=== PATIENT | female | born 1935 | race Caucasian/White ===

== ENCOUNTER → 2016-11-19 | Outpatient (CLI) | payer MEDICARE ==
[~2016-11-19] MED LIST: BABY81CH; FERR325T; FOLI1TAB; INDOCIN PO; METH2.5T; MOTR200T4; PERC5TAB8; SILVADENE TOPICAL; THERGRAN; ZEBE5TAB; ZITHROZPAK PO
[2016-11-19 06:37] LABS: BASO % 0.6 % (0.0-1.0); EOS # 0.3 K/mm3 (0.0-0.50); EOS % 4.3 % (0.0-3.0); LARGE UNSTAINED CELL # 0.1 K/mm3 (0.0-0.4); LARGE UNSTAINED CELL % 1.9 % (0.0-4.0); LYMPH # 1.6 K/mm3 (1.5-4.5); LYMPH % 22.3 % (24.0-44.0); MEAN CORPUSCULAR HEMOGLOBIN 28.4 pg (27.0-33.0); MEAN CORPUSCULAR VOLUME 88.6 fl (80.0-96.0); MONO # 0.4 K/mm3 (0.0-0.8); MONO % 5.9 % (0.0-5.0); NEUTROPHILS # 4.4 K/mm3 (1.8-7.7); PLATELET COUNT, AUTOMATED 294 k/mm3 (150-450); RED CELL DISTRIBUTION WIDTH 16.8 % (11.5-14.5); WHITE BLOOD COUNT 6.8 K/mm3 (4.0-10.0)
[2016-11-19 06:56] LABS: ALBUMIN 3.6 GM/DL (3.2-5.2); ALT/SGPT 28 U/L (12-78); GLOMERULAR FILTRATION RATE > 60.0 (>39)
== END ==
LOC: M LAB 06:04
PROVIDERS: ATTEND Internal Medicine Rheumatology
DX: M05.79 Rheumatoid arthritis with rheumatoid factor of multiple sites without organ or systems involvement (principal); Z79.899 Other long term (current) drug therapy

== ENCOUNTER → 2017-01-15 | Outpatient (CLI) | payer MEDICARE ==
[2017-01-15 06:56] LABS: BASO % 0.6 % (0.0-1.0); EOS # 0.4 K/mm3 (0.0-0.50); EOS % 4.9 % (0.0-3.0); LARGE UNSTAINED CELL # 0.1 K/mm3 (0.0-0.4); LYMPH # 1.4 K/mm3 (1.5-4.5); LYMPH % 17.8 % (24.0-44.0); MEAN CORPUSCULAR HEMOGLOBIN 28.5 pg (27.0-33.0); MEAN CORPUSCULAR HGB CONC 32.6 g/dl (32.0-36.5); MEAN CORPUSCULAR VOLUME 87.3 fl (80.0-96.0); MONO # 0.4 K/mm3 (0.0-0.8); MONO % 5.3 % (0.0-5.0); NEUTROPHILS % 69.5 % (36.0-66.0); PLATELET COUNT, AUTOMATED 288 k/mm3 (150-450); RED CELL DISTRIBUTION WIDTH 16.5 % (11.5-14.5); WHITE BLOOD COUNT 7.2 K/mm3 (4.0-10.0)
[2017-01-15 07:11] LABS: ALBUMIN 3.7 GM/DL (3.2-5.2); ALT/SGPT 29 U/L (12-78); CREATININE FOR GFR 0.71 MG/DL (0.55-1.02); GLOMERULAR FILTRATION RATE > 60.0 (>39)
== END ==
LOC: M LAB 06:12
PROVIDERS: ATTEND Internal Medicine Rheumatology
DX: M05.79 Rheumatoid arthritis with rheumatoid factor of multiple sites without organ or systems involvement (principal); E55.9 Vitamin D deficiency, unspecified; Z79.899 Other long term (current) drug therapy

== ENCOUNTER → 2017-03-12 | Outpatient (CLI) | payer MEDICARE ==
[2017-03-12 07:15] LABS: BASO % 0.6 % (0.0-1.0); EOS # 0.3 K/mm3 (0.0-0.50); LARGE UNSTAINED CELL # 0.1 K/mm3 (0.0-0.4); LARGE UNSTAINED CELL % 1.4 % (0.0-4.0); LYMPH # 1.5 K/mm3 (1.5-4.5); LYMPH % 18.1 % (24.0-44.0); MEAN CORPUSCULAR HEMOGLOBIN 28.1 pg (27.0-33.0); MEAN CORPUSCULAR HGB CONC 32.4 g/dl (32.0-36.5); MEAN CORPUSCULAR VOLUME 86.7 fl (80.0-96.0); MONO # 0.5 K/mm3 (0.0-0.8); MONO % 5.6 % (0.0-5.0); NEUTROPHILS # 5.6 K/mm3 (1.8-7.7); NEUTROPHILS % 70.2 % (36.0-66.0); PLATELET COUNT, AUTOMATED 305 k/mm3 (150-450); RED CELL DISTRIBUTION WIDTH 16.4 % (11.5-14.5); WHITE BLOOD COUNT 7.9 K/mm3 (4.0-10.0)
[2017-03-12 07:36] LABS: ALBUMIN 3.7 GM/DL (3.2-5.2); ALT/SGPT 28 U/L (12-78); CREATININE FOR GFR 0.78 MG/DL (0.55-1.02); GLOMERULAR FILTRATION RATE > 60.0 (>39)
== END ==
LOC: M LAB 06:15
PROVIDERS: ATTEND Internal Medicine Rheumatology
DX: E55.9 Vitamin D deficiency, unspecified (principal); M05.79 Rheumatoid arthritis with rheumatoid factor of multiple sites without organ or systems involvement; Z79.899 Other long term (current) drug therapy

== ENCOUNTER → 2017-05-26 | Outpatient (CLI) | payer MEDICARE ==
[2017-05-26 06:57] LABS: BASO # 0.1 K/mm3 (0.0-0.2); EOS # 0.3 K/mm3 (0.0-0.50); EOS % 3.7 % (0.0-3.0); LARGE UNSTAINED CELL # 0.2 K/mm3 (0.0-0.4); LARGE UNSTAINED CELL % 2.2 % (0.0-4.0); LYMPH # 1.4 K/mm3 (1.5-4.5); LYMPH % 20.1 % (24.0-44.0); MEAN CORPUSCULAR HEMOGLOBIN 28.1 pg (27.0-33.0); MEAN CORPUSCULAR HGB CONC 32.5 g/dl (32.0-36.5); MEAN CORPUSCULAR VOLUME 86.5 fl (80.0-96.0); MONO # 0.3 K/mm3 (0.0-0.8); MONO % 4.3 % (0.0-5.0); NEUTROPHILS # 4.9 K/mm3 (1.8-7.7); NEUTROPHILS % 68.7 % (36.0-66.0); PLATELET COUNT, AUTOMATED 308 k/mm3 (150-450); RED CELL DISTRIBUTION WIDTH 17.6 % (11.5-14.5); WHITE BLOOD COUNT 7.1 K/mm3 (4.0-10.0)
[2017-05-26 07:27] LABS: ALBUMIN 3.6 GM/DL (3.2-5.2); ALT/SGPT 25 U/L (12-78); CREATININE FOR GFR 0.74 MG/DL (0.55-1.02); GLOMERULAR FILTRATION RATE > 60.0 (>39)
== END ==
LOC: M LAB 06:06
PROVIDERS: ATTEND Internal Medicine Rheumatology
DX: M05.79 Rheumatoid arthritis with rheumatoid factor of multiple sites without organ or systems involvement (principal)

== ENCOUNTER → 2017-07-02 | Outpatient (CLI) | payer MEDICARE | LOC: M LAB 06:27 | PROVIDERS: ATTEND Family Medicine | DX: R73.01 Impaired fasting glucose (principal) ==

== ENCOUNTER → 2017-07-23 | Outpatient (CLI) | payer MEDICARE ==
[2017-07-23 06:43] LABS: BASO # 0.1 10^3/uL (0.0-0.2); BASO % 0.9 % (0.0-1.0); EOS # 0.3 10^3/uL (0.0-0.50); EOS % 3.9 % (0.0-3.0); IMMATURE GRANULOCYTE % 0.4 % (0-0); LYMPH # 1.5 10^3/uL (1.5-4.5); LYMPH % 19.3 % (24.0-44.0); MEAN CORPUSCULAR HEMOGLOBIN 27.6 pg (27.0-33.0); MEAN CORPUSCULAR HGB CONC 31.3 g/dl (32.0-36.5); MEAN CORPUSCULAR VOLUME 88.3 fl (80.0-96.0); MONO # 0.7 10^3/uL (0.0-0.8); MONO % 8.4 % (0.0-5.0); NEUTROPHILS # 5.3 10^3/uL (1.8-7.7); NEUTROPHILS % 67.1 % (36.0-66.0); PLATELET COUNT, AUTOMATED 284 10^3/uL (150-450); RED CELL DISTRIBUTION WIDTH 18.6 % (11.5-14.5); WHITE BLOOD COUNT 7.9 10^3/uL (4.0-10.0)
[2017-07-23 07:04] LABS: ALBUMIN 3.8 GM/DL (3.2-5.2); ALT/SGPT 24 U/L (12-78); CREATININE FOR GFR 0.69 MG/DL (0.55-1.02); GLOMERULAR FILTRATION RATE > 60.0 (>32)
== END ==
LOC: M LAB 06:16
PROVIDERS: ATTEND Internal Medicine Rheumatology
DX: M05.79 Rheumatoid arthritis with rheumatoid factor of multiple sites without organ or systems involvement (principal); Z79.899 Other long term (current) drug therapy

== ENCOUNTER → 2017-09-08 | Outpatient (CLI) | payer MEDICARE ==
[2017-09-08 06:56] LABS: BASO # 0.1 10^3/uL (0.0-0.2); BASO % 0.9 % (0.0-1.0); EOS # 0.3 10^3/uL (0.0-0.50); EOS % 3.8 % (0.0-3.0); IMMATURE GRANULOCYTE % 0.4 % (0-0); LYMPH # 1.6 10^3/uL (1.5-4.5); LYMPH % 20.7 % (24.0-44.0); MEAN CORPUSCULAR HEMOGLOBIN 27.8 pg (27.0-33.0); MEAN CORPUSCULAR HGB CONC 31.6 g/dl (32.0-36.5); MEAN CORPUSCULAR VOLUME 87.9 fl (80.0-96.0); MONO # 0.5 10^3/uL (0.0-0.8); MONO % 6.9 % (0.0-5.0); NEUTROPHILS # 5.1 10^3/uL (1.8-7.7); NEUTROPHILS % 67.3 % (36.0-66.0); PLATELET COUNT, AUTOMATED 326 10^3/uL (150-450); RED CELL DISTRIBUTION WIDTH 18.1 % (11.5-14.5); WHITE BLOOD COUNT 7.6 10^3/uL (4.0-10.0)
[2017-09-08 07:18] LABS: ALBUMIN 3.7 GM/DL (3.2-5.2); ALT/SGPT 30 U/L (12-78); CREATININE FOR GFR 0.67 MG/DL (0.55-1.02); GLOMERULAR FILTRATION RATE > 60.0 (>32)
== END ==
LOC: M LAB 06:11
PROVIDERS: ATTEND Internal Medicine Rheumatology
DX: Z51.81 Encounter for therapeutic drug level monitoring (principal); M05.79 Rheumatoid arthritis with rheumatoid factor of multiple sites without organ or systems involvement; Z79.899 Other long term (current) drug therapy

== ENCOUNTER → 2017-11-19 | Outpatient (CLI) | payer MEDICARE ==
[2017-11-19 06:52] LABS: BASO # 0.1 10^3/uL (0.0-0.2); EOS # 0.4 10^3/uL (0.0-0.50); EOS % 5.2 % (0.0-3.0); HEMATOCRIT 40.1 % (36.0-47.0); HEMOGLOBIN 12.4 g/dl (12.0-16.0); IMMATURE GRANULOCYTE % 0.4 % (0-3.0); LYMPH # 1.5 10^3/uL (1.5-4.5); LYMPH % 20.5 % (24.0-44.0); MEAN CORPUSCULAR HEMOGLOBIN 27.4 pg (27.0-33.0); MEAN CORPUSCULAR HGB CONC 30.9 g/dl (32.0-36.5); MEAN CORPUSCULAR VOLUME 88.7 fl (80.0-96.0); MONO # 0.7 10^3/uL (0.0-0.8); MONO % 10.2 % (0.0-5.0); NEUTROPHILS # 4.4 10^3/uL (1.8-7.7); NEUTROPHILS % 62.7 % (36.0-66.0); PLATELET COUNT, AUTOMATED 305 10^3/uL (150-450); RED BLOOD COUNT 4.52 10^6/uL (4.00-5.40); RED CELL DISTRIBUTION WIDTH 17.4 % (11.5-14.5); WHITE BLOOD COUNT 7.1 10^3/uL (4.0-10.0)
[2017-11-19 06:58] LABS: ALBUMIN 3.8 GM/DL (3.2-5.2); ALT/SGPT 26 U/L (12-78); CREATININE FOR GFR 0.74 MG/DL (0.55-1.30); GLOMERULAR FILTRATION RATE > 60.0 (>32)
== END ==
LOC: M LAB 06:30
DX: M05.79 Rheumatoid arthritis with rheumatoid factor of multiple sites without organ or systems involvement (principal)
CPT/HCPCS: 84460

== ENCOUNTER → 2018-01-20 | Outpatient (CLI) | payer MEDICARE ==
[2018-01-20 06:33] LABS: BASO # 0.1 10^3/uL (0.0-0.2); BASO % 0.6 % (0.0-1.0); EOS # 0.4 10^3/uL (0.0-0.50); EOS % 4.6 % (0.0-3.0); HEMATOCRIT 39.1 % (36.0-47.0); HEMOGLOBIN 12.3 g/dl (12.0-15.5); IMMATURE GRANULOCYTE % 0.5 % (0-3.0); LYMPH # 1.7 10^3/uL (1.5-4.5); LYMPH % 20.4 % (24.0-44.0); MEAN CORPUSCULAR HEMOGLOBIN 26.5 pg (27.0-33.0); MEAN CORPUSCULAR HGB CONC 31.5 g/dl (32.0-36.5); MEAN CORPUSCULAR VOLUME 84.3 fl (80.0-96.0); MONO # 0.6 10^3/uL (0.0-0.8); MONO % 7.8 % (0.0-5.0); NEUTROPHILS # 5.3 10^3/uL (1.8-7.7); NEUTROPHILS % 66.1 % (36.0-66.0); PLATELET COUNT, AUTOMATED 348 10^3/uL (150-450); RED BLOOD COUNT 4.64 10^6/uL (4.00-5.40); RED CELL DISTRIBUTION WIDTH 16.6 % (11.5-14.5); WHITE BLOOD COUNT 8.1 10^3/uL (4.0-10.0)
[2018-01-20 06:58] LABS: ALBUMIN 3.7 GM/DL (3.2-5.2); ALT/SGPT 25 U/L (12-78); CREATININE FOR GFR 0.76 MG/DL (0.55-1.30); GLOMERULAR FILTRATION RATE > 60.0 (>32)
== END ==
LOC: M LAB 06:04
DX: Z79.899 Other long term (current) drug therapy (principal); M05.79 Rheumatoid arthritis with rheumatoid factor of multiple sites without organ or systems involvement
CPT/HCPCS: 84460

== ENCOUNTER → 2018-04-06 | Outpatient (CLI) | payer MEDICARE ==
[2018-04-06 06:39] LABS: BASO # 0.1 10^3/uL (0.0-0.2); BASO % 0.9 % (0.0-1.0); EOS # 0.3 10^3/uL (0.0-0.50); EOS % 3.5 % (0.0-3.0); HEMATOCRIT 36.9 % (36.0-47.0); HEMOGLOBIN 11.5 g/dl (12.0-15.5); IMMATURE GRANULOCYTE % 0.2 % (0-3.0); LYMPH # 1.9 10^3/uL (1.5-4.5); LYMPH % 23.6 % (24.0-44.0); MEAN CORPUSCULAR HEMOGLOBIN 25.6 pg (27.0-33.0); MEAN CORPUSCULAR HGB CONC 31.2 g/dl (32.0-36.5); MONO # 0.5 10^3/uL (0.0-0.8); MONO % 6.3 % (0.0-5.0); NEUTROPHILS # 5.4 10^3/uL (1.8-7.7); NEUTROPHILS % 65.5 % (36.0-66.0); PLATELET COUNT, AUTOMATED 349 10^3/uL (150-450); RED CELL DISTRIBUTION WIDTH 18.8 % (11.5-14.5); WHITE BLOOD COUNT 8.2 10^3/uL (4.0-10.0)
[2018-04-06 07:01] LABS: ESTIMATED AVERAGE GLUCOSE 128 MG/DL (60-110); HEMOGLOBIN A1c 6.1 %
[2018-04-06 07:27] LABS: ALBUMIN 3.7 GM/DL (3.2-5.2); ALBUMIN/GLOBULIN RATIO 0.97 (1.00-1.93); ALKALINE PHOSPHATASE 78 U/L (45-117); ALT/SGPT 27 U/L (12-78); ANION GAP 10 MEQ/L (8-16); AST/SGOT 14 U/L (7-37); BILIRUBIN,TOTAL 0.3 MG/DL (0.2-1.0); BLOOD UREA NITROGEN 25 MG/DL (7-18); CALCIUM LEVEL 8.6 MG/DL (8.8-10.2); CARBON DIOXIDE LEVEL 27 MEQ/L (21-32); CHLORIDE LEVEL 106 MEQ/L (98-107); CREATININE FOR GFR 0.79 MG/DL (0.55-1.30); GLOMERULAR FILTRATION RATE > 60.0 (>32); GLUCOSE, FASTING 110 MG/DL (70-100); POTASSIUM SERUM 4.7 MEQ/L (3.5-5.1); SODIUM LEVEL 143 MEQ/L (136-145); TOTAL PROTEIN 7.5 GM/DL (6.4-8.2)
[2018-04-06 08:10] LABS: TOTAL 25(OH) VITAMIN D 19.2 NG/ML (30.0-100.0)
== END ==
LOC: M LAB 06:04
DX: E55.9 Vitamin D deficiency, unspecified (principal); R73.01 Impaired fasting glucose; E07.9 Disorder of thyroid, unspecified; I10 Essential (primary) hypertension
CPT/HCPCS: 84443

== ENCOUNTER → 2018-06-09 | Outpatient (CLI) | payer MEDICARE ==
[2018-06-09 06:56] LABS: BASO # 0.1 10^3/uL (0.0-0.2); BASO % 0.8 % (0.0-1.0); EOS # 0.3 10^3/uL (0.0-0.50); EOS % 3.8 % (0.0-3.0); HEMATOCRIT 39.2 % (36.0-47.0); HEMOGLOBIN 12.2 g/dl (12.0-15.5); IMMATURE GRANULOCYTE % 0.2 % (0-3.0); LYMPH # 1.8 10^3/uL (1.5-4.5); LYMPH % 21.6 % (24.0-44.0); MEAN CORPUSCULAR HEMOGLOBIN 26.1 pg (27.0-33.0); MEAN CORPUSCULAR HGB CONC 31.1 g/dl (32.0-36.5); MEAN CORPUSCULAR VOLUME 83.8 fl (80.0-96.0); MONO # 0.6 10^3/uL (0.0-0.8); NEUTROPHILS # 5.5 10^3/uL (1.8-7.7); NEUTROPHILS % 66.6 % (36.0-66.0); PLATELET COUNT, AUTOMATED 344 10^3/uL (150-450); RED BLOOD COUNT 4.68 10^6/uL (4.00-5.40); RED CELL DISTRIBUTION WIDTH 20.5 % (11.5-14.5); WHITE BLOOD COUNT 8.2 10^3/uL (4.0-10.0)
[2018-06-09 07:15] LABS: ALBUMIN 3.8 GM/DL (3.2-5.2); ALT/SGPT 23 U/L (12-78); CREATININE FOR GFR 0.77 MG/DL (0.55-1.30); GLOMERULAR FILTRATION RATE > 60.0 (>32)
== END ==
LOC: M LAB 06:15
DX: Z51.81 Encounter for therapeutic drug level monitoring (principal); Z79.899 Other long term (current) drug therapy; M05.79 Rheumatoid arthritis with rheumatoid factor of multiple sites without organ or systems involvement
CPT/HCPCS: 84460

== ENCOUNTER → 2018-08-06 | Outpatient (CLI) | payer MEDICARE ==
[2018-08-06 07:28] LABS: BASO # 0.1 10^3/uL (0.0-0.2); BASO % 0.9 % (0.0-1.0); EOS # 0.3 10^3/uL (0.0-0.50); EOS % 4.2 % (0.0-3.0); HEMATOCRIT 39.4 % (36.0-47.0); HEMOGLOBIN 12.2 g/dl (12.0-15.5); IMMATURE GRANULOCYTE % 0.2 % (0-3.0); LYMPH # 1.9 10^3/uL (1.5-4.5); LYMPH % 23.1 % (24.0-44.0); MEAN CORPUSCULAR HEMOGLOBIN 26.6 pg (27.0-33.0); MONO # 0.7 10^3/uL (0.0-0.8); MONO % 8.5 % (0.0-5.0); NEUTROPHILS # 5.1 10^3/uL (1.8-7.7); NEUTROPHILS % 63.1 % (36.0-66.0); PLATELET COUNT, AUTOMATED 338 10^3/uL (150-450); RED BLOOD COUNT 4.58 10^6/uL (4.00-5.40)
[2018-08-06 07:50] LABS: ESTIMATED AVERAGE GLUCOSE 126 MG/DL (60-110)
[2018-08-06 08:08] LABS: ALBUMIN 3.8 GM/DL (3.2-5.2); ALBUMIN/GLOBULIN RATIO 1.12 (1.00-1.93); ALKALINE PHOSPHATASE 75 U/L (45-117); ALT/SGPT 27 U/L (12-78); ANION GAP 8 MEQ/L (8-16); AST/SGOT 15 U/L (7-37); BILIRUBIN,TOTAL 0.2 MG/DL (0.2-1.0); BLOOD UREA NITROGEN 19 MG/DL (7-18); CALCIUM LEVEL 9.2 MG/DL (8.8-10.2); CARBON DIOXIDE LEVEL 28 MEQ/L (21-32); CHLORIDE LEVEL 105 MEQ/L (98-107); CREATININE FOR GFR 0.69 MG/DL (0.55-1.30); GLOMERULAR FILTRATION RATE > 60.0 (>32); GLUCOSE, FASTING 118 MG/DL (70-100); POTASSIUM SERUM 4.5 MEQ/L (3.5-5.1); SODIUM LEVEL 141 MEQ/L (136-145); TOTAL PROTEIN 7.2 GM/DL (6.4-8.2)
[2018-08-06 09:30] LABS: TOTAL 25(OH) VITAMIN D 19.8 NG/ML (30.0-100.0)
== END ==
LOC: M LAB 06:19
DX: R73.01 Impaired fasting glucose (principal); E55.9 Vitamin D deficiency, unspecified; E07.9 Disorder of thyroid, unspecified; I10 Essential (primary) hypertension; Z79.899 Other long term (current) drug therapy
CPT/HCPCS: 84443

== ENCOUNTER → 2018-12-10 | Outpatient (CLI) | payer MEDICARE ==
[2018-12-10 06:59] LABS: BASO # 0.1 10^3/uL (0.0-0.2); BASO % 0.9 % (0.0-1.0); EOS # 0.3 10^3/uL (0.0-0.50); HEMATOCRIT 41.1 % (36.0-47.0); HEMOGLOBIN 12.5 g/dl (12.0-15.5); LYMPH # 1.4 10^3/uL (1.5-4.5); MEAN CORPUSCULAR HGB CONC 30.4 g/dl (32.0-36.5); MEAN CORPUSCULAR VOLUME 85.6 fl (80.0-96.0); MONO # 0.6 10^3/uL (0.0-0.8); MONO % 7.4 % (0.0-5.0); NEUTROPHILS # 5.6 10^3/uL (1.8-7.7); NEUTROPHILS % 70.3 % (36.0-66.0); PLATELET COUNT, AUTOMATED 316 10^3/uL (150-450)
[2018-12-10 07:39] LABS: ALBUMIN 3.7 GM/DL (3.2-5.2); ALT/SGPT 27 U/L (12-78); BILIRUBIN,TOTAL 0.3 MG/DL (0.2-1.0); BLOOD UREA NITROGEN 17 MG/DL (7-18); CALCIUM LEVEL 8.4 MG/DL (8.8-10.2); CARBON DIOXIDE LEVEL 28 MEQ/L (21-32); CHLORIDE LEVEL 107 MEQ/L (98-107); CREATININE FOR GFR 0.73 MG/DL (0.55-1.30); GLOMERULAR FILTRATION RATE > 60.0 (>32); GLUCOSE, FASTING 111 MG/DL (70-100); POTASSIUM SERUM 4.4 MEQ/L (3.5-5.1); SODIUM LEVEL 143 MEQ/L (136-145); TOTAL PROTEIN 7.5 GM/DL (6.4-8.2)
[2018-12-10 10:07] LABS: HEMOGLOBIN A1c 6.1 %
[2018-12-10 10:08] LABS: TOTAL 25(OH) VITAMIN D 25.6 NG/ML (30.0-100.0)
== END ==
LOC: M LAB 06:34
PROVIDERS: ATTEND Family Medicine
DX: E55.9 Vitamin D deficiency, unspecified (principal); R73.01 Impaired fasting glucose; E07.9 Disorder of thyroid, unspecified; I10 Essential (primary) hypertension

== ENCOUNTER → 2019-02-15 | Outpatient (CLI) | payer MEDICARE ==
[2019-02-15 07:13] LABS: BASO # 0.1 10^3/uL (0.0-0.2); BASO % 0.8 % (0.0-1.0); EOS # 0.4 10^3/uL (0.0-0.50); EOS % 5.4 % (0.0-3.0); HEMATOCRIT 39.5 % (36.0-47.0); LYMPH # 1.4 10^3/uL (1.5-4.5); LYMPH % 18.4 % (24.0-44.0); MEAN CORPUSCULAR HEMOGLOBIN 26.1 pg (27.0-33.0); MEAN CORPUSCULAR HGB CONC 30.4 g/dl (32.0-36.5); MEAN CORPUSCULAR VOLUME 85.9 fl (80.0-96.0); MONO # 0.5 10^3/uL (0.0-0.8); MONO % 6.9 % (0.0-5.0); NEUTROPHILS # 5.1 10^3/uL (1.8-7.7); NEUTROPHILS % 68.2 % (36.0-66.0); PLATELET COUNT, AUTOMATED 326 10^3/uL (150-450); WHITE BLOOD COUNT 7.4 10^3/uL (4.0-10.0)
[2019-02-15 07:31] LABS: ALBUMIN 3.7 GM/DL (3.2-5.2); ALT/SGPT 30 U/L (12-78); BILIRUBIN,TOTAL 0.3 MG/DL (0.2-1.0); BLOOD UREA NITROGEN 19 MG/DL (7-18); CALCIUM LEVEL 8.9 MG/DL (8.8-10.2); CARBON DIOXIDE LEVEL 28 MEQ/L (21-32); CHLORIDE LEVEL 107 MEQ/L (98-107); CREATININE FOR GFR 0.66 MG/DL (0.55-1.30); GLOMERULAR FILTRATION RATE > 60.0 (>32); GLUCOSE, FASTING 109 MG/DL (70-100); POTASSIUM SERUM 4.4 MEQ/L (3.5-5.1); SODIUM LEVEL 142 MEQ/L (136-145)
[2019-02-15 09:20] LABS: TOTAL 25(OH) VITAMIN D 32.4 NG/ML (30.0-100.0)
[2019-02-15 12:52] LABS: HEMOGLOBIN A1c 6.3 %
== END ==
LOC: M LAB 06:11
PROVIDERS: ATTEND Family Medicine
DX: E55.9 Vitamin D deficiency, unspecified (principal); R73.01 Impaired fasting glucose; E07.9 Disorder of thyroid, unspecified; I10 Essential (primary) hypertension

== ENCOUNTER → 2019-04-05 | Outpatient (CLI) | payer MEDICARE ==
[2019-04-05 08:01] LABS: BASO # 0.1 10^3/uL (0.0-0.2); EOS # 0.4 10^3/uL (0.0-0.50); EOS % 6.4 % (0.0-3.0); HEMATOCRIT 41.2 % (36.0-47.0); HEMOGLOBIN 12.6 g/dl (12.0-15.5); LYMPH # 1.1 10^3/uL (1.5-4.5); LYMPH % 18.4 % (24.0-44.0); MEAN CORPUSCULAR HEMOGLOBIN 26.7 pg (27.0-33.0); MEAN CORPUSCULAR HGB CONC 30.6 g/dl (32.0-36.5); MEAN CORPUSCULAR VOLUME 87.3 fl (80.0-96.0); MONO # 0.6 10^3/uL (0.0-0.8); NEUTROPHILS # 3.9 10^3/uL (1.8-7.7); NEUTROPHILS % 63.9 % (36.0-66.0); PLATELET COUNT, AUTOMATED 320 10^3/uL (150-450); RED BLOOD COUNT 4.72 10^6/uL (4.00-5.40); WHITE BLOOD COUNT 6.1 10^3/uL (4.0-10.0)
[2019-04-05 08:20] LABS: HEMOGLOBIN A1c 6.3 %
[2019-04-05 08:54] LABS: ALBUMIN 3.6 GM/DL (3.2-5.2); ALT/SGPT 31 U/L (12-78); BILIRUBIN,TOTAL 0.3 MG/DL (0.2-1.0); BLOOD UREA NITROGEN 18 MG/DL (7-18); CARBON DIOXIDE LEVEL 24 MEQ/L (21-32); CHLORIDE LEVEL 107 MEQ/L (98-107); CREATININE FOR GFR 0.75 MG/DL (0.55-1.30); GLOMERULAR FILTRATION RATE > 60.0 (>32); GLUCOSE, FASTING 104 MG/DL (70-100); POTASSIUM SERUM 4.6 MEQ/L (3.5-5.1); SODIUM LEVEL 141 MEQ/L (136-145); TOTAL PROTEIN 7.3 GM/DL (6.4-8.2)
[2019-04-05 09:02] LABS: TOTAL 25(OH) VITAMIN D 37.2 NG/ML (30.0-100.0)
== END ==
LOC: M LAB 06:19
PROVIDERS: ATTEND Family Medicine
DX: E55.9 Vitamin D deficiency, unspecified (principal); R73.01 Impaired fasting glucose; I10 Essential (primary) hypertension; E07.9 Disorder of thyroid, unspecified

== ENCOUNTER → 2019-06-09 | Outpatient (CLI) | payer MEDICARE ==
[2019-06-09 07:02] LABS: BASO % 0.6 % (0.0-1.0); EOS # 0.3 10^3/uL (0.0-0.5); EOS % 4.8 % (0.0-3.0); HEMATOCRIT 38.3 % (36.0-47.0); LYMPH # 1.3 10^3/uL (1.5-5.0); LYMPH % 20.2 % (24.0-44.0); MEAN CORPUSCULAR HEMOGLOBIN 26.7 pg (27.0-33.0); MEAN CORPUSCULAR HGB CONC 31.3 g/dl (32.0-36.5); MEAN CORPUSCULAR VOLUME 85.3 fl (80.0-96.0); MONO # 0.7 10^3/uL (0.0-0.8); MONO % 10.6 % (0.0-5.0); NEUTROPHILS # 4.1 10^3/uL (1.5-8.5); NEUTROPHILS % 63.3 % (36.0-66.0); PLATELET COUNT, AUTOMATED 306 10^3/uL (150-450); RED BLOOD COUNT 4.49 10^6/uL (4.00-5.40); WHITE BLOOD COUNT 6.5 10^3/uL (4.0-10.0)
[2019-06-09 07:41] LABS: ALBUMIN 3.6 GM/DL (3.2-5.2); ALT/SGPT 28 U/L (12-78); BILIRUBIN,TOTAL 0.3 MG/DL (0.2-1.0); BLOOD UREA NITROGEN 23 MG/DL (7-18); CALCIUM LEVEL 9.1 MG/DL (8.8-10.2); CARBON DIOXIDE LEVEL 27 MEQ/L (21-32); CHLORIDE LEVEL 106 MEQ/L (98-107); CREATININE FOR GFR 0.76 MG/DL (0.55-1.30); GLOMERULAR FILTRATION RATE > 60.0 (>32); GLUCOSE, FASTING 110 MG/DL (70-100); POTASSIUM SERUM 4.5 MEQ/L (3.5-5.1); SODIUM LEVEL 143 MEQ/L (136-145)
[2019-06-09 08:14] LABS: TOTAL 25(OH) VITAMIN D 46.7 NG/ML (30.0-100.0)
== END ==
LOC: M LAB 06:16
PROVIDERS: ATTEND Family Medicine
DX: E55.9 Vitamin D deficiency, unspecified (principal); I10 Essential (primary) hypertension; E07.9 Disorder of thyroid, unspecified; R73.01 Impaired fasting glucose; Z79.899 Other long term (current) drug therapy

== ENCOUNTER → 2019-09-07 | Outpatient (CLI) | payer MEDICARE ==
[2019-09-07 06:59] LABS: BASO # 0.1 10^3/uL (0.0-0.2); BASO % 0.9 % (0.0-1.0); EOS # 0.3 10^3/uL (0.0-0.5); EOS % 3.4 % (0.0-3.0); HEMATOCRIT 41.8 % (36.0-47.0); HEMOGLOBIN 12.5 g/dl (12.0-15.5); LYMPH # 1.5 10^3/uL (1.5-5.0); LYMPH % 18.3 % (24.0-44.0); MEAN CORPUSCULAR HEMOGLOBIN 26.4 pg (27.0-33.0); MEAN CORPUSCULAR HGB CONC 29.9 g/dl (32.0-36.5); MEAN CORPUSCULAR VOLUME 88.2 fl (80.0-96.0); MONO # 0.5 10^3/uL (0.0-0.8); NEUTROPHILS # 5.8 10^3/uL (1.5-8.5); PLATELET COUNT, AUTOMATED 352 10^3/uL (150-450); RED BLOOD COUNT 4.74 10^6/uL (4.00-5.40); WHITE BLOOD COUNT 8.2 10^3/uL (4.0-10.0)
[2019-09-07 07:21] LABS: HEMOGLOBIN A1c 5.9 %
[2019-09-07 07:37] LABS: ALBUMIN 3.8 GM/DL (3.2-5.2); ALT/SGPT 31 U/L (12-78); BILIRUBIN,TOTAL 0.5 MG/DL (0.2-1.0); BLOOD UREA NITROGEN 23 MG/DL (7-18); CALCIUM LEVEL 9.2 MG/DL (8.8-10.2); CARBON DIOXIDE LEVEL 30 MEQ/L (21-32); CHLORIDE LEVEL 105 MEQ/L (98-107); CHOLESTEROL LEVEL 170 MG/DL (<200); CHOLESTEROL RISK RATIO 4.473 (<5); CREATININE FOR GFR 0.84 MG/DL (0.55-1.30); GLOMERULAR FILTRATION RATE > 60.0 (>32); GLUCOSE, FASTING 109 MG/DL (70-100); HDL CHOLESTEROL 38 MG/DL (>40); LDL CHOLESTEROL 103 MG/DL (<100); NON-HDL-C 132 MG/DL; POTASSIUM SERUM 4.6 MEQ/L (3.5-5.1); SODIUM LEVEL 141 MEQ/L (136-145); TOTAL PROTEIN 7.5 GM/DL (6.4-8.2); TRIGLYCERIDES LEVEL 144 MG/DL (<150)
[2019-09-07 10:06] LABS: TOTAL 25(OH) VITAMIN D 38.3 NG/ML (30.0-100.0)
== END ==
LOC: M LAB 06:17
PROVIDERS: ATTEND Family Medicine
DX: E55.9 Vitamin D deficiency, unspecified (principal); I10 Essential (primary) hypertension; R73.01 Impaired fasting glucose; E07.9 Disorder of thyroid, unspecified

== ENCOUNTER → 2019-11-16 | Outpatient (CLI) | payer MEDICARE ==
[2019-11-16 07:02] LABS: HEMATOCRIT 40.3 % (36.0-47.0); HEMOGLOBIN 11.9 g/dl (12.0-15.5); MEAN CORPUSCULAR HEMOGLOBIN 26.2 pg (27.0-33.0); MEAN CORPUSCULAR HGB CONC 29.5 g/dl (32.0-36.5); MEAN CORPUSCULAR VOLUME 88.6 fl (80.0-96.0); PLATELET COUNT, AUTOMATED 333 10^3/uL (150-450); RED BLOOD COUNT 4.55 10^6/uL (4.00-5.40); WHITE BLOOD COUNT 7.1 10^3/uL (4.0-10.0)
[2019-11-16 07:38] LABS: ALBUMIN 3.9 GM/DL (3.2-5.2); ALT/SGPT 30 U/L (12-78); BILIRUBIN,TOTAL 0.4 MG/DL (0.2-1.0); BLOOD UREA NITROGEN 22 MG/DL (7-18); CALCIUM LEVEL 9.1 MG/DL (8.8-10.2); CARBON DIOXIDE LEVEL 30 MEQ/L (21-32); CHLORIDE LEVEL 104 MEQ/L (98-107); CREATININE FOR GFR 0.74 MG/DL (0.55-1.30); GLOMERULAR FILTRATION RATE > 60.0 (>32); GLUCOSE, FASTING 121 MG/DL (70-100); POTASSIUM SERUM 4.6 MEQ/L (3.5-5.1); SODIUM LEVEL 140 MEQ/L (136-145); TOTAL PROTEIN 7.4 GM/DL (6.4-8.2)
== END ==
LOC: M LAB 06:11
PROVIDERS: ATTEND Family Medicine
DX: I10 Essential (primary) hypertension (principal)

== ENCOUNTER → 2020-02-08 | Outpatient (CLI) | payer MEDICARE ==
[2020-02-08 06:43] LABS: HEMATOCRIT 39.2 % (36.0-47.0); MEAN CORPUSCULAR HEMOGLOBIN 26.2 pg (27.0-33.0); MEAN CORPUSCULAR HGB CONC 30.6 g/dl (32.0-36.5); MEAN CORPUSCULAR VOLUME 85.6 fl (80.0-96.0); PLATELET COUNT, AUTOMATED 309 10^3/uL (150-450); RED BLOOD COUNT 4.58 10^6/uL (4.00-5.40); WHITE BLOOD COUNT 6.8 10^3/uL (4.0-10.0)
[2020-02-08 07:13] LABS: ALBUMIN 3.7 GM/DL (3.2-5.2); ALT/SGPT 28 U/L (12-78); BILIRUBIN,TOTAL 0.3 MG/DL (0.2-1.0); BLOOD UREA NITROGEN 19 MG/DL (7-18); CALCIUM LEVEL 8.6 MG/DL (8.8-10.2); CARBON DIOXIDE LEVEL 29 MEQ/L (21-32); CHLORIDE LEVEL 107 MEQ/L (98-107); CREATININE FOR GFR 0.65 MG/DL (0.55-1.30); GLOMERULAR FILTRATION RATE > 60.0 (>32); GLUCOSE, FASTING 118 MG/DL (70-100); POTASSIUM SERUM 4.4 MEQ/L (3.5-5.1); SODIUM LEVEL 141 MEQ/L (136-145); TOTAL PROTEIN 7.4 GM/DL (6.4-8.2)
== END ==
LOC: M LAB 06:06
PROVIDERS: ATTEND Family Medicine
DX: I10 Essential (primary) hypertension (principal)

== ENCOUNTER → 2020-03-28 | Outpatient (CLI) | payer MEDICARE ==
[2020-03-28 06:59] LABS: HEMATOCRIT 40.3 % (36.0-47.0); HEMOGLOBIN 12.8 g/dl (12.0-15.5); MEAN CORPUSCULAR HEMOGLOBIN 26.6 pg (27.0-33.0); MEAN CORPUSCULAR HGB CONC 31.8 g/dl (32.0-36.5); MEAN CORPUSCULAR VOLUME 83.6 fl (80.0-96.0); PLATELET COUNT, AUTOMATED 304 10^3/uL (150-450); RED BLOOD COUNT 4.82 10^6/uL (4.00-5.40); WHITE BLOOD COUNT 5.7 10^3/uL (4.0-10.0)
[2020-03-28 07:38] LABS: ALBUMIN 3.7 GM/DL (3.2-5.2); ALT/SGPT 29 U/L (12-78); BILIRUBIN,TOTAL 0.4 MG/DL (0.2-1.0); BLOOD UREA NITROGEN 17 MG/DL (7-18); CALCIUM LEVEL 8.9 MG/DL (8.8-10.2); CARBON DIOXIDE LEVEL 28 MEQ/L (21-32); CHLORIDE LEVEL 106 MEQ/L (98-107); CREATININE FOR GFR 0.65 MG/DL (0.55-1.30); GLOMERULAR FILTRATION RATE > 60.0 (>32); GLUCOSE, FASTING 110 MG/DL (70-100); POTASSIUM SERUM 4.4 MEQ/L (3.5-5.1); SODIUM LEVEL 139 MEQ/L (136-145); TOTAL PROTEIN 7.3 GM/DL (6.4-8.2)
== END ==
LOC: M LAB 06:04
PROVIDERS: ATTEND Family Medicine
DX: I10 Essential (primary) hypertension (principal)

== ENCOUNTER → 2020-06-19 | Outpatient (CLI) | payer MEDICARE ==
[2020-06-19 06:59] LABS: HEMOGLOBIN 12.8 g/dl (12.0-15.5); MEAN CORPUSCULAR HEMOGLOBIN 26.8 pg (27.0-33.0); MEAN CORPUSCULAR HGB CONC 31.2 g/dl (32.0-36.5); MEAN CORPUSCULAR VOLUME 85.8 fl (80.0-96.0); PLATELET COUNT, AUTOMATED 342 10^3/uL (150-450); RED BLOOD COUNT 4.78 10^6/uL (4.00-5.40); WHITE BLOOD COUNT 7.3 10^3/uL (4.0-10.0)
[2020-06-19 07:28] LABS: ALBUMIN 3.8 GM/DL (3.2-5.2); ALT/SGPT 27 U/L (12-78); BILIRUBIN,TOTAL 0.4 MG/DL (0.2-1.0); BLOOD UREA NITROGEN 16 MG/DL (7-18); CALCIUM LEVEL 9.4 MG/DL (8.8-10.2); CARBON DIOXIDE LEVEL 28 MEQ/L (21-32); CHLORIDE LEVEL 106 MEQ/L (98-107); CREATININE FOR GFR 0.75 MG/DL (0.55-1.30); GLOMERULAR FILTRATION RATE > 60.0 (>32); GLUCOSE, FASTING 111 MG/DL (70-100); POTASSIUM SERUM 4.5 MEQ/L (3.5-5.1); SODIUM LEVEL 140 MEQ/L (136-145); TOTAL PROTEIN 7.4 GM/DL (6.4-8.2)
== END ==
LOC: M LAB 06:09
PROVIDERS: ATTEND Family Medicine
DX: I10 Essential (primary) hypertension (principal)

== ENCOUNTER → 2020-09-26 | Outpatient (CLI) | payer MEDICARE ==
[2020-09-26 06:37] LABS: HEMATOCRIT 41.8 % (36.0-47.0); HEMOGLOBIN 12.6 g/dl (12.0-15.5); MEAN CORPUSCULAR HEMOGLOBIN 26.5 pg (27.0-33.0); MEAN CORPUSCULAR HGB CONC 30.1 g/dl (32.0-36.5); PLATELET COUNT, AUTOMATED 298 10^3/uL (150-450); RED BLOOD COUNT 4.75 10^6/uL (4.00-5.40); WHITE BLOOD COUNT 7.2 10^3/uL (4.0-10.0)
[2020-09-26 07:03] LABS: HEMOGLOBIN A1c 5.7 %
[2020-09-26 07:12] LABS: ALBUMIN 3.7 GM/DL (3.2-5.2); ALT/SGPT 28 U/L (12-78); BILIRUBIN,TOTAL 0.4 MG/DL (0.2-1.0); BLOOD UREA NITROGEN 18 MG/DL (7-18); CALCIUM LEVEL 9.3 MG/DL (8.8-10.2); CARBON DIOXIDE LEVEL 31 MEQ/L (21-32); CHLORIDE LEVEL 107 MEQ/L (98-107); CHOLESTEROL LEVEL 175 MG/DL (<200); CHOLESTEROL RISK RATIO 4.268 (<5); CREATININE FOR GFR 0.87 MG/DL (0.55-1.30); GLOMERULAR FILTRATION RATE > 60.0 (>32); GLUCOSE, FASTING 109 MG/DL (70-100); HDL CHOLESTEROL 41 MG/DL (>40); LDL CHOLESTEROL 103 MG/DL (<100); NON-HDL-C 134 MG/DL; POTASSIUM SERUM 4.6 MEQ/L (3.5-5.1); SODIUM LEVEL 141 MEQ/L (136-145); TOTAL PROTEIN 7.5 GM/DL (6.4-8.2); TRIGLYCERIDES LEVEL 153 MG/DL (<150)
[2020-09-27 09:18] LABS: TOTAL 25(OH) VITAMIN D 45.1 NG/ML (30.0-100.0)
== END ==
LOC: M LAB 06:05
PROVIDERS: ATTEND Family Medicine
DX: E55.9 Vitamin D deficiency, unspecified (principal); I10 Essential (primary) hypertension; E07.9 Disorder of thyroid, unspecified; R73.01 Impaired fasting glucose; Z79.899 Other long term (current) drug therapy

== ENCOUNTER → 2020-12-20 | Outpatient (CLI) | payer MEDICARE ==
[2020-12-20 07:03] LABS: HEMATOCRIT 43.5 % (36.0-47.0); HEMOGLOBIN 13.4 g/dl (12.0-15.5); MEAN CORPUSCULAR HEMOGLOBIN 27.3 pg (27.0-33.0); MEAN CORPUSCULAR HGB CONC 30.8 g/dl (32.0-36.5); MEAN CORPUSCULAR VOLUME 88.8 fl (80.0-96.0); PLATELET COUNT, AUTOMATED 321 10^3/uL (150-450); WHITE BLOOD COUNT 6.9 10^3/uL (4.0-10.0)
[2020-12-20 07:24] LABS: ALBUMIN 3.9 GM/DL (3.2-5.2); ALT/SGPT 34 U/L (12-78); BILIRUBIN,TOTAL 0.3 MG/DL (0.2-1.0); BLOOD UREA NITROGEN 25 MG/DL (7-18); CALCIUM LEVEL 9.3 MG/DL (8.8-10.2); CARBON DIOXIDE LEVEL 30 MEQ/L (21-32); CHLORIDE LEVEL 105 MEQ/L (98-107); CREATININE FOR GFR 0.74 MG/DL (0.55-1.30); GLOMERULAR FILTRATION RATE > 60.0 (>32); GLUCOSE, FASTING 113 MG/DL (70-100); POTASSIUM SERUM 4.8 MEQ/L (3.5-5.1); SODIUM LEVEL 140 MEQ/L (136-145); TOTAL PROTEIN 7.9 GM/DL (6.4-8.2)
== END ==
LOC: M LAB 06:29
PROVIDERS: ATTEND Family Medicine
DX: Z79.899 Other long term (current) drug therapy (principal)

== ENCOUNTER 2021-03-25 12:08 | Inpatient (IN) | payer MEDICARE ==
[~2021-03-25] VITALS: Ht 167.6 cm; Wt 94.6 kg
[2021-03-25] MEDS ORDERED: FUROSEMIDE 40MG/4ML VIAL (J1940) IV ONE (12:30)
[2021-03-25] MEDS: METOPROLOL 5 MG/5 ML VIAL IV SCH ×3 (12:37→12:55)
--- NOTE | 2021-03-25 12:43 | REP ---
INDICATION: CHEST PAIN. COMPARISON: Comparison chest x-ray June 24, 2010. TECHNIQUE: Portable upright AP chest radiograph. FINDINGS: Today's views exposed at a lesser level of inspiration. This results in crowding of the bronchovascular markings. No pleural angle blunting is seen. No focal infiltrate is observed. Pulmonary vasculature is cephalized on this upright radiograph.. No acute bony abnormality. There are advanced arthropathy changes at the right shoulder. Monitoring electrodes are visible. IMPRESSION: Low level of inspiration. Vascular cephalization. No pleural effusion or christie pulmonary edema seen.. <Electronically signed by Lior Lai > 03/25/21 [id number]
[2021-03-25 12:45] LABS: BASO # 0.1 10^3/uL (0.0-0.2); BASO % 0.8 % (0.0-1.0); EOS # 0.1 10^3/uL (0.0-0.5); EOS % 0.6 % (0.0-3.0); HEMOGLOBIN 11.5 g/dl (12.0-15.5); LYMPH # 1.1 10^3/uL (1.5-5.0); LYMPH % 10.6 % (24.0-44.0); MEAN CORPUSCULAR HEMOGLOBIN 25.4 pg (27.0-33.0); MEAN CORPUSCULAR HGB CONC 30.3 g/dl (32.0-36.5); MEAN CORPUSCULAR VOLUME 83.9 fl (80.0-96.0); MONO # 0.6 10^3/uL (0.0-0.8); MONO % 6.2 % (2.0-8.0); NEUTROPHILS # 8.1 10^3/uL (1.5-8.5); NEUTROPHILS % 81.4 % (36.0-66.0); PLATELET COUNT, AUTOMATED 382 10^3/uL (150-450); RED BLOOD COUNT 4.53 10^6/uL (4.00-5.40)
[2021-03-25] MEDS ORDERED: HYDR12.55 PO (12:51)
[2021-03-25] MEDS ORDERED: CENT1TAB PO (12:51)
[2021-03-25] MEDS ORDERED: METH2.5T48 PO (12:51)
[2021-03-25] MEDS ORDERED: NAPR220C14 PO (12:51)
[2021-03-25] MEDS ORDERED: D 202000 PO (12:51)
[2021-03-25 13:00] LABS: INR 1.35; PARTIAL THROMBOPLASTIN TIME 28.5 SECONDS (24.2-38.5)
[2021-03-25 13:12] LABS: CALCIUM LEVEL 8.8 MG/DL (8.8-10.2); CREATININE FOR GFR 1.03 MG/DL (0.55-1.30); GLOMERULAR FILTRATION RATE 54.5 (>32)
[2021-03-25] MEDS ORDERED: NS 1,000 ML IV ONE (13:35)
[2021-03-25 14:05] LABS: MAGNESIUM LEVEL 2.2 MG/DL (1.8-2.4)
[2021-03-25] MEDS ORDERED: NS 500 ML IV ONE (14:15)
[2021-03-25] MEDS ORDERED: DIGOXIN INJ 0.5 MG/2 ML AMP (J1160) IV STA (15:01)
[2021-03-25 15:19] LABS: ALBUMIN 3.5 GM/DL (3.2-5.2); BILIRUBIN,DIRECT 0.4 MG/DL (0.0-0.2); BILIRUBIN,TOTAL 0.9 MG/DL (0.2-1.0); TOTAL PROTEIN 6.7 GM/DL (6.4-8.2)
--- NOTE | 2021-03-25 15:45 | ECGEPIP ---
[facility] - ED Test Date: 2021-03-25 Pat Name: LUCAS WALKER Department: Room: - Gender: Female Medical Appointment Scheduler: ZAHIDA : 1935 Requested By: Keira Foster Order Number: [id number] Reading MD: Cristofer Suggs Measurements Intervals [place] Rate: 148 P: MS: QRS: 15 QRSD: 76 T: 162 QT: 284 QTc: 445 Interpretive Statements Atrial fibrillation with rapid ventricular response Anterior infarct , age undetermined ST & T wave abnormality, consider lateral ischemia Comparison tracing not on file Electronically Signed on 03-25-2021 15:45:47 EDT by Cristofer Suggs
[2021-03-25] MEDS ORDERED: ACETAMINOPHEN TAB 650MG DOSE (2X325MG) PO PRN (16:00)
[2021-03-25] MEDS ORDERED: MOM 30ML SUSPENSION UDC PO PRN (16:00)
[2021-03-25] MEDS ORDERED: APIXABAN 5 MG TAB (ELIQUIS) PO ONE (16:00)
[2021-03-25] MEDS ORDERED: FOLI1TAB11 PO (16:14)
[2021-03-25] MEDS ORDERED: ASPI81TA26 PO (16:14)
[2021-03-25 16:44] LABS: RSV AMPLIFICATION NEGATIVE (NEGATIVE)
--- NOTE | 2021-03-25 17:19 | HPEPDOC ---
[facility] Medical History & Physical Date of Admission Mar 25, 2021 Date of Service: Mar 25, 2021 History and Physical Chief complaint: Presented to the hospital with complaints of 10 days of shortness of breath History of present illness: Patient is an 85-year-old female who presented to the hospital a 10 day history of shortness of breath and reported fluid retention. Patient reports that 10 days ago she went on a car ride to [place], which was [address] Upon return over the next 10 days. Patient was experiencing shortness of breath with exertion. She denies any chest pain or palpitations. Denies any cough. Has not experience any nausea, vomiting, pain, constipation, diarrhea, or urinary discomfort. In fact, she reports a decrease in her urination. Patient denies any recent fevers or chills. Patient reports her appetite is fairly normal and has reported a likely weight gain of 15 pounds. Patient reports that she has been compliant with her medications. Past Medical History: HTN Hx of CVA with RUE weakness Rheumatoid arthritis (Methotrexate + Folic acid) Breast CA s/p mastectomy and chemotherapy (2010) Vitamin D deficiency Past Surgical History: Bilateral mastectomy Hysterectomy secondary to endometriosis Bilateral ankle fractures Allergies: See below Medications: See below Family History: - Mother with a history of congestive heart failure. Father with a history of emphysema Social History: - Denies the use of illicit drugs; patient seldom drinks alcohol and smoking in 1977 - Denies recent travel or sick contacts; other than her recent travel to [place] - Lives alone - Occupation; patient reports that she worked in [employer] Review of Systems: 10 point review of systems complete, all negative otherwise stated in HPI Physical exam: - Vitals: BP [110/75], HR [129], RR [18], Sat [96%RA], Temp [98.0F] - General: Lying in bed, Speaking in full sentences, AAOx3 - HEENT: NC, AT, PERRLA, EOMI - CVS: IrIr, +S1S2 - Lungs: Fair air entry bilaterally, Clear to auscultation, No appreciable wheezing / rales / rhonchi - Abdomen: Soft, Non-distended, Non-tender - Extremities: 1+ pitting edema bilaterally, No calf tenderness - Neuro: No focal motor or sensory deficit - Skin: No visible rashes Labs: See below Imaging: CXR 6/21: Low level of inspiration. Vascular cephalization. No pleural effusion or christie pulmonary edema seen. EKG: See below Assessment and Plan: Atrial fibrillation with RVR - Patient presented to ER with shortness of breath 10 days - Upon arrival, patient was hemodynamically stable with a heart rate of 140 - Patient received furosemide and metoprolol in the ER and became hypotensive; was subsequently given fluids - EKG reviewed - Troponin x1 set negative; will continue to trend - Will start telemetry in ICU / ECHO / Troponin trend - Cardiology was consulted and case discussed; will continue with digoxin loading 250 mcg [id number] x 4 doses - Will start Eliquis after discussion with Cardiology LE edema - likely 2/2 decompensated CHF (unclear type) - possibly 2/2 tachyarrhythmia - Patient has reported shortness of breath with exertion over the last 10 days with a weight gain - Physical reveals lower extremity edema, no crackles on auscultation - Elevated BNP; however possibly 2/2 atrial fibrillation - Imaging noted above - Will hold diuresis for 24 hours given hypotension; however will likely have to start diuresis tomorrow HTN - Had developed hypotension in the ER - Will hold HCTZ for now Elevated fasting glucose - Will check A1c Elevated BUN - Cr is elevated compared to prior - Patient clinically appears volume overloaded; however will hold diuretics given hypotension Hx of CVA with RUE weakness - c/w ASA 81 Rheumatoid arthritis - Will hold Methotrexate - c/w Folic acid Breast CA - s/p mastectomy and chemotherapy (2010) Vitamin D deficiency - Will resume Vitamin D supplementation on discharge DVT prophylaxis - Will start Eliquis Vital Signs Vital Signs Date Time Temp Pulse Resp B/P (MAP) Pulse Ox O2 Delivery O2 Flow Rate FiO2 03/25/21 15:45 129 18 110/75 (87) 03/25/21 15:30 96 Room Air 03/25/21 12:57 98.0 Laboratory Data Labs 24H Laboratory Tests 2 03/25/21 12:35: Immature Granulocyte % (Auto) 0.4, Neutrophils (%) (Auto) 81.4H, Lymphocytes (%) (Auto) 10.6L, Monocytes (%) (Auto) 6.2, Eosinophils (%) (Auto) 0.6, Basophils (%) (Auto) 0.8, Neutrophils # (Auto) 8.1, Lymphocytes # (Auto) 1.1L, Monocytes # (Auto) 0.6, Eosinophils # (Auto) 0.1, Basophils # (Auto) 0.1, Nucleated Red Blood Cells % (auto) 0.0, Prothrombin Time 17.0H, Prothromb Time International Ratio 1.35, Activated Partial Thromboplast Time 28.5, Anion Gap 9, Glomerular Filtration Rate 54.5, Calcium Level 8.8, Magnesium Level 2.2, Total Bilirubin 0.9, Direct Bilirubin 0.4H, Aspartate Amino Transf (AST/SGOT) 18, Alanine Aminotransferase (ALT/SGPT) 26, Alkaline Phosphatase 73, FW-Dds-T-Type Natriuretic Peptide 2632H, Total Protein 6.7, Albumin 3.5, Albumin/Globulin Ratio 1.1L 03/25/21 12:36: POC Troponin I (Misc) 0.03 03/25/21 15:57: Coronavirus (COVID-19)(PCR) NEGATIVE, Influenza Type A (RT-PCR) NEGATIVE, Influenza Type B (RT-PCR) NEGATIVE, Respiratory Syncytial Virus (PCR) NEGATIVE CBC/BMP Laboratory Tests 03/25/21 12:35 Home Medications Scheduled Aspirin (Aspirin EC) 81 Mg Tablet.dr, 81 MG PO DAILY Cholecalciferol (Vitamin D3) (Vitamin D3) 50 Mcg Tablet, 50 MCG PO DAILY Folic Acid (Folic Acid) 1 Mg Tablet, 1 MG PO DAILY Hydrochlorothiazide (Hydrochlorothiazide) 12.5 Mg Tablet, 12.5 MG PO DAILY Methotrexate Sodium (Methotrexate) 2.5 Mg Tablet, 15 MG PO 1XWK THURSDAYS Multivit-Min/FA/Lycopen/Lutein (Centrum Silver Tablet) 1 Each Tablet, 1 TAB PO DAILY Scheduled PRN Naproxen Sodium (Aleve) 220 Mg Capsule, 220 MG PO BID PRN for PAIN LEVEL 1-4 Allergies Coded Allergies: TAPE (Verified Allergy, Unknown, 11/08/07) egg (Verified Allergy, Unknown, 03/25/21) shellfish derived (Verified Allergy, Unknown, 03/25/21) LIVE CHAVES MD Mar 25, 2021 17:19
[2021-03-25 17:51] LABS: CK-MB VALUE MASS 2.3 NG/ML (<3.6); MB/CK RELATIVE INDEX 7.19 (< OR =4); TROPONIN I 0.03 NG/ML (< 0.10)
[2021-03-25 19:00] VITALS: BP 115/82
[2021-03-25 19:00] LABS: FREE T4 1.35 NG/DL (0.76-1.46); THYROID STIMULATING HORMONE 2.07 uIU/ML (0.358-3.740)
[2021-03-25 19:02] LABS: TOTAL T3 75.4 NG/DL (60.0-181.0)
[2021-03-25 19:54] LABS: HEMOGLOBIN A1c 6.4 %
[2021-03-25] MEDS: DIGOXIN INJ 0.5 MG/2 ML AMP (J1160) IV SCH (20:17)
[2021-03-25] MEDS: DOCUSATE SODIUM 100MG CAPSULE PO SCH (20:20)
[2021-03-25] MEDS: MULTIVITAMINS/MINERALS THERAP 1 TAB PO SCH (20:20)
[2021-03-25] MEDS: FOLIC ACID 1 MG TAB PO SCH (20:20)
[2021-03-25] MEDS: ASPIRIN 81MG ENTERIC TABLET PO SCH (20:20)
[2021-03-25 21:00] VITALS: BP 120/58
[2021-03-25 22:00] VITALS: BP 104/59
[2021-03-25 23:00] VITALS: BP 112/74
[2021-03-26] VITALS (16 sets, daily range): BP systolic 107–135; BP diastolic 58–97
[2021-03-26] MEDS: DIGOXIN INJ 0.5 MG/2 ML AMP (J1160) IV SCH ×2 (02:05→09:21)
[2021-03-26 04:21] LABS: BASO # 0.1 10^3/uL (0.0-0.2); BASO % 0.8 % (0.0-1.0); EOS # 0.2 10^3/uL (0.0-0.5); EOS % 2.1 % (0.0-3.0); HEMATOCRIT 36.5 % (36.0-47.0); HEMOGLOBIN 11.2 g/dl (12.0-15.5); LYMPH # 1.3 10^3/uL (1.5-5.0); LYMPH % 13.3 % (24.0-44.0); MEAN CORPUSCULAR HEMOGLOBIN 25.5 pg (27.0-33.0); MEAN CORPUSCULAR HGB CONC 30.7 g/dl (32.0-36.5); MEAN CORPUSCULAR VOLUME 83.1 fl (80.0-96.0); MONO # 0.9 10^3/uL (0.0-0.8); MONO % 9.3 % (2.0-8.0); NEUTROPHILS # 7.1 10^3/uL (1.5-8.5); NEUTROPHILS % 74.2 % (36.0-66.0); PLATELET COUNT, AUTOMATED 332 10^3/uL (150-450); RED BLOOD COUNT 4.39 10^6/uL (4.00-5.40); WHITE BLOOD COUNT 9.6 10^3/uL (4.0-10.0)
[2021-03-26 04:54] LABS: CALCIUM LEVEL 8.4 MG/DL (8.8-10.2); CK-MB VALUE MASS 2.4 NG/ML (<3.6); CREATININE FOR GFR 0.97 MG/DL (0.55-1.30); GLOMERULAR FILTRATION RATE 58.4 (>32); MAGNESIUM LEVEL 2.1 MG/DL (1.8-2.4); MB/CK RELATIVE INDEX 7.5 (< OR =4); POTASSIUM SERUM 4.1 MEQ/L (3.5-5.1); TROPONIN I 0.04 NG/ML (< 0.10)
[2021-03-26] MEDS: DOCUSATE SODIUM 100MG CAPSULE PO SCH ×2 (09:00→20:27)
[2021-03-26] MEDS ORDERED: METOPROLOL TART 25 MG TABLET PO SCH (09:00)
[2021-03-26] MEDS: FOLIC ACID 1 MG TAB PO SCH (09:22)
[2021-03-26] MEDS: METOPROLOL TART 25 MG TABLET PO SCH ×4 (09:22→23:48)
[2021-03-26] MEDS: APIXABAN 5 MG TAB (ELIQUIS) PO SCH ×2 (09:22→20:27)
[2021-03-26] MEDS: ASPIRIN 81MG ENTERIC TABLET PO SCH (09:22)
[2021-03-26] MEDS: MULTIVITAMINS/MINERALS THERAP 1 TAB PO SCH (09:22)
[2021-03-26] MEDS ORDERED: FUROSEMIDE 40MG/4ML VIAL (J1940) IV ONE (10:00)
--- NOTE | 2021-03-26 10:45 | IPN ---
PROGRESS NOTE DATE: 03/26/2021 SUBJECTIVE: Cammy seen in the ICU, admitted to the hospitalist service with atrial fibrillation with rapid ventricular response; this is a new onset/new problem for her. She had some hypotension in the Emergency Room. After Furosemide and Metoprolol, her blood pressures have recovered. Cardiology has been consulted. She has been loaded with some Digoxin and started on Eliquis for thromboembolic prophylaxis. She denies any chest pain or shortness of breath, syncope or palpitations. PHYSICAL EXAMINATION: VITALS: Blood pressure 135/75, pulse 120-140, respiratory rate 18, 98% saturation, afebrile. GENERAL: Alert, conversant, in no distress HEENT: No JVD. HEART: Regular rate and rhythm, 120-140, tachycardic. LUNGS: Decreased breath sounds, but clear. ABDOMEN: Soft, nontender. No masses. EXTREMITIES: Trace peripheral edema. LABORATORY DATA: White count 9.6, hemoglobin 11.2, platelets 332,000. Sodium 141, potassium 4.1, BUN 36, creatinine 0.9, glucose 95. Hemoglobin A1C only 6.4%. Troponins are essentially flat. IMPRESSION: 1. Atrial fibrillation with rapid ventricular response: She is on Metoprolol, has been loaded with a digoxin and is on Eliquis. Heart rate remains elevated. Defer to cardiology about decision about Amiodarone, etc. Cardiology was consulted. 2. Congestive heart failure: Preserved ejection fraction. Blood pressure seems to have recovered. We are going to give her some intravenous Furosemide x1 dose. Watch her blood pressure closely on this, probably order this daily for now until we are sure how her pressure is going to respond to it. Echocardiogram has been ordered, but I do not see a report back on that yet. NICHOL[facility] NOYES MEMORIAL HOSPITALShimon
--- NOTE | 2021-03-26 16:05 | ECHO ---
ECHOCARDIOGRAM DATE OF PROCEDURE: 03/25/2021 Age: Gender: Height: Weight: REFERRING PROVIDER: Dr. Liliane Wolfe. PATIENT LOCATION: Room (cut out). REASON FOR THE TESTING: (cut out). 2D MEASUREMENTS: IVS 1.2 cm LV 4.2 cm LVPW 1.3 cm LA 4.7 cm Aorta 2.8 cm Aortic root 2.8 cm Ascending aorta 3.4 cm IVC 2.5 cm DOPPLER MEASUREMENT Peak velocity across the aortic valve 2.9 m/s Peak velocity across the LVOT 0.88 m/s Peak gradient across the aortic valve 34 mmHg Mean gradient across the aortic valve 21 mmHg Maximum tricuspid valve velocity 3.0 m/s 2D COMMENTS: 1. Normal left ventricular size with mildly increased left ventricular wall thickness but a mildly to moderately depressed global left ventricular systolic function. There seems to be global hypokinesis with estimated LVEF of 40 to 45%. 2. Mild dilated left atrium. The right atrium also appeared to be mildly enlarged. The right ventricle seemed to be normal in size. 3. Normal aortic root and ascending aorta. 4. The atrial septum appeared to be normal without evidence of defect or shunt. 5. A small pericardial effusion was noted, no evidence of cardiac tamponade. 6. Moderately calcified aortic valve with decreased leaflet excursion. Mildly calcified mitral annulus with normal appearing mitral valve leaflet motion. Normal tricuspid valve and pulmonic valve. The proximal pulmonary artery branches were not well visualized. 7. The inferior vena cava was dilated, central venous pressure is most likely elevated. DOPPLER: It detects trace aortic regurgitation, mild mitral regurgitation, and moderate tricuspid regurgitation as well as mild pulmonic regurgitation. The calculated pulmonary artery systolic pressure varies between 40 to (cut out). Assessment of the left ventricular diastolic function was limited. IMPRESSION: 1. Mild to moderate global left ventricular systolic function with global hypokinesis but preserved left ventricular wall thickness. Assessment of the left ventricular diastolic function was limited. 2. Aortic valve sclerosis with trace aortic regurgitation and moderate to severe aortic stenosis. Could not rule out more severe aortic stenosis in view of the depressed LVEF. 3. Mitral annulus calcification with a mildly enlarged left atrium and mild mitral regurgitation. 4. Moderate tricuspid regurgitation with moderate pulmonary hypertension and a mildly enlarged right atrium. 5. A small pericardiac effusion was noted, no evidence of cardiac tamponade.
[2021-03-27] VITALS (7 sets, daily range): BP systolic 102–117; BP diastolic 56–78
[2021-03-27 04:52] LABS: BASO # 0.1 10^3/uL (0.0-0.2); BASO % 0.9 % (0.0-1.0); EOS # 0.3 10^3/uL (0.0-0.5); EOS % 2.9 % (0.0-3.0); HEMATOCRIT 38.2 % (36.0-47.0); HEMOGLOBIN 11.4 g/dl (12.0-15.5); LYMPH # 1.3 10^3/uL (1.5-5.0); LYMPH % 13.3 % (24.0-44.0); MEAN CORPUSCULAR HEMOGLOBIN 25.3 pg (27.0-33.0); MEAN CORPUSCULAR HGB CONC 29.8 g/dl (32.0-36.5); MEAN CORPUSCULAR VOLUME 84.7 fl (80.0-96.0); MONO # 0.8 10^3/uL (0.0-0.8); MONO % 8.6 % (2.0-8.0); PLATELET COUNT, AUTOMATED 349 10^3/uL (150-450); RED BLOOD COUNT 4.51 10^6/uL (4.00-5.40); WHITE BLOOD COUNT 9.5 10^3/uL (4.0-10.0)
[2021-03-27 05:24] LABS: BLOOD UREA NITROGEN 32 MG/DL (7-18); CALCIUM LEVEL 8.5 MG/DL (8.8-10.2); CARBON DIOXIDE LEVEL 32 MEQ/L (21-32); CHLORIDE LEVEL 106 MEQ/L (98-107); CREATININE FOR GFR 0.92 MG/DL (0.55-1.30); DIGOXIN LEVEL 1.4 NG/ML (0.5-2.0); GLOMERULAR FILTRATION RATE > 60.0 (>32); GLUCOSE, FASTING 94 MG/DL (70-100); SODIUM LEVEL 140 MEQ/L (136-145)
[2021-03-27] MEDS: METOPROLOL TART 25 MG TABLET PO SCH ×3 (06:23→17:59)
[2021-03-27] MEDS: MULTIVITAMINS/MINERALS THERAP 1 TAB PO SCH (08:18)
[2021-03-27] MEDS: APIXABAN 5 MG TAB (ELIQUIS) PO SCH ×2 (08:18→20:42)
[2021-03-27] MEDS: ASPIRIN 81MG ENTERIC TABLET PO SCH (08:18)
[2021-03-27] MEDS: FOLIC ACID 1 MG TAB PO SCH (08:18)
[2021-03-27] MEDS: DOCUSATE SODIUM 100MG CAPSULE PO SCH ×2 (08:23→20:42)
[2021-03-27] MEDS ORDERED: FUROSEMIDE 40MG/4ML VIAL (J1940) IV ONE (08:30)
[2021-03-27] MEDS ORDERED: POTASSIUM CHLORIDE 10 MEQ SR TABLET PO ONE (08:30)
--- NOTE | 2021-03-27 08:39 | IPN ---
PROGRESS NOTE DATE: 03/27/2021 SUBJECTIVE: Cammy is seen in the ICU. Echocardiogram showed at least moderate, perhaps severe aortic stenosis. She does not have symptoms of critical aortic stenosis. Denies chest pain or recent dyspnea on exertion, syncope or near syncope. She had a good diuresis yesterday. Feels much better today. Heart rate is under better control although still has some borderline tachycardia. No orthopnea, PND or palpitations. OBJECTIVE: VITAL SIGNS: Heart rate is between 82 and 110. O2 saturation 96%. Blood pressure is 105/68. GENERAL: She is alert, conversant, smiling, in no distress. NECK: No JVD. LUNGS: A few rales at the bases, a few wheezes. HEART: Irregularly irregular rate and rhythm, 2/6 systolic ejection murmur heard much better now that the heart rate is slower. ABDOMEN: Soft, nontender, no masses. EXTREMITIES: Trace 1+ peripheral edema. LABORATORY DATA: CBC is unchanged. Electrolytes showed a BUN of 32, creatinine 9.2 and potassium of 4. Troponins have been flat. Thyroid function test are normal. IMPRESSION: 1. Atrial fibrillation with rapid ventricular response. Heart rate is under better control on metoprolol, Digoxin, and anticoagulated with Eliquis. Cardiology has been consulted. Dictated note is pending. 2. Congestive heart failure with preserved ejection fraction. I will give her another intravenous dose of Furosemide today. Blood pressure looks like it will hold okay with this. 3. Aortic stenosis, at least moderate, perhaps severe. She is declining intervention for this. She told me "absolutely no way" does she want any further workup done. 4. Code status: Patient signed a MOLST form yesterday, is DNR/DNI status.
[2021-03-27] MEDS: DIGOXIN 0.25 MG TAB PO SCH (09:06)
[2021-03-28] MEDS: METOPROLOL TART 25 MG TABLET PO SCH ×4 (00:07→17:22)
[2021-03-28 06:00] VITALS: BP 122/68
[2021-03-28 06:38] LABS: BASO # 0.1 10^3/uL (0.0-0.2); BASO % 0.8 % (0.0-1.0); EOS # 0.3 10^3/uL (0.0-0.5); EOS % 3.1 % (0.0-3.0); HEMATOCRIT 38.9 % (36.0-47.0); HEMOGLOBIN 11.5 g/dl (12.0-15.5); LYMPH # 1.3 10^3/uL (1.5-5.0); LYMPH % 14.5 % (24.0-44.0); MEAN CORPUSCULAR HEMOGLOBIN 24.9 pg (27.0-33.0); MEAN CORPUSCULAR HGB CONC 29.6 g/dl (32.0-36.5); MEAN CORPUSCULAR VOLUME 84.2 fl (80.0-96.0); MONO # 0.6 10^3/uL (0.0-0.8); MONO % 7.2 % (2.0-8.0); NEUTROPHILS # 6.5 10^3/uL (1.5-8.5); NEUTROPHILS % 73.9 % (36.0-66.0); PLATELET COUNT, AUTOMATED 344 10^3/uL (150-450); RED BLOOD COUNT 4.62 10^6/uL (4.00-5.40); WHITE BLOOD COUNT 8.8 10^3/uL (4.0-10.0)
[2021-03-28 07:06] LABS: BLOOD UREA NITROGEN 26 MG/DL (7-18); CALCIUM LEVEL 8.5 MG/DL (8.8-10.2); CARBON DIOXIDE LEVEL 31 MEQ/L (21-32); CHLORIDE LEVEL 106 MEQ/L (98-107); CREATININE FOR GFR 0.76 MG/DL (0.55-1.30); GLOMERULAR FILTRATION RATE > 60.0 (>32); GLUCOSE, FASTING 93 MG/DL (70-100); MAGNESIUM LEVEL 2.1 MG/DL (1.8-2.4); POTASSIUM SERUM 3.9 MEQ/L (3.5-5.1); SODIUM LEVEL 142 MEQ/L (136-145)
[2021-03-28] MEDS: ASPIRIN 81MG ENTERIC TABLET PO SCH (07:38)
[2021-03-28] MEDS: DIGOXIN 0.25 MG TAB PO SCH (07:38)
[2021-03-28] MEDS: FOLIC ACID 1 MG TAB PO SCH (07:38)
[2021-03-28] MEDS: MULTIVITAMINS/MINERALS THERAP 1 TAB PO SCH (07:38)
[2021-03-28] MEDS: APIXABAN 5 MG TAB (ELIQUIS) PO SCH ×2 (07:38→21:28)
[2021-03-28] MEDS: DOCUSATE SODIUM 100MG CAPSULE PO SCH ×2 (07:38→21:28)
[2021-03-28] MEDS ORDERED: METHOTREXATE 2.5 MG TAB (J8610 PER 2.5MG) PO ONE (10:00)
[2021-03-28] MEDS ORDERED: FUROSEMIDE 40MG/4ML VIAL (J1940) IV ONE (11:30)
--- NOTE | 2021-03-28 11:59 | IPN ---
PROGRESS NOTE DATE: 03/28/2021 SUBJECTIVE: Cammy has been transferred up to [facility]. She is still having atrial fibrillation with rapid ventricular response, I was hoping to discharge her today but heart rates went up to the 120 to 140 range. Her blood pressure is under better control so we can at least adjust her medications more at this point. No chest pain, shortness of breath, or palpitations. Overall, she feels well. OBJECTIVE: VITAL SIGNS: Blood pressure is 123/68, pulse 75, 99% O2 saturation on room air. GENERAL APPEARANCE: She is alert, conversant. NECK: No JVD. LUNGS: Clear. HEART: Regular rate and rhythm, a 2/6 systolic ejection murmur. ABDOMEN: Soft, nontender, no masses. EXTREMITIES: No peripheral edema. LABORATORY DATA: CBC is unremarkable. BMP shows potassium of 3.9, renal function is stable. IMPRESSION: 1. Atrial fibrillation with rapid ventricular response, will increase the metoprolol dose, continue Digoxin, she is anticoagulated with Eliquis. 2. Congestive heart failure with preserved ejection fraction, will give her another dose of intravenous furosemide today. We are doing this on a daily basis, she is responding well to it. She is feeling better with the diuresis. 3. Aortic stenosis, at least moderate, perhaps severe. She is declining intervention for this. 4. Rheumatoid arthritis, she is due for her methotrexate which we gave today.
[2021-03-28 14:00] VITALS: BP 112/58
[2021-03-28] MEDS: METOPROLOL TART 12.5 MG PER 1/2 TAB PO SCH (17:22)
[2021-03-28 22:00] VITALS: BP 138/71
[2021-03-29] MEDS: METOPROLOL TART 25 MG TABLET PO SCH ×2 (00:23→05:49)
[2021-03-29] MEDS: METOPROLOL TART 12.5 MG PER 1/2 TAB PO SCH ×2 (00:23→05:48)
[2021-03-29 05:48] VITALS: BP 127/67
[2021-03-29 06:00] VITALS: BP 127/67
[2021-03-29 06:36] LABS: BASO # 0.1 10^3/uL (0.0-0.2); BASO % 0.7 % (0.0-1.0); EOS # 0.2 10^3/uL (0.0-0.5); EOS % 2.6 % (0.0-3.0); HEMATOCRIT 38.7 % (36.0-47.0); HEMOGLOBIN 11.7 g/dl (12.0-15.5); LYMPH # 1.3 10^3/uL (1.5-5.0); LYMPH % 14.4 % (24.0-44.0); MEAN CORPUSCULAR HEMOGLOBIN 25.4 pg (27.0-33.0); MEAN CORPUSCULAR HGB CONC 30.2 g/dl (32.0-36.5); MEAN CORPUSCULAR VOLUME 84.1 fl (80.0-96.0); MONO # 0.7 10^3/uL (0.0-0.8); MONO % 7.5 % (2.0-8.0); NEUTROPHILS # 6.6 10^3/uL (1.5-8.5); NEUTROPHILS % 74.3 % (36.0-66.0); PLATELET COUNT, AUTOMATED 345 10^3/uL (150-450); WHITE BLOOD COUNT 8.9 10^3/uL (4.0-10.0)
[2021-03-29 07:00] LABS: BLOOD UREA NITROGEN 26 MG/DL (7-18); CALCIUM LEVEL 8.6 MG/DL (8.8-10.2); CARBON DIOXIDE LEVEL 31 MEQ/L (21-32); CHLORIDE LEVEL 104 MEQ/L (98-107); CREATININE FOR GFR 0.83 MG/DL (0.55-1.30); GLOMERULAR FILTRATION RATE > 60.0 (>32); GLUCOSE, FASTING 93 MG/DL (70-100); MAGNESIUM LEVEL 2.1 MG/DL (1.8-2.4); POTASSIUM SERUM 4.2 MEQ/L (3.5-5.1); SODIUM LEVEL 140 MEQ/L (136-145)
[2021-03-29] MEDS ORDERED: ELIQ5TAB PO (08:52)
[2021-03-29] MEDS: DIGOXIN 0.25 MG TAB PO SCH (08:59)
[2021-03-29] MEDS: ASPIRIN 81MG ENTERIC TABLET PO SCH (09:00)
[2021-03-29] MEDS: FOLIC ACID 1 MG TAB PO SCH (09:00)
[2021-03-29] MEDS: APIXABAN 5 MG TAB (ELIQUIS) PO SCH (09:00)
[2021-03-29] MEDS: DOCUSATE SODIUM 100MG CAPSULE PO SCH (09:00)
[2021-03-29] MEDS: MULTIVITAMINS/MINERALS THERAP 1 TAB PO SCH (09:00)
[2021-03-29] MEDS ORDERED: METO1TAB87 PO (10:15)
[2021-03-29] MEDS ORDERED: DIGO0.253 PO (10:15)
--- NOTE | 2021-03-29 12:30 | DSES ---
DISCHARGE SUMMARY DATE OF ADMISSION: 03/25/2021 DATE OF DISCHARGE: 03/29/2021 PRINCIPAL DIAGNOSIS: Atrial fibrillation with rapid ventricular response. SECONDARY DIAGNOSES: 1. Congestive heart failure with reduced ejection fraction. 2. Moderate to severe aortic stenosis. 3. Rheumatoid arthritis. 4. Vitamin D deficiency. 5. Hypertension. HISTORY: Cammy Rainey was admitted with atrial fibrillation with rapid ventricular response. See details of history and physical from admission. HOSPITAL COURSE: Admitted to telemetry bed. Heart rate was resistant to treatment initially but ultimately came down and in the last few days has been 90-100 at rest. She was anticoagulated with Eliquis without development of any bleeding problems. She had an echocardiogram done. Ejection fraction was 40%-45%, and she had at least moderate to severe aortic stenosis, for which she is adamantly declining referral or intervention after discussion of risks On day of discharge she is eager to go home. She is resting comfortably. There is no jugular venous distention (JVD). Heart has an irregular rate and rhythm, rate around 92 with 3/6 systolic ejection murmur. Abdomen soft, nontender. No masses. No peripheral edema. Blood pressure (BP) is 127/67. LABORATORY DATA: White count 8.9, hemoglobin 11.7, platelets 345. Sodium 140, potassium 4.2, BUN 26, creatinine 0.8, glucose 93. Echocardiogram is summarized above. DISPOSITION She is discharged home improved in stable condition. She will followup with Dr. Fuentes, her primary care provider, in a week. Activity is as tolerated. A 2-gram sodium diet with 1800 mL per day fluid restriction recommended. DISCHARGE MEDICATIONS: - Eliquis 5 mg twice a day - folic acid 1 mg daily - methotrexate 15 mg weekly - Centrum - Lopressor 25 mg peace 6 hours - digoxin 0.25 mg daily Necessary prescriptions were sent to [facility].
[2021-04-04] MEDS ORDERED: METHOTREXATE 2.5 MG TAB (J8610 PER 2.5MG) PO ONE (09:00)
== END 2021-03-29 11:20 | disposition home or self-care (01) | DRG 308 ==
LOC: M ED 12:08 → M ED INP 17:59 → ENRESERV 18:24 → M ICU 18:47 → M MSPAV 03-27 19:04
PROVIDERS: ADMIT Internal Medicine; ATTEND Family Medicine
DX: I48.91 Unspecified atrial fibrillation (principal); I50.33 Acute on chronic diastolic (congestive) heart failure; Z66 Do not resuscitate; I11.0 Hypertensive heart disease with heart failure; Z86.73 Personal history of transient ischemic attack (TIA), and cerebral infarction without residual deficits; M06.9 Rheumatoid arthritis, unspecified; Z85.3 Personal history of malignant neoplasm of breast; Z90.13 Acquired absence of bilateral breasts and nipples; Z92.21 Personal history of antineoplastic chemotherapy; E55.9 Vitamin D deficiency, unspecified; Z87.891 Personal history of nicotine dependence; R60.0 Localized edema; R73.09 Other abnormal glucose; R79.89 Other specified abnormal findings of blood chemistry; Z20.822 Contact with and (suspected) exposure to COVID-19; Z79.82 Long term (current) use of aspirin; Z79.899 Other long term (current) drug therapy; Z91.040 Latex allergy status; Z91.013 Allergy to seafood; Z91.012 Allergy to eggs; I35.0 Nonrheumatic aortic (valve) stenosis

== ENCOUNTER → 2021-07-12 | Outpatient (CLI) | payer MEDICARE ==
[~2021-07-12] MED LIST changes: +ASPI81TA26 PO; +CENT1TAB PO; +D 202000 PO; +DIGO0.253 PO; +ELIQ5TAB PO; +FOLI1TAB11 PO; +HYDR12.55 PO; +METH2.5T48 PO; +METO1TAB87 PO; +METO25TA4 PO; +NAPR220C14 PO
[2021-07-12 13:47] LABS: HEMATOCRIT 26.7 % (36.0-47.0); HEMOGLOBIN 7.7 g/dl (12.0-15.5); MEAN CORPUSCULAR HGB CONC 28.8 g/dl (32.0-36.5); PLATELET COUNT, AUTOMATED 379 10^3/uL (150-450); RED BLOOD COUNT 3.66 10^6/uL (4.00-5.40); WHITE BLOOD COUNT 8.2 10^3/uL (4.0-10.0)
[2021-07-12 15:45] LABS: ALBUMIN 3.1 GM/DL (3.2-5.2); BILIRUBIN,TOTAL 1.1 MG/DL (0.2-1.0); CALCIUM LEVEL 8.8 MG/DL (8.8-10.2); CREATININE FOR GFR 1.03 MG/DL (0.55-1.30); GLOMERULAR FILTRATION RATE 54.3 (>32); POTASSIUM SERUM 4.1 MEQ/L (3.5-5.1); TOTAL PROTEIN 6.5 GM/DL (6.4-8.2)
== END ==
LOC: M LAB 12:39
PROVIDERS: ATTEND Family Medicine
DX: I48.91 Unspecified atrial fibrillation (principal)

== ENCOUNTER 2021-07-15 11:14 | Inpatient (IN) | payer MEDICARE ==
[~2021-07-15] VITALS: Ht 167.6 cm; Wt 83.5 kg
[~2021-07-15 11:14] MED LIST changes: -METO25TA4 PO
[2021-07-15] MEDS: METOPROLOL 5 MG/5 ML VIAL IV SCH ×3 (11:20→11:30)
[2021-07-15] MEDS ORDERED: METOPROLOL TART 25 MG TABLET PO ONE (11:35)
--- NOTE | 2021-07-15 12:06 | REP ---
INDICATION: CHEST PAIN COMPARISON: 03/25/2021 TECHNIQUE: Portable AP view of the chest FINDINGS: The mediastinum and cardiac silhouette are stable and within normal limits for portable technique. The lung hoover demonstrate chronic stable changes including blunting to the bilateral costophrenic angles. No obvious acute consolidation. No effusion. No pneumothorax. Skeletal structures are intact. IMPRESSION: Chronic changes similar to 03/25/2021. No obvious acute process identified <Electronically signed by Miguel Bowen > 07/15/21 1203
[2021-07-15 12:15] LABS: BASO % 0.5 % (0.0-1.0); EOS % 0.2 % (0.0-3.0); HEMATOCRIT 28.7 % (36.0-47.0); HEMOGLOBIN 8.2 g/dl (12.0-15.5); LYMPH # 0.7 10^3/uL (1.5-5.0); LYMPH % 8.1 % (24.0-44.0); MEAN CORPUSCULAR HEMOGLOBIN 20.9 pg (27.0-33.0); MEAN CORPUSCULAR HGB CONC 28.6 g/dl (32.0-36.5); MONO # 0.5 10^3/uL (0.0-0.8); MONO % 5.8 % (2.0-8.0); NEUTROPHILS # 7.3 10^3/uL (1.5-8.5); PLATELET COUNT, AUTOMATED 442 10^3/uL (150-450); RED BLOOD COUNT 3.93 10^6/uL (4.00-5.40); WHITE BLOOD COUNT 8.6 10^3/uL (4.0-10.0)
[2021-07-15 12:25] LABS: INR 1.61; PROTHROMBIN TIME 19.6 SECONDS (12.7-14.5)
[2021-07-15 12:26] LABS: PARTIAL THROMBOPLASTIN TIME 35.3 SECONDS (25.9-37.0)
[2021-07-15 12:45] LABS: FREE T4 1.36 NG/DL (0.76-1.46); THYROID STIMULATING HORMONE 2.4 uIU/ML (0.358-3.740)
[2021-07-15 12:56] LABS: ALBUMIN 3.3 GM/DL (3.2-5.2); BILIRUBIN,DIRECT 0.9 MG/DL (0.0-0.2); BILIRUBIN,TOTAL 1.5 MG/DL (0.2-1.0); CALCIUM LEVEL 8.3 MG/DL (8.8-10.2); CK-MB VALUE MASS 5.7 NG/ML (<3.6); CREATININE FOR GFR 1.16 MG/DL (0.55-1.30); FREE T4 1.3 NG/DL (0.76-1.46); GLOMERULAR FILTRATION RATE 47.4 (>32); MB/CK RELATIVE INDEX 11.88 (< OR =4); POTASSIUM SERUM 4.1 MEQ/L (3.5-5.1); THYROID STIMULATING HORMONE 2.49 uIU/ML (0.358-3.740); TOTAL PROTEIN 6.8 GM/DL (6.4-8.2); TROPONIN I 0.03 NG/ML (< 0.10)
[2021-07-15 13:09] LABS: RSV AMPLIFICATION NEGATIVE (NEGATIVE)
[2021-07-15 13:55] LABS: DIGOXIN LEVEL 0.2 NG/ML (0.5-2.0)
[2021-07-15 14:24] LABS: PERCENT SATURATION 3.5 % (13.2-45.0)
[2021-07-15] MEDS ORDERED: DIGO0.253 PO (14:30)
[2021-07-15] MEDS ORDERED: ELIQ5TAB PO (14:30)
[2021-07-15] MEDS ORDERED: METO25TA4 PO (14:30)
[2021-07-15] MEDS ORDERED: HOME MED LIST COMPLETE! XX SCH (14:35)
[2021-07-15] MEDS ORDERED: DIGOXIN INJ 0.5 MG/2 ML AMP (J1160) IV ONE (14:50)
[2021-07-15 15:00] LABS: FOLATE 22.3 NG/ML (>5.4)
--- NOTE | 2021-07-15 16:34 | HPEPDOC ---
General Date of Admission 07/15/21 Date of Service: Jul 15, 2021 Chief Complaint The patient is a 86-year-old female admitted with a reason for visit of Cardiac Problem. Source: Patient History of Present Illness 86-year-old female went to see her PCP for bilateral leg swelling and was found to be in A. fib with RVR with rates in 160s so was sent to the emergency room. She has a past medical history of chronic A. fib, systolic CHF with EF of 40%, moderate to severe aortic stenosis and moderate pulmonary hypertension. On arrival to the ED her pulse rate was in 170s and blood pressure was 125/83 so she was given 1 dose of metoprolol 25 mg by mouth her pulse rate came down to 140s however her blood pressure also dropped to 86/62 with a MAP of 71. Patient only complaint of bilateral leg swelling with blisters which ruptured and drained out clear liquids. She reports that she had bilateral ankle fractures and surgeries for those in her ankles are always a little swollen but the swelling has increased a lot over the past 1 week. Patient reports that her pulse usually runs in about 100 and she does not take her digoxin regularly. She only takes it as needed when her pulse rate is about above a certain number. She denied any palpitation denied any chest pain or discomfort denied any shortness of breath. Denied any lightheadedness or dizziness. She is alert oriented x3. Labs in the ED showed new anemia with a hemoglobin of 8.2 today. Iron studies shows iron deficiency. She is being admitted for A. fib with RVR, acute on chronic congestive heart failure, anemia. Home Medications Scheduled Apixaban (Eliquis) 5 Mg Tablet, 5 MG PO BID, (Reported) Aspirin (Aspirin EC) 81 Mg Tablet.dr, 81 MG PO DAILY, (Reported) Cholecalciferol (Vitamin D3) (Vitamin D3) 50 Mcg Tablet, 50 MCG PO DAILY, (Reported) Digoxin (Digoxin) 250 Mcg Tablet, 250 MCG PO DAILY, (Reported) Folic Acid (Folic Acid) 1 Mg Tablet, 1 MG PO DAILY, (Reported) Methotrexate Sodium (Methotrexate) 2.5 Mg Tablet, 15 MG PO 1XWK, (Reported) THURSDAYS Metoprolol Tartrate (Metoprolol Tartrate) 25 Mg Tablet, 25 MG PO Q6H, (Reported) PT STATES THAT THEY TAKE 25MG PO BID Multivit-Min/FA/Lycopen/Lutein (Centrum Silver Tablet) 1 Each Tablet, 1 TAB PO DAILY, (Reported) Allergies Coded Allergies: TAPE (Verified Allergy, Unknown, 11/08/07) egg (Verified Allergy, Unknown, 03/25/21) shellfish derived (Verified Allergy, Unknown, 03/25/21) Past Medical History Medical History Chronic A. fib Congestive heart failure with reduced ejection fraction. EF of 40 to 45% with global left ventricular hypokinesia Moderate pulmonary hypertension Severe aortic stenosis. HTN Hx of CVA with RUE weakness Rheumatoid arthritis (Methotrexate + Folic acid) Breast CA s/p mastectomy and chemotherapy (2010) Vitamin D deficiency Surgical History Bilateral mastectomy Hysterectomy secondary to endometriosis Bilateral ankle fractures status post ORIF Family History Mother with a history of congestive heart failure. Father with a history of emphysema Social History * Smoker: Denies Alcohol: Denies Drugs: denies A-FIB/CHADSVASC A-FIB History Current/History of A-Fib/PAF?: Yes Current PO Anticoag Therapy: Yes Review of Systems Constitutional: Denies: Chills, Fever, Night Sweats Eyes: Denies: Pain, Vision change ENT: Denies: Head Aches, Ear Pain, Dysphagia Skin: Reports: Breakdown (At the ankles) Pulmonary: Denies: Dyspnea, Cough Cardiovascular: Reports: Edema; Denies: Chest Pain, Palpitations, Orthopnea, Paroxysmal Noc. Dyspnea, Lt Headedness Gastrointestinal: Denies: Nausea, Vomiting, Abdominal Pain, Diarrhea Genitourinary: Denies: Dysuria, Frequency, Incontinence, Retention Hematologic: Denies: Bruising, Bleeding Excessively Musculoskeletal: Reports: Back Pain, Joint Pain; Denies: Neck Pain, Muscle Pain, Spasms Physical Examination General Exam: Positive: Alert, Cooperative, No Acute Distress Eye Exam: Positive: PERRLA, Conjunctiva & lids normal, EOMI; Negative: Sclera icteric ENT Exam: Positive: Atraumatic, Mucous membr. moist/pink, Pharynx Normal Neck Exam: Positive: Supple, JVD; Negative: thyromegaly Chest Exam: Positive: Normal air movement, Rales, Other (Few bibasilar crackles); Negative: Rhonchi, Wheezing Heart Exam: Positive: Tachycardic, Irregular Rhythm, Normal S1, Normal S2, Murmurs (Systolic murmur most prominent at the base of the heart); Negative: Rubs Telemetry: Positive: Atrial fibrillation Abdomen Exam: Positive: Normal bowel sounds, Soft; Negative: Tenderness Extremity Exam: Positive: Edema; Negative: Clubbing, Cyanosis Skin Exam: Positive: Breakdown (At both ankles shows ruptured blisters), Other skin issue (Chronic stasis rubor at both the ankles) Neuro Exam: Positive: Normal Speech, Strength at 5/5 X4 ext, Normal Tone Psych Exam: Positive: Memory Intact, Oriented x 3 Vital Signs Vital Signs Date Time Temp Pulse Resp B/P (MAP) Pulse Ox O2 Delivery O2 Flow Rate FiO2 07/15/21 12:03 96.8 178 16 101/73 (82) 99 Room Air Laboratory Data Labs 24H Laboratory Tests 2 07/15/21 11:43: POC Glucose (Misc Panel) 126H, POC Sodium (Misc Panel) 137, POC Potassium (Misc Panel) 3.7, POC Chloride (Misc Panel) 103, POC Total CO2 (Misc Panel) 20.0L, POC Blood Urea Nitrogen (Misc Panel 34H, POC Ionized Calcium (Misc Panel) 4.5, POC Creatinine (Misc Panel) 1.0, POC Hematocrit (Misc Panel) 30.0L 07/15/21 11:45: Immature Granulocyte % (Auto) 0.4, Neutrophils (%) (Auto) 85.0H, Lymphocytes (%) (Auto) 8.1L, Monocytes (%) (Auto) 5.8, Eosinophils (%) (Auto) 0.2, Basophils (%) (Auto) 0.5, Neutrophils # (Auto) 7.3, Lymphocytes # (Auto) 0.7L, Monocytes # (Au to) 0.5, Eosinophils # (Auto) 0.0, Basophils # (Auto) 0.0, Nucleated Red Blood Cells % (auto) 0.2H, Prothrombin Time 19.6H, Prothromb Time International Ratio 1.61, Activated Partial Thromboplast Time 35.3, Anion Gap 13, Glomerular Filtration Rate 47.4, Calcium Level 8.3L, Total Bilirubin 1.5H, Direct Bilirubin 0.9H, Aspartate Amino Transf (AST/SGOT) 27, Alanine Aminotransferase (ALT/SGPT) 32, Alkaline Phosphatase 92, Total Creatine Kinase 48, Creatine Kinase MB 5.7H, Creatine Kinase MB Relative Index 11.88H, Troponin I 0.03, XV-Mdy-W-Type Natriuretic Peptide 3935H, Total Protein 6.8, Albumin 3.3, Albumin/Globulin Ratio 0.9L, Lipase 249, Thyroid Stimulating Hormone (TSH) 2.400, Free Thyroxine 1.36, Coronavirus (COVID-19)(PCR) NEGATIVE, Influenza Type A (RT-PCR) NEGATIVE, Influenza Type B (RT-PCR) NEGATIVE, Respiratory Syncytial Virus (PCR) NEGATIVE CBC/BMP Laboratory Tests 07/15/21 11:45 Microbiology Microbiology 07/15/21 Blood Culture, Received Pending 07/15/21 Blood Culture, Received Pending Assessment/Plan 86-year-old female went to see her PCP for bilateral leg swelling and was found to be in A. fib with RVR with rates in 160s so was sent to the emergency room. She has a past medical history of chronic A. fib, systolic CHF with EF of 40%, moderate to severe aortic stenosis and moderate pulmonary hypertension. On arrival to the ED her pulse rate was in 170s and blood pressure was 125/83 so she was given 1 dose of metoprolol 25 mg by mouth her pulse rate came down to 140s however her blood pressure also dropped to 86/62 with a MAP of 71. Patient only complaint of bilateral leg swelling with blisters which ruptured and drained out clear liquids. Labs in the ED showed new anemia with a hemoglobin of 8.2 today. Iron studies shows iron deficiency. She is being admitted for A. fib with RVR, acute on chronic congestive heart failure, anemia A. fib with RVR With low blood pressure Will load with digoxin. We will continue with Eliquis Iron deficiency anemia No history of overt bleeding Will order 1 unit of PRBC Will check fecal occult blood, Could be dietary deficiency versus slow GI loss Vitamin B12 and folic acid level not low. Will order iron replacement Chronic systolic congestive heart failure with right-sided heart failure Last known EF of 40 to 45% We will start the patient on Lasix once the blood pressure is a little better. Moderate to severe aortic stenosis Follow-up with outpatient cardiology regarding options for any valve replacement History of hypertension At present patient hypotensive We will have to hold metoprolol Plan / VTE VTE Prophylaxis Ordered?: Yes Mariola Whiteside MD Jul 15, 2021 13:41
[2021-07-15 19:12] VITALS: BP 101/75
--- NOTE | 2021-07-15 19:22 | ECGEPIP ---
[facility] - ED Test Date: 2021-07-15 Pat Name: LUCAS WALKER Department: Room: - Gender: Female Manager Lvn: GREGORIO : [id number] Requested By: Keira Foster Order Number: [id number] Reading MD: Keira Foster Measurements Intervals [place] Rate: 169 P: ID: QRS: 18 QRSD: 70 T: 177 QT: 260 QTc: 435 Interpretive Statements Critical Test Result: High HR Atrial fibrillation with rapid ventricular response ST & T wave abnormality, consider lateral ischemia cw 03/25/[address] T wave changes Electronically Signed on 07-15-2021 19:22:02 EDT by Keira Foster
[2021-07-15 20:00] VITALS: BP 119/67
[2021-07-15] MEDS: APIXABAN 5 MG TAB (ELIQUIS) PO SCH (20:21)
[2021-07-15] MEDS: METOPROLOL TART 25 MG TABLET PO SCH (20:22)
--- NOTE | 2021-07-15 20:57 | CR ---
CONSULTATION DATE: 07/15/2021 REFERRING PHYSICIAN: Mariola Whiteside MD INDICATION: I was asked by Dr. Whiteside to see Mrs. Rainey because of atrial fibrillation with rapid ventricular response with concomitant anemia, congestive heart failure and aortic stenosis. HISTORY OF PRESENT ILLNESS: Mr. Rainey is previously unknown to me but she was seen by my partner, Dr. Monroe. She originally presented in March, with atrial fibrillation, rapid ventricular response to this facility. She was eventually rate controlled with combination of metoprolol and digoxin and discharged home. An echocardiogram during that hospitalization revealed mildly reduced left ventricular systolic function and possibly moderately severe aortic stenosis. Mean gradient was only slightly over 20 mmHg but it was felt that the calculated aortic valve area is quite low. She was doing well and was seen by Dr. Monroe in followup in late May,. At that point, she did not have any complaints. She reports in the last several weeks, she has been getting progressively weaker and weaker, she noted peripheral edema and in the last five days, she suddenly developed large blisters that ruptured and started oozing fluid on both lower extremities. She tells me that she like a car that does not have any engine in it. Eventually, the symptoms progressed to the point that she came for further evaluation. In the emergency room, she was found to be in A fib with rapid ventricular response and heart rate reaching up to 170 beats per minute. Her blood pressure was initially acceptable but then dropped into 90 systolic. She was given a single dose of oral metoprolol which brought some small slowing in her heart rate but also her blood pressure dropped further and consequently 1/2 mg of digoxin was administered IV. By the time I saw the patient in PCU around 7:15 or so in the evening, her heart rate is down to about 110 beats per minute. She tells me that she is feeling much better. She denies any chest discomfort, she denies that she at any felt near syncopal. She surprisingly does not complain about shortness of breath. She reported that she has been generally compliant with her medications with the exception of stopping Digoxin in the last about 5-6 days. She felt that the medication was responsible for worsening of her symptoms even though its discontinuation did not certainly reverse the course. PAST MEDICAL HISTORY: 1. Atrial fibrillation detected in March, as noted above. 2. Aortic stenosis felt to be moderately severe based on echocardiogram in March,. Mean gradient was only slightly over 20 mmHg. 3. Hypertension. 4. Remote history of stroke in 1998 with residual right-sided weakness. 5. Rheumatoid arthritis. 6. History of breast cancer with bilateral mastectomies and chemotherapy in 1998. SURGICAL HISTORY: 1. Hysterectomy. 2. Bilateral ankle surgeries after fractures. 3. Bilateral mastectomy. HOME MEDICATIONS: 1. Apixaban 5 b.i.d. 2. Aspirin 81 a day. 3. Vitamin D3 50 a day. 4. Digoxin 0.25 daily. 5. Folic acid 1 mg daily. 6. Methotrexate 2.5 for a total of 15 mg weekly. 7. Metoprolol 25 mg every six hours. 8. Multivitamin. ALLERGIES: THERE IS A REPORTED INTOLERANCE OR ALLERGY TO TAPE, EGG AND SHELLFISH. FAMILY HISTORY: Father of advanced COPD and mother of cardiac disease, possibly congestive heart failure. SOCIAL HISTORY: The patient is single. She lives alone but tells me that her neighbors are very attentive and helping. She also has a niece who is involved. There a remote history of smoking but she quit more than three decades ago. No significant alcohol use. 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 REVIEW OF SYSTEMS: No recent fever, chills, nausea, vomiting, or diarrhea. No christie PND. She had a component of almost orthopnea but has exertional dyspnea with minimal activity. No chest pain. She denies any sensation of palpitations, no syncope, near syncope. No bleeding from any orifice. Peripheral edema present for about, she believes, two or three weeks with gradual progression. The rest of review system negative or as per HPI. PHYSICAL EXAMINATION: Mrs. Rainey is a delightful elderly female. She is alert, oriented and appropriate, does not appear to be in any distress. The last set of vital signs revealed blood pressure 101/75, heart rate 104. She is afebrile, saturating 100% on room air. Her JVP does not appear grossly elevated. Lungs are relatively clear without wheezing, crackles. She has occasional rhonchi. Heart exam reveals irregularly irregular tachycardia. There is harsh systolic ejection murmur best heard over the aortic valve area, approximately 3/6 intensity. l do not appreciate a clearcut closing sound, no christie gallop. Abdomen is protuberant but soft and nontender, no shifting dullness. I cannot appreciate the size of liver and spleen. Extremities have about 2-3+ edema to the level of her knees. There are multiple blisters on her shins and dorsi of her feet that are all ruptured and there is surrounding mild erythema and there is some oozing of serous fluid. Peripheral pulses are difficult to palpate due to peripheral edema but I do not see any christie trophic defects. Neurologically, there is subtle right-sided weakness but speech is intact. The left side has normal strength. LABORATORY DATA: CBC: WBC count 8.6, hemoglobin 8.2, hematocrit 28.7, platelet count 442,000. Basic metabolic panel: Sodium 138, potassium 4.1, BUN 39, creatinine 1.2 and glucose 112. Iron 16 for a saturation only 3.5%. Bilirubin 1.5, normal rest of LFTs. Troponin is negative and terminal proBNP is 3900, albumin 3.3. TSH 2.4. Digoxin level was 0.2. Chest x-ray revealed some possibly minimal bilateral pleural effusions but no other gross abnormalities. Urinalysis was 1+ protein, The rest was negative. EKG reveals atrial fibrillation with rapid ventricular response and diffuse nonspecific repolarization abnormalities. ASSESSMENT AND PLAN: 1. Mrs. Rainey is an elderly female who presents with congestive heart failure in the setting of A fib with RVR after she stopped taking digoxin about five days ago or so. She also is found to be anemic which is new. Her hemoglobin was relatively normal just a few months ago. At this point, I think the initial focus should be on the rate control. I will reinstitute a small dose of metoprolol with holding parameters for heart rate and blood pressure and we will reload her with digoxin. She received 0.5 mg and I will give her another 0.25 mg tonight. We will see how the response to going to be by tomorrow morning. I am optimistic that with the combination of metoprolol and digoxin, we will be able to establish reasonable rate control within a day or two. 2. The second issue is that of peripheral edema and congestive heart failure. She certainly will need some diuresis but I do believe that part of the edema is a consequence of rather severe anemia. Consequently, here is a plan to receive one unit of packed red blood cells. I do believe that in the setting it is indicated. If needed, we can give her intermittently furosemide for some diuresis but I am not keen on pursuing that route until her heart rate is a little better controlled and she receives a little bit of blood. 3. The next issue is that of anemia. She is an elderly woman and even though there is no christie bleeding, it almost certainly is due to blood loss that has been slow and chronic. She is both on apixaban and aspirin. I do not see any clearcut indication for continuation of aspirin and I am going to discontinue the medication. She should start receiving oral iron supplementation. 4. The next problem is aortic stenosis. I have to review her old echo from a few months ago but by physical exam, I suspect that her aortic stenosis is potentially severe even though the gradient documented was quite low. I talked to her about her openness to possibly having TAVR. She is certainly not into the aspect about this prospect but she said that she would consider this if it was lifesaving. This is certainly not something that can be resolved on an urgent level but we will address it once she is better compensated. 5. The patient is DNI/DNR and she quite firm about this position. She also seems to have realistic expectation. I will follow patient with you and we will inform Dr. Monroe when he comes to [place] on Thursday.
[2021-07-15] MEDS ORDERED: DIGOXIN 0.25 MG TAB PO ONE (21:00)
[2021-07-15] MEDS: IRON POLYSAC (NIFEREX) 150 MG CAP PO SCH (21:29)
[2021-07-15] MEDS: ACETAMINOPHEN TAB 650MG DOSE (2X325MG) PO PRN (22:13)
[2021-07-15 22:22] VITALS: BP 87/55
[2021-07-15 22:37] VITALS: BP 103/59
[2021-07-15 23:37] VITALS: BP 107/57
[2021-07-16 01:20] VITALS: BP_SYST 105; BP_DIAS 54; BP_DIAS 55
[2021-07-16 04:00] VITALS: BP 102/64
[2021-07-16 04:28] LABS: BASO % 0.3 % (0.0-1.0); EOS # 0.1 10^3/uL (0.0-0.5); EOS % 1.5 % (0.0-3.0); HEMATOCRIT 30.9 % (36.0-47.0); HEMOGLOBIN 9.2 g/dl (12.0-15.5); LYMPH # 0.8 10^3/uL (1.5-5.0); LYMPH % 8.4 % (24.0-44.0); MEAN CORPUSCULAR HEMOGLOBIN 22.7 pg (27.0-33.0); MEAN CORPUSCULAR HGB CONC 29.8 g/dl (32.0-36.5); MEAN CORPUSCULAR VOLUME 76.1 fl (80.0-96.0); MONO # 0.7 10^3/uL (0.0-0.8); MONO % 7.3 % (2.0-8.0); NEUTROPHILS # 7.3 10^3/uL (1.5-8.5); NEUTROPHILS % 82.1 % (36.0-66.0); RED BLOOD COUNT 4.06 10^6/uL (4.00-5.40); WHITE BLOOD COUNT 8.9 10^3/uL (4.0-10.0)
[2021-07-16 04:33] LABS: PLATELET COUNT, AUTOMATED 333 10^3/uL (150-450)
[2021-07-16 04:50] LABS: BLOOD UREA NITROGEN 38 MG/DL (7-18); CALCIUM LEVEL 8.1 MG/DL (8.8-10.2); CARBON DIOXIDE LEVEL 25 MEQ/L (21-32); CHLORIDE LEVEL 105 MEQ/L (98-107); CREATININE FOR GFR 0.91 MG/DL (0.55-1.30); GLOMERULAR FILTRATION RATE > 60.0 (>32); GLUCOSE, FASTING 98 MG/DL (70-100); POTASSIUM SERUM 3.5 MEQ/L (3.5-5.1); SODIUM LEVEL 137 MEQ/L (136-145)
[2021-07-16 08:00] VITALS: BP 108/79
--- NOTE | 2021-07-16 08:39 | IPN ---
PROGRESS NOTE DATE: 07/16/2021 SUBJECTIVE: Mrs. Rainey has been feeling much better. She finally got some sleep. She got one unit of blood overnight. Her heart rate remained in a reasonable range overnight, typically is a little bit less than 100 beats per minute and then in the morning hours when she started getting out of bed and sitting it came up again and at the time of my evaluation she was approximately 110 BPM. Blood pressure was relatively low but steady. She did not have any dangerous drops overnight. OBJECTIVE: VITAL SIGNS: Her vital signs at 4 o'clock this morning: Blood pressure was 102/64, heart rate 89. She was afebrile and saturating 96% on room air. Her fluid balance yesterday was recorded as approximately equal and weight is recorded 84.5 kg this morning. GENERAL APPEARANCE: She is alert, oriented and appropriate. NECK: Her JVP does not appear high. LUNGS: Reasonably clear. There may be mildly diminished breath sounds over both bases. No wheezing. No crackles. HEART: Unchanged with irregularly irregular rhythm. There is a harsh murmur over the aortic valve area approximately 3/6 intensity. ABDOMEN: Obese. EXTREMITIES: There is trace peripheral edema and the blisters on the lower extremities seem to be healing even though they are still draining some serous fluid. LABORATORY DATA: Laboratories this morning: Basic metabolic panel is normal. Potassium is a little bit low at 3.5 but the rest is normal. The CBC reveals hemoglobin 9.2, hematocrit 30.9 and platelet count 333,000. ASSESSMENT AND PLAN: Ms. Rainey is an 86-year-old female who has had persistent atrial fibrillation since at least March 2021, mildly reduced left ventricular systolic function based on echocardiogram at that point, at least moderate, if not moderately severe aortic stenosis. She came with atrial fibrillation with RVR and heart failure, and new onset anemia. As far as the atrial fibrillation is concerned, will continue on Apixaban even though there is likely to be chronic GI bleed. She did not have any acute drop and she certainly is a very high risk for stroke on account of multiple risk factors that include presence of age, female sex, congestive heart failure besides others. I started her on supplementation of iron because she is severely iron deficient. I am not convinced that at her age performing a colonoscopy would be of benefit but certainly can be considered. I did stop the aspirin because she does not need it on top of Eliquis. As far as the rate control is concerned, it is not perfect yet. I will continue Digoxin. She received a total of 0.75 mg yesterday and she had some residual levels so hopefully it was a sufficient loading dose and I will continue just maintenance 0.125 mg daily. It is possible that she may need additional loading maybe 0.125 or 0.25, will take it how it goes with her heart rate. I will continue metoprolol. Hopefully, the blood pressure will be sufficient that she will tolerate at least some doses. As far as congestive heart failure is concerned, she is subjectively much improved. I am reluctant to give her diuretics for several reasons. First of all, she does not have any obvious edema, she remains to be anemic and her blood pressure is rather soft. I think that administration of diuretics would be beneficial and I do believe with better rate control it is likely that her condition will rapidly improve. Dr. Monroe is her regular plant associate and he will take over her cardiac care tomorrow morning.
[2021-07-16] MEDS ORDERED: ASPIRIN 81MG ENTERIC TABLET PO SCH (09:00)
[2021-07-16] MEDS: METOPROLOL TART 25 MG TABLET PO SCH ×2 (09:13→20:13)
[2021-07-16] MEDS: IRON POLYSAC (NIFEREX) 150 MG CAP PO SCH ×2 (09:13→20:13)
[2021-07-16] MEDS: APIXABAN 5 MG TAB (ELIQUIS) PO SCH ×2 (09:14→20:13)
[2021-07-16] MEDS: DIGOXIN 0.125 MG TAB PO SCH (09:14)
--- NOTE | 2021-07-16 11:54 | IPNPDOC ---
Text Note Date of Service The patient was seen on 07/16/21. NOTE Subjective: Patient is an 86-year-old female presented to the hospital yesterday with atrial fibrillation with a rapid ventricular rate as well as congestive heart failure exacerbation. Patient states she is feeling much better this morning. Patient stopped taking her digoxin because all of the medication that she was getting for her heart works causing her to be dizzy. Patient states that when she took the digoxin it felt like they took the car battery out of the car meaning she did not feel like she had any energy and was unable to get moving around her house. Patient says that her legs were leaking yesterday which is what brought her into the emergency department. Patient states she is feeling much better today. Patient's heart rate has also improved but is still in the 100-110 range. Review of systems: General: Patient denies fevers HEENT: Patient denies headaches Cardiovascular: Patient denies chest pain Respiratory: Patient denies shortness of breath, cough GI: Patient denies abdominal pain, nausea, vomiting, diarrhea : Patient denies increased frequency or pain with urination Extremities: Patient reports swelling in her bilateral extremities Neurological: Patient denies numbness or tingling in legs Physical exam: Vitals: See below General: Alert and oriented female patient was sitting the bedside chair I walked in. Patient did not appear to be in any acute distress. HEENT: Normocephalic, atraumatic, moist mucous membranes. Neck: No lymphadenopathy or thyromegaly Cardiac: Regular rate and rhythm, grade 2/6 systolic murmur heard loudest over the second intercostal space in the right sternal border, normal S1, normal S2 Pulm: Clear to auscultation bilaterally. No wheezes, rhonchi, rales Abd: Nondistended, nontender to palpation, normal bowel sounds Ext: Trace edema around the ankles that was tender to the touch bilateral Labs: See below Imaging: No new imaging has been performed Assessment/plan: 86-year-old female who went to see her primary care provider for bilateral leg swelling was found to be in atrial fibrillation with an RVR with rates in the 160s so she's was sent to the emergency department. She has a past medical history of chronic A. fib, systolic heart failure with ejection fraction of 40%, moderate to severe aortic stenosis, moderate pulmonary hypertension. 1. Atrial fibrillation with rapid ventricular response. Patient was having low blood pressures which have resolved. Patient was loaded with digoxin as she had stopped taking this medication at home which most likely the precipitating factor of her RVR. Her rate has slowly improved. Dr. Elliott was consulted yesterday and is seen the patient and recommends continuing with digoxin. Patient will also be on Eliquis. 2. Iron deficiency anemia. No history of overt bleeding. Will receive 1 unit of packed red blood cells. Will check fecal occult blood. Could be dietary deficiency versus slow GI loss. Will order right iron replacement. 3. Heart failure with reduced ejection fraction. Last known EF was 40 to 45%. Diuretics are still on hold at this time due to the lower blood pressures. We will continue to follow the patient's blood pressure and diurese as necessary. 4. Moderate to severe aortic stenosis. Follow-up with outpatient cardiology regarding options for valve replacement. 5. History of hypertension. I present patient is not hypotensive. Hold metoprolol. DVT Prophylaxis: Eliquis Disposition: Pending improvement patient's heart rate. VS,Ward, I+O VS, Williame, I+O Laboratory Tests 07/16/21 04:14 Vital Signs Date Time Temp Pulse Resp B/P (MAP) Pulse Ox O2 Delivery O2 Flow Rate FiO2 07/16/21 09:14 106 07/16/21 09:13 108/79 07/16/21 08:00 97.3 18 98 Room Air I&O- Last 24 Hours up to 6 AM 07/16/21 06:00 Intake Total 880 ml Output Total 700 ml Balance 180 ml MICHAEL SARGENT DO Jul 16, 2021 11:54
[2021-07-16 12:00] VITALS: BP 132/70
[2021-07-16 16:00] VITALS: BP 127/66
[2021-07-16] MEDS: ACETAMINOPHEN TAB 650MG DOSE (2X325MG) PO PRN (17:36)
[2021-07-16 20:00] VITALS: BP 114/55
[2021-07-17] VITALS (7 sets, daily range): BP systolic 91–118; BP diastolic 56–75
[2021-07-17 05:26] LABS: BASO # 0.1 10^3/uL (0.0-0.2); BASO % 0.5 % (0.0-1.0); EOS # 0.3 10^3/uL (0.0-0.5); EOS % 2.9 % (0.0-3.0); HEMATOCRIT 33.7 % (36.0-47.0); HEMOGLOBIN 9.8 g/dl (12.0-15.5); LYMPH # 0.8 10^3/uL (1.5-5.0); LYMPH % 7.9 % (24.0-44.0); MEAN CORPUSCULAR HEMOGLOBIN 22.1 pg (27.0-33.0); MEAN CORPUSCULAR HGB CONC 29.1 g/dl (32.0-36.5); MEAN CORPUSCULAR VOLUME 76.1 fl (80.0-96.0); MONO # 0.5 10^3/uL (0.0-0.8); NEUTROPHILS # 8.2 10^3/uL (1.5-8.5); NEUTROPHILS % 83.3 % (36.0-66.0); PLATELET COUNT, AUTOMATED 330 10^3/uL (150-450); RED BLOOD COUNT 4.43 10^6/uL (4.00-5.40); WHITE BLOOD COUNT 9.9 10^3/uL (4.0-10.0)
[2021-07-17 05:57] LABS: BLOOD UREA NITROGEN 24 MG/DL (7-18); CALCIUM LEVEL 7.7 MG/DL (8.8-10.2); CARBON DIOXIDE LEVEL 27 MEQ/L (21-32); CHLORIDE LEVEL 106 MEQ/L (98-107); CREATININE FOR GFR 0.88 MG/DL (0.55-1.30); GLOMERULAR FILTRATION RATE > 60.0 (>32); GLUCOSE, FASTING 81 MG/DL (70-100); POTASSIUM SERUM 3.9 MEQ/L (3.5-5.1); SODIUM LEVEL 138 MEQ/L (136-145)
[2021-07-17] MEDS: IRON POLYSAC (NIFEREX) 150 MG CAP PO SCH ×2 (08:15→21:03)
[2021-07-17] MEDS: DIGOXIN 0.125 MG TAB PO SCH (08:16)
[2021-07-17] MEDS: METOPROLOL TART 25 MG TABLET PO SCH ×3 (08:16→23:58)
[2021-07-17] MEDS: APIXABAN 5 MG TAB (ELIQUIS) PO SCH ×2 (08:16→21:04)
[2021-07-17] MEDS ORDERED: SLF 3 ML SYR IV PRN (12:20)
--- NOTE | 2021-07-17 14:22 | IPNPDOC ---
Text Note Date of Service The patient was seen on 07/17/21. NOTE Subjective: Patient is 86-year-old female sent to the hospital 2 days ago with atrial fibrillation with rapid ventricular rate as well as congestive heart failure exacerbation. Patient is feeling much better this morning. Patient stopped taking her digoxin because all the medication that was being given to her for her heart were making her dizzy. Patient states that she is feeling okay getting the digoxin here. Patient was being followed by her photo mask inspector who states that we need to continue with the digoxin and hopefully metoprolol if her blood pressure will allow for it. Patient is otherwise doing well. Review of systems: General: Patient denies fevers HEENT: Patient denies headaches Cardiovascular: Patient denies chest pain Respiratory: Patient denies shortness of breath, cough GI: Patient denies abdominal pain, nausea, vomiting, diarrhea : Patient denies increased frequency or pain with urination Extremities: Patient reports leaking from the wounds on her lower extremities bilaterally. Neurological: Patient denies numbness or tingling in legs Physical exam: Vitals: See below General: Alert and oriented female patient who was sitting in the bedside chair and walked in. Patient not appear to be in any acute distress. HEENT: Normocephalic, atraumatic, moist mucous membranes. Neck: No lymphadenopathy or thyromegaly Cardiac: Irregularly irregular rhythm with a rate around 100, grade 2/6 systolic murmur heard loudest over the second intercostal space on the right sternal border., normal S1, normal S2 Pulm: Clear to auscultation bilaterally. No wheezes, rhonchi, rales Abd: Nondistended, nontender to palpation, normal bowel sounds Ext: No edema around the bilateral lower extremities, there was venous ulcers on the medial aspect of the ankles bilaterally that were weeping a serosanguineous fluid Labs: See below Imaging: No new imaging has been performed Assessment/plan: 86-year-old female who was sent by her primary care provider for bilateral leg swelling who was found to be atrial fibrillation with rapid ventricular rate with rates in the 160s. 1. Atrial fibrillation with rapid ventricular response. Patient was having lower blood pressures which have resolved. Heart rate is now in the 90s and 100s. We will continue with digoxin and metoprolol as her blood pressure allows. Continue with Eliquis for anticoagulation. I did speak with the patient's photo mask inspector who will see the patient later on this evening with hope ful plan to discharge patient tomorrow. 2. Iron deficiency anemia. No history of overt bleeding. Received 1 unit of packed red blood cells and hemoglobin has been stable. Continue to monitor. 3. Heart failure with reduced ejection fraction. Last known EF was 40 to 45%. Diuretics are on hold at this time due to low blood pressures. Patient does not appear to need diuresis at this time based on exam. 4. Moderate to severe aortic stenosis. Follow-up with outpatient cardiology regarding options for valve placed. 5. History of hypertension. At present, patient is not hypertensive so we will continue to monitor the patient's blood pressures. 6. Asymptomatic bacteriuria. Patient had a urine culture come back positive for E. coli. Patient states she has had many urinary tract infections in the past and denies having any symptoms of this. Because she is not having any symptoms, we will not treat her with antibiotics at this time. If she starts to develop symptoms, I instructed the patient to let us know and we will start treatment at that time. DVT Prophylaxis: Eliquis Disposition: Pending provement patient's heart rate, possible discharge tomorrow. VS,Fishbone, I+O VS, Fishbone, I+O Laboratory Tests 07/17/21 05:04 Vital Signs Date Time Temp Pulse Resp B/P (MAP) Pulse Ox O2 Delivery O2 Flow Rate FiO2 07/17/21 12:00 97.4 101 18 103/62 (76) 100 Room Air I&O- Last 24 Hours up to 6 AM 07/17/21 06:00 Intake Total 930 ml Output Total 1000 ml Balance -70 ml MICHAEL SARGENT DO Jul 17, 2021 14:22
[2021-07-17] MEDS: SLF 3 ML SYR IV SCH ×2 (16:08→21:05)
[2021-07-18] VITALS (7 sets, daily range): BP systolic 87–122; BP diastolic 52–76
[2021-07-18 05:18] LABS: BASO # 0.1 10^3/uL (0.0-0.2); BASO % 0.5 % (0.0-1.0); EOS # 0.2 10^3/uL (0.0-0.5); EOS % 2.3 % (0.0-3.0); HEMATOCRIT 33.2 % (36.0-47.0); HEMOGLOBIN 9.7 g/dl (12.0-15.5); LYMPH # 0.8 10^3/uL (1.5-5.0); LYMPH % 8.1 % (24.0-44.0); MEAN CORPUSCULAR HEMOGLOBIN 22.1 pg (27.0-33.0); MEAN CORPUSCULAR HGB CONC 29.2 g/dl (32.0-36.5); MEAN CORPUSCULAR VOLUME 75.8 fl (80.0-96.0); MONO # 0.6 10^3/uL (0.0-0.8); MONO % 5.7 % (2.0-8.0); NEUTROPHILS # 8.6 10^3/uL (1.5-8.5); PLATELET COUNT, AUTOMATED 381 10^3/uL (150-450); RED BLOOD COUNT 4.38 10^6/uL (4.00-5.40); WHITE BLOOD COUNT 10.4 10^3/uL (4.0-10.0)
[2021-07-18 05:42] LABS: BLOOD UREA NITROGEN 18 MG/DL (7-18); CALCIUM LEVEL 7.8 MG/DL (8.8-10.2); CARBON DIOXIDE LEVEL 27 MEQ/L (21-32); CHLORIDE LEVEL 107 MEQ/L (98-107); CREATININE FOR GFR 0.71 MG/DL (0.55-1.30); GLOMERULAR FILTRATION RATE > 60.0 (>32); GLUCOSE, FASTING 92 MG/DL (70-100); POTASSIUM SERUM 3.7 MEQ/L (3.5-5.1); SODIUM LEVEL 140 MEQ/L (136-145)
[2021-07-18] MEDS: SLF 3 ML SYR IV SCH ×3 (06:37→20:46)
[2021-07-18] MEDS: METOPROLOL TART 25 MG TABLET PO SCH ×3 (06:38→20:46)
[2021-07-18] MEDS: IRON POLYSAC (NIFEREX) 150 MG CAP PO SCH ×2 (08:25→20:46)
[2021-07-18] MEDS: DIGOXIN 0.125 MG TAB PO SCH (08:26)
[2021-07-18] MEDS: APIXABAN 5 MG TAB (ELIQUIS) PO SCH ×2 (08:26→20:46)
[2021-07-18] MEDS: ACETAMINOPHEN TAB 650MG DOSE (2X325MG) PO PRN (08:28)
--- NOTE | 2021-07-18 11:27 | IPN ---
PROGRESS NOTE DATE: 07/18/2021 SUBJECTIVE: She is lying supine in no acute distress. She says that she feels better since the blood transfusion, but she is still feeing weak in her legs. She denies any chest pain, palpitations and there is no orthopnea or paroxysmal nocturnal dyspnea (PND). Her heart rate has improved. Her atrial fibrillation right now continues to what is now 100-120 beats per minute. She denies any bleeding. She is not coughing. She was initially admitted on 07/15/2021 with atrial fibrillation with a rapid ventricular rate and her labs were remarkable for a hemoglobin/hematocrit of 8.2/21.7 respectively. She was transfused 1 unit of packed red blood cells. She stated she was not taking the digoxin regularly. OBJECTIVE: On physical examination, the patient was alert and oriented, in no acute distress at rest and her vital signs when I saw her revealed a blood pressure of 104/56 with a pulse reportedly to be 98, respirations 18 and maximum temperature 97.9 degrees Fahrenheit, oxygen saturation 98% on room air. Examination of the head: Atraumatic. Neck is supple and no jugular venous distention (JVD) appreciated. The lungs reveal no wheezing or crackles. The heart examination reveal regular heart sounds without gallops. The PMI is not displaced. There is no rub. There is a systolic murmur, grade 2/6 over the precordium, louder at the base of the heart with some radiation of the neck. Abdomen is unremarkable. Extremities revealed +1 bilateral lower leg edema. Neurological examination is negative for focal deficit. LABORATORY DATA: Basic metabolic panel (BMP) done today revealed a sodium of 128, potassium 3.9, chloride 105, Co2 27, BUN 24, creatinine 0.88, glomerular filtration rate (GFR) more than 60, fasting glucose 81, and calcium 7.7. Complete blood count (CBC) revealed a WBC of 9.9, hemoglobin 9.7, hematocrit 33.7 and platelets 230,000. PT on admission was 19.6 with a APTT of 35.3. Serum digoxin on admission was 0.2. Influenza A and B, RSV and SARS COVID 19 were negative. Telemetry was reviewed and revealed a heart rate that varies between 90 beats per minute and up to 120 beats per minute. IMPRESSION: 1. Atrial fibrillation, not quite under control and I increased metoprolol from 25 mg by mouth twice a day to 25 mg by mouth q 8 hours. She will continue the digoxin as AV blocking agent. She is on Eliquis for thromboembolic events and she will continue the same. She will benefit from physical therapy and I told her that I will discuss that with you. 2. Regarding her aortic stenosis, she stated that she would be willing to proceed with aortic jose replacement if needed and this can be addressed as an outpatient. In the meantime, she would benefit from a colonoscopy for further evaluation of her anemia. It was a pleasant to participate in the care of Ms. Cammy Rainey for her underlying cardiac condition. I will continue to monitor along with you. Please do not hesitate to call if any questions.
--- NOTE | 2021-07-18 14:19 | IPNPDOC ---
Text Note Date of Service The patient was seen on 07/18/21. NOTE Subjective: Patient is an 86-year-old female sent to the hospital 3 days ago with atrial fibrillation with RVR. Patient is feeling much better this morning. Patient was seen by cardiology who recommended her staying in additional day as they increased her medication. Patient is otherwise feeling well does not have any other complaints today. Review of systems: General: Patient denies fevers HEENT: Patient denies headaches Cardiovascular: Patient denies chest pain Respiratory: Patient denies shortness of breath, cough GI: Patient denies abdominal pain, nausea, vomiting, diarrhea : Patient denies increased frequency or pain with urination Extremities: Patient denies swelling or pain in extremities Neurological: Patient denies numbness or tingling in legs Physical exam: Vitals: See below General: Alert and oriented female patient was sitting bedside chair and walked in. Patient not appear to be in any acute distress. HEENT: Normocephalic, atraumatic, moist mucous membranes. Neck: No lymphadenopathy or thyromegaly Cardiac: Irregularly irregular rhythm with a rate around 100, grade 2/6 systolic murmur heard loudest over the second intercostal space in the right sternal border,, normal S1, normal S2 Pulm: Clear to auscultation bilaterally. No wheezes, rhonchi, rales Abd: Nondistended, nontender to palpation, normal bowel sounds Ext: No edema bilateral lower extremities, venous stasis ulcers covered with OPTi foam dressings which are clean dry and intact Labs: See below Imaging: No new imaging has been performed Assessment/plan: 86-year-old female who was sent by her primary care for bilateral leg swelling found to have A. fib with RVR with rates in the 160s. 1. Atrial fibrillation with rapid ventricular response. Patient has been having low blood pressures with her increase metoprolol. Patient's heart rate has been anywhere from the 80s to 100s today. We will continue to monitor. Cardiology increase the patient's metoprolol yesterday however, she was unable to receive a dose at 2:00 today due to her low blood pressure. We will continue to monitor. Patient will hopefully be discharged tomorrow. 2. Iron deficiency anemia. No overt signs of bleeding. Received 1 unit of packed red blood cells and hemoglobin has been stable. Continue to monitor. 3. Heart failure with reduced ejection fraction. Last known EF was 40 to 45%. Diuretics on hold due to low blood pressures. Patient does not appear to be in exacerbation at this time. 4. Moderate to severe aortic stenosis. Follow-up outpatient regarding options for valve placement. 5. History hypertension. No blood pressure medications on at this time. Metoprolol for A. fib with RVR has hold parameters. 6. Asymptomatic bacteriuria. Urine culture came back positive for E. coli. Patient still does not have any symptoms. No treatment will be necessary at this time. DVT Prophylaxis: Eliquis Disposition: Pending improvement patient's heart rate, possible discharge next 24 to 48 hours VS,Fishbone, I+O VS, Markbone, I+O Laboratory Tests 07/18/21 04:46 Vital Signs Date Time Temp Pulse Resp B/P (MAP) Pulse Ox O2 Delivery O2 Flow Rate FiO2 07/18/21 14:00 96 96/52 07/18/21 12:00 96.6 16 Room Air 07/18/21 08:00 96 I&O- Last 24 Hours up to 6 AM 07/18/21 06:00 Intake Total 1080 ml Output Total 1500 ml Balance -420 ml MICHAEL SARGENT DO Jul 18, 2021 14:19
[2021-07-19] VITALS: BP 120/71
[2021-07-19 04:00] VITALS: BP 123/55
[2021-07-19] MEDS: ACETAMINOPHEN TAB 650MG DOSE (2X325MG) PO PRN (04:27)
[2021-07-19 04:32] LABS: BASO # 0.1 10^3/uL (0.0-0.2); BASO % 0.7 % (0.0-1.0); EOS # 0.3 10^3/uL (0.0-0.5); HEMATOCRIT 33.1 % (36.0-47.0); HEMOGLOBIN 9.6 g/dl (12.0-15.5); LYMPH % 10.7 % (24.0-44.0); MEAN CORPUSCULAR HEMOGLOBIN 22.1 pg (27.0-33.0); MEAN CORPUSCULAR VOLUME 76.3 fl (80.0-96.0); MONO # 0.6 10^3/uL (0.0-0.8); MONO % 6.4 % (2.0-8.0); NEUTROPHILS # 7.1 10^3/uL (1.5-8.5); NEUTROPHILS % 78.8 % (36.0-66.0); PLATELET COUNT, AUTOMATED 311 10^3/uL (150-450); RED BLOOD COUNT 4.34 10^6/uL (4.00-5.40)
[2021-07-19 04:52] LABS: BLOOD UREA NITROGEN 18 MG/DL (7-18); CARBON DIOXIDE LEVEL 29 MEQ/L (21-32); CHLORIDE LEVEL 106 MEQ/L (98-107); CREATININE FOR GFR 0.76 MG/DL (0.55-1.30); GLOMERULAR FILTRATION RATE > 60.0 (>32); GLUCOSE, FASTING 89 MG/DL (70-100); POTASSIUM SERUM 3.8 MEQ/L (3.5-5.1); SODIUM LEVEL 138 MEQ/L (136-145)
[2021-07-19] MEDS: SLF 3 ML SYR IV SCH (06:21)
[2021-07-19] MEDS: METOPROLOL TART 25 MG TABLET PO SCH ×2 (06:21→15:12)
[2021-07-19 07:51] VITALS: BP 112/51
[2021-07-19] MEDS ORDERED: CEPHALEXIN 500 MG CAP PO SCH (09:00)
[2021-07-19] MEDS: APIXABAN 5 MG TAB (ELIQUIS) PO SCH (09:01)
[2021-07-19] MEDS: IRON POLYSAC (NIFEREX) 150 MG CAP PO SCH (09:01)
[2021-07-19] MEDS: DIGOXIN 0.125 MG TAB PO SCH (09:02)
[2021-07-19 12:00] VITALS: BP 135/66
[2021-07-19] MEDS ORDERED: METO25TA4 PO (14:22)
[2021-07-19] MEDS ORDERED: DIGO0.123 PO (14:22)
[2021-07-19] MEDS ORDERED: CEPH500C PO (14:31)
[2021-07-19 15:12] VITALS: BP 135/66
--- NOTE | 2021-07-19 17:09 | DS.PDOC ---
Discharge Summary General Date of Admission Jul 15, 2021 at 13:50 Date of Discharge 07/19/2021 Primary Care Physician: CHARLI BENDER MD [facility] Attending Physician: MICHAEL SARGENT DO Specialist/Consultants Involve: Veronica Elliott MD Specialist/Consultants Involve Dr. Etienne Monroe MD, cardiology Discharge Summary PROCEDURES PERFORMED DURING STAY: None. ADMITTING DIAGNOSES: 1. Atrial fibrillation with RVR. 2. Iron deficiency anemia 3. Chronic systolic congestive heart failure with right-sided heart failure 4. Moderate to severe aortic stenosis 5. History of hypertension DISCHARGE DIAGNOSES: 1. Atrial fibrillation with RVR, improved. 2. Iron deficiency anemia, improved 3. Chronic systolic congestive heart failure with right-sided heart failure 4. Moderate to severe aortic stenosis, followed outpatient 5. History of hypertension. COMPLICATIONS/CHIEF COMPLAINT: Anemia, A-Fib With Rvr. HISTORY OF PRESENT ILLNESS: Patient is an 86-year-old female who was seen by her PCP for bilateral leg swelling was found to have atrial fibrillation with rapid ventricular response with rates in the 160s so she sent to the emergency department. Patient has a past medical history of chronic atrial fibrillation a nd systolic heart failure with an EF of 40% with moderate to severe aortic stenosis moderate pulmonary hypertension. On arrival to the emergency department, her pulse was in the 170s and her blood pressure is 125/83 she was given 1 dose of metoprolol 25 mg by mouth and her pulse rate came down to the 140s however her blood pressure also dropped to 86/62 with a mean arterial pressure of 71. Patient only has a complaint of bilateral leg swelling with blisters which have ruptured and drained a clear liquid. Patient has bilateral ankle fractures and surgeries in the past. Patient stopped taking her medication because this was making her feel fatigued. Patient states her pulse usually runs about 100. She only takes the medicine when her pulse rate is high. She denies any palpitation or chest pain at this time. Iron studies show iron deficiency. She was admitted for A. fib with RVR. HOSPITAL COURSE: Patient was loaded with digoxin which did help bring the patient's heart rate down. No diuretics were given at this time as the patient did not appear fluid overloaded once the patient's heart rate came back down into the 90s to 100s, patient's fluid status was euvolemic. Patient's wounds on her legs were draining but these appear to be venous stasis ulcers. They were covered with foam dressings throughout her hospitalization. Patient was able to walk around to the bathroom. Patient was diagnosed with a urinary tract infection although at first patient denied any symptoms however, after a few days, patient did start complaining of symptoms of urinary tract infection. P yoandy had culture positive urine with E. coli. Patient had her metoprolol increased to 25 mg every 8 hours as she was taking this twice a day at home. Patient was seen by cardiology and follows with [facility] cardiology here in [place]. Both Dr. Elliott and Dr. Monroe saw her during her hospitalization. Patient's medications were adjusted and she is now currently on digoxin 0.125 mg daily and metoprolol 25 mg every 8 hours. I did discuss with the patient. Patient was given wound care instructions to cover her wounds with foam dressings and try to keep her legs elevated. Patient was deemed ready for discharge and was discharged with a home health care referral on 07/19/2021. DISCHARGE MEDICATIONS: Please see below. ALLERGIES: Please see below. PHYSICAL EXAMINATION ON DISCHARGE: VITAL SIGNS: Please see below. General: Alert and oriented female patient who was sitting up in the bedside chair I walked in. Patient did not appear to be in any acute distress. HEENT: Normocephalic, atraumatic, moist mucous membranes. Neck: No lymphadenopathy or thyromegaly Cardiac: Irregularly irregular rhythm with a rate around 100, 2/6 systolic murmur heard loudest over the second intercostal space on the right sternal border, normal S1, normal S2 Pulm: Clear to auscultation bilaterally. No wheezes, rhonchi, rales Abd: Nondistended, nontender to palpation, normal bowel sounds Ext: No edema in the bilateral lower extremities, there were wounds that were draining a serosanguineous fluid that did not have any purulence or surrounding erythema LABORATORY DATA: Please see below. IMAGING: Chest x-ray performed on 07/15/2021 was reported to show chronic changes similar to 03/25/2021. No obvious acute process identified PROGNOSIS: Fair ACTIVITY: As tolerated. DIET: 2 g sodium DISCHARGE PLAN: Discharge home with home health service DISPOSITION: Home Health Service. DISCHARGE INSTRUCTIONS: 1. Follow-up with primary care provider within 3 to 5 days discharge. 2. Follow-up with Dr. Monroe in 1 week. 3. Continue take digoxin 0.125 mg daily and metoprolol 25 mg 3 times daily for your atrial fibrillation. 4. Cover wounds with foam dressings. 5. Return to the emergency department if symptoms worsen. ITEMS TO FOLLOWUP ON ON OUTPATIENT: 1. Continue monitoring of heart rate and possible referral to wound care. DISCHARGE CONDITION: Stable. TIME SPENT ON DISCHARGE: 35 minutes. Vital Signs/I&Os Vital Signs Date Time Temp Pulse Resp B/P (MAP) Pulse Ox O2 Delivery O2 Flow Rate FiO2 07/19/21 15:12 102 135/66 07/19/21 12:00 97.3 18 100 Room Air I&O- Last 24 Hours up to 6 AM 07/19/21 06:00 Intake Total 420 ml Output Total 200 ml Balance 220 ml Laboratory Data Labs 24H Laboratory Tests 2 07/19/21 04:14: Immature Granulocyte % (Auto) 0.4, Neutrophils (%) (Auto) 78.8H, Lymphocytes (%) (Auto) 10.7L, Monocytes (%) (Auto) 6.4, Eosinophils (%) (Auto) 3.0, Basophils (%) (Auto) 0.7, Neutrophils # (Auto) 7.1, Lymphocytes # (Auto) 1.0L, Monocytes # (Auto) 0.6, Eosinophils # (Auto) 0.3, Basophils # (Auto) 0.1, Nucleated Red Blood Cells % (auto) 0.0, Anion Gap 3L, Glomerular Filtration Rate > 60.0, Calcium Level 8.0L CBC/BMP Laboratory Tests 07/19/21 04:14 Microbiology Microbiology 07/15/21 Urine Culture - Final, Complete Escherichia Coli 07/15/21 Blood Culture - Preliminary, Resulted No Growth after 72 hours. All specime... 07/15/21 Blood Culture - Preliminary, Resulted No Growth after 72 hours. All specime... Discharge Medications Scheduled Apixaban (Eliquis) 5 Mg Tablet, 5 MG PO BID, (Reported) Aspirin (Aspirin EC) 81 Mg Tablet.dr, 81 MG PO DAILY, (Reported) Cephalexin (Cephalexin) 500 Mg Capsule, 500 MG PO BID Cholecalciferol (Vitamin D3) (Vitamin D3) 50 Mcg Tablet, 50 MCG PO DAILY, (Reported) Digoxin (Digoxin) 125 Mcg Tablet, 1 TAB PO DAILY Folic Acid (Folic Acid) 1 Mg Tablet, 1 MG PO DAILY, (Reported) Methotrexate Sodium (Methotrexate) 2.5 Mg Tablet, 15 MG PO 1XWK, (Reported) THURSDAYS Metoprolol Tartrate (Metoprolol Tartrate) 25 Mg Tablet, 25 MG PO Q8H Multivit-Min/FA/Lycopen/Lutein (Centrum Silver Tablet) 1 Each Tablet, 1 TAB PO DAILY, (Reported) Allergies Coded Allergies: TAPE (Verified Allergy, Unknown, 11/08/07) egg (Verified Allergy, Unknown, 03/25/21) shellfish derived (Verified Allergy, Unknown, 03/25/21) MICHAEL SARGENT DO Jul 19, 2021 17:09
== END 2021-07-19 16:39 | disposition home health service (06) | DRG 308 ==
LOC: M ED 11:14 → M ED INP 13:50 → ENRESERV 16:40 → M PCU 18:30
PROVIDERS: ADMIT Internal Medicine Nephrology; ATTEND Family Medicine
DX: I48.20 Chronic atrial fibrillation, unspecified (principal); I50.23 Acute on chronic systolic (congestive) heart failure; N39.0 Urinary tract infection, site not specified; I10 Essential (primary) hypertension; I27.20 Pulmonary hypertension, unspecified; D50.9 Iron deficiency anemia, unspecified; I35.0 Nonrheumatic aortic (valve) stenosis; Z91.14 Patient's other noncompliance with medication regimen; B96.29 Other Escherichia coli [E. coli] as the cause of diseases classified elsewhere; Z79.899 Other long term (current) drug therapy; Z79.82 Long term (current) use of aspirin; Z91.013 Allergy to seafood; Z91.012 Allergy to eggs; Z86.73 Personal history of transient ischemic attack (TIA), and cerebral infarction without residual deficits; M06.9 Rheumatoid arthritis, unspecified; E55.9 Vitamin D deficiency, unspecified; Z85.3 Personal history of malignant neoplasm of breast; Z66 Do not resuscitate

== ENCOUNTER 2021-07-31 14:58 | Emergency (ER) | payer MEDICARE ==
[~2021-07-31] VITALS: Ht 167.6 cm; Wt 79.5 kg
[~2021-07-31 14:58] MED LIST changes: +CEPH500C PO; +DIGO0.123 PO; +METO25TA4 PO
[2021-07-31] MEDS ORDERED: LASI20TA3 PO (15:27)
--- NOTE | 2021-07-31 15:34 | REP ---
INDICATION: CHEST PAIN. COMPARISON: 07/15/2021. TECHNIQUE: Single portable AP view of the chest was performed. FINDINGS: There is mild stable cardiomegaly. There are stable mild increased interstitial markings diffusely. There is stable blunting of the costophrenic angles.No new superimposed acute infiltrate is seen. IMPRESSION: No acute pulmonary disease.Stable chronic findings. <Electronically signed by Ramón Conde > 07/31/21 [id number]
[2021-07-31] MEDS ORDERED: NS 1,000 ML IV SCH (15:35)
[2021-07-31 15:48] LABS: BASO # 0.1 10^3/uL (0.0-0.2); BASO % 0.9 % (0.0-1.0); EOS # 0.3 10^3/uL (0.0-0.5); EOS % 2.8 % (0.0-3.0); HEMATOCRIT 31.3 % (36.0-47.0); LYMPH # 0.9 10^3/uL (1.5-5.0); LYMPH % 9.6 % (24.0-44.0); MEAN CORPUSCULAR HEMOGLOBIN 21.8 pg (27.0-33.0); MEAN CORPUSCULAR HGB CONC 28.8 g/dl (32.0-36.5); MONO # 0.5 10^3/uL (0.0-0.8); MONO % 5.8 % (2.0-8.0); NEUTROPHILS # 7.3 10^3/uL (1.5-8.5); NEUTROPHILS % 80.6 % (36.0-66.0); PLATELET COUNT, AUTOMATED 315 10^3/uL (150-450); RED BLOOD COUNT 4.12 10^6/uL (4.00-5.40); WHITE BLOOD COUNT 9.1 10^3/uL (4.0-10.0)
[2021-07-31] MEDS: METOPROLOL 5 MG/5 ML VIAL IV SCH ×3 (15:50→17:23)
[2021-07-31 16:17] LABS: ALBUMIN 2.9 GM/DL (3.2-5.2); ALT/SGPT 33 U/L (12-78); BILIRUBIN,DIRECT 0.5 MG/DL (0.0-0.2); BILIRUBIN,TOTAL 0.8 MG/DL (0.2-1.0); BLOOD UREA NITROGEN 19 MG/DL (7-18); CARBON DIOXIDE LEVEL 31 MEQ/L (21-32); CHLORIDE LEVEL 104 MEQ/L (98-107); CK-MB VALUE MASS 2.8 NG/ML (<3.6); CPK CREATINE PHOSPHOKINASE 24 U/L (26-192); CREATININE FOR GFR 0.74 MG/DL (0.55-1.30); FREE T4 1.31 NG/DL (0.76-1.46); GLOMERULAR FILTRATION RATE > 60.0 (>32); GLUCOSE, FASTING 118 MG/DL (70-100); LIPASE 160 U/L (73-393); MB/CK RELATIVE INDEX 11.67 (< OR =4); NT-PRO BNP 4276 PG/ML (<450); POTASSIUM SERUM 3.7 MEQ/L (3.5-5.1); SODIUM LEVEL 137 MEQ/L (136-145); TOTAL PROTEIN 6.5 GM/DL (6.4-8.2); TROPONIN I < 0.02 NG/ML (< 0.10)
[2021-07-31] MEDS ORDERED: ACETAMINOPHEN TAB 650MG DOSE (2X325MG) PO ONE (16:40)
[2021-07-31] MEDS ORDERED: METOPROLOL TART 25 MG TABLET PO ONE (17:20)
--- OUTSIDE RECORDS SUMMARY | 2021-07-31 17:26 | CCD ---
Author Author [facility] Organization [facility] Address Unknown Phone Unavailable Care Team Providers Care Marketing Designer Name Role Phone JESSICA LEÓN MD Unavailable Unavailable ROMELIAJESSICA MD Unavailable Unavailable ROMELIAJESSICA MD Unavailable Unavailable ROMELIAJESSICA MD Unavailable Unavailable ROMELIAJESSICA MD Unavailable Unavailable ROMELIAJESSICA MD Unavailable Unavailable ROMELIAJESSICA MD Unavailable Unavailable ROMELIAJESSICA MD Unavailable Unavailable ROMELIAJESSICA MD Unavailable Unavailable ROMELIAJESSICA MD Unavailable Unavailable ROMELIAJESSICA MD Unavailable Unavailable ROMELIAJESSICA MD Unavailable Unavailable ROMELIAJESSICA MD Unavailable Unavailable ROMELIAJESSICA MD Unavailable Unavailable ROMELIAJESSICA MD Unavailable Unavailable ROMELIAJESSICA MD Unavailable Unavailable ROMELIAJESSICA MD Unavailable Unavailable ROMELIAJESSICA MD Unavailable Unavailable JESSICA LEÓN MD Unavailable Unavailable JESSICA LEÓN MD Unavailable Unavailable ROMELIAJESSICA MD Unavailable Unavailable JESSICA LEÓN MD Unavailable Unavailable ROMELIAJESSICA MD Unavailable Unavailable ROMELIAJESSICA MD Unavailable Unavailable ROMELIAJESSICA MD Unavailable Unavailable ROMELIAJESSICA MD Unavailable Unavailable ROMELIAJESSICA MD Unavailable Unavailable JESSICA LEÓN MD Unavailable Unavailable JESSICA LEÓN MD Unavailable Unavailable JESSICA LEÓN MD Unavailable Unavailable JESSICA LEÓN MD Unavailable Unavailable JESSICA LEÓN MD Unavailable Unavailable ROMELIAJESSICA MD Unavailable Unavailable ROMELIAJESSICA MD Unavailable Unavailable ROMELIAJESSICA MD Unavailable Unavailable JESSICA LEÓN MD Unavailable Unavailable ROMELIAJESSICA MD Unavailable Unavailable JESSICA LEÓN MD Unavailable Unavailable JESSICA LEÓN MD Unavailable Unavailable ROMELIAJESSICA MD Unavailable Unavailable ROMELIAJESSICA MD Unavailable Unavailable ROMELIAJESSICA MD Unavailable Unavailable ROMELIAJESSICA MD Unavailable Unavailable ROMELIA, LOPEZ MD Unavailable Unavailable ROMELIA, LOPEZ MD Unavailable Unavailable ROMELIA, LOPEZ MD Unavailable Unavailable ROMELIA, LOPEZ MD Unavailable Unavailable ROMELIA, LOPEZ MD Unavailable Unavailable ROMELIA, LOPEZ MD Unavailable Unavailable ROMELIA, LOPEZ MD Unavailable Unavailable ROMELIA, LOPEZ MD Unavailable Unavailable ROMELIA, LOPEZ MD Unavailable Unavailable ROMELIA, LOPEZ MD Unavailable Unavailable ROMELIA, LOPEZ MD Unavailable Unavailable ROMELIA, LOPEZ MD Unavailable Unavailable EMERTON, A CHARLI MD Unavailable Unavailable EMERTON, A CHARLI MD Unavailable Unavailable EMERTON, A CHARLI MD Unavailable Unavailable EMERTON, A CHARLI MD Unavailable Unavailable EMERTON, A CHARLI MD Unavailable Unavailable EMERTON, A CHARLI MD Unavailable Unavailable EMERTON, A CHARLI MD Unavailable Unavailable EMERTON, A CHARLI MD Unavailable Unavailable EMERTON, A CHARLI MD Unavailable Unavailable EMERTON, A CHARLI MD Unavailable Unavailable EMERTON, A CHARLI MD Unavailable Unavailable EMERTON, A CHARLI MD Unavailable Unavailable EMERTON, A CHARLI MD Unavailable Unavailable EMERTON, A CHARLI MD Unavailable Unavailable EMERTON, A CHARLI MD Unavailable Unavailable EMERTON, A CHARLI MD Unavailable Unavailable EMERTON, A CHARLI MD Unavailable Unavailable EMERTON, A CHARLI MD Unavailable Unavailable EMERTON, A CHARLI MD Unavailable Unavailable EMERTON, A CHARLI MD Unavailable Unavailable EMERTON, A CHARLI MD Unavailable Unavailable EMERTON, A CHARLI MD Unavailable Unavailable EMERTON, A CHARLI MD Unavailable Unavailable EMERTON, A CHARLI MD Unavailable Unavailable EMERTON, A CHARLI MD Unavailable Unavailable EMERTON, A CHARLI MD Unavailable Unavailable EMERTON, A CHARLI MD Unavailable Unavailable EMERTON, A CHARLI MD Unavailable Unavailable EMERTON, A CHARLI MD Unavailable Unavailable EMERTON, A CHARLI MD Unavailable Unavailable EMERTON, A CHARLI MD Unavailable Unavailable EMERTON, A CHARLI MD Unavailable Unavailable EMERTON, A CHARLI MD Unavailable Unavailable EMERTON, A CHARLI MD Unavailable Unavailable EMERTON, A CHARLI MD Unavailable Unavailable EMERTON, A CHARLI MD Unavailable Unavailable EMERTON, A CHARLI MD Unavailable Unavailable EMERTON, A CHARLI MD Unavailable Unavailable EMERTON, A CHARLI MD Unavailable Unavailable EMERTON, A CHARLI MD Unavailable Unavailable EMERTON, A CHARLI MD Unavailable Unavailable EMERTON, A CHARLI MD Unavailable Unavailable EMERTON, A CHARLI MD Unavailable Unavailable EMERTON, A CHARLI MD Unavailable Unavailable EMERTON, A CHARLI MD Unavailable Unavailable EMERTON, A CHARLI MD Unavailable Unavailable EMERTON, A CHARLI MD Unavailable Unavailable EMERTON, A CHARLI MD Unavailable Unavailable EMERTON, A CHARLI MD Unavailable Unavailable EMERTON, A CHARLI MD Unavailable Unavailable EMERTON, A CHARLI MD Unavailable Unavailable EMERTON, A CHARLI MD Unavailable Unavailable EMERTON, A CHARLI MD Unavailable Unavailable EMERTON, A CHARLI MD Unavailable Unavailable EMERTON, A CHARLI MD Unavailable Unavailable EMERTON, A CHARLI MD Unavailable Unavailable EMERTON, A CHARLI MD Unavailable Unavailable EMERTON, A CHARLI MD Unavailable Unavailable EMERTON, A CHARLI MD Unavailable Unavailable EMERTON, A CHARLI MD Unavailable Unavailable EMERTON, A CHARLI MD Unavailable Unavailable EMERTON, A CHARLI MD Unavailable Unavailable EMERTON, A CHARLI MD Unavailable Unavailable EMERTON, A CHARLI MD Unavailable Unavailable EMERTON, A CHARLI MD Unavailable Unavailable EMERTON, A CHARLI MD Unavailable Unavailable EMERTON, A CHARLI MD Unavailable Unavailable EMERTON, A CHARLI MD Unavailable Unavailable EMERTON, A CHARLI MD Unavailable Unavailable EMERTON, A CHARLI MD Unavailable Unavailable EMERTON, A CHARLI MD Unavailable Unavailable EMERTON, A CHARLI MD Unavailable Unavailable EMERTON, A CHARLI MD Unavailable Unavailable EMERTON, A CHARLI MD Unavailable Unavailable EMERTON, A CHARLI MD Unavailable Unavailable EMERTON, A CHARLI MD Unavailable Unavailable EMERTON, A CHARLI MD Unavailable Unavailable Re-disclosure Warning The records that you are about to access may contain information from federally-assisted alcohol or drug abuse programs. If such information is present, then the following federally mandated warning applies: This information has been disclosed to you from records protected by federal confidentiality rules (42 CFR part 2). The federal rules prohibit you from making any further disclosure of this information unless further disclosure is expressly permitted by the written consent of the person to whom it pertains or as otherwise permitted by 42 CFR part 2. A general authorization for the release of medical or other information is NOT sufficient for this purpose. The Federal rules restrict any use of the information to criminally investigate or prosecute any alcohol or drug abuse patient.The records that you are about to access may contain highly sensitive health information, the redisclosure of which is protected by Article 27-F of the [facility] Public Health law. If you continue you may have access to information: Regarding HIV / AIDS; Provided by facilities licensed or operated by the [facility] Office of Mental Health; or Provided by the [place] State Office for People With Developmental Disabilities. If such information is present, then the following [facility] mandated warning applies: This information has been disclosed to you from confidential records which are protected by state law. State law prohibits you from making any further disclosure of this information without the specific written consent of the person to whom it pertains, or as otherwise permitted by law. Any unauthorized further disclosure in violation of state law may result in a fine or fdc sentence or both. A general authorization for the release of medical or other information is NOT sufficient authorization for further disc losure. Allergies and Adverse Reactions Type Description Substance Reaction Status Data Source(s ) Propensity to adverse reactions SULFA ANTIBIOTICS Sulfa Antibiotics Active [facility] Family History Family Member Name Family Member Gender Family Member Status Date o f Status Description Data Source(s) Unknown Unknown Problem [facility] ([facility]) Unknown Unknown Problem [facility] ([facility]) Unknown Unknown Problem [facility] ([facility]) Encounters Encounter Providers Location Date Indications Data Source(s ) Outpatient Attender: JESSICA LEÓN MD [email or web address] 07/31/2021 12:00:00 AM EDT [facility] Outpatient Attender: JESSICA LEÓN MDReferrer: CHARLI Huber [email or web address] 05/22/2021 12:00:00 AM EDT - 05/22/2021 11:09:08 AM EDT [facility] Medications Medication Brand Name Start Date Product Form Dose Route Admi nistrative Instructions Pharmacy Instructions Status Indications Reaction Description Data Source(s) Digoxin 0.125 MG Oral Tablet 125 mcg (0.125 mg) DIGOXIN 07/20/2021 12:00:00 AM EDT tablet 30 TAKE ONE TABLET BY MOUTH SHUKRI DAY TAKE ONE TABLET BY MOUTH EVERY DAY SOLD: 07/21/2021 [facility] Cephalexin 500 MG Oral Capsule CEPHALEXIN 07/19/2021 12:00:00 AM EDT capsule 14 TAKE ONE CAPSULE BY MOUTH TWICE A DAY TAKE ONE CAPSULE BY [facility] TWICE A DAY SOLD: 07/20/2021 [facility] 2.5 mg 07/15/2021 12:00:00 AM EDT tablet 72 TAKE 6 TABLETS BY MOUTH ONCE WEEKLY TAKE 6 TABLETS BY MOUTH ONCE WEEKLY SOLD: 07/20/2021 [facility] Digoxin 0.25 MG Oral Tablet digoxin (LANOXIN) 250 MCG tablet digoxin (LANOXIN) 250 MCG tablet 05/22/2021 12:00:00 AM EDT 250 ug Oral act liam Take 1 tablet (250 mcg total) by mouth every other day [facility] Furosemide 20 MG Oral Tablet furosemide (LASIX) 20 MG tablet furosemide (LASIX) 20 MG tablet 05/22/2021 12:00:00 AM EDT 20 mg Oral activ e Take 1 tablet (20 mg total) by mouth every other day [facility] Metoprolol Tartrate 25 MG Oral Tablet me toprolol tartrate (LOPRESSOR) 25 MG tablet metoprolol tartrate (LOPRESSOR) 25 MG tablet 05/10/2021 12:0 0:00 AM EDT 25 mg Oral active Take 25 mg by mo uth every 6 (six) hours [facility] Digoxin 0.25 MG Oral Tablet digoxin (LANOXIN) 250 MCG tablet digoxin (LANOXIN) 250 MCG tablet 05/10/2021 12:00:00 AM EDT 250 ug Oral abo rted Take 250 mcg by mouth daily [facility] apixaban 5 MG Oral Tablet [Eliquis] Eliquis 5 MG TABS tablet Eliquis 5 MG TABS tablet 05/10/2021 12:00:00 AM EDT 5 mg Oral active Take 5 mg by mouth 2 (two) times a day [facility] Furosemide 20 MG Oral Tablet furosemide (LASIX) 20 MG tablet furosemide (LASIX) 20 MG tablet 04/29/2021 12:00:00 AM EDT 20 mg Oral abort ed Take 20 mg by mouth daily [facility] 5 mg 04/09/2021 12:00:00 AM EDT tablet 60 TAKE ONE TABLET BY MOUTH TWICE A DAY TAKE ONE TABLET BY MOUTH TWICE A DAY SOLD: 05/13/2021 [facility] 25 mg 04/09/2021 12:00:00 AM EDT tablet 120 TAKE ONE TABLET BY MOUTH EVERY 6 HOURS TAKE ONE TABLET BY MOUTH EVERY 6 HOURS SOLD: 07/13/2021 [facility] 5 mg 04/09/2021 12:00:00 AM EDT tablet 60 TAKE ONE TABLET BY MOUTH TWICE A DAY TAKE ONE TABLET BY MOUTH TWICE A DAY SOLD: 06/12/2021 [facility] 5 mg 04/09/2021 12:00:00 AM EDT tablet 60 TAKE ONE TABLET BY MOUTH TWICE A DAY TAKE ONE TABLET BY MOUTH TWICE A DAY SOLD: 04/12/2021 [facility] Digoxin 0.25 MG Oral Tablet 250 mcg (0.25 mg) DIGOXIN 04/09/2021 12:00:00 AM EDT tablet 30 TAKE 1 TABLET BY MOUTH ONCE A DAY TAKE 1 TABLET BY MOUTH ONCE A DAY SOLD: 05/13/2021 [facility] Digoxin 0.25 MG Oral Tablet 250 mcg (0.25 mg) DIGOXIN 04/09/2021 12:00:00 AM EDT tablet 30 TAKE 1 TABLET BY MOUTH ONCE A DAY TAKE 1 TABLET BY MOUTH ONCE A DAY SOLD: 06/12/2021 [facility] Digoxin 0.25 MG Oral Tablet 250 mcg (0.25 mg) DIGOXIN 04/09/2021 12:00:00 AM EDT tablet 30 TAKE 1 TABLET BY MOUTH ONCE A DAY TAKE 1 TABLET BY MOUTH ONCE A DAY SOLD: 04/12/2021 [facility] 5 mg 04/09/2021 12:00:00 AM EDT tablet 60 TAKE ONE TABLET BY MOUTH TWICE A DAY TAKE ONE TABLET BY MOUTH TWICE A DAY SOLD: 07/13/2021 [facility] Digoxin 0.25 MG Oral Tablet 250 mcg (0.25 mg) DIGOXIN 04/09/2021 12:00:00 AM EDT tablet 30 TAKE 1 TABLET BY MOUTH ONCE A DAY TAKE 1 TABLET BY MOUTH ONCE A DAY SOLD: 07/13/2021 [facility] 25 mg 04/09/2021 12:00:00 AM EDT tablet 120 TAKE ONE TABLET BY MOUTH EVERY 6 HOURS TAKE ONE TABLET BY MOUTH EVERY 6 HOURS SOLD: 05/13/2021 [facility] 25 mg 04/09/2021 12:00:00 AM EDT tablet 120 TAKE ONE TABLET BY MOUTH EVERY 6 HOURS TAKE ONE TABLET BY MOUTH EVERY 6 HOURS SOLD: 06/12/2021 [facility] 25 mg 04/09/2021 12:00:00 AM EDT tablet 120 TAKE ONE TABLET BY MOUTH EVERY 6 HOURS TAKE ONE TABLET BY MOUTH EVERY 6 HOURS SOLD: 04/12/2021 [facility] 20 mg 04/01/2021 12:00:00 AM EDT tablet 30 TAKE 1 TABLET BY MOUTH ONCE A DAY TAKE 1 TABLET BY MOUTH ONCE A DAY SOLD: 04/01/2021 [facility] 20 mg 04/01/2021 12:00:00 AM EDT tablet 30 TAKE 1 TABLET BY MOUTH ONCE A DAY TAKE 1 TABLET BY MOUTH ONCE A DAY SOLD: 05/02/2021 [facility] 20 mg 04/01/2021 12:00:00 AM EDT tablet 30 TAKE 1 TABLET BY MOUTH ONCE A DAY TAKE 1 TABLET BY MOUTH ONCE A DAY SOLD: 06/02/2021 [facility] 20 mg 04/01/2021 12:00:00 AM EDT tablet 30 TAKE 1 TABLET BY MOUTH ONCE A DAY TAKE 1 TABLET BY MOUTH ONCE A DAY SOLD: 07/02/2021 [facility] 25 mg 03/29/2021 12:00:00 AM EDT tablet 60 TAKE ONE TABLET BY MOUTH EVERY 6 HOURS TAKE ONE TABLET BY MOUTH EVERY 6 HOURS SOLD: 03/29/2021 [facility] Digoxin 0.25 MG Oral Tablet 250 mcg (0.25 mg) DIGOXIN 03/29/2021 12:00:00 AM EDT tablet 15 TAKE ONE TABLET BY MOUTH TAKE ONE TABLET BY MOUTH EVERY DAY SOLD: 03/29/2021 [facility] 5 mg 03/29/2021 12:00:00 AM EDT tablet 28 TAKE ONE TABLET BY MOUTH TWICE A DAY TAKE ONE TABLET BY MOUTH TWICE A DAY SOLD: 03/29/2021 [facility] 2.5 mg 01/21/2021 12:00:00 AM EDT tablet 72 TAKE 6 TABLETS BY MOUTH ONCE WEEKLY TAKE 6 TABLETS BY MOUTH ONCE WEEKLY SOLD: 01/22/2021 [facility] Hydrochlorothiazide 12.5 MG Oral Tablet HYDROCHLOROTHIAZIDE 12/26/2020 12:00:00 AM EDT tablet 90 TAKE ONE TABLET BY MOUTH SHUKRI TAKE ONE TABLET BY MOUTH EVERY DAY SOLD: 12/28/2020 [facility] 50 mcg (2,000 unit) 10/22/2020 12:00:00 AM EST tablet 90 TAKE ONE TABLET BY MOUTH EVERY DAY TAKE ONE TABLET BY MOUTH EVERY DAY SOLD: 10/24/2020 [facility] 1 mg 09/26/2020 12:00:00 AM EST tablet 90 TAKE ONE TABLET BY MOUTH EVERY DAY TAKE ONE TABLET BY MOUTH EVERY DAY SOLD: 09/30/2020 [facility] 2.5 mg 08/06/2020 12:00:00 AM EST tablet 72 TAKE 6 TABLETS BY MOUTH ONCE WEEKLY TAKE 6 TABLETS BY MOUTH ONCE WEEKLY SOLD: 08/08/2020 [facility] 2.5 mg 08/06/2020 12:00:00 AM EST tablet 72 TAKE 6 TABLETS BY MOUTH ONCE WEEKLY TAKE 6 TABLETS BY MOUTH ONCE WEEKLY SOLD: 10/31/2020 [facility] Hydrochlorothiazide 12.5 MG Oral Tablet HYDROCHLOROTHIAZIDE 06/29/2020 12:00:00 AM EDT tablet 90 TAKE ONE TABLET BY MOUTH ONC E DAILY TAKE ONE TABLET BY MOUTH ONCE DAILY SOLD: 07/01/2020 [facility] Hydrochlorothiazide 12.5 MG Oral Tablet HYDROCHLOROTHIAZIDE 06/29/2020 12:00:00 AM EDT tablet 90 TAKE ONE TABLET BY MOUTH ONC E DAILY TAKE ONE TABLET BY MOUTH ONCE DAILY SOLD: 09/30/2020 [facility] 1 mg 04/02/2020 12:00:00 AM EDT tablet 90 TAKE 1 TABLET BY MOUTH DAILY TAKE 1 TABLET BY MOUTH DAILY SOLD: 07/01/2020 [facility] Insurance Providers Payer name Policy type / Coverage type Policy ID Covered democrat ID Covered democrat's relationship to goins Policy Goins Plan Information MEDICARE [id number] SP [id number] A MEDICARE [id number] SP [id number] A MEDICARE [id number] [place] [id number] MEDICARE [id number] [employer] CARE OPTIONS [id number] SP [id number] [facility] OPTIONS [id number] SP [id number] [facility] OPTIONS [id number] SP [id number] [facility] OPTIONS [id number] SP [id number] [facility] [id number] [facility] [id number] [place] [id number] Medicare Natl Gov't Servi Medicare Primary [id number] Self MEDICARE C [id number] S [id number] A [id number] AARP O [id number] S [id number] [facility] Options Medigap Part B [id number] Self Problems, Conditions, and Diagnoses Code Display Name Description Problem Type Effective Dates Data Source(s) M19.90 Unspecified osteoarthritis, unspecified site Unspecified osteoarthritis, unspecified Diagnosis 05/22/2021 09:42:09 AM EDT [facility] I42.9 Cardiomyopathy, unspecified Cardiomyopathy, unspecifie d Diagnosis 05/22/2021 09:42:09 AM EDT [facility] I35.0 Nonrheumatic aortic (valve) stenosis Nonrheumati c aortic (valve) stenosis Diagnosis 05/22/2021 09:42:09 AM EDT [facility] I10 Essential (primary) hypertension Essential (primary) h ypertension Diagnosis 05/22/2021 09:42:09 AM EDT [facility] I48.91 Unspecified atrial fibrillation Unspecified atri al fibrillation Diagnosis 05/22/2021 09:42:09 AM EDT [facility] M19.90 Arthritis Arthritis [id number] 05/22/2021 12:00:00 AM ED T [facility] I42.9 Cardiomyopathy Cardiomyopathy [id number] 05/22/2021 12:00: 00 AM EDT [facility] I35.0 Aortic stenosis Aortic stenosis [id number] 05/22/2021 12:0 0:00 AM EDT [facility] I10 HTN (hypertension) HTN (hypertension) [id number] 12:00:00 AM EDT [facility] I48.91 Atrial fibrillation Atrial fibrillation [id number] 0 05/22/2021 12:00:00 AM EDT [facility] Surgeries/Procedures Procedure Description Date Indications Data Source(s) ECG ROUTINE ECG W/LEAST 12 LDS W/I&R <td>POCT AMB EKG</td><td>Routine</td><td>05/22/2021 11:06 AM EDT</td><td> Atrial fibrillation, unspecified type Hypertension, unspecified type Nonrheumatic aortic valve stenosis Cardiomyopathy, unspecified type</td><td> </td> 05/22/2021 11:06:00 AM EDT Cardiomyopathy, unspecified typeNonrheum atic aortic valve stenosisHypertension, unspecified typeAtrial fibrillation, unspecified type [facility] Cardiomyopathy, unspecified type Nonrheumatic aortic valve stenosis Hypertension, unspecified type Atrial fibrillation, unspecified type Results ID Date Data Source [id number] 07/15/2021 11:45:00 AM EDT [facility] Name Value Range Interpretation Code Description Data Asia rce(s) Supporting Document(s) SARS coronavirus 2 RNA [Presence] in Res piratory specimen by TIM with probe detection NEGATIVE [facility] This lab was ordered by [facility] a nd reported by [facility]. ID Date Data Source [id number] 03/25/2021 03:57:00 PM EDT [facility] Name Value Range Interpretation Code Description Data Asia rce(s) Supporting Document(s) SARS coronavirus 2 RNA [Presence] in Res piratory specimen by TIM with probe detection NEGATIVE [facility] This lab was ordered by [facility] a nd reported by [facility]. Procedure Social History Code Duration Value Status Description Data Source(s ) Alcohol intake 05/22/2021 12:00:00 AM EDT Ex-drinker (finding) comp leted Ex- drinker (finding) [facility] Tobacco use and exposure 05/22/2021 12:00:00 AM EDT Never used co mpleted Never used [facility] Smoking 05/22/2021 12:00:00 AM EDT Former smoker completed Former smoker [facility] Vital Signs ID Date Data Source UNK Name Value Range Interpretation Code Description Data Source(s) Systolic blood pressure 120 mm[Hg] 120 mm[Hg] [facility] Diastolic blood pressure 80 mm[Hg] 80 mm[Hg] [facility] Heart rate 81 /min 81 /min [facility] Respiratory rate 18 /min 18 /min [facility] Body height 167.6 cm 167.6 cm [facility] Body weight 85.73 kg 85.73 kg [facility] Body mass index (BMI) [Ratio] 30.51 kg/m2 30.51 kg/m2 [facility] Oxygen saturation in Arterial blood by Pulse oximetry 99 % 99 % [facility] Patient Treatment Plan of Care Planned Activity Planned Date Details Description Data Source (s) Digoxin 0.25 MG Oral Tablet 05/22/2021 12:00:00 AM EDT [facility] Furosemide 20 MG Oral Tablet 05/22/2021 12:00:00 AM EDT [facility] Metoprolol Tartrate 25 MG Oral Tablet 05/10/2021 12:00:00 AM EDT [facility] Digoxin 0.25 MG Oral Tablet 05/10/2021 12:00:00 AM EDT [facility] apixaban 5 MG Oral Tablet [Eliquis] 05/10/2021 12:00:00 AM EDT [facility] Furosemide 20 MG Oral Tablet 04/29/2021 12:00:00 AM EDT [facility]
[2021-07-31 18:20] VITALS: BP 110/72
--- NOTE | 2021-08-01 20:09 | ECGEPIP ---
[facility] - ED Test Date: 2021-07-31 Pat Name: LUCAS WALKER Department: Room: - Gender: Female Manager Review: LR : 1935 Requested By: Jocelyne Becerra Order Number: [id number] Reading MD: Jocelyne Becerra Measurements Intervals [place] Rate: 143 P: TN: QRS: 49 QRSD: 70 T: 222 QT: 262 QTc: 404 Interpretive Statements Atrial fibrillation with rapid ventricular response Nonspecific ST and T wave abnormality decreased rate 07/26/21 Electronically Signed on 08-01-2021 20:09:02 EDT by Jocelyne Becerra
== END 2021-07-31 18:34 | disposition home or self-care (01) ==
LOC: EDBD 14:58 → M ED 14:58
DX: I48.91 Unspecified atrial fibrillation (principal); I10 Essential (primary) hypertension; R06.02 Shortness of breath; Z82.49 Family history of ischemic heart disease and other diseases of the circulatory system; Z79.82 Long term (current) use of aspirin; Z79.01 Long term (current) use of anticoagulants; Z79.899 Other long term (current) drug therapy; Z91.89 Other specified personal risk factors, not elsewhere classified; Z91.013 Allergy to seafood; Z91.012 Allergy to eggs

== ENCOUNTER 2021-08-07 14:03 | Emergency (ER) | payer MEDICARE ==
[~2021-08-07] VITALS: Ht 167.6 cm; Wt 79.5 kg
[~2021-08-07 14:03] MED LIST changes: +LASI20TA3 PO
--- OUTSIDE RECORDS SUMMARY | 2021-08-07 14:08 | CCD ---
Author Author [facility] Organization [facility] Address Unknown Phone Unavailable Care Team Providers Care Administrative Project Coordinator Name Role Phone JESSICA LEÓN MD Unavailable [...] MD Unavailable Unavailable ROMELIAJESSICA MD Unavailable Unavailable RMOELIAJESSICA MD Unavailable Unavailable ROMELIAJESSICA MD Unavailable Unavailable [...] is protected by Article 27-F of the [facility] Public Health law. If you continue you may have access to information: Regarding HIV / AIDS; Provided by facilities licensed or operated by the [facility] Office of Mental Health; or Provided by the [place] State Office for People With Developmental Disabilities. If such information is present, then the following [facility] mandated warning applies: This information has [...] law may result in a fine or retirement sentence or both. A general authorization for the release of medical or other information is NOT sufficient authorization for further disc losure. Allergies and Adverse Reactions Type Description Substance Reaction Status Data Source(s ) Propensity to adverse reactions FISH-DERIVED PRODUCTS Fish-Derived Products Active [facility] Propensity to adverse reactions EGGS OR EGG-DERIVED PRODUCTS Eggs Or Egg-Derived Products Swelling High Active [facility] High Propensity to adverse reactions SULFA ANTIBIOTICS Sulfa Antibiotics Active [facility] Family History Family Member Name Family Member [...] LEÓN MD [email or web address] 07/31/2021 12:00:00 AM EDT [facility] Outpatient Attender: JESSICA LEÓN MDReferrer: CHARLI BENDER MD S [email or web address] 05/22/2021 12:00:00 AM EDT - 05/22/2021 11:09:08 AM EDT [facility] Medications Medication Brand Name Start Date Product Form Dose Route Admi nistrative Instructions Pharmacy Instructions Status Indications Reaction Description Data Source(s) Metoprolol Tartrate 50 MG Oral Tablet id toprolol tartrate (LOPRESSOR) 50 MG tablet metoprolol tartrate (LOPRESSOR) 50 MG tablet 07/31/2021 12:0 0:00 AM EDT 50 mg Oral active Take 1 tablet (5 0 mg total) by mouth 2 (two) times a day [facility] Digoxin 0.125 MG Oral Tablet digoxin (LANOXIN) 125 MCG tablet digoxin (LANOXIN) 125 MCG tablet 07/20/2021 12:00:00 AM EDT 125 ug Oral act liam Take 125 mcg by mouth daily [facility] Digoxin 0.125 MG Oral Tablet 125 mcg (0.125 mg) DIGOXIN 07/20/2021 12:00:00 AM EDT tablet 30 TAKE ONE TABLET BY MOUTH SHUKRI DAY TAKE ONE TABLET BY MOUTH EVERY DAY SOLD: 07/21/2021 [facility] Cephalexin 500 MG Oral Capsule CEPHALEXIN 07/19/2021 12:00:00 AM EDT capsule 14 TAKE ONE CAPSULE BY MOUTH TWICE A DAY TAKE ONE CAPSULE BY MO UT TWICE A DAY SOLD: 07/20/2021 [facility] 2.5 mg 07/15/2021 12:00:00 AM EDT tablet 72 TAKE 6 TABLETS BY MOUTH ONCE WEEKLY TAKE 6 TABLETS BY MOUTH ONCE WEEKLY SOLD: 07/20/2021 [facility] Digoxin 0.25 MG Oral Tablet digoxin (LANOXIN) 250 MCG tablet digoxin (LANOXIN) 250 MCG tablet 05/22/2021 12:00:00 AM EDT 250 ug Oral abo rted Take 1 tablet (250 mcg total) by mouth every other day [facility] Furosemide 20 MG Oral Tablet furosemide (LASIX) 20 MG tablet furosemide (LASIX) 20 MG tablet 05/22/2021 12:00:00 AM EDT 20 mg Oral activ e Take 1 tablet (20 mg total) by mouth every other day [facility] Metoprolol Tartrate 25 MG Oral Tablet me toprolol tartrate (LOPRESSOR) 25 MG tablet metoprolol tartrate (LOPRESSOR) 25 MG tablet 05/10/2021 12:0 0:00 AM EDT 25 mg Oral aborted Take 25 mg by [facility] every 6 (six) hours [facility] Digoxin 0.25 MG Oral Tablet digoxin (LANOXIN) 250 MCG tablet digoxin (LANOXIN) 250 MCG tablet 05/10/2021 12:00:00 AM EDT 250 ug Oral abo rted Take 250 mcg by mouth daily [facility] apixaban 5 MG Oral Tablet [Eliquis] Eliquis 5 MG TABS tablet Eliquis 5 MG TABS tablet 05/10/2021 12:00:00 AM EDT 5 mg Oral active Take 5 mg by mouth 2 (two) times a day [facility] Furosemide 20 MG Oral Tablet furosemide (LASIX) 20 MG tablet furosemide (LASIX) 20 MG tablet 04/29/2021 12:00:00 AM EDT 20 mg Oral abort ed Take 20 mg by mouth daily [facility] 5 mg 04/09/2021 12:00:00 AM EDT tablet [...] TABLET BY MOUTH ONCE A DAY SOLD: 08/03/2021 [facility] 20 mg 04/01/2021 12:00:00 AM [...] tablet 15 TAKE ONE TABLET BY MOUTH SHUKRI RY DAY TAKE ONE TABLET BY MOUTH EVERY [...] 90 TAKE ONE TABLET BY MOUTH SHUKRI DAY [...] type / Coverage type Policy ID Covered libertarian ID Covered libertarian's relationship to goins Policy Goins Plan Information MEDICARE [id number] SP [id number] A MEDICARE [id number] SP [id number] [id number] A MEDICARE [id number] MEDICARE [id number] [place]ista [id number] [employer] OPTIONS [id number] SP [id number] [employer] OPTIONS [id number] SP [id number] [employer] OPTIONS [id number] SP [id number] [employer] OPTIONS [id number] SP [id number] [facility] [id number] Calista [id number] [facility] [id number] [place] Gov[place] Serv[place] Medicare Primary [id number] Self MEDICARE C [id number] S [id number] A [id number] AARP O [id number] S [id number] [employer] [employer] Options Medigap Part B [id number] Self Problems, Conditions, and Diagnoses Code Display Name Description Problem Type Effective Dates Data Source(s) M19.90 Unspecified osteoarthritis, unspecified site Unspecified osteoarthritis, unspecified Diagnosis 05/22/2021 09:42:09 AM EDT [facility] I42.9 Cardiomyopathy, unspecified Cardiomyopathy, unspecifie d Diagnosis 05/22/2021 09:42:09 AM EDT [facility] I35.0 Nonrheumatic aortic (valve) stenosis Nonrheumati c aortic (valve) stenosis Diagnosis 05/22/2021 09:42:09 AM EDT [facility] I10 Essential (primary) hypertension Essential (primary) h ypertension Diagnosis 05/22/2021 09:42:09 AM EDT [facility] I48.91 Unspecified atrial fibrillation Unspecified atri al fibrillation Diagnosis 05/22/2021 09:42:09 AM EDT [facility] M19.90 Arthritis Arthritis [id number] 05/22/2021 12:00:00 AM ED T [facility] I42.9 Cardiomyopathy Cardiomyopathy [id number] 05/22/2021 12:00: 00 AM EDT [facility] I35.0 Aortic stenosis Aortic stenosis [id number] 05/22/2021 12:0 0:00 AM EDT [facility] I10 HTN (hypertension) HTN (hypertension) [id number] 12:00:00 AM EDT [facility] I48.91 Atrial fibrillation Atrial fibrillation [id number] 05/22/2021 12:00:00 AM EDT [facility] Surgeries/Procedures Procedure Description Date Indications Data Source(s) POCT AMB EKG <td>POCT AMB EKG</td><td>Rou yaneth</td><td>07/31/2021 3:51 PM EDT</td><td> Nonrheumatic aortic valve stenosis Atrial fibrillation, unspecified type Cardiomyopathy, unspecified type Hypertension, unspecified type</td><td> </td> 07/31/2021 03:51:00 PM EDT Hypertension, unspecified typeCardiomyop athy, unspecified typeAtrial fibrillation, unspecified typeNonrheumatic aortic valve stenosis [facility] Hypertension, unspecified type Cardiomyopathy, unspecified type Atrial fibrillation, unspecified type Nonrheumatic aortic valve stenosis TROPONIN QUANTITATIVE <td>TROPONIN I</td><td>Routine</td><td>07/15/2021</td><td></td><td> </td> 07/15/2021 12:00:00 AM EDT [facility] BLOOD COUNT COMPLETE AUTO&AUTO DIFRNTL WBC COUNT <td>C BC AND DIFFERENTIAL</td><td>Routine</td><td>07/15/2021</td><td></td><td> </td> 07/15/2021 12:00:00 AM EDT [facility] THYROID STIMULATING HORMONE TSH <td>TSH</td><td>Routine</td><td>07/15/2021</td><td></td><td> </td> 07/15/2021 12:00:00 AM EDT [facility] HEPATIC FUNCTION PANEL <td>HEPATIC FUNCTION PANEL</td><td>Routine</td><td>07/15/2021</td><td></td><td> </td> 07/15/2021 12:00:00 AM EDT [facility] BASIC METABOLIC PANEL CALCIUM TOTAL <td>BASIC METABOLI C PANEL</td><td>Routine</td><td>07/15/2021</td><td></td><td> </td> 07/15/2021 12:00:00 AM EDT [facility] ECG ROUTINE ECG W/LEAST 12 LDS W/I&R <td>POCT AMB EKG</td><td>Routine</td><td>05/22/2021 11:06 AM EDT</td><td> Atrial fibrillation, unspecified type Hypertension, unspecified type Nonrheumatic aortic valve stenosis Cardiomyopathy, unspecified type</td><td> </td> 05/22/2021 11:06:00 AM EDT Cardiomyopathy, unspecified typeNonrheum atic aortic valve stenosisHypertension, unspecified typeAtrial fibrillation, unspecified type [facility] Cardiomyopathy, unspecified type Nonrheumatic aortic valve stenosis Hypertension, unspecified type Atrial fibrillation, unspecified type Results ID Date Data Source [id number] 07/15/2021 11:45:00 AM EDT [facility] Name Value Range Interpretation Code Description Data Asia rce(s) Supporting Document(s) SARS coronavirus 2 RNA [Presence] in Res piratory specimen by TIM with probe detection NEGATIVE [facility] This lab was ordered by [facility] a nd reported by [facility]. ID Date Data Source [id number] 03/25/2021 03:57:00 PM EDT [facility] Name Value Range Interpretation Code Description Data Asia rce(s) Supporting Document(s) SARS coronavirus 2 RNA [Presence] in Res piratory specimen by TIM with probe detection NEGATIVE [facility] This lab was ordered by [facility] a nd reported by [facility]. Procedure Social History Code Duration Value Status Description Data Source(s ) Alcohol intake 07/31/2021 12:00:00 AM EDT Ex-drinker (finding) comp leted Ex- drinker (finding) [facility] Tobacco use and exposure 05/22/2021 12:00:00 AM EDT Never used co mpleted Never used [facility] Smoking 05/22/2021 12:00:00 AM EDT Former smoker completed Former smoker [facility] Alcohol intake 05/22/2021 12:00:00 AM EDT Ex-drinker (finding) comp leted Ex- drinker (finding) [facility] Vital Signs ID Date Data Source UNK Name Value Range Interpretation Code Description Data Source(s) Systolic blood pressure 136 mm[Hg] 136 mm[Hg] [facility] Diastolic blood pressure 88 mm[Hg] 88 mm[Hg] [facility] Heart rate 172 /min 172 /min [facility] Body height 167.6 cm 167.6 cm [facility] Body weight 77.111 kg 77.111 kg [facility] Body mass index (BMI) [Ratio] 27.44 kg/m2 27.44 kg/m2 [facility] Oxygen saturation in Arterial blood by Pulse oximetry 97 % 97 % [facility] Systolic blood pressure 120 mm[Hg] 120 mm[Hg] [facility] Diastolic blood pressure 80 mm[Hg] 80 mm[Hg] [facility] Oxygen saturation in Arterial blood by Pulse oximetry 99 % 99 % [facility] Heart rate 81 /min 81 /min [facility] Respiratory rate 18 /min 18 /min [facility] Body height 167.6 cm 167.6 cm [facility] Body weight 85.73 kg 85.73 kg [facility] Body mass index (BMI) [Ratio] 30.51 kg/m2 30.51 kg/m2 [facility] Patient Treatment Plan of Care Planned Activity Planned Date Details Description Data Source (s) Metoprolol Tartrate 50 MG Oral Tablet 07/31/2021 12:00:00 AM EDT [facility] Digoxin 0.125 MG Oral Tablet 07/20/2021 12:00:00 AM EDT [facility] Digoxin 0.25 MG Oral Tablet 05/22/2021 12:00:00 AM EDT [facility] Furosemide 20 MG Oral Tablet 05/22/2021 12:00:00 AM EDT [facility] Metoprolol Tartrate 25 MG Oral Tablet 05/10/2021 12:00:00 AM EDT [facility] apixaban 5 MG Oral Tablet [Eliquis] 05/10/2021 12:00:00 AM EDT [facility] Digoxin 0.25 MG Oral Tablet 05/10/2021 12:00:00 AM EDT [facility] Furosemide 20 MG Oral Tablet 04/29/2021 12:00:00 AM EDT [facility]
[2021-08-07] MEDS ORDERED: METOPROLOL TART 25 MG TABLET PO ONE (14:40)
[2021-08-07 14:45] LABS: BASO % 0.5 % (0.0-1.0); EOS # 0.1 10^3/uL (0.0-0.5); EOS % 1.7 % (0.0-3.0); HEMATOCRIT 32.1 % (36.0-47.0); HEMOGLOBIN 9.1 g/dl (12.0-15.5); LYMPH # 0.9 10^3/uL (1.5-5.0); LYMPH % 12.2 % (24.0-44.0); MEAN CORPUSCULAR HEMOGLOBIN 21.7 pg (27.0-33.0); MEAN CORPUSCULAR HGB CONC 28.3 g/dl (32.0-36.5); MEAN CORPUSCULAR VOLUME 76.4 fl (80.0-96.0); MONO # 0.5 10^3/uL (0.0-0.8); NEUTROPHILS % 79.1 % (36.0-66.0); PLATELET COUNT, AUTOMATED 400 10^3/uL (150-450); WHITE BLOOD COUNT 7.5 10^3/uL (4.0-10.0)
[2021-08-07] MEDS: METOPROLOL 5 MG/5 ML VIAL IV SCH ×3 (14:51→15:12)
--- OUTSIDE RECORDS SUMMARY | 2021-08-07 14:53 | CCD ---
Author Author [facility] Organization [facility] Address Unknown Phone Unavailable Care Team Providers Care Cooking Show Host Name Role Phone JESSICA LEÓN MD Unavailable [...] Unavailable Unavailable JESSICA LEÓN MD Unavailable Unavailable ROMEILAJESSICA MD Unavailable Unavailable ROMELIAJESSICA MD Unavailable Unavailable [...] is protected by Article 27-F of the [facility] Public Health law. If you continue you may have access to information: Regarding HIV / AIDS; Provided by facilities licensed or operated by the [facility] Office of Mental Health; or Provided by the [place] State Office for People With Developmental Disabilities. If such information is present, then the following [facility] mandated warning applies: This information has [...] law may result in a fine or longterm sentence or both. A general authorization for the release of medical or other information is NOT sufficient authorization for further disc losure. Allergies and Adverse Reactions Type Description Substance Reaction Status Data Source(s ) Propensity to adverse reactions FISH-DERIVED PRODUCTS Fish-Derived Products Active [facility] Propensity to adverse reactions EGGS OR EGG-DERIVED PRODUCTS Eggs Or Egg-Derived Products Swelling High Active [facility] High Propensity to adverse reactions SULFA ANTIBIOTICS Sulfa Antibiotics Active [facility] Family History Family Member Name Family [...] LEÓN MD [email or web address] 07/31/2021 12:00:00 AM EDT [facility] Outpatient Attender: JESSICA LEÓN MDReferrer: CHARLI BENDER MD S [email or web address] 05/22/2021 12:00:00 AM EDT - 05/22/2021 11:09:08 AM EDT [facility] Medications Medication Brand Name Start Date Product Form Dose Route Admi nistrative Instructions Pharmacy Instructions Status Indications Reaction Description Data Source(s) Metoprolol Tartrate 50 MG Oral Tablet mo toprolol tartrate (LOPRESSOR) 50 MG tablet metoprolol tartrate (LOPRESSOR) 50 MG tablet 07/31/2021 12:0 0:00 AM EDT 50 mg Oral active Take 1 tablet (5 0 mg total) by mouth 2 (two) times a day [facility] Digoxin 0.125 MG Oral Tablet digoxin (LANOXIN) 125 MCG tablet digoxin (LANOXIN) 125 MCG tablet 07/20/2021 12:00:00 AM EDT 125 ug Oral act liam Take 125 mcg by mouth daily [facility] Digoxin 0.125 MG Oral Tablet 125 mcg [...] mcg total) by mouth every other day [facility] Furosemide 20 MG Oral Tablet furosemide (LASIX) 20 MG tablet furosemide (LASIX) 20 MG tablet 05/22/2021 12:00:00 AM EDT 20 mg Oral activ e Take 1 tablet (20 mg total) by mouth every other day [facility] Metoprolol Tartrate 25 MG Oral Tablet me toprolol tartrate (LOPRESSOR) 25 MG tablet metoprolol tartrate (LOPRESSOR) 25 MG tablet 05/10/2021 12:0 0:00 AM EDT 25 mg Oral aborted Take 25 mg by [facility] every 6 (six) hours [facility] Digoxin 0.25 MG Oral Tablet digoxin (LANOXIN) 250 MCG tablet digoxin (LANOXIN) 250 MCG tablet 05/10/2021 12:00:00 AM EDT 250 ug Oral abo rted Take 250 mcg by mouth daily [facility] apixaban 5 MG Oral Tablet [Eliquis] Eliquis 5 MG TABS tablet Eliquis 5 MG TABS tablet 05/10/2021 12:00:00 AM EDT 5 mg Oral active Take 5 mg by mouth 2 (two) times a day [facility] Furosemide 20 MG Oral Tablet furosemide (LASIX) 20 MG tablet furosemide (LASIX) 20 MG tablet 04/29/2021 12:00:00 AM EDT 20 mg Oral abort ed Take 20 mg by mouth daily [facility] 5 mg 04/09/2021 12:00:00 AM EDT [...] to goins Policy Goins Plan Information MEDICARE [id number] SP [id number] A MEDICARE [id number] SP [id number] A MEDICARE [id number] MEDICARE [id number] Calista [id number] [employer] OPTIONS [id number] SP [id number] [employer] OPTIONS [id number] SP [id number] [employer] OPTIONS [id number] SP [id number] [employer] OPTIONS [id number] SP [id number] [facility] [id number] Calista [id number] [facility] [id number] Medicare [place] Gov't Serv[place] Medicare Primary [id number] Self MEDICARE C [id number] S [id number] A [id number] AARP O [id number] S [id number] [employer] Options Medigap Part B [id number] Self Problems, Conditions, and Diagnoses Code Display Name Description Problem Type Effective Dates Data Source(s) M19.90 Unspecified osteoarthritis, unspecified site Unspecified osteoarthritis, unspecified Diagnosis 05/22/2021 09:42:09 AM EDT [facility] I42.9 Cardiomyopathy, unspecified Cardiomyopathy, unspecifie d Diagnosis 05/22/2021 09:42:09 AM EDT [facility] I35.0 Nonrheumatic aortic (valve) stenosis Nonrheumati c aortic (valve) stenosis Diagnosis 05/22/2021 09:42:09 AM EDT [facility] I10 Essential (primary) hypertension Essential (primary) h ypertension Diagnosis 05/22/2021 09:42:09 AM EDT [facility] I48.91 Unspecified atrial fibrillation Unspecified atri al fibrillation Diagnosis 05/22/2021 09:42:09 AM EDT [facility] M19.90 Arthritis Arthritis [id number] 05/22/2021 12:00:00 AM ED T [facility] I42.9 Cardiomyopathy Cardiomyopathy [id number] 05/22/2021 12:00: 00 AM EDT [facility] I35.0 Aortic stenosis Aortic stenosis [id number] 05/22/2021 12:0 0:00 AM EDT [facility] I10 HTN (hypertension) HTN (hypertension) [id number] 12:00:00 AM EDT [facility] I48.91 Atrial fibrillation Atrial fibrillation [id number] 0 05/22/2021 12:00:00 AM EDT [facility] Surgeries/Procedures Procedure Description Date Indications Data Source(s) POCT AMB EKG <td>POCT AMB EKG</td><td>Rou yaneth</td><td>07/31/2021 3:51 PM EDT</td><td> Nonrheumatic aortic valve stenosis Atrial fibrillation, unspecified type Cardiomyopathy, unspecified type Hypertension, unspecified type</td><td> </td> 07/31/2021 03:51:00 PM EDT Hypertension, unspecified typeCardiomyop athy, unspecified typeAtrial fibrillation, unspecified typeNonrheumatic aortic valve stenosis [facility] Hypertension, unspecified type Cardiomyopathy, unspecified type Atrial fibrillation, unspecified type Nonrheumatic aortic valve stenosis TROPONIN QUANTITATIVE <td>TROPONIN I</td><td>Routine</td><td>07/15/2021</td><td></td><td> </td> 07/15/2021 12:00:00 AM EDT [facility] BLOOD COUNT COMPLETE AUTO&AUTO DIFRNTL WBC COUNT <td>C BC AND DIFFERENTIAL</td><td>Routine</td><td>07/15/2021</td><td></td><td> </td> 07/15/2021 12:00:00 AM EDT [facility] THYROID STIMULATING HORMONE TSH <td>TSH</td><td>Routine</td><td>07/15/2021</td><td></td><td> </td> 07/15/2021 12:00:00 AM EDT [facility] HEPATIC FUNCTION PANEL <td>HEPATIC FUNCTION PANEL</td><td>Routine</td><td>07/15/2021</td><td></td><td> </td> 07/15/2021 12:00:00 AM EDT [facility] BASIC METABOLIC PANEL CALCIUM TOTAL <td>BASIC METABOLI C PANEL</td><td>Routine</td><td>07/15/2021</td><td></td><td> </td> 07/15/2021 12:00:00 AM EDT [facility] ECG ROUTINE ECG W/LEAST 12 LDS W/I&R <td>POCT AMB EKG</td><td>Routine</td><td>05/22/2021 11:06 AM EDT</td><td> Atrial fibrillation, unspecified type Hypertension, unspecified type Nonrheumatic aortic valve stenosis Cardiomyopathy, unspecified type</td><td> </td> 05/22/2021 11:06:00 AM EDT Cardiomyopathy, unspecified typeNonrheum atic aortic valve stenosisHypertension, unspecified typeAtrial fibrillation, unspecified type [facility] Cardiomyopathy, unspecified type Nonrheumatic aortic valve stenosis Hypertension, unspecified type Atrial fibrillation, unspecified type Results ID Date Data Source [id number] 07/15/2021 11:45:00 AM EDT [facility] Name Value Range Interpretation Code Description Data Asia rce(s) Supporting Document(s) SARS coronavirus 2 RNA [Presence] in Res piratory specimen by TIM with probe detection NEGATIVE [facility] This lab was ordered by [facility] a nd reported by [facility]. ID Date Data Source [id number] 03/25/2021 03:57:00 PM EDT [facility] Name Value Range Interpretation Code Description Data Asia rce(s) Supporting Document(s) SARS coronavirus 2 RNA [Presence] in Res piratory specimen by TIM with probe detection NEGATIVE [facility] This lab was ordered by [facility] a nd reported by [facility]. Procedure Social History Code Duration Value Status Description Data Source(s ) Alcohol intake 07/31/2021 12:00:00 AM EDT Ex-drinker (finding) comp leted Ex- drinker (finding) [facility] Tobacco use and exposure 05/22/2021 12:00:00 AM EDT Never used co mpleted Never used [facility] Smoking 05/22/2021 12:00:00 AM EDT Former smoker completed Former smoker [facility] Alcohol intake 05/22/2021 12:00:00 AM EDT Ex-drinker (finding) comp leted Ex- drinker (finding) [facility] Vital Signs ID Date Data Source UNK Name Value Range Interpretation Code Description Data Source(s) Systolic blood pressure 136 mm[Hg] 136 mm[Hg] [facility] Diastolic blood pressure 88 mm[Hg] 88 mm[Hg] [facility] Heart rate 172 /min 172 /min [facility] Body height 167.6 cm 167.6 cm [facility] Body weight 77.111 kg 77.111 kg [facility] Body mass index (BMI) [Ratio] 27.44 kg/m2 27.44 kg/m2 [facility] Oxygen saturation in Arterial blood by Pulse oximetry 97 % 97 % [facility] Systolic blood pressure 120 mm[Hg] 120 mm[Hg] [facility] Diastolic blood pressure 80 mm[Hg] 80 mm[Hg] [facility] Heart rate 81 /min 81 /min [facility] Oxygen saturation in Arterial blood by Pulse oximetry 99 % 99 % [facility] Respiratory rate 18 /min 18 /min [facility] Body height 167.6 cm 167.6 cm [facility] Body weight 85.73 kg 85.73 kg [facility] Body mass index (BMI) [Ratio] 30.51 kg/m2 30.51 kg/m2 [facility] Patient Treatment Plan of Care Planned Activity Planned Date Details Description Data Source (s) Metoprolol Tartrate 50 MG Oral Tablet 07/31/2021 12:00:00 AM EDT [facility] Digoxin 0.125 MG Oral Tablet 07/20/2021 12:00:00 AM EDT [facility] Digoxin 0.25 MG Oral Tablet 05/22/2021 12:00:00 AM EDT [facility] Furosemide 20 MG Oral Tablet 05/22/2021 12:00:00 AM EDT [facility] Metoprolol Tartrate 25 MG Oral Tablet 05/10/2021 12:00:00 AM EDT [facility] apixaban 5 MG Oral Tablet [Eliquis] 05/10/2021 12:00:00 AM EDT [facility] Digoxin 0.25 MG Oral Tablet 05/10/2021 12:00:00 AM EDT [facility] Furosemide 20 MG Oral Tablet 04/29/2021 12:00:00 AM EDT [facility]
--- NOTE | 2021-08-07 15:01 | REP ---
INDICATION: CHF. COMPARISON: 07/31/2021. TECHNIQUE: Single portable AP view of the chest was performed. FINDINGS: There is mild cardiomegaly. Pulmonary vasculature is mildly prominent. There may be subtle bibasilar interstitial edema. The mediastinal silhouette is unchanged. IMPRESSION: Mild cardiomegaly and vascular congestion. Possible early basilar interstitial edema. <Electronically signed by Ramón Conde > 08/07/21 [id number]
[2021-08-07 15:12] VITALS: BP 122/85
[2021-08-07 15:23] LABS: CALCIUM LEVEL 8.6 MG/DL (8.8-10.2); CREATININE FOR GFR 1.03 MG/DL (0.55-1.30); DIGOXIN LEVEL 0.7 NG/ML (0.5-2.0); GLOMERULAR FILTRATION RATE 54.3 (>32); MB/CK RELATIVE INDEX 2.78 (< OR =4); POTASSIUM SERUM 5.3 MEQ/L (3.5-5.1); TROPONIN I 0.02 NG/ML (< 0.10)
[2021-08-07] MEDS ORDERED: DIGOXIN INJ 0.5 MG/2 ML AMP (J1160) IV ONE (15:45)
[2021-08-07] MEDS ORDERED: ACETAMINOPHEN TAB 650MG DOSE (2X325MG) PO ONE (16:20)
[2021-08-07 16:45] VITALS: BP 111/68
--- NOTE | 2021-08-08 07:46 | ED PDOC ---
Post-Departure Follow-Up radiology repor tfaxed to Jocelyne Ocampo MD Aug 08, 2021 07:46
--- NOTE | 2021-08-08 09:44 | ECGEPIP ---
[facility] - ED Test Date: 2021-08-07 Pat Name: LUCAS WALKER Department: Room: - Gender: Female Block Sawyer: LR : 1935 Requested By: Flash Garcia Order Number: [id number] Reading MD: Jocelyne Becerra Measurements Intervals [place] Rate: 162 P: NV: QRS: 82 QRSD: 72 T: 231 QT: 274 QTc: 449 Interpretive Statements atrial fibrillation with rapid ventricular response Possible Anterior infarct , age undetermined ST & T wave abnormality, consider inferolateral ischemia increased rate 07/31/21 Electronically Signed on 08-08-2021 9:43:40 EDT by Jocelyne Becerra
== END 2021-08-07 17:15 | disposition left against medical advice (07) ==
LOC: M ED 14:03
DX: I48.91 Unspecified atrial fibrillation (principal); Z53.9 Procedure and treatment not carried out, unspecified reason; I50.9 Heart failure, unspecified; I69.951 Hemiplegia and hemiparesis following unspecified cerebrovascular disease affecting right dominant side; I10 Essential (primary) hypertension; Z85.3 Personal history of malignant neoplasm of breast; Z79.01 Long term (current) use of anticoagulants; Z79.82 Long term (current) use of aspirin; Z79.899 Other long term (current) drug therapy; Z91.89 Other specified personal risk factors, not elsewhere classified; Z91.012 Allergy to eggs; Z91.013 Allergy to seafood
CPT/HCPCS: 71045; 80048; 80162; 82550; 82553; 83880; 84484; 85025; 93005; 93041; 94760; 96374; 96375; 99285; J1160

== ENCOUNTER 2021-09-12 00:54 | Inpatient (IN) | payer MEDICARE ==
[~2021-09-12] VITALS: Ht 170.2 cm; Wt 68.0 kg
[~2021-09-12 00:54] MED LIST changes: -D 202000 PO; +VITA200032 PO
[2021-09-12 01:38] LABS: VENOUS BASE EXCESS -6.8 (-2.0-2.0); VENOUS HCO3 18.2 MEQ/L (23.0-27.0); VENOUS O2 SATURATION 45.9 % (60.0-80.0); VENOUS PARTIAL PRESSURE CO2 34.8 mmHg (38.0-50.0); VENOUS PARTIAL PRESSURE O2 29.4 mmHg (30.0-50.0); VENOUS PH 7.337 UNITS (7.330-7.430); VENOUS TOTAL CO2 19.3 MEQ/L (24.0-28.0)
[2021-09-12 01:41] LABS: BASO % 0.1 % (0.0-1.0); EOS % 0.1 % (0.0-3.0); HEMATOCRIT 37.6 % (36.0-47.0); HEMOGLOBIN 10.5 g/dl (12.0-15.5); LYMPH # 0.6 10^3/uL (1.5-5.0); LYMPH % 5.6 % (24.0-44.0); MEAN CORPUSCULAR HEMOGLOBIN 20.1 pg (27.0-33.0); MEAN CORPUSCULAR HGB CONC 27.9 g/dl (32.0-36.5); MEAN CORPUSCULAR VOLUME 71.9 fl (80.0-96.0); MONO # 0.6 10^3/uL (0.0-0.8); MONO % 5.5 % (2.0-8.0); NEUTROPHILS # 10.1 10^3/uL (1.5-8.5); NEUTROPHILS % 88.4 % (36.0-66.0); PLATELET COUNT, AUTOMATED 316 10^3/uL (150-450); RED BLOOD COUNT 5.23 10^6/uL (4.00-5.40); WHITE BLOOD COUNT 11.4 10^3/uL (4.0-10.0)
[2021-09-12] MEDS ORDERED: FUROSEMIDE 100MG/10ML VIAL (J1940) IV ONE (01:45)
[2021-09-12] MEDS: METOPROLOL 5 MG/5 ML VIAL IV SCH ×3 (01:50→02:48)
[2021-09-12 02:55] LABS: ALBUMIN 3.1 GM/DL (3.2-5.2); BILIRUBIN,DIRECT 1.4 MG/DL (0.0-0.2); CALCIUM LEVEL 8.8 MG/DL (8.8-10.2); CREATININE FOR GFR 1.41 MG/DL (0.55-1.30); DIGOXIN LEVEL 0.3 NG/ML (0.5-2.0); GLOMERULAR FILTRATION RATE 37.8 (>32); POTASSIUM SERUM 5.6 MEQ/L (3.5-5.1); TOTAL PROTEIN 6.8 GM/DL (6.4-8.2)
[2021-09-12 02:58] LABS: ABG O2 SATURATION 99.8 % (95.0-99.0); ABG PARTIAL PRESSURE CO2 23.9 mmHg (35.0-45.0); ABG PARTIAL PRESSURE O2 273.3 mmHg (75.0-100.0); ABG TOTAL CO2 15.8 MEQ/L (23.0-31.0); ABG pH (ARTERIAL) 7.417 UNITS (7.350-7.450)
[2021-09-12] MEDS ORDERED: METOPROLOL TART 25 MG TABLET PO ONE (03:05)
[2021-09-12] MEDS ORDERED: DIGOXIN INJ 0.5 MG/2 ML AMP (J1160) IV ONE ×3 (03:25→13:00)
[2021-09-12 03:27] LABS: RSV AMPLIFICATION NEGATIVE (NEGATIVE)
[2021-09-12] MEDS ORDERED: ISOVUE-370 76% 100ML VIAL As Ordered ONE (03:47)
[2021-09-12] MEDS ORDERED: NS 2,590 ML in IV 1 EA IV ONE (04:30)
[2021-09-12] MEDS ORDERED: DIGO0.123 PO (06:28)
[2021-09-12] MEDS ORDERED: METO25TA4 PO (06:28)
[2021-09-12] MEDS ORDERED: VITMTA PO (06:28)
[2021-09-12] MEDS ORDERED: ACET650T61 PO (06:28)
[2021-09-12] MEDS ORDERED: HOME MED LIST COMPLETE! XX SCH (06:30)
[2021-09-12] MEDS ORDERED: MAALOX 30 ML SUSP *UDC PO PRN (06:50)
[2021-09-12] MEDS ORDERED: MOM 30ML SUSPENSION UDC PO PRN (06:50)
[2021-09-12] MEDS: METOPROLOL TART 25 MG TABLET PO SCH ×3 (08:43→18:00)
[2021-09-12] MEDS ORDERED: MULTIVITAMINS/MINERALS THERAP 1 TAB PO SCH (09:00)
[2021-09-12] MEDS ORDERED: FOLIC ACID 1 MG TAB PO SCH (09:00)
[2021-09-12] MEDS ORDERED: FUROSEMIDE 40MG/4ML VIAL (J1940) IV SCH (10:00)
[2021-09-12 10:35] LABS: BASO % 0.1 % (0.0-1.0); HEMATOCRIT 36.2 % (36.0-47.0); HEMOGLOBIN 9.8 g/dl (12.0-15.5); LYMPH # 0.7 10^3/uL (1.5-5.0); LYMPH % 5.9 % (24.0-44.0); MEAN CORPUSCULAR HEMOGLOBIN 19.9 pg (27.0-33.0); MEAN CORPUSCULAR HGB CONC 27.1 g/dl (32.0-36.5); MEAN CORPUSCULAR VOLUME 73.4 fl (80.0-96.0); MONO # 0.7 10^3/uL (0.0-0.8); MONO % 6.2 % (2.0-8.0); NEUTROPHILS # 10.5 10^3/uL (1.5-8.5); NEUTROPHILS % 87.4 % (36.0-66.0); PLATELET COUNT, AUTOMATED 263 10^3/uL (150-450); RED BLOOD COUNT 4.93 10^6/uL (4.00-5.40)
[2021-09-12 10:54] LABS: ALBUMIN 2.7 GM/DL (3.2-5.2); BILIRUBIN,TOTAL 2.1 MG/DL (0.2-1.0); CALCIUM LEVEL 8.6 MG/DL (8.8-10.2); CREATININE FOR GFR 1.4 MG/DL (0.55-1.30); GLOMERULAR FILTRATION RATE 38.1 (>32); MAGNESIUM LEVEL 2.6 MG/DL (1.8-2.4); TOTAL PROTEIN 6.3 GM/DL (6.4-8.2)
[2021-09-12 11:09] VITALS: BP 105/64
[2021-09-12 16:30] VITALS: BP 84/50
[2021-09-12 20:20] VITALS: BP 80/50
[2021-09-12] MEDS ORDERED: MIDODRINE 5 MG TAB PO ONE (21:25)
[2021-09-13] VITALS (15 sets, daily range): BP systolic 80–101; BP diastolic 44–61; O2SAT 91–98
[2021-09-13 05:31] LABS: EOS % 0.1 % (0.0-3.0); HEMATOCRIT 30.2 % (36.0-47.0); HEMOGLOBIN 8.5 g/dl (12.0-15.5); LYMPH # 0.7 10^3/uL (1.5-5.0); LYMPH % 4.5 % (24.0-44.0); MEAN CORPUSCULAR HGB CONC 28.1 g/dl (32.0-36.5); MEAN CORPUSCULAR VOLUME 70.9 fl (80.0-96.0); MONO # 0.8 10^3/uL (0.0-0.8); MONO % 5.8 % (2.0-8.0); NEUTROPHILS # 12.9 10^3/uL (1.5-8.5); PLATELET COUNT, AUTOMATED 218 10^3/uL (150-450); RED BLOOD COUNT 4.26 10^6/uL (4.00-5.40); WHITE BLOOD COUNT 14.5 10^3/uL (4.0-10.0)
[2021-09-13 05:57] LABS: BLOOD UREA NITROGEN 65 MG/DL (7-18); CALCIUM LEVEL 7.8 MG/DL (8.8-10.2); CARBON DIOXIDE LEVEL 24 MEQ/L (21-32); CHLORIDE LEVEL 107 MEQ/L (98-107); CREATININE FOR GFR 1.16 MG/DL (0.55-1.30); GLOMERULAR FILTRATION RATE 47.4 (>32); GLUCOSE, FASTING 80 MG/DL (70-100); MAGNESIUM LEVEL 2.2 MG/DL (1.8-2.4); POTASSIUM SERUM 3.7 MEQ/L (3.5-5.1); SODIUM LEVEL 140 MEQ/L (136-145)
[2021-09-13] MEDS: METOPROLOL TART 25 MG TABLET PO SCH ×2 (06:00)
[2021-09-13 07:55] LABS: FERRITIN 22 NG/ML (8-252); IRON (FE) 11 UG/DL (50-170); PERCENT SATURATION 3.5 % (13.2-45.0); TOTAL IRON BINDING CAPACITY 316 UG/DL (250-450)
[2021-09-13 08:23] LABS: VITAMIN B12 LEVEL > 2000 PG/ML
[2021-09-13 08:24] LABS: FOLATE 11.5 NG/ML
[2021-09-13 09:26] LABS: PH BODY FLUID 7.692 UNITS (NOT ESTABLISHED); SOURCE, BODY FLUID pH PLEURAL
[2021-09-13 09:42] LABS: APPEARANCE, BODY FLUID CLEAR (CLEAR); PLEURAL FL COLOR PALE YELLOW (COLORLESS); SOURCE, BODY FLUID PLEURAL
[2021-09-13 10:09] LABS: AMYLASE, BODY FLUID 5 U/L (NOT ESTABLISHED); CHOLESTEROL, BODY FLUID < 50 MG/DL (NOT ESTABLISHED); LDH, BODY FLUID 72 U/L (NOT ESTABLISHED); SOURCE, BODY FLUID ALBUMIN PLEURAL; SOURCE, BODY FLUID AMYLASE PLEURAL; SOURCE, BODY FLUID CHOL PLEURAL; SOURCE, BODY FLUID GLUCOSE PLEURAL; SOURCE, BODY FLUID LDH PLEURAL; SOURCE, BODY FLUID TOT PROTEIN PLEURAL; SOURCE, BODY FLUID TRIG PLEURAL; TOTAL PROTEIN, BODY FLUID 1.3 G/DL (NOT ESTABLISHED); TRIGLYCERIDE, BODY FLUID 15 MG/DL (NOT ESTABLISHED)
[2021-09-13] MEDS: DIGOXIN 0.125 MG TAB PO SCH (10:18)
[2021-09-13] MEDS: ASPIRIN 81MG ENTERIC TABLET PO SCH (10:18)
[2021-09-13] MEDS: FUROSEMIDE injection 250 MG in D5W 225 ML IV SCH ×2 (14:00→16:36)
[2021-09-13] MEDS: ACETAMINOPHEN TAB 650MG DOSE (2X325MG) PO PRN (23:33)
[2021-09-14] VITALS (16 sets, daily range): BP systolic 83–102; BP diastolic 50–57; O2SAT 94–97
[2021-09-14] MEDS: MIDODRINE 5 MG TAB PO SCH ×3 (08:00→15:39)
[2021-09-14 08:01] LABS: EOS # 0.1 10^3/uL (0.0-0.5); EOS % 0.6 % (0.0-3.0); HEMATOCRIT 33.1 % (36.0-47.0); HEMOGLOBIN 9.4 g/dl (12.0-15.5); LYMPH # 0.7 10^3/uL (1.5-5.0); LYMPH % 7.9 % (24.0-44.0); MEAN CORPUSCULAR HEMOGLOBIN 19.9 pg (27.0-33.0); MEAN CORPUSCULAR HGB CONC 28.4 g/dl (32.0-36.5); MEAN CORPUSCULAR VOLUME 70.1 fl (80.0-96.0); MONO # 0.5 10^3/uL (0.0-0.8); MONO % 5.1 % (2.0-8.0); NEUTROPHILS # 7.7 10^3/uL (1.5-8.5); NEUTROPHILS % 85.8 % (36.0-66.0); PLATELET COUNT, AUTOMATED 204 10^3/uL (150-450); RED BLOOD COUNT 4.72 10^6/uL (4.00-5.40)
[2021-09-14 08:14] LABS: BLOOD UREA NITROGEN 45 MG/DL (7-18); CALCIUM LEVEL 8.7 MG/DL (8.8-10.2); CARBON DIOXIDE LEVEL 33 MEQ/L (21-32); CHLORIDE LEVEL 100 MEQ/L (98-107); CREATININE FOR GFR 0.89 MG/DL (0.55-1.30); GLOMERULAR FILTRATION RATE > 60.0 (>32); GLUCOSE, FASTING 89 MG/DL (70-100); POTASSIUM SERUM 2.9 MEQ/L (3.5-5.1); SODIUM LEVEL 141 MEQ/L (136-145)
[2021-09-14] MEDS: ASPIRIN 81MG ENTERIC TABLET PO SCH (08:27)
[2021-09-14] MEDS: AMIODARONE 200 MG TAB (PACERONE) PO SCH ×2 (08:28→20:37)
[2021-09-14] MEDS: DIGOXIN 0.125 MG TAB PO SCH (08:28)
[2021-09-14] MEDS: POTASSIUM CHLORIDE 10MEQ SR TABLET PO SCH ×4 (08:35→15:40)
[2021-09-14 09:06] LABS: DIGOXIN LEVEL 1.3 NG/ML (0.5-2.0); MAGNESIUM LEVEL 1.9 MG/DL (1.8-2.4)
[2021-09-14] MEDS: APIXABAN 5 MG TAB (ELIQUIS) PO SCH ×2 (10:02→20:37)
[2021-09-14 12:41] LABS: MAGNESIUM LEVEL 1.7 MG/DL (1.8-2.4)
[2021-09-14] MEDS ORDERED: MAG SULF 1GM/100ML (MAG RUN) 1 GM in IV 1 EA IV ONE (14:00)
[2021-09-14] MEDS ORDERED: CEPACOL LOZENGE PO PRN (14:30)
[2021-09-14 21:27] LABS: POTASSIUM SERUM 4.9 MEQ/L (3.5-5.1)
[2021-09-14] MEDS: ACETAMINOPHEN TAB 650MG DOSE (2X325MG) PO PRN (22:51)
[2021-09-15] VITALS (14 sets, daily range): BP systolic 90–126; BP diastolic 50–78; O2SAT 97–98
[2021-09-15 06:19] LABS: BASO % 0.1 % (0.0-1.0); EOS # 0.1 10^3/uL (0.0-0.5); HEMATOCRIT 30.9 % (36.0-47.0); HEMOGLOBIN 8.6 g/dl (12.0-15.5); LYMPH # 0.8 10^3/uL (1.5-5.0); LYMPH % 8.3 % (24.0-44.0); MEAN CORPUSCULAR HEMOGLOBIN 19.9 pg (27.0-33.0); MEAN CORPUSCULAR HGB CONC 27.8 g/dl (32.0-36.5); MEAN CORPUSCULAR VOLUME 71.5 fl (80.0-96.0); MONO # 0.6 10^3/uL (0.0-0.8); MONO % 6.6 % (2.0-8.0); NEUTROPHILS # 7.9 10^3/uL (1.5-8.5); NEUTROPHILS % 83.6 % (36.0-66.0); PLATELET COUNT, AUTOMATED 182 10^3/uL (150-450); RED BLOOD COUNT 4.32 10^6/uL (4.00-5.40); WHITE BLOOD COUNT 9.5 10^3/uL (4.0-10.0)
[2021-09-15 06:38] LABS: BLOOD UREA NITROGEN 34 MG/DL (7-18); CALCIUM LEVEL 8.1 MG/DL (8.8-10.2); CARBON DIOXIDE LEVEL 32 MEQ/L (21-32); CHLORIDE LEVEL 105 MEQ/L (98-107); CREATININE FOR GFR 0.62 MG/DL (0.55-1.30); GLOMERULAR FILTRATION RATE > 60.0 (>32); GLUCOSE, FASTING 89 MG/DL (70-100); POTASSIUM SERUM 4.5 MEQ/L (3.5-5.1); SODIUM LEVEL 140 MEQ/L (136-145)
[2021-09-15] MEDS: ASPIRIN 81MG ENTERIC TABLET PO SCH (08:11)
[2021-09-15] MEDS: APIXABAN 5 MG TAB (ELIQUIS) PO SCH ×2 (08:11→20:37)
[2021-09-15] MEDS: AMIODARONE 200 MG TAB (PACERONE) PO SCH ×2 (08:11→20:38)
[2021-09-15] MEDS: MIDODRINE 5 MG TAB PO SCH ×3 (08:11→16:17)
[2021-09-15] MEDS: FUROSEMIDE injection 250 MG in D5W 225 ML IV SCH ×2 (10:00→17:37)
[2021-09-15] MEDS ORDERED: FUROSEMIDE injection 250 MG in D5W 225 ML IV SCH ×2 (12:17→17:00)
[2021-09-16] VITALS (7 sets, daily range): BP systolic 106–117; BP diastolic 55–71
[2021-09-16 04:29] LABS: EOS # 0.1 10^3/uL (0.0-0.5); EOS % 1.5 % (0.0-3.0); HEMATOCRIT 30.1 % (36.0-47.0); HEMOGLOBIN 8.5 g/dl (12.0-15.5); LYMPH # 0.9 10^3/uL (1.5-5.0); LYMPH % 10.7 % (24.0-44.0); MEAN CORPUSCULAR HEMOGLOBIN 20.1 pg (27.0-33.0); MEAN CORPUSCULAR HGB CONC 28.2 g/dl (32.0-36.5); MEAN CORPUSCULAR VOLUME 71.3 fl (80.0-96.0); MONO # 0.7 10^3/uL (0.0-0.8); MONO % 7.5 % (2.0-8.0); NEUTROPHILS # 7.1 10^3/uL (1.5-8.5); PLATELET COUNT, AUTOMATED 174 10^3/uL (150-450); RED BLOOD COUNT 4.22 10^6/uL (4.00-5.40); WHITE BLOOD COUNT 8.8 10^3/uL (4.0-10.0)
[2021-09-16 04:51] LABS: BLOOD UREA NITROGEN 33 MG/DL (7-18); CALCIUM LEVEL 8.1 MG/DL (8.8-10.2); CARBON DIOXIDE LEVEL 32 MEQ/L (21-32); CHLORIDE LEVEL 102 MEQ/L (98-107); CREATININE FOR GFR 0.69 MG/DL (0.55-1.30); GLOMERULAR FILTRATION RATE > 60.0 (>32); GLUCOSE, FASTING 106 MG/DL (70-100); SODIUM LEVEL 141 MEQ/L (136-145)
[2021-09-16] MEDS: MIDODRINE 5 MG TAB PO SCH ×3 (08:00→17:34)
[2021-09-16] MEDS: AMIODARONE 200 MG TAB (PACERONE) PO SCH ×2 (09:35→20:48)
[2021-09-16] MEDS: APIXABAN 5 MG TAB (ELIQUIS) PO SCH ×2 (09:37→20:48)
[2021-09-16] MEDS: ASPIRIN 81MG ENTERIC TABLET PO SCH (09:37)
[2021-09-16] MEDS: DIGOXIN 0.125 MG TAB PO SCH (09:37)
[2021-09-16] MEDS: ACETAMINOPHEN TAB 650MG DOSE (2X325MG) PO PRN (21:51)
[2021-09-17] VITALS: BP 109/55
[2021-09-17] MEDS: FUROSEMIDE injection 250 MG in D5W 225 ML IV SCH (00:04)
[2021-09-17 04:00] VITALS: BP 108/63
[2021-09-17 08:06] VITALS: BP 95/53
[2021-09-17 08:32] LABS: BASO % 0.1 % (0.0-1.0); EOS # 0.1 10^3/uL (0.0-0.5); EOS % 1.5 % (0.0-3.0); HEMATOCRIT 30.8 % (36.0-47.0); HEMOGLOBIN 8.7 g/dl (12.0-15.5); LYMPH # 0.9 10^3/uL (1.5-5.0); MEAN CORPUSCULAR HEMOGLOBIN 19.8 pg (27.0-33.0); MEAN CORPUSCULAR HGB CONC 28.2 g/dl (32.0-36.5); MEAN CORPUSCULAR VOLUME 70.2 fl (80.0-96.0); MONO # 0.6 10^3/uL (0.0-0.8); MONO % 6.6 % (2.0-8.0); NEUTROPHILS # 7.4 10^3/uL (1.5-8.5); NEUTROPHILS % 81.4 % (36.0-66.0); PLATELET COUNT, AUTOMATED 187 10^3/uL (150-450); RED BLOOD COUNT 4.39 10^6/uL (4.00-5.40); WHITE BLOOD COUNT 9.1 10^3/uL (4.0-10.0)
[2021-09-17] MEDS: MIDODRINE 5 MG TAB PO SCH ×3 (08:32→16:37)
[2021-09-17] MEDS: AMIODARONE 200 MG TAB (PACERONE) PO SCH ×2 (08:32→20:53)
[2021-09-17] MEDS: ASPIRIN 81MG ENTERIC TABLET PO SCH (08:32)
[2021-09-17] MEDS: APIXABAN 5 MG TAB (ELIQUIS) PO SCH ×2 (08:32→20:54)
[2021-09-17 09:07] LABS: BLOOD UREA NITROGEN 25 MG/DL (7-18); CALCIUM LEVEL 8.9 MG/DL (8.8-10.2); CARBON DIOXIDE LEVEL 39 MEQ/L (21-32); CHLORIDE LEVEL 94 MEQ/L (98-107); CREATININE FOR GFR 0.82 MG/DL (0.55-1.30); GLOMERULAR FILTRATION RATE > 60.0 (>32); GLUCOSE, FASTING 108 MG/DL (70-100); POTASSIUM SERUM 2.9 MEQ/L (3.5-5.1); SODIUM LEVEL 138 MEQ/L (136-145)
[2021-09-17] MEDS: POTASSIUM CHLORIDE 10MEQ SR TABLET PO SCH ×2 (10:27→20:54)
[2021-09-17] MEDS: ACETAMINOPHEN TAB 650MG DOSE (2X325MG) PO PRN ×2 (10:33→16:37)
[2021-09-17 16:08] VITALS: BP 103/51
[2021-09-17 20:00] VITALS: BP 113/55
[2021-09-18] MEDS: FUROSEMIDE injection 250 MG in D5W 225 ML IV SCH (00:19)
[2021-09-18 04:00] VITALS: BP 111/51
[2021-09-18 05:52] LABS: BASO # 0.1 10^3/uL (0.0-0.2); BASO % 0.4 % (0.0-1.0); EOS # 0.2 10^3/uL (0.0-0.5); EOS % 1.8 % (0.0-3.0); HEMATOCRIT 32.5 % (36.0-47.0); HEMOGLOBIN 9.2 g/dl (12.0-15.5); LYMPH # 1.1 10^3/uL (1.5-5.0); LYMPH % 9.2 % (24.0-44.0); MEAN CORPUSCULAR HEMOGLOBIN 19.9 pg (27.0-33.0); MEAN CORPUSCULAR HGB CONC 28.3 g/dl (32.0-36.5); MEAN CORPUSCULAR VOLUME 70.3 fl (80.0-96.0); MONO # 0.7 10^3/uL (0.0-0.8); MONO % 5.8 % (2.0-8.0); NEUTROPHILS # 9.6 10^3/uL (1.5-8.5); NEUTROPHILS % 82.5 % (36.0-66.0); PLATELET COUNT, AUTOMATED 233 10^3/uL (150-450); RED BLOOD COUNT 4.62 10^6/uL (4.00-5.40); WHITE BLOOD COUNT 11.6 10^3/uL (4.0-10.0)
[2021-09-18 06:25] LABS: BLOOD UREA NITROGEN 24 MG/DL (7-18); CALCIUM LEVEL 8.9 MG/DL (8.8-10.2); CARBON DIOXIDE LEVEL 39 MEQ/L (21-32); CHLORIDE LEVEL 93 MEQ/L (98-107); CREATININE FOR GFR 0.67 MG/DL (0.55-1.30); GLOMERULAR FILTRATION RATE > 60.0 (>32); GLUCOSE, FASTING 94 MG/DL (70-100); POTASSIUM SERUM 3.6 MEQ/L (3.5-5.1); SODIUM LEVEL 137 MEQ/L (136-145)
[2021-09-18] MEDS ORDERED: AMIODARONE HCL 150 MG in IV 1 EA IV STA (07:48)
[2021-09-18 08:17] VITALS: BP 110/50
[2021-09-18] MEDS: AMIODARONE 200 MG TAB (PACERONE) PO SCH ×2 (08:59→20:57)
[2021-09-18] MEDS: ASPIRIN 81MG ENTERIC TABLET PO SCH (08:59)
[2021-09-18] MEDS: DIGOXIN 0.125 MG TAB PO SCH (08:59)
[2021-09-18] MEDS: POTASSIUM CHLORIDE 10MEQ SR TABLET PO SCH ×2 (08:59→20:57)
[2021-09-18] MEDS: MIDODRINE 5 MG TAB PO SCH ×3 (08:59→17:29)
[2021-09-18] MEDS: APIXABAN 5 MG TAB (ELIQUIS) PO SCH ×2 (08:59→20:57)
[2021-09-18 12:25] VITALS: BP 107/57
[2021-09-18 16:14] VITALS: BP 108/73
[2021-09-18] MEDS ORDERED: AMIO200T49 PO (17:29)
[2021-09-18] MEDS ORDERED: DIGO0.123 PO (17:29)
[2021-09-18] MEDS ORDERED: LASI20TA3 PO (17:31)
[2021-09-18] MEDS ORDERED: MIDO5TA PO (17:31)
[2021-09-18 20:00] VITALS: BP 103/58
[2021-09-19] VITALS: BP 106/55
[2021-09-19 04:31] VITALS: BP 96/51
[2021-09-19 05:20] LABS: WHITE BLOOD COUNT 9.6 10^3/uL (4.0-10.0)
[2021-09-19 05:21] LABS: BASO % 0.4 % (0.0-1.0); EOS # 0.1 10^3/uL (0.0-0.5); EOS % 1.4 % (0.0-3.0); HEMATOCRIT 32.4 % (36.0-47.0); HEMOGLOBIN 9.2 g/dl (12.0-15.5); LYMPH % 9.9 % (24.0-44.0); MEAN CORPUSCULAR HEMOGLOBIN 20.3 pg (27.0-33.0); MEAN CORPUSCULAR HGB CONC 28.4 g/dl (32.0-36.5); MEAN CORPUSCULAR VOLUME 71.4 fl (80.0-96.0); MONO # 0.7 10^3/uL (0.0-0.8); MONO % 7.1 % (2.0-8.0); NEUTROPHILS # 7.8 10^3/uL (1.5-8.5); NEUTROPHILS % 80.6 % (36.0-66.0); PLATELET COUNT, AUTOMATED 241 10^3/uL (150-450); RED BLOOD COUNT 4.54 10^6/uL (4.00-5.40)
[2021-09-19 05:42] LABS: BLOOD UREA NITROGEN 27 MG/DL (7-18); CALCIUM LEVEL 8.9 MG/DL (8.8-10.2); CARBON DIOXIDE LEVEL 40 MEQ/L (21-32); CHLORIDE LEVEL 95 MEQ/L (98-107); CREATININE FOR GFR 0.74 MG/DL (0.55-1.30); GLOMERULAR FILTRATION RATE > 60.0 (>32); GLUCOSE, FASTING 83 MG/DL (70-100); POTASSIUM SERUM 3.5 MEQ/L (3.5-5.1); SODIUM LEVEL 139 MEQ/L (136-145)
[2021-09-19 07:24] VITALS: BP 94/50
[2021-09-19] MEDS ORDERED: AMIODARONE HCL 150 MG in IV 1 EA IV STA (07:58)
[2021-09-19] MEDS ORDERED: FUROSEMIDE 20 MG TAB PO SCH (09:00)
[2021-09-19] MEDS: APIXABAN 5 MG TAB (ELIQUIS) PO SCH (09:09)
[2021-09-19] MEDS: MIDODRINE 5 MG TAB PO SCH ×2 (09:09→11:21)
[2021-09-19] MEDS: ASPIRIN 81MG ENTERIC TABLET PO SCH (09:09)
[2021-09-19] MEDS: POTASSIUM CHLORIDE 10MEQ SR TABLET PO SCH (09:09)
[2021-09-19] MEDS: AMIODARONE 200 MG TAB (PACERONE) PO SCH (09:09)
[2021-09-19] MEDS ORDERED: DIGOXIN INJ 0.5 MG/2 ML AMP (J1160) IV STA (10:21)
[2021-09-19 11:12] LABS: DIGOXIN LEVEL 1.1 NG/ML (0.5-2.0)
[2021-09-19 11:20] VITALS: BP 102/51
[2021-09-19 12:05] VITALS: BP 125/60
[2021-10-07] MEDS ORDERED: LEVO250T3 PO (10:00)
[2021-10-07] MEDS ORDERED: AMIO200T49 PO (10:00)
== END 2021-09-19 13:20 | disposition still patient (30) | DRG 291 ==
LOC: M ED 00:54 → M ED INP 06:50 → ENRESERV 09:36 → M PCU 10:55
PROVIDERS: ADMIT Family Medicine; ATTEND General Practice
PROC: 0W993ZX Drainage of Right Pleural Cavity, Percutaneous Approach, Diagnostic (ICD-10-PCS; principal; 2021-09-13 08:00)
DX: I11.0 Hypertensive heart disease with heart failure (principal); I50.23 Acute on chronic systolic (congestive) heart failure; J90 Pleural effusion, not elsewhere classified; J98.11 Atelectasis; I48.20 Chronic atrial fibrillation, unspecified; E87.2 Acidosis; N17.9 Acute kidney failure, unspecified; I27.20 Pulmonary hypertension, unspecified; Z66 Do not resuscitate; Z79.01 Long term (current) use of anticoagulants; I35.0 Nonrheumatic aortic (valve) stenosis; D50.9 Iron deficiency anemia, unspecified; R09.02 Hypoxemia; M06.9 Rheumatoid arthritis, unspecified; Z85.3 Personal history of malignant neoplasm of breast; Z90.13 Acquired absence of bilateral breasts and nipples; Z92.21 Personal history of antineoplastic chemotherapy; E87.5 Hyperkalemia; Z20.822 Contact with and (suspected) exposure to COVID-19; Z79.82 Long term (current) use of aspirin; Z79.899 Other long term (current) drug therapy; Z91.040 Latex allergy status; Z91.012 Allergy to eggs; Z91.013 Allergy to seafood; Z86.73 Personal history of transient ischemic attack (TIA), and cerebral infarction without residual deficits

== ENCOUNTER 2021-09-19 08:31 | Inpatient (IN) | payer MEDICARE ==
[~2021-09-19] VITALS: Ht 170.2 cm; Wt 68.7 kg
[~2021-09-19 08:31] MED LIST changes: +ACET650T61 PO; +AMIO200T3 PO; +D 202000 PO; +MIDO5TA PO; -VITA200032 PO; +VITMTA PO
--- NOTE | 2021-09-19 12:59 | HPEPDOC ---
Creative Services Coordinator Note DATE OF ADMISSION: 09-19-21 DATE OF SERVICE: 09-19-21 TIME OF ADMISSION: Please refer to physician's admission order. SOURCE OF ADMISSION INFORMATION: [facility] records and patient CHIEF COMPLAINT: weakness in setting of recent respiratory failure HISTORY OF PRESENT ILLNESS: 86F pmh Afib on eliquis, mod-severe aortic stenosis, systolic CHF, HTN, CARSON , CVA with residual right sided paresis, RA on methotrexate and folic acid, breast cancer s/p mastectomy and chemotherapy, peripheral polyneuropathy presented to [facility] on 09/12/21 with worsening shortness of breath and was noted to be in CHF exacerbation and afib with RVR. She was hypoxic and in respiratory failure due to her fluid overloaded status. She was given IV Lasix coupled with midodrine to support her soft BPs, underwent a thoracentesis for pleural effusions. She required increased dosing of amiodarone and her digoxin dosing was adjusted as well for rate control under the close guidance of cardiology. She was noted to have mobility and ADL impairments in therapy and deemed medically appropriate for discharge to ARU. REVIEW OF SYSTEMS: The following is a completed review of systems and has been reviewed. Review of systems otherwise unremarkable. PAIN: Patient self reports no pain EYES: No recent vision changes EARS, NOSE, & THROAT: No throat pain, or dysphagia, or rhinorrhea CARDIOVASCULAR: Denies chest pain or palpitations PULMONARY: Denies shortness of breath GASTROINTESTINAL: + constipation GENITOURINARY: denies dysuria MUSCULOSKELETAL: + generalized weakness NEUROLOGICAL: +peripheral polyneuropathy HEMATOLOGICAL: +anemia SKIN: bilat ankle wounds PSYCHIATRIC: Unremarkable All other review of systems found to be negative. PAST MEDICAL HISTORY: as per HPI PAST SURGICAL HISTORY: bilat ankle fracture s/p orif, hysterectomy secondary to endometriosis ALLERGIES: Please see below. MEDICATIONS: Please see below. FAMILY HISTORY: father: emphysema SOCIAL HISTORY: no etoh/illicit drugs/smoking DIET: 2gram sodium PHYSICAL EXAMINATION: VITAL SIGNS: Please see below. GENERAL: Pleasant and cooperative. No acute distress. HEENT: PERRL. Extraocular movements intact. Clear conjunctiva CARDIOVASCULAR: Regular rate and rhythm. No murmurs, rubs, or gallops LUNGS: Clear to auscultation bilaterally. No wheezes. No rhonchi ABDOMEN: Soft, nontender, nondistended. Positive bowel sounds. Normal active bowel sounds NEUROLOGICAL: Alert and oriented times three. Cranial nerves II through XII grossly intact. Sensation decreased to light touch in stocking pattern right hand PIP and DIP 1+/4 tone EXTREMITIES: 4+ \5 strength left upper extremities. 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 4\5 strength left hip flexors, knee extensors, 4/5 ankle DF and 3/5 EHL SKIN:right medial malleoli with ulcer, base with granulation tissue scant exudate, luis wound slightly macerate, left medial malleoli with dried ulcer bilat feet purple, non painful to palpation back with thoracentesis incision (bandage in place with no drainage) LABORATORY DATA: Please see below. IMAGING:Imaging documentation personally reviewed by record FUNCTIONAL STATUS: Premorbid: Mod-Independent with all activities of daily life as well as mobility On Admission: contact guard -Mod assist for functional transfers, bed mobility, ambulation, dressing, toileting GOALS: Mod-I for functional transfers, bed mobility, ambulation, dressing, toileting, bathing ASSESSMENT:86-year-old F with past medical history of CVA with residual right sided paresis, systolic CHF who presents status post acute respiratory failure in setting of CHF exacerbation and pleura effusions PLAN: 1. Rehab- PT/OT advance mobility and ADLs, strengthen/stretch/maintain ROM all 4limbs- energy conservation 2. 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 CArdiac- hx of systolic CHF with EF 35-40%, cont daily weights, fluid restrict, lasix -hypotension cont midodrine -Afib with recent RVR- cont Amiodarone and digoxin, on eliquis -mod-Severe aortic stenosis f/u Dr. Monroe for possible TAVR -medicine consulted to assist in overall management 4. Resp- recent bilat pleural effusions s/p thoracentesis cont lasix -cont supplemental 02, will attempt to wean if able to -monitor for infection 5. Rheum- hx of RA with probable Raynaud's syndrome, cont folic acid, per hx patient on methotrexate, will f/u on this as she was not maintained on this in hospital 6. GI ppx- protonix BID 7. DVT ppx- on eliquis 8. Skin- patient with chronic ankle wounds, patient's wounds will be monitored closely on ARU and dressing change orders in place- f/u Dr. Rodrigez 9. Pain- tylenol prn 10. Dispo- TBD POST ADMISSION PHYSICIAN EVALUATION: Medical and functional status: Description of medical status, medical assessment: As above. Rehabilitation diagnosis and current and prior cold morbid medical conditions as above. Risk of complications and plans to mitigate them as above. Description of functional status current status is as above. Prior status as above. Status compared to preadmission: There are no clinically significant differences between the patient's current status and the information described on the preadmission screening document. Treatment plan anticipated: Treatment plan is as described above. Required disciplines including physical therapy, occupational therapy, others as noted above Intensity of services: 3 hours a day,6 days a week. Special considerations: There are no specific special or safety considerations that would likely preclude immediate implementation of an intensive rehabilitation program or subsequently influence the plan of care ATTESTATION: Considering all the information above, it is my best judgment that this patient requires intensive rehabilitation therapy as described above and an inpatient hospital environment due to the complexity of nursing, medical, and rehabilitation needs required by the patient. Furthermore, this patient can reasonably be expected to participate in an benefit from an inpatient rehabilitation stay with an interdisciplinary team approach to the delivery of rehabilitation care under the direction and supervision of rehabilitation physician. PROGNOSIS: good ESTIMATED LENGTH OF STAY:14-16 days. PROJECTED DISCHARGE DESTINATION: Home with family support and any durable medical equipment required to increase functional safety and mobility. TIME SPENT COUNSELING AND COORDINATING INITIAL CARE: Greater than 70 minutes. Vital Signs Vital Signs Date Time Temp Pulse Resp B/P (MAP) Pulse Ox O2 Delivery O2 Flow Rate FiO2 09/19/21 13:56 98.0 52 20 125/58 (80) 96 Room Air Home Medications Scheduled Acetaminophen (Tylenol Arthritis) 650 Mg Tablet.er, 650 MG PO QHS, (Reported) Amiodarone HCl (Amiodarone HCl) 200 Mg Tablet, 400 MG PO BID Apixaban (Eliquis) 5 Mg Tablet, 5 MG PO BID, (Reported) Aspirin (Aspirin EC) 81 Mg Tablet.dr, 81 MG PO DAILY, (Reported) Cholecalciferol (Vitamin D3) (Vitamin D3) 50 Mcg Tablet, 50 MCG PO DAILY, (Reported) Digoxin (Digoxin) 125 Mcg Tablet, 0.125 MG PO Q48H Folic Acid (Folic Acid) 1 Mg Tablet, 1 MG PO DAILY, (Reported) Furosemide (Lasix) 20 Mg Tablet, 20 MG PO BID Midodrine HCl (Midodrine HCl) 5 Mg Tablet, 10 MG PO 08,12,16 Multivitamins (Thera M Plus Tablet) 1 Each Tablet, 1 TAB PO DAILY, (Reported) Allergies Coded Allergies: TAPE (Verified Allergy, Unknown, 11/08/07) egg (Verified Allergy, Unknown, 03/25/21) shellfish derived (Verified Allergy, Unknown, 03/25/21) A-FIB/CHADSVASC A-FIB History Current/History of A-Fib/PAF?: Yes Current PO Anticoag Therapy: Yes MEGHAN WILHELM MD Sep 19, 2021 12:59
[2021-09-19 13:56] VITALS: BP 125/58
[2021-09-19] MEDS ORDERED: HOME MED LIST COMPLETE! XX SCH (14:30)
[2021-09-19] MEDS: MULTIVITAMINS/MINERALS THERAP 1 TAB PO SCH (17:08)
[2021-09-19] MEDS: REMEDY PHYTOPLEX Z-GUARD PASTE 113GM TUBE (FROM STOREROOM PRODUCT) TOP SCH ×2 (17:09→20:48)
[2021-09-19] MEDS: FUROSEMIDE 20 MG TAB PO SCH (17:09)
[2021-09-19] MEDS: MIDODRINE 5 MG TAB PO SCH (17:55)
[2021-09-19 20:00] VITALS: BP 112/53
[2021-09-19] MEDS: AMIODARONE 200 MG TAB (PACERONE) PO SCH (20:47)
[2021-09-19] MEDS: DOCUSATE SODIUM 100MG CAPSULE PO SCH (20:47)
[2021-09-19] MEDS: APIXABAN 5 MG TAB (ELIQUIS) PO SCH (20:47)
[2021-09-19] MEDS: SENNA 8.6 MG TAB (SENOKOT) PO SCH (20:47)
[2021-09-19] MEDS: ACETAMINOPHEN TAB 650MG DOSE (2X325MG) PO PRN (20:47)
[2021-09-19] MEDS: PANTOPRAZOLE 40MG TAB (PROTONIX) PO SCH (20:47)
[2021-09-20 06:00] VITALS: BP 103/56
[2021-09-20 06:28] LABS: BASO # 0.1 10^3/uL (0.0-0.2); BASO % 0.5 % (0.0-1.0); EOS # 0.1 10^3/uL (0.0-0.5); EOS % 1.3 % (0.0-3.0); HEMATOCRIT 31.4 % (36.0-47.0); HEMOGLOBIN 8.8 g/dl (12.0-15.5); LYMPH % 10.8 % (24.0-44.0); MEAN CORPUSCULAR HEMOGLOBIN 19.9 pg (27.0-33.0); MONO # 0.6 10^3/uL (0.0-0.8); MONO % 6.1 % (2.0-8.0); NEUTROPHILS # 7.5 10^3/uL (1.5-8.5); NEUTROPHILS % 80.9 % (36.0-66.0); PLATELET COUNT, AUTOMATED 228 10^3/uL (150-450); RED BLOOD COUNT 4.42 10^6/uL (4.00-5.40); WHITE BLOOD COUNT 9.3 10^3/uL (4.0-10.0)
[2021-09-20 06:47] LABS: ALBUMIN 2.8 GM/DL (3.2-5.2); ALT/SGPT 52 U/L (12-78); BILIRUBIN,TOTAL 1.1 MG/DL (0.2-1.0); BLOOD UREA NITROGEN 37 MG/DL (7-18); CARBON DIOXIDE LEVEL 36 MEQ/L (21-32); CHLORIDE LEVEL 96 MEQ/L (98-107); CREATININE FOR GFR 0.79 MG/DL (0.55-1.30); GLOMERULAR FILTRATION RATE > 60.0 (>32); GLUCOSE, FASTING 84 MG/DL (70-100); POTASSIUM SERUM 3.7 MEQ/L (3.5-5.1); SODIUM LEVEL 138 MEQ/L (136-145); TOTAL PROTEIN 6.6 GM/DL (6.4-8.2)
[2021-09-20] MEDS: FOLIC ACID 1 MG TAB PO SCH (10:24)
[2021-09-20] MEDS: MULTIVITAMINS/MINERALS THERAP 1 TAB PO SCH (10:24)
[2021-09-20] MEDS: VITAMIN D 1,000 INTERNATIONAL UNITS TABLET PO SCH (10:24)
[2021-09-20] MEDS: ASPIRIN 81MG ENTERIC TABLET PO SCH (10:24)
[2021-09-20] MEDS: FUROSEMIDE 20 MG TAB PO SCH ×2 (10:24→17:38)
[2021-09-20] MEDS: PANTOPRAZOLE 40MG TAB (PROTONIX) PO SCH ×2 (10:24→20:40)
[2021-09-20] MEDS: APIXABAN 5 MG TAB (ELIQUIS) PO SCH ×2 (10:24→20:40)
[2021-09-20] MEDS: DOCUSATE SODIUM 100MG CAPSULE PO SCH ×2 (10:24→20:40)
[2021-09-20] MEDS: REMEDY PHYTOPLEX Z-GUARD PASTE 113GM TUBE (FROM STOREROOM PRODUCT) TOP SCH ×3 (10:25→20:41)
[2021-09-20] MEDS: AMIODARONE 200 MG TAB (PACERONE) PO SCH ×2 (10:25→20:40)
[2021-09-20] MEDS: MIDODRINE 5 MG TAB PO SCH ×3 (10:25→17:38)
[2021-09-20] MEDS: DIGOXIN 0.25 MG TAB PO SCH (10:27)
[2021-09-20 13:12] VITALS: BP 99/53
[2021-09-20 14:00] VITALS: BP 127/56
--- NOTE | 2021-09-20 19:02 | HPEPDOC ---
[facility] Medical History & Physical Date of Admission Sep 19, 2021 Date of Service: Sep 20, 2021 History and Physical CHIEF COMPLAINT: Debility HISTORY OF PRESENT ILLNESS: Mrs. Rainey is a 50-year-old female with systolic C HF, pulmonary hypertension, rheumatoid arthritis who was recently admitted for acute decompensated heart failure with reduced ejection fraction and A. fib with RVR. She is medically stabilized and was discharged to our acute rehab unit for debility. Patient was seen this evening. She feels well and denies any fever, chest pain, dyspnea, abdominal pain, diarrhea, or dysuria. She does report con stipation and dry eyes. PAST MEDICAL HISTORY: 1. Chronic atrial fibrillation 2. Heart failure with reduced ejection fraction 3. Severe aortic stenosis 4. Hypertension 5. History of CVA with right upper extremity weakness 6. Rheumatoid arthritis 7. Breast cancer status post mastectomy and chemotherapy 8. Vitamin D deficiency PAST SURGICAL HISTORY: 1. Bilateral mastectomy 2. Hysterectomy secondary to endometriosis 3. Bilateral ankle fracture status post ORIF SOCIAL HISTORY: Tobacco use: Denies ETOH: Denies Illicit drug use: Denies FAMILY HISTORY: Father: Father has history of emphysema Mother: Mother has history of CHF ALLERGIES: Please see below. REVIEW OF SYSTEMS: CONSTITUTIONAL: Denies any fever or chills. ENT: Reports dry eyes. RESPIRATORY: Denies shortness of breath. CARDIOVASCULAR: Denies chest pain. GASTROINTESTINAL: Denies abdominal pain. Denies diarrhea. Reports constipation. GENITOURINARY: Denies dysuria. CUTANEOUS: Denies rashes. HEMATOLOGICAL: Denies bruises. NEUROLOGICAL: Denies paresthesias. PSYCHOLOGICAL: Denies depression. HOME MEDICATIONS: Please see below. PHYSICAL EXAMINATION: VITAL SIGNS: Temperature 97.1, pulse 76, respiratory rate 18, blood pressure 127/56, pulse oximetry 97% on room air. GENERAL: Comfortable, in no apparent distress. HEENT: Head normocephalic/atraumatic, EOMI, sclera clear. NECK: Supple. RESPIRATORY: Lungs clear to auscultation bilaterally, no rales, wheeze or rhonchi. CARDIOVASCULAR: Loud murmur auscultated. Otherwise normal rate, regular rhythm. ABDOMEN: Soft, nontender, no guarding or rebound tenderness. Normal bowel sounds. MUSCLE SKELETAL: Bilateral mild pitting edema. NEUROLOGICAL: CN 312 grossly intact. PSYCHOLOGICAL: Normal mood and affect. LABORATORY DATA: See below. IMAGING: None MICROBIOLOGY: Please see below. ASSESSMENT and PLAN: 1. Debility Patient in ARU for rehab 2. Atrial fibrillation Blood pressure too soft for beta-rupa Continue amiodarone and digoxin Continue apixaban 3. Heart failure with reduced ejection fraction Patient doing well at room air Continue furosemide 4. Constipation Continue Colace and senna Added on MiraLAX 5. DVT prophylaxis Continue apixaban Disposition: Per ARU Vital Signs Vital Signs Date Time Temp Pulse Resp B/P (MAP) Pulse Ox O2 Delivery O2 Flow Rate FiO2 09/20/21 14:00 97.1 76 18 127/56 (79) 97 Room Air Laboratory Data Labs 24H Laboratory Tests 2 09/20/21 06:11: Immature Granulocyte % (Auto) 0.4, Neutrophils (%) (Auto) 80.9H, Lymphocytes (%) (Auto) 10.8L, Monocytes (%) (Auto) 6.1, Eosinophils (%) (Auto) 1.3, Basophils (%) (Auto) 0.5, Neutrophils # (Auto) 7.5, Lymphocytes # (Auto) 1.0L, Monocytes # (Auto) 0.6, Eosinophils # (Auto) 0.1, Basophils # (Auto) 0.1, Nucleated Red Blood Cells % (auto) 0.0, Anion Gap 6L, Glomerular Filtration Rate > 60.0, Calcium Level 9.0, Total Bilirubin 1.1H, Aspartate Amino Transf (AST/SGOT) 49H, Alanine Aminotransferase (ALT/SGPT) 52, Alkaline Phosphatase 89, Total Protein 6.6, Albumin 2.8L, Albumin/Globulin Ratio 0.7L CBC/BMP Laboratory Tests 09/20/21 06:11 Home Medications Scheduled Acetaminophen (Tylenol Arthritis) 650 Mg Tablet.er, 650 MG PO QHS Amiodarone HCl (Amiodarone HCl) 200 Mg Tablet, 400 MG PO BID Apixaban (Eliquis) 5 Mg Tablet, 5 MG PO BID Aspirin (Aspirin EC) 81 Mg Tablet.dr, 81 MG PO DAILY Cholecalciferol (Vitamin D3) (Vitamin D3) 50 Mcg Tablet, 50 MCG PO DAILY Digoxin (Digoxin) 125 Mcg Tablet, 0.125 MG PO Q48H Folic Acid (Folic Acid) 1 Mg Tablet, 1 MG PO DAILY Furosemide (Lasix) 20 Mg Tablet, 20 MG PO BID Midodrine HCl (Midodrine HCl) 5 Mg Tablet, 10 MG PO 08,12,16 Multivitamins (Thera M Plus Tablet) 1 Each Tablet, 1 TAB PO DAILY Allergies Coded Allergies: TAPE (Verified Allergy, Unknown, 11/08/07) egg (Verified Allergy, Unknown, 03/25/21) shellfish derived (Verified Allergy, Unknown, 03/25/21) A-FIB/CHADSVASC A-FIB History Current/History of A-Fib/PAF?: Yes Current PO Anticoag Therapy: Yes TIMOTHY HER DO Sep 20, 2021 19:02
[2021-09-20 20:00] VITALS: BP 110/55
[2021-09-20] MEDS: SENNA 8.6 MG TAB (SENOKOT) PO SCH (20:40)
[2021-09-20] MEDS: POLYVINYL ALCOHOL OPHTH SOLN 15 ML(LIQUITEARS) OU SCH (20:41)
[2021-09-21 06:00] VITALS: BP 110/57
[2021-09-21] MEDS: DOCUSATE SODIUM 100MG CAPSULE PO SCH ×2 (07:55→21:02)
[2021-09-21] MEDS: FUROSEMIDE 20 MG TAB PO SCH ×2 (07:55→17:00)
[2021-09-21] MEDS: MIDODRINE 5 MG TAB PO SCH ×3 (07:55→17:01)
[2021-09-21] MEDS: ASPIRIN 81MG ENTERIC TABLET PO SCH (07:55)
[2021-09-21] MEDS: FOLIC ACID 1 MG TAB PO SCH (07:55)
[2021-09-21] MEDS: APIXABAN 5 MG TAB (ELIQUIS) PO SCH ×2 (07:55→21:02)
[2021-09-21] MEDS: VITAMIN D 1,000 INTERNATIONAL UNITS TABLET PO SCH (07:56)
[2021-09-21] MEDS: PANTOPRAZOLE 40MG TAB (PROTONIX) PO SCH ×2 (07:56→21:02)
[2021-09-21] MEDS: MULTIVITAMINS/MINERALS THERAP 1 TAB PO SCH (07:56)
[2021-09-21] MEDS: AMIODARONE 200 MG TAB (PACERONE) PO SCH ×2 (07:56→21:02)
[2021-09-21] MEDS: MIRALAX *UNIT DOSE* 17GM PACKET PO PRN (07:57)
[2021-09-21] MEDS: POLYVINYL ALCOHOL OPHTH SOLN 15 ML(LIQUITEARS) OU SCH ×3 (08:02→21:03)
[2021-09-21] MEDS: REMEDY PHYTOPLEX Z-GUARD PASTE 113GM TUBE (FROM STOREROOM PRODUCT) TOP SCH ×3 (09:00→21:04)
[2021-09-21 12:23] VITALS: BP 111/55
[2021-09-21 14:00] VITALS: BP 112/56
[2021-09-21 20:00] VITALS: BP 108/65
[2021-09-21] MEDS: SENNA 8.6 MG TAB (SENOKOT) PO SCH (21:02)
[2021-09-22 06:00] VITALS: BP 106/55
[2021-09-22] MEDS: MIRALAX *UNIT DOSE* 17GM PACKET PO PRN (08:45)
[2021-09-22] MEDS: DOCUSATE SODIUM 100MG CAPSULE PO SCH ×2 (08:45→22:49)
[2021-09-22] MEDS: ASPIRIN 81MG ENTERIC TABLET PO SCH (08:45)
[2021-09-22] MEDS: APIXABAN 5 MG TAB (ELIQUIS) PO SCH ×2 (08:46→22:49)
[2021-09-22] MEDS: DIGOXIN 0.25 MG TAB PO SCH (08:46)
[2021-09-22] MEDS: FOLIC ACID 1 MG TAB PO SCH (08:46)
[2021-09-22] MEDS: MIDODRINE 5 MG TAB PO SCH ×3 (08:47→15:17)
[2021-09-22] MEDS: VITAMIN D 1,000 INTERNATIONAL UNITS TABLET PO SCH (08:47)
[2021-09-22] MEDS: FUROSEMIDE 20 MG TAB PO SCH ×2 (08:47→17:00)
[2021-09-22] MEDS: PANTOPRAZOLE 40MG TAB (PROTONIX) PO SCH ×2 (08:47→22:49)
[2021-09-22] MEDS: AMIODARONE 200 MG TAB (PACERONE) PO SCH ×2 (08:47→22:49)
[2021-09-22] MEDS: MULTIVITAMINS/MINERALS THERAP 1 TAB PO SCH (08:47)
[2021-09-22] MEDS: REMEDY PHYTOPLEX Z-GUARD PASTE 113GM TUBE (FROM STOREROOM PRODUCT) TOP SCH ×3 (08:48→22:51)
[2021-09-22] MEDS: POLYVINYL ALCOHOL OPHTH SOLN 15 ML(LIQUITEARS) OU SCH ×3 (08:48→22:52)
[2021-09-22 11:56] VITALS: BP 112/58
[2021-09-22 14:00] VITALS: BP 118/59
[2021-09-22 17:33] VITALS: BP 108/55
[2021-09-22 18:01] VITALS: BP 100/60
[2021-09-22 19:45] VITALS: BP 118/57
[2021-09-22] MEDS: SENNA 8.6 MG TAB (SENOKOT) PO SCH (22:49)
[2021-09-22] MEDS: ACETAMINOPHEN TAB 650MG DOSE (2X325MG) PO PRN (22:50)
[2021-09-23] VITALS (11 sets, daily range): BP systolic 97–137; BP diastolic 53–62
[2021-09-23 07:15] LABS: BASO % 0.5 % (0.0-1.0); EOS # 0.1 10^3/uL (0.0-0.5); EOS % 1.2 % (0.0-3.0); HEMATOCRIT 22.3 % (36.0-47.0); LYMPH # 1.2 10^3/uL (1.5-5.0); LYMPH % 13.7 % (24.0-44.0); MEAN CORPUSCULAR HEMOGLOBIN 20.5 pg (27.0-33.0); MEAN CORPUSCULAR HGB CONC 27.8 g/dl (32.0-36.5); MEAN CORPUSCULAR VOLUME 73.8 fl (80.0-96.0); MONO # 0.6 10^3/uL (0.0-0.8); MONO % 6.6 % (2.0-8.0); NEUTROPHILS # 6.7 10^3/uL (1.5-8.5); NEUTROPHILS % 77.3 % (36.0-66.0); PLATELET COUNT, AUTOMATED 244 10^3/uL (150-450); RED BLOOD COUNT 3.02 10^6/uL (4.00-5.40); WHITE BLOOD COUNT 8.6 10^3/uL (4.0-10.0)
[2021-09-23 07:18] LABS: HEMOGLOBIN 6.2 g/dl (12.0-15.5)
[2021-09-23 07:31] LABS: BLOOD UREA NITROGEN 32 MG/DL (7-18); CALCIUM LEVEL 8.3 MG/DL (8.8-10.2); CARBON DIOXIDE LEVEL 35 MEQ/L (21-32); CHLORIDE LEVEL 98 MEQ/L (98-107); CREATININE FOR GFR 0.64 MG/DL (0.55-1.30); GLOMERULAR FILTRATION RATE > 60.0 (>32); GLUCOSE, FASTING 89 MG/DL (70-100); POTASSIUM SERUM 3.9 MEQ/L (3.5-5.1); SODIUM LEVEL 139 MEQ/L (136-145)
[2021-09-23] MEDS: FUROSEMIDE 20 MG TAB PO SCH ×2 (08:16→16:06)
[2021-09-23] MEDS: APIXABAN 5 MG TAB (ELIQUIS) PO SCH (08:40)
[2021-09-23] MEDS: MULTIVITAMINS/MINERALS THERAP 1 TAB PO SCH (08:40)
[2021-09-23] MEDS: ASPIRIN 81MG ENTERIC TABLET PO SCH (08:40)
[2021-09-23] MEDS: FOLIC ACID 1 MG TAB PO SCH (08:41)
[2021-09-23] MEDS: DOCUSATE SODIUM 100MG CAPSULE PO SCH ×2 (08:41→20:25)
[2021-09-23] MEDS: AMIODARONE 200 MG TAB (PACERONE) PO SCH ×2 (08:41→20:25)
[2021-09-23] MEDS: MIDODRINE 5 MG TAB PO SCH ×3 (08:41→16:06)
[2021-09-23] MEDS: REMEDY PHYTOPLEX Z-GUARD PASTE 113GM TUBE (FROM STOREROOM PRODUCT) TOP SCH ×3 (08:41→20:25)
[2021-09-23] MEDS: PANTOPRAZOLE 40MG TAB (PROTONIX) PO SCH ×2 (08:41→20:25)
[2021-09-23] MEDS: VITAMIN D 1,000 INTERNATIONAL UNITS TABLET PO SCH (08:41)
[2021-09-23] MEDS: POLYVINYL ALCOHOL OPHTH SOLN 15 ML(LIQUITEARS) OU SCH ×3 (08:42→20:26)
[2021-09-23 08:45] LABS: HEMATOCRIT 21.4 % (36.0-47.0)
[2021-09-23] MEDS ORDERED: ACETAMINOPHEN TAB 650MG DOSE (2X325MG) PO ONE (10:00)
[2021-09-23] MEDS ORDERED: diphenhydrAMINE 25MG CAP PO ONE (10:00)
--- NOTE | 2021-09-23 11:15 | IPNPDOC ---
PM&R Progress Note DATE OF SERVICE: Sep 23, 2021 [employer] Progress Note Subjective: Patient seen in her room stating she feels fine and denies new weakness, chest pain or dizziness. She had a large BM yesterday and feels much better. She does not believe her stool was black. REVIEW OF SYSTEMS: The following is a completed review of systems and has been reviewed. Review of systems otherwise unremarkable. PAIN: Patient self reports no pain EYES: No recent vision changes EARS, NOSE, & THROAT: No throat pain, or dysphagia, or rhinorrhea CARDIOVASCULAR: Denies chest pain or palpitations PULMONARY: Denies shortness of breath GASTROINTESTINAL: + constipation GENITOURINARY: denies dysuria MUSCULOSKELETAL: + generalized weakness NEUROLOGICAL: +peripheral polyneuropathy HEMATOLOGICAL: +anemia SKIN: bilat ankle wounds PSYCHIATRIC: Unremarkable All other review of systems found to be negative. PHYSICAL EXAMINATION: VITAL SIGNS: Please see below. GENERAL: Pleasant and cooperative. No acute distress. HEENT: PERRL. Extraocular movements intact. Clear conjunctiva CARDIOVASCULAR: Regular rate and rhythm. No murmurs, rubs, or gallops LUNGS: Clear to auscultation bilaterally. No wheezes. No rhonchi ABDOMEN: Soft, nontender, nondistended. Positive bowel sounds. Normal active bowel sounds NEUROLOGICAL: Alert and oriented times three. Cranial nerves II through XII grossly intact. Sensation decreased to light touch in stocking pattern right hand PIP and DIP 1+/4 tone EXTREMITIES: 4+ \5 strength left upper extremities. 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 4\5 strength left hip flexors, knee extensors, 4/5 ankle DF and 3/5 EHL SKIN:right medial malleoli with ulcer, base with granulation tissue scant exudate, luis wound slightly macerate, left medial malleoli with dried ulcer bilat feet purple, non painful to palpation back with thoracentesis incision (bandage in place with no drainage) LABORATORY DATA: Please see below. ASSESSMENT:86-year-old F with past medical history of CVA with residual right sided paresis, systolic CHF who presents status post acute respiratory failure in setting of CHF exacerbation and pleura effusions PLAN: 1. Rehab- PT/OT advance mobility and ADLs, strengthen/stretch/maintain ROM all 4limbs- energy conservation 2. 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 CArdiac- hx of systolic CHF with EF 35-40%, cont daily weights, fluid restrict, lasix -hypotension cont midodrine -Afib with recent RVR- cont Amiodarone and digoxin, on eliquis (holding due to drop in Hgb) -mod-Severe aortic stenosis f/u Dr. Monroe for possible TAVR -on ASa 81mg daily -medicine consulted to assist in overall management 4. Resp- recent bilat pleural effusions s/p thoracentesis cont lasix -cont supplemental 02, will attempt to wean if able to -monitor for infection 5. Rheum- hx of RA with probable Raynaud's syndrome, cont folic acid, per hx patient on methotrexate, will f/u on this as she was not maintained on this in hospital 6. GI ppx- protonix BID 7. DVT ppx- on eliquis 8. Skin- patient with chronic ankle wounds, patient's wounds will be monitored closely on ARU and dressing change orders in place- f/u Dr. Rodrigez 9. Heme- patient with Hgb of 6 today following a large BM yesterday that she reports was not black, she is asymptomatic, will order FOBT, discussed with hospitalist who recommends holding Eliquis for now, cont ASA until FOBT results - 2 units prbcs ordered, f/u Hgb/Hct tonight and tomorrow am 9. Pain- tylenol prn 10. Dispo- TBD Min-assist for mobility and most ADLs, Max assit for LB dressing requiring cont PT/OT intervention for goal of Mod-I prior to returning home alone. Patient has anemia with Hgb of 6 requiring blood transfusion and work-up. eliquis on hold for now, will need continued close medical management. Allergies Coded Allergies: TAPE (Verified Allergy, Unknown, 11/08/07) egg (Verified Allergy, Unknown, 03/25/21) shellfish derived (Verified Allergy, Unknown, 03/25/21) Vital Signs Vital Signs Date Time Temp Pulse Resp B/P (MAP) Pulse Ox O2 Delivery O2 Flow Rate FiO2 12/20/21 05:40 98.6 73 18 97/53 (68) 97 09/22/21 19:45 Room Air Laboratory Data CBC/BMP Laboratory Tests 09/23/21 06:57 09/23/21 08:10 Labs 24H Laboratory Tests 2 09/23/21 06:57: Immature Granulocyte % (Auto) 0.7, Neutrophils (%) (Auto) 77.3H, Lymphocytes (%) (Auto) 13.7L, Monocytes (%) (Auto) 6.6, Eosinophils (%) (Auto) 1.2, Basophils (%) (Auto) 0.5, Neutrophils # (Auto) 6.7, Lymphocytes # (Auto) 1.2L, Monocytes # (Auto) 0.6, Eosinophils # (Auto) 0.1, Basophils # (Auto) 0.0, Nucleated Red Blood Cells % (auto) 0.0, Anion Gap 6L, Glomerular Filtration Rate > 60.0, Calcium Level 8.3L Current Medications Current Medications Current Medications Medications (Trade) Dose Ordered Sig/Giovany Route PRN Reason Start Time Stop Time Status Last Admin Dose Admin Acetaminophen (Tylenol Tab) 650 mg Q4HP PRN PO fever/MILD PAIN (PS 1-4) 09/19/21 09:30 09/22/21 22:50 Amiodarone HCl (Pacerone, Cordarone) 400 mg BID PO 09/19/21 21:00 09/23/21 08:41 Apixaban (Eliquis) 5 mg BID PO 09/19/21 21:00 09/23/21 08:40 Artificial Tears (Akwa Tears) 2 drop TID OU 09/20/21 21:00 09/23/21 08:42 Aspirin (Ecotrin) 81 mg DAILY PO 09/20/21 09:00 09/23/21 08:40 Digoxin (Lanoxin) 0.25 mg Q48H PO 09/20/21 09:00 09/22/21 08:46 Docusate Sodium (Colace) 100 mg BID PO 09/19/21 21:00 09/23/21 08:41 Folic Acid (Folic Acid) 1 mg DAILY PO 09/20/21 09:00 09/23/21 08:41 Furosemide (Lasix) 20 mg BID@, PO 09/19/21 17:00 09/21/21 07:55 Home Med (Home Med List Complete!) ASDIRECTED XX 09/19/21 14:30 09/19/21 14:56 DC Midodrine (Proamatine) 10 mg ,,16 PO 09/19/21 16:00 09/23/21 08:41 Multivitamins (Theragram-M) 1 tab DAILY PO 09/19/21 09:00 09/23/21 08:40 Pantoprazole Sodium (Protonix) 40 mg BID PO 09/19/21 21:00 09/23/21 08:41 Polyethylene Glycol (Miralax) 1 pkt DAILYPRN PRN PO CONSTIPATION 09/20/21 18:35 09/22/21 08:45 Senna (Senokot) 1 tab QHS PO 09/19/21 21:00 09/22/21 22:49 Vitamin D (Vitamin D) 1,000 units DAILY PO 09/20/21 09:00 09/23/21 08:41 MEGHAN WILHELM MD Sep 23, 2021 11:15
[2021-09-23] MEDS: SUCRALFATE 1 GM TAB PO SCH ×3 (12:29→20:26)
[2021-09-23 18:16] LABS: HEMATOCRIT 32.2 % (36.0-47.0); HEMOGLOBIN 9.9 g/dl (12.0-15.5)
[2021-09-23] MEDS: SENNA 8.6 MG TAB (SENOKOT) PO SCH (20:25)
[2021-09-24] MEDS: ACETAMINOPHEN TAB 650MG DOSE (2X325MG) PO PRN ×2 (04:33→21:44)
[2021-09-24 06:00] VITALS: BP 117/56
[2021-09-24 06:41] LABS: BASO # 0.1 10^3/uL (0.0-0.2); BASO % 0.7 % (0.0-1.0); EOS # 0.1 10^3/uL (0.0-0.5); EOS % 1.2 % (0.0-3.0); HEMATOCRIT 30.2 % (36.0-47.0); HEMOGLOBIN 9.3 g/dl (12.0-15.5); LYMPH # 1.2 10^3/uL (1.5-5.0); LYMPH % 11.5 % (24.0-44.0); MEAN CORPUSCULAR HEMOGLOBIN 24.6 pg (27.0-33.0); MEAN CORPUSCULAR HGB CONC 30.8 g/dl (32.0-36.5); MEAN CORPUSCULAR VOLUME 79.9 fl (80.0-96.0); MONO # 0.8 10^3/uL (0.0-0.8); MONO % 7.7 % (2.0-8.0); NEUTROPHILS % 78.3 % (36.0-66.0); PLATELET COUNT, AUTOMATED 222 10^3/uL (150-450); RED BLOOD COUNT 3.78 10^6/uL (4.00-5.40); WHITE BLOOD COUNT 10.3 10^3/uL (4.0-10.0)
[2021-09-24] MEDS: AMIODARONE 200 MG TAB (PACERONE) PO SCH ×2 (08:55→21:43)
[2021-09-24] MEDS: MIDODRINE 5 MG TAB PO SCH ×3 (08:55→17:47)
[2021-09-24] MEDS: FOLIC ACID 1 MG TAB PO SCH (08:55)
[2021-09-24] MEDS: PANTOPRAZOLE 40MG TAB (PROTONIX) PO SCH ×2 (08:55→21:43)
[2021-09-24] MEDS: MULTIVITAMINS/MINERALS THERAP 1 TAB PO SCH (08:55)
[2021-09-24] MEDS: VITAMIN D 1,000 INTERNATIONAL UNITS TABLET PO SCH (08:55)
[2021-09-24] MEDS: FUROSEMIDE 20 MG TAB PO SCH ×2 (08:56→17:48)
[2021-09-24] MEDS: DOCUSATE SODIUM 100MG CAPSULE PO SCH ×2 (08:56→21:00)
[2021-09-24] MEDS: DIGOXIN 0.25 MG TAB PO SCH (08:56)
[2021-09-24] MEDS: REMEDY PHYTOPLEX Z-GUARD PASTE 113GM TUBE (FROM STOREROOM PRODUCT) TOP SCH ×3 (08:56→21:45)
[2021-09-24] MEDS: SUCRALFATE 1 GM TAB PO SCH ×4 (08:59→21:42)
[2021-09-24] MEDS: POLYVINYL ALCOHOL OPHTH SOLN 15 ML(LIQUITEARS) OU SCH ×3 (09:00→21:44)
--- NOTE | 2021-09-24 09:33 | IPNPDOC ---
PM&R Progress Note DATE OF SERVICE: Sep 24, 2021 Burner Operator Progress Note Subjective: Patient seen in her room stating she feels better today, denies any shortness of breath after having recieved blood. REVIEW OF SYSTEMS: The following is a completed review of systems and has been reviewed. Review of systems otherwise unremarkable. PAIN: Patient self reports no pain EYES: No recent vision changes EARS, NOSE, & THROAT: No throat pain, or dysphagia, or rhinorrhea CARDIOVASCULAR: Denies chest pain or palpitations PULMONARY: Denies shortness of breath GASTROINTESTINAL: + constipation GENITOURINARY: denies dysuria MUSCULOSKELETAL: + generalized weakness NEUROLOGICAL: +peripheral polyneuropathy HEMATOLOGICAL: +anemia SKIN: bilat ankle wounds PSYCHIATRIC: Unremarkable All other review of systems found to be negative. PHYSICAL EXAMINATION: VITAL SIGNS: Please see below. GENERAL: Pleasant and cooperative. No acute distress. HEENT: PERRL. Extraocular movements intact. Clear conjunctiva CARDIOVASCULAR: Regular rate and rhythm. No murmurs, rubs, or gallops LUNGS: Clear to auscultation bilaterally. No wheezes. No rhonchi ABDOMEN: Soft, nontender, nondistended. Positive bowel sounds. Normal active bowel sounds NEUROLOGICAL: Alert and oriented times three. Cranial nerves II through XII grossly intact. Sensation decreased to light touch in stocking pattern right hand PIP and DIP 1+/4 tone EXTREMITIES: 4+ \5 strength left upper extremities. 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 4\5 strength left hip flexors, knee extensors, 4/5 ankle DF and 3/5 EHL SKIN:right medial malleoli with ulcer, base with granulation tissue some sanguinous drainage no exudate, luis wound slightly macerate, left medial malleoli with dried ulcer right ell at insertion of Achilles tendon with unstageable bilat feet purple, non painful to palpation back with thoracentesis incision (bandage in place with no drainage) LABORATORY DATA: Please see below. ASSESSMENT:86-year-old F with past medical history of CVA with residual right sided paresis, systolic CHF who presents status post acute respiratory failure in setting of CHF exacerbation and pleura effusions PLAN: 1. Rehab- PT/OT advance mobility and ADLs, strengthen/stretch/maintain ROM all 4limbs- energy conservation 2. 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 CArdiac- hx of systolic CHF with EF 35-40%, cont daily weights, fluid restrict, lasix -hypotension cont midodrine -Afib with recent RVR- cont Amiodarone and digoxin, on eliquis (holding due to drop in Hgb/GI bleed) -mod-Severe aortic stenosis f/u Dr. Monroe for possible TAVR -on ASa 81mg daily (on hold due to GI bleed) -medicine consulted to assist in overall management 4. Resp- recent bilat pleural effusions s/p thoracentesis cont lasix -cont supplemental 02, will attempt to wean if able to -monitor for infection 5. Rheum- hx of RA with probable Raynaud's syndrome, cont folic acid, per hx patient on methotrexate, will f/u on this as she was not maintained on this in hospital 6. GI ppx- protonix BID 7. DVT ppx- on eliquis 8. Skin- patient with chronic ankle wounds, patient's wounds will be monitored closely on ARU and dressing change orders in place- f/u Dr. Rodrigez 9. Heme- patient with Hgb of 6 s/p 2 units prbcs ordered on 09/24, Hgb 6-->9 now will cont to monitor, ASA and Eliquis stopped, will consult GI/Surgery if anemia worsens considerably- +FOBT 9. Pain- tylenol prn 10. Dispo- TBD Min-assist for mobility and most ADLs, Max assist for LB dressing requiring cont PT/OT intervention for goal of Mod-I prior to returning home alone for commode transfers, ambulation short distances, will likely need wheelchair as well. Patient had anemia with Hgb of 6 requiring blood transfusion and work-up, Hg better now since receiving 2 units prbcs, +FOBT will need close monitoring for GI bleed, she is of eliquis and ASA. Will need continued close medical management. Allergies Coded Allergies: TAPE (Verified Allergy, Unknown, 11/08/07) egg (Verified Allergy, Unknown, 03/25/21) shellfish derived (Verified Allergy, Unknown, 03/25/21) Vital Signs Vital Signs Date Time Temp Pulse Resp B/P (MAP) Pulse Ox O2 Delivery O2 Flow Rate FiO2 09/24/21 08:56 71 09/24/21 06:00 98.1 16 117/56 (76) 98 Room Air Laboratory Data CBC/BMP Laboratory Tests 09/23/21 18:03 09/24/21 06:08 Labs 24H Laboratory Tests 2 09/24/21 06:08: Immature Granulocyte % (Auto) 0.6, Neutrophils (%) (Auto) 78.3H, Lymphocytes (%) (Auto) 11.5L, Monocytes (%) (Auto) 7.7, Eosinophils (%) (Auto) 1.2, Basophils (%) (Auto) 0.7, Neutrophils # (Auto) 8.0, Lymphocytes # (Auto) 1.2L, Monocytes # (Auto) 0.8, Eosinophils # (Auto) 0.1, Basophils # (Auto) 0.1, Nucleated Red Blood Cells % (auto) 0.2H Microbiology Microbiology 09/23/21 Stool Occult Blood ([facility]) - Final, Complete Current Medications Current Medications Current Medications Medications (Trade) Dose Ordered Sig/Giovany Route PRN Reason Start Time Stop Time Status Last Admin Dose Admin Acetaminophen (Tylenol Tab) 650 mg Q4HP PRN PO fever/MILD PAIN (PS 1-4) 09/19/21 09:30 09/24/21 04:33 Amiodarone HCl (Pacerone, Cordarone) 400 mg BID PO 09/19/21 21:00 09/24/21 08:55 Apixaban (Eliquis) 5 mg BID PO 09/19/21 21:00 09/23/21 11:09 DC 09/23/21 08:40 Artificial Tears (Akwa Tears) 2 drop TID OU 09/20/21 21:00 09/23/21 20:26 Aspirin (Ecotrin) 81 mg DAILY PO 09/20/21 09:00 09/23/21 14:31 DC 09/23/21 08:40 Digoxin (Lanoxin) 0.25 mg Q48H PO 09/20/21 09:00 09/24/21 08:56 Docusate Sodium (Colace) 100 mg BID PO 09/19/21 21:00 09/23/21 20:25 Folic Acid (Folic Acid) 1 mg DAILY PO 09/20/21 09:00 09/24/21 08:55 Furosemide (Lasix) 20 mg BID@17 PO 09/19/21 17:00 09/24/21 08:56 Home Med (Home Med List Complete!) ASDIRECTED XX 09/19/21 14:30 09/19/21 14:56 DC Midodrine (Proamatine) 10 mg 08,,16 PO 09/19/21 16:00 09/24/21 08:55 Multivitamins (Theragram-M) 1 tab DAILY PO 09/19/21 09:00 09/24/21 08:55 Pantoprazole Sodium (Protonix) 40 mg BID PO 09/19/21 21:00 09/24/21 08:55 Polyethylene Glycol (Miralax) 1 pkt DAILYPRN PRN PO CONSTIPATION 09/20/21 18:35 09/22/21 08:45 Senna (Senokot) 1 tab QHS PO 09/19/21 21:00 09/23/21 20:25 Sucralfate (Carafate) 1 gm ACHS PO 09/23/21 12:00 09/24/21 08:59 Vitamin D (Vitamin D) 1,000 units DAILY PO 09/20/21 09:00 09/24/21 08:55 MEGHAN WILHELM MD Sep 24, 2021 09:33
[2021-09-24 14:00] VITALS: BP 120/58
[2021-09-24 20:00] VITALS: BP 106/58
[2021-09-24] MEDS: SENNA 8.6 MG TAB (SENOKOT) PO SCH (21:00)
[2021-09-25 05:15] VITALS: BP 102/50
[2021-09-25 06:36] LABS: HEMOGLOBIN 8.7 g/dl (12.0-15.5); MEAN CORPUSCULAR HEMOGLOBIN 24.1 pg (27.0-33.0); MEAN CORPUSCULAR VOLUME 80.3 fl (80.0-96.0); PLATELET COUNT, AUTOMATED 249 10^3/uL (150-450); RED BLOOD COUNT 3.61 10^6/uL (4.00-5.40)
[2021-09-25 07:02] LABS: BLOOD UREA NITROGEN 30 MG/DL (7-18); CALCIUM LEVEL 8.2 MG/DL (8.8-10.2); CARBON DIOXIDE LEVEL 33 MEQ/L (21-32); CHLORIDE LEVEL 100 MEQ/L (98-107); CREATININE FOR GFR 0.63 MG/DL (0.55-1.30); GLOMERULAR FILTRATION RATE > 60.0 (>32); GLUCOSE, FASTING 86 MG/DL (70-100); POTASSIUM SERUM 3.1 MEQ/L (3.5-5.1); SODIUM LEVEL 139 MEQ/L (136-145)
[2021-09-25 07:16] LABS: ANISOCYTOSIS 3+; ATYPICAL LYMPH 2 % (0-5); EOSINOPHILS 2 % (0-3); LYMPHOCYTES 15 % (16-44); MONOCYTES 6 % (0-5); NEUTROPHILS 73 % (28-66); PLATELET ESTIMATE NORMAL (NORMAL)
[2021-09-25] MEDS: FUROSEMIDE 20 MG TAB PO SCH ×2 (07:16→16:55)
[2021-09-25 07:17] LABS: POIKILOCYTOSIS 1+; POLYCHROMASIA 1+
[2021-09-25] MEDS: MIRALAX *UNIT DOSE* 17GM PACKET PO PRN (07:17)
[2021-09-25 07:18] LABS: MICROCYTOSIS 1+
[2021-09-25] MEDS: PANTOPRAZOLE 40MG TAB (PROTONIX) PO SCH ×2 (08:30→21:13)
[2021-09-25] MEDS: SUCRALFATE 1 GM TAB PO SCH ×4 (08:30→21:13)
[2021-09-25] MEDS: VITAMIN D 1,000 INTERNATIONAL UNITS TABLET PO SCH (08:30)
[2021-09-25] MEDS: AMIODARONE 200 MG TAB (PACERONE) PO SCH ×2 (08:30→21:13)
[2021-09-25] MEDS: MIDODRINE 5 MG TAB PO SCH ×3 (08:30→15:05)
[2021-09-25] MEDS: POLYVINYL ALCOHOL OPHTH SOLN 15 ML(LIQUITEARS) OU SCH ×3 (08:30→21:13)
[2021-09-25] MEDS: DOCUSATE SODIUM 100MG CAPSULE PO SCH ×2 (08:30→21:00)
[2021-09-25] MEDS: FOLIC ACID 1 MG TAB PO SCH (08:30)
[2021-09-25] MEDS: MULTIVITAMINS/MINERALS THERAP 1 TAB PO SCH (08:30)
[2021-09-25] MEDS: REMEDY PHYTOPLEX Z-GUARD PASTE 113GM TUBE (FROM STOREROOM PRODUCT) TOP SCH ×3 (08:30→21:13)
--- NOTE | 2021-09-25 09:44 | IPNPDOC ---
PM&R Progress Note DATE OF SERVICE: Sep 25, 2021 Pesticide Use Medical Coordinator Progress Note Subjective: Patient seen in OT working on donning shoes. She has no complaints. REVIEW OF SYSTEMS: The following is a completed review of systems and has been reviewed. Review of systems otherwise unremarkable. PAIN: Patient self reports no pain EYES: No recent vision changes EARS, NOSE, & THROAT: No throat pain, or dysphagia, or rhinorrhea CARDIOVASCULAR: Denies chest pain or palpitations PULMONARY: Denies shortness of breath GASTROINTESTINAL: + constipation GENITOURINARY: denies dysuria MUSCULOSKELETAL: + generalized weakness NEUROLOGICAL: +peripheral polyneuropathy HEMATOLOGICAL: +anemia SKIN: bilat ankle wounds PSYCHIATRIC: Unremarkable All other review of systems found to be negative. PHYSICAL EXAMINATION: VITAL SIGNS: Please see below. GENERAL: Pleasant and cooperative. No acute distress. HEENT: PERRL. Extraocular movements intact. Clear conjunctiva CARDIOVASCULAR: Regular rate and rhythm. No murmurs, rubs, or gallops LUNGS: Clear to auscultation bilaterally. No wheezes. No rhonchi ABDOMEN: Soft, nontender, nondistended. Positive bowel sounds. Normal active bowel sounds NEUROLOGICAL: Alert and oriented times three. Cranial nerves II through XII grossly intact. Sensation decreased to light touch in stocking pattern right hand PIP and DIP 1+/4 tone EXTREMITIES: 4+ \5 strength left upper extremities. 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 4\5 strength left hip flexors, knee extensors, 4/5 ankle DF and 3/5 EHL SKIN:right medial malleoli with ulcer, base with granulation tissue some sanguinous drainage no exudate, luis wound slightly macerate, left medial malleoli with dried ulcer right ell at insertion of Achilles tendon with unstageable bilat feet purple, non painful to palpation back with thoracentesis incision (bandage in place with no drainage) LABORATORY DATA: Please see below. ASSESSMENT:86-year-old F with past medical history of CVA with residual right sided paresis, systolic CHF who presents status post acute respiratory failure in setting of CHF exacerbation and pleura effusions PLAN: 1. Rehab- PT/OT advance mobility and ADLs, strengthen/stretch/maintain ROM all 4limbs- energy conservation 2. 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 CArdiac- hx of systolic CHF with EF 35-40%, cont daily weights, fluid restrict, lasix -hypotension cont midodrine -Afib with recent RVR- cont Amiodarone and digoxin, on eliquis (holding due to drop in Hgb/GI bleed) -mod-Severe aortic stenosis f/u Dr. Monroe for possible TAVR -on ASa 81mg daily (on hold due to GI bleed) -medicine consulted to assist in overall management 4. Resp- recent bilat pleural effusions s/p thoracentesis cont lasix -cont supplemental 02, will attempt to wean if able to -monitor for infection -patient with Covid exposure, she is unvaccinated and declines monoclonal antibodies at this time, will order resp panel 5. Rheum- hx of RA with probable Raynaud's syndrome, cont folic acid, per hx patient on methotrexate, will f/u on this as she was not maintained on this in hospital 6. GI ppx- protonix BID 7. DVT ppx- on eliquis 8. Skin- patient with chronic ankle wounds, patient's wounds will be monitored closely on ARU and dressing change orders in place- f/u Dr. Rodrigez 9. Heme- patient with Hgb of 6 s/p 2 units prbcs ordered on 09/24, Hgb 6-->9 now will cont to monitor, ASA and Eliquis stopped, will consult GI/Surgery if anemia worsens considerably- +FOBT 9. Pain- tylenol prn 10. Dispo- TBD Min-assist for mobility and most ADLs, Max assist for LB dressing requiring cont PT/OT intervention for goal of Mod-I prior to returning home alone for commode transfers, ambulation short distances, will likely need wheelchair as well. Patient had anemia with Hgb of 6 requiring blood transfusion and work-up, Hg better now since receiving 2 units prbcs, +FOBT will need close monitoring for GI bleed, she is of eliquis and ASA. Will need continued close medical management. Allergies Coded Allergies: TAPE (Verified Allergy, Unknown, 2/4/08) egg (Verified Allergy, Unknown, 03/25/21) shellfish derived (Verified Allergy, Unknown, 03/25/21) Vital Signs Vital Signs Date Time Temp Pulse Resp B/P (MAP) Pulse Ox O2 Delivery O2 Flow Rate FiO2 09/25/21 05:15 97.4 71 18 102/50 (67) 97 Room Air Laboratory Data CBC/BMP Laboratory Tests 09/25/21 06:04 Labs 24H Laboratory Tests 2 09/25/21 06:04: Neutrophils (%) (Auto) , Nucleated Red Blood Cells % (auto) 0.0, Neutrophils 73H, Band Neutrophils 2, Lymphocytes (Manual) 15L, Monocytes (Manual) 6H, Eosinophils (Manual) 2, Atypical Lymphocytes 2, Polychromasia 1+, Poikilocytosis 1+, Anisocytosis 3+, Microcytosis 1+, Macrocytosis 1+, Platelet Estimate NORMAL, Anion Gap 6L, Glomerular Filtration Rate > 60.0, Calcium Level 8.2L Microbiology Microbiology 09/24/21 Respiratory Virus Panel (PCR) ([facility]) - Final, Complete 09/23/21 Stool Occult Blood ([facility]) - Final, Complete Current Medications Current Medications Current Medications Medications (Trade) Dose Ordered Sig/Giovany Route PRN Reason Start Time Stop Time Status Last Admin Dose Admin Acetaminophen (Tylenol Tab) 650 mg Q4HP PRN PO fever/MILD PAIN (PS 1-4) 09/19/21 09:30 09/24/21 21:44 Amiodarone HCl (Pacerone, Cordarone) 400 mg BID PO 09/19/21 21:00 09/25/21 08:30 Apixaban (Eliquis) 5 mg BID PO 09/19/21 21:00 09/23/21 11:09 DC 09/23/21 08:40 Artificial Tears (Akwa Tears) 2 drop TID OU 09/20/21 21:00 09/25/21 08:30 Aspirin (Ecotrin) 81 mg DAILY PO 09/20/21 09:00 09/23/21 14:31 DC 09/23/21 08:40 Digoxin (Lanoxin) 0.25 mg Q48H PO 09/20/21 09:00 09/24/21 08:56 Docusate Sodium (Colace) 100 mg BID PO 09/19/21 21:00 09/25/21 08:30 Folic Acid (Folic Acid) 1 mg DAILY PO 09/20/21 09:00 09/25/21 08:30 Furosemide (Lasix) 20 mg BID@,17 PO 09/19/21 17:00 09/24/21 17:48 Home Med (Home Med List Complete!) ASDIRECTED XX 09/19/21 14:30 09/19/21 14:56 DC Midodrine (Proamatine) 10 mg 08,,16 PO 09/19/21 16:00 09/25/21 08:30 Multivitamins (Theragram-M) 1 tab DAILY PO 09/19/21 09:00 09/25/21 08:30 Pantoprazole Sodium (Protonix) 40 mg BID PO 09/19/21 21:00 09/25/21 08:30 Polyethylene Glycol (Miralax) 1 pkt DAILYPRN PRN PO CONSTIPATION 09/20/21 18:35 09/22/21 08:45 Senna (Senokot) 1 tab QHS PO 09/19/21 21:00 09/23/21 20:25 Sucralfate (Carafate) 1 gm ACHS PO 09/23/21 12:00 09/25/21 08:30 Vitamin D (Vitamin D) 1,000 units DAILY PO 09/20/21 09:00 09/25/21 08:30 MEGHAN WILHELM MD Sep 25, 2021 09:44
[2021-09-25] MEDS ORDERED: POTASSIUM CHLORIDE 10MEQ SR TABLET PO ONE ×2 (10:00→12:00)
[2021-09-25 10:18] LABS: MAGNESIUM LEVEL 2.2 MG/DL (1.8-2.4)
[2021-09-25 12:05] VITALS: BP 130/68
[2021-09-25 14:00] VITALS: BP 114/59
[2021-09-25 16:24] VITALS: BP 118/57
[2021-09-25 20:00] VITALS: BP 107/55
[2021-09-25] MEDS: SENNA 8.6 MG TAB (SENOKOT) PO SCH (21:00)
[2021-09-26] MEDS: ACETAMINOPHEN TAB 650MG DOSE (2X325MG) PO PRN (02:09)
[2021-09-26 06:00] VITALS: BP 109/65
[2021-09-26 08:07] LABS: BASO % 0.5 % (0.0-1.0); EOS # 0.2 10^3/uL (0.0-0.5); EOS % 1.9 % (0.0-3.0); HEMATOCRIT 29.7 % (36.0-47.0); HEMOGLOBIN 8.8 g/dl (12.0-15.5); LYMPH # 1.1 10^3/uL (1.5-5.0); LYMPH % 12.9 % (24.0-44.0); MEAN CORPUSCULAR HEMOGLOBIN 24.6 pg (27.0-33.0); MEAN CORPUSCULAR HGB CONC 29.6 g/dl (32.0-36.5); MONO # 0.4 10^3/uL (0.0-0.8); MONO % 4.8 % (2.0-8.0); NEUTROPHILS # 6.6 10^3/uL (1.5-8.5); NEUTROPHILS % 79.5 % (36.0-66.0); PLATELET COUNT, AUTOMATED 293 10^3/uL (150-450); RED BLOOD COUNT 3.58 10^6/uL (4.00-5.40); WHITE BLOOD COUNT 8.3 10^3/uL (4.0-10.0)
[2021-09-26] MEDS: FUROSEMIDE 20 MG TAB PO SCH ×2 (08:09→16:42)
[2021-09-26 08:33] LABS: BLOOD UREA NITROGEN 30 MG/DL (7-18); CALCIUM LEVEL 8.7 MG/DL (8.8-10.2); CARBON DIOXIDE LEVEL 31 MEQ/L (21-32); CHLORIDE LEVEL 102 MEQ/L (98-107); CREATININE FOR GFR 0.71 MG/DL (0.55-1.30); GLOMERULAR FILTRATION RATE > 60.0 (>32); GLUCOSE, FASTING 113 MG/DL (70-100); POTASSIUM SERUM 3.7 MEQ/L (3.5-5.1); SODIUM LEVEL 139 MEQ/L (136-145)
[2021-09-26] MEDS: DOCUSATE SODIUM 100MG CAPSULE PO SCH ×2 (09:00→20:32)
[2021-09-26] MEDS: FOLIC ACID 1 MG TAB PO SCH (09:13)
[2021-09-26] MEDS: DIGOXIN 0.25 MG TAB PO SCH (09:13)
[2021-09-26] MEDS: PANTOPRAZOLE 40MG TAB (PROTONIX) PO SCH ×2 (09:13→20:32)
[2021-09-26] MEDS: SUCRALFATE 1 GM TAB PO SCH ×4 (09:13→20:32)
[2021-09-26] MEDS: MIDODRINE 5 MG TAB PO SCH ×3 (09:13→15:33)
[2021-09-26] MEDS: POLYVINYL ALCOHOL OPHTH SOLN 15 ML(LIQUITEARS) OU SCH ×3 (09:14→20:33)
[2021-09-26] MEDS: AMIODARONE 200 MG TAB (PACERONE) PO SCH ×2 (09:14→20:32)
[2021-09-26] MEDS: REMEDY PHYTOPLEX Z-GUARD PASTE 113GM TUBE (FROM STOREROOM PRODUCT) TOP SCH ×3 (09:14→20:33)
[2021-09-26] MEDS: MULTIVITAMINS/MINERALS THERAP 1 TAB PO SCH (09:14)
[2021-09-26] MEDS: VITAMIN D 1,000 INTERNATIONAL UNITS TABLET PO SCH (09:14)
[2021-09-26 14:00] VITALS: BP 136/64
[2021-09-26 20:00] VITALS: BP 113/56
[2021-09-26] MEDS: SENNA 8.6 MG TAB (SENOKOT) PO SCH (20:32)
[2021-09-27 06:00] VITALS: BP 113/55
[2021-09-27 07:38] LABS: BASO # 0.1 10^3/uL (0.0-0.2); BASO % 0.7 % (0.0-1.0); EOS # 0.2 10^3/uL (0.0-0.5); EOS % 2.1 % (0.0-3.0); HEMATOCRIT 29.5 % (36.0-47.0); HEMOGLOBIN 8.6 g/dl (12.0-15.5); LYMPH # 1.2 10^3/uL (1.5-5.0); LYMPH % 16.9 % (24.0-44.0); MEAN CORPUSCULAR HEMOGLOBIN 24.5 pg (27.0-33.0); MEAN CORPUSCULAR HGB CONC 29.2 g/dl (32.0-36.5); MONO # 0.5 10^3/uL (0.0-0.8); MONO % 7.3 % (2.0-8.0); NEUTROPHILS # 5.3 10^3/uL (1.5-8.5); NEUTROPHILS % 72.7 % (36.0-66.0); PLATELET COUNT, AUTOMATED 316 10^3/uL (150-450); RED BLOOD COUNT 3.51 10^6/uL (4.00-5.40); WHITE BLOOD COUNT 7.3 10^3/uL (4.0-10.0)
[2021-09-27] MEDS: MIDODRINE 5 MG TAB PO SCH ×4 (08:00→16:58)
[2021-09-27 08:06] LABS: BLOOD UREA NITROGEN 25 MG/DL (7-18); CALCIUM LEVEL 8.4 MG/DL (8.8-10.2); CARBON DIOXIDE LEVEL 31 MEQ/L (21-32); CHLORIDE LEVEL 100 MEQ/L (98-107); CREATININE FOR GFR 0.65 MG/DL (0.55-1.30); GLOMERULAR FILTRATION RATE > 60.0 (>32); GLUCOSE, FASTING 74 MG/DL (70-100); POTASSIUM SERUM 3.9 MEQ/L (3.5-5.1); SODIUM LEVEL 136 MEQ/L (136-145)
[2021-09-27] MEDS: SUCRALFATE 1 GM TAB PO SCH ×4 (08:42→20:22)
[2021-09-27] MEDS: MULTIVITAMINS/MINERALS THERAP 1 TAB PO SCH (08:42)
[2021-09-27] MEDS: PANTOPRAZOLE 40MG TAB (PROTONIX) PO SCH ×2 (08:42→20:22)
[2021-09-27] MEDS: FOLIC ACID 1 MG TAB PO SCH (08:42)
[2021-09-27] MEDS: FUROSEMIDE 20 MG TAB PO SCH ×2 (08:42→16:58)
[2021-09-27] MEDS: VITAMIN D 1,000 INTERNATIONAL UNITS TABLET PO SCH (08:42)
[2021-09-27] MEDS: AMIODARONE 200 MG TAB (PACERONE) PO SCH ×2 (08:42→20:22)
[2021-09-27] MEDS: DOCUSATE SODIUM 100MG CAPSULE PO SCH ×2 (08:43→20:21)
[2021-09-27] MEDS: REMEDY PHYTOPLEX Z-GUARD PASTE 113GM TUBE (FROM STOREROOM PRODUCT) TOP SCH ×3 (08:44→20:23)
[2021-09-27] MEDS: POLYVINYL ALCOHOL OPHTH SOLN 15 ML(LIQUITEARS) OU SCH ×3 (08:44→20:22)
[2021-09-27] MEDS: ACETAMINOPHEN TAB 650MG DOSE (2X325MG) PO PRN (12:36)
[2021-09-27 14:00] VITALS: BP 119/69
[2021-09-27 20:00] VITALS: BP 127/58
[2021-09-27] MEDS: SENNA 8.6 MG TAB (SENOKOT) PO SCH (20:22)
[2021-09-28] MEDS: ACETAMINOPHEN TAB 650MG DOSE (2X325MG) PO PRN (00:59)
[2021-09-28 06:00] VITALS: BP 106/56
[2021-09-28] MEDS: MIDODRINE 5 MG TAB PO SCH ×3 (08:27→16:34)
[2021-09-28] MEDS: PANTOPRAZOLE 40MG TAB (PROTONIX) PO SCH ×2 (08:27→20:36)
[2021-09-28] MEDS: SUCRALFATE 1 GM TAB PO SCH ×4 (08:27→20:36)
[2021-09-28] MEDS: FOLIC ACID 1 MG TAB PO SCH (08:27)
[2021-09-28] MEDS: VITAMIN D 1,000 INTERNATIONAL UNITS TABLET PO SCH (08:27)
[2021-09-28] MEDS: MULTIVITAMINS/MINERALS THERAP 1 TAB PO SCH (08:27)
[2021-09-28] MEDS: AMIODARONE 200 MG TAB (PACERONE) PO SCH ×2 (08:28→20:36)
[2021-09-28] MEDS: FUROSEMIDE 20 MG TAB PO SCH ×2 (08:28→16:34)
[2021-09-28] MEDS: DIGOXIN 0.25 MG TAB PO SCH (08:28)
[2021-09-28] MEDS: DOCUSATE SODIUM 100MG CAPSULE PO SCH ×3 (08:29→20:39)
[2021-09-28] MEDS: REMEDY PHYTOPLEX Z-GUARD PASTE 113GM TUBE (FROM STOREROOM PRODUCT) TOP SCH ×3 (08:30→20:37)
[2021-09-28] MEDS: POLYVINYL ALCOHOL OPHTH SOLN 15 ML(LIQUITEARS) OU SCH ×3 (08:39→20:36)
[2021-09-28 16:00] VITALS: BP 120/60
[2021-09-28 20:00] VITALS: BP 129/66
[2021-09-28] MEDS: SENNA 8.6 MG TAB (SENOKOT) PO SCH ×2 (20:35→20:39)
[2021-09-29 06:00] VITALS: BP 102/57
[2021-09-29] MEDS: VITAMIN D 1,000 INTERNATIONAL UNITS TABLET PO SCH (08:17)
[2021-09-29] MEDS: FOLIC ACID 1 MG TAB PO SCH (08:17)
[2021-09-29] MEDS: MULTIVITAMINS/MINERALS THERAP 1 TAB PO SCH (08:17)
[2021-09-29] MEDS: AMIODARONE 200 MG TAB (PACERONE) PO SCH ×2 (08:17→22:28)
[2021-09-29] MEDS: MIDODRINE 5 MG TAB PO SCH ×3 (08:17→16:51)
[2021-09-29] MEDS: PANTOPRAZOLE 40MG TAB (PROTONIX) PO SCH ×2 (08:17→22:28)
[2021-09-29] MEDS: SUCRALFATE 1 GM TAB PO SCH ×4 (08:17→22:28)
[2021-09-29] MEDS: REMEDY PHYTOPLEX Z-GUARD PASTE 113GM TUBE (FROM STOREROOM PRODUCT) TOP SCH ×3 (08:18→22:29)
[2021-09-29] MEDS: FUROSEMIDE 20 MG TAB PO SCH ×2 (08:18→16:52)
[2021-09-29] MEDS: POLYVINYL ALCOHOL OPHTH SOLN 15 ML(LIQUITEARS) OU SCH ×3 (08:18→22:29)
[2021-09-29] MEDS: DOCUSATE SODIUM 100MG CAPSULE PO SCH ×2 (08:18→22:30)
[2021-09-29 14:00] VITALS: BP 139/63
[2021-09-29 20:00] VITALS: BP 133/60
[2021-09-29] MEDS: SENNA 8.6 MG TAB (SENOKOT) PO SCH (22:29)
[2021-09-29] MEDS: ACETAMINOPHEN TAB 650MG DOSE (2X325MG) PO PRN (22:35)
[2021-09-30 04:00] VITALS: BP 104/57
[2021-09-30 06:37] LABS: HEMATOCRIT 28.4 % (36.0-47.0); HEMOGLOBIN 8.2 g/dl (12.0-15.5); MEAN CORPUSCULAR HEMOGLOBIN 24.6 pg (27.0-33.0); MEAN CORPUSCULAR HGB CONC 28.9 g/dl (32.0-36.5); MEAN CORPUSCULAR VOLUME 85.3 fl (80.0-96.0); PLATELET COUNT, AUTOMATED 387 10^3/uL (150-450); RED BLOOD COUNT 3.33 10^6/uL (4.00-5.40); WHITE BLOOD COUNT 7.5 10^3/uL (4.0-10.0)
[2021-09-30 06:51] LABS: BLOOD UREA NITROGEN 24 MG/DL (7-18); CALCIUM LEVEL 8.6 MG/DL (8.8-10.2); CARBON DIOXIDE LEVEL 32 MEQ/L (21-32); CHLORIDE LEVEL 101 MEQ/L (98-107); CREATININE FOR GFR 0.71 MG/DL (0.55-1.30); GLOMERULAR FILTRATION RATE > 60.0 (>32); GLUCOSE, FASTING 82 MG/DL (70-100); POTASSIUM SERUM 3.7 MEQ/L (3.5-5.1); SODIUM LEVEL 139 MEQ/L (136-145)
[2021-09-30 07:16] LABS: ATYPICAL LYMPH 3 % (0-5); BASOPHILS 2 % (0-1); LYMPHOCYTES 18 % (16-44); MONOCYTES 8 % (0-5); NEUTROPHILS 66 % (28-66)
[2021-09-30 07:17] LABS: ANISOCYTOSIS 1+; PLATELET ESTIMATE INCREASED (NORMAL); POIKILOCYTOSIS 1+
[2021-09-30] MEDS: MIDODRINE 5 MG TAB PO SCH ×3 (08:00→17:54)
[2021-09-30] MEDS: PANTOPRAZOLE 40MG TAB (PROTONIX) PO SCH ×2 (08:50→20:37)
[2021-09-30] MEDS: MULTIVITAMINS/MINERALS THERAP 1 TAB PO SCH (08:50)
[2021-09-30] MEDS: VITAMIN D 1,000 INTERNATIONAL UNITS TABLET PO SCH (08:50)
[2021-09-30] MEDS: FOLIC ACID 1 MG TAB PO SCH (08:50)
[2021-09-30] MEDS: FUROSEMIDE 20 MG TAB PO SCH ×2 (08:51→17:54)
[2021-09-30] MEDS: DOCUSATE SODIUM 100MG CAPSULE PO SCH ×2 (08:51→20:37)
[2021-09-30] MEDS: DIGOXIN 0.25 MG TAB PO SCH (08:52)
[2021-09-30] MEDS: AMIODARONE 200 MG TAB (PACERONE) PO SCH ×2 (08:52→20:37)
[2021-09-30] MEDS: POLYVINYL ALCOHOL OPHTH SOLN 15 ML(LIQUITEARS) OU SCH ×3 (08:53→20:37)
[2021-09-30] MEDS: REMEDY PHYTOPLEX Z-GUARD PASTE 113GM TUBE (FROM STOREROOM PRODUCT) TOP SCH ×3 (08:53→20:37)
[2021-09-30] MEDS: SUCRALFATE 1 GM TAB PO SCH ×4 (08:54→20:37)
[2021-09-30 14:00] VITALS: BP 122/58
--- NOTE | 2021-09-30 16:20 | IPNPDOC ---
PM&R Progress Note DATE OF SERVICE: Sep 30, 2021 Web Merchandiser Progress Note Subjective: Patient seen in her room stating she is is agreeable to go to [facility] for more rehab if her niece is not able to get help in the home soon. REVIEW OF SYSTEMS: The following is a completed review of systems and has been reviewed. Review of systems otherwise unremarkable. PAIN: Patient self reports no pain EYES: No recent vision changes EARS, NOSE, & THROAT: No throat pain, or dysphagia, or rhinorrhea CARDIOVASCULAR: Denies chest pain or palpitations PULMONARY: Denies shortness of breath GASTROINTESTINAL: + constipation (resolved) GENITOURINARY: denies dysuria MUSCULOSKELETAL: + generalized weakness NEUROLOGICAL: +peripheral polyneuropathy HEMATOLOGICAL: +anemia SKIN: bilat ankle wounds PSYCHIATRIC: Unremarkable All other review of systems found to be negative. PHYSICAL EXAMINATION: VITAL SIGNS: Please see below. GENERAL: Pleasant and cooperative. No acute distress. HEENT: PERRL. Extraocular movements intact. Clear conjunctiva CARDIOVASCULAR: Regular rate and rhythm. No murmurs, rubs, or gallops LUNGS: Clear to auscultation bilaterally. No wheezes. No rhonchi ABDOMEN: Soft, nontender, nondistended. Positive bowel sounds. Normal active bowel sounds NEUROLOGICAL: Alert and oriented times three. Cranial nerves II through XII grossly intact. Sensation decreased to light touch in stocking pattern right hand PIP and DIP 1+/4 tone EXTREMITIES: 4+ \5 strength left upper extremities. 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 4\5 strength left hip flexors, knee extensors, 4/5 ankle DF and 3/5 EHL SKIN:right medial malleoli with ulcer, base with granulation tissue some sanguinous drainage no exudate, luis wound slightly macerate, left medial malleoli with dried ulcer right ell at insertion of Achilles tendon with unstageable bilat feet purple, non painful to palpation back with thoracentesis incision (bandage in place with no drainage) LABORATORY DATA: Please see below. ASSESSMENT:86-year-old F with past medical history of CVA with residual right sided paresis, systolic CHF who presents status post acute respiratory failure in setting of CHF exacerbation and pleura effusions PLAN: 1. Rehab- PT/OT advance mobility and ADLs, strengthen/stretch/maintain ROM all 4limbs- energy conservation 2. 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 CArdiac- hx of systolic CHF with EF 35-40%, cont daily weights, fluid restrict, lasix -hypotension cont midodrine -Afib with recent RVR- cont Amiodarone and digoxin, on eliquis (holding due to drop in Hgb/GI bleed) -mod-Severe aortic stenosis f/u Dr. Monroe for possible TAVR -on ASa 81mg daily (on hold due to GI bleed) -medicine consulted to assist in overall management 4. Resp- recent bilat pleural effusions s/p thoracentesis cont lasix -cont supplemental 02, will attempt to wean if able to -monitor for infection -patient with Covid exposure, she is unvaccinated and declines monoclonal antibodies at this time, will order resp panel 5. Rheum- hx of RA with probable Raynaud's syndrome, cont folic acid, per hx patient on methotrexate, will f/u on this as she was not maintained on this in hospital 6. GI ppx- protonix BID and sucralfate in setting of +FOBT 7. DVT ppx- on eliquis 8. Skin- patient with chronic ankle wounds, patient's wounds will be monitored closely on ARU and dressing change orders in place- f/u Dr. Rodrigez 9. Heme- patient with Hgb of 6 s/p 2 units prbcs ordered on 09/24, Hgb stable between 8-9, - +FOBT 9. Pain- tylenol prn 10. Dispo- TBD Min-assist for mobility and most ADLs,approaching contact guard for mobility and ADLs, however still Max assist for toileting, will need continued PT and OT Max assist for goal of Mod-I prior to returning home alone for commode transfers, ambulation short distances, will likely need wheelchair as well. Patient had anemia with Hgb of 6 requiring blood transfusion and work-up, Hg better now since receiving 2 units prbcs, +FOBT will need close monitoring for GI bleed, she is of eliquis and ASA. Will need continued close medical management. Patient's nice unable to get help in the home at this point, will begin to look for STR beds as patient still requiring considerable help, although is making steady gains. Allergies Coded Allergies: TAPE (Verified Allergy, Unknown, 11/08/07) egg (Verified Allergy, Unknown, 03/25/21) shellfish derived (Verified Allergy, Unknown, 03/25/21) Vital Signs Vital Signs Date Time Temp Pulse Resp B/P (MAP) Pulse Ox O2 Delivery O2 Flow Rate FiO2 09/30/21 14:00 97.5 59 16 122/58 (79) 98 Room Air Laboratory Data CBC/BMP Laboratory Tests 09/30/21 06:05 Labs 24H Laboratory Tests 2 09/30/21 06:05: Neutrophils (%) (Auto) , Nucleated Red Blood Cells % (auto) 0.3H, Neutrophils 66, Band Neutrophils 3, Lymphocytes (Manual) 18, Monocytes (Manual) 8H, Basophils (Manual) 2H, Atypical Lymphocytes 3, Poikilocytosis 1+, Anisocytosis 1+, Platelet Estimate INCREASED, Anion Gap 6L, Glomerular Filtration Rate > 60.0, Calcium Level 8.6L Microbiology Microbiology 09/24/21 Respiratory Virus Panel (PCR) ([facility]) - Final, Complete 09/23/21 Stool Occult Blood ([facility]) - Final, Complete Current Medications Current Medications Current Medications Medications (Trade) Dose Ordered Sig/Giovany Route PRN Reason Start Time Stop Time Status Last Admin Dose Admin Acetaminophen (Tylenol Tab) 650 mg Q4HP PRN PO fever/MILD PAIN (PS 1-4) 09/19/21 09:30 09/29/21 22:35 Amiodarone HCl (Pacerone, Cordarone) 400 mg BID PO 09/19/21 21:00 09/30/21 08:52 Apixaban (Eliquis) 5 mg BID PO 09/19/21 21:00 09/23/21 11:09 DC 09/23/21 08:40 Artificial Tears (Akwa Tears) 2 drop TID OU 09/20/21 21:00 09/30/21 08:53 Aspirin (Ecotrin) 81 mg DAILY PO 09/20/21 09:00 09/23/21 14:31 DC 09/23/21 08:40 Digoxin (Lanoxin) 0.25 mg Q48H PO 09/20/21 09:00 09/30/21 08:52 Docusate Sodium (Colace) 100 mg BID PO 09/19/21 21:00 09/27/21 20:21 Folic Acid (Folic Acid) 1 mg DAILY PO 09/20/21 09:00 09/30/21 08:50 Furosemide (Lasix) 20 mg BID@,17 PO 09/19/21 17:00 09/30/21 08:51 Home Med (Home Med List Complete!) ASDIRECTED XX 09/19/21 14:30 09/19/21 14:56 DC Midodrine (Proamatine) 10 mg 08,,16 PO 09/19/21 16:00 09/30/21 12:27 Multivitamins (Theragram-M) 1 tab DAILY PO 09/19/21 09:00 09/30/21 08:50 Pantoprazole Sodium (Protonix) 40 mg BID PO 09/19/21 21:00 09/30/21 08:50 Polyethylene Glycol (Miralax) 1 pkt DAILYPRN PRN PO CONSTIPATION 09/20/21 18:35 09/22/21 08:45 Senna (Senokot) 1 tab QHS PO 09/19/21 21:00 09/27/21 20:22 Sucralfate (Carafate) 1 gm ACHS PO 09/23/21 12:00 09/30/21 12:27 Vitamin D (Vitamin D) 1,000 units DAILY PO 09/20/21 09:00 09/30/21 08:50 MEGHAN WILHELM MD Sep 30, 2021 16:20
--- NOTE | 2021-09-30 16:20 | IPNPDOC ---
PM&R Progress Note DATE OF SERVICE: Sep 26, 2021 Dental Tech Progress Note Subjective: Patient seen in her room stating she is agreeable to have help come into the home which her niece Jennifer is intending to set up. She is working on commode transfers. REVIEW OF SYSTEMS: The following is a completed review of systems and has been reviewed. Review of systems otherwise unremarkable. PAIN: Patient self reports no pain EYES: No recent vision changes EARS, NOSE, & THROAT: No throat pain, or dysphagia, or rhinorrhea CARDIOVASCULAR: Denies chest pain or palpitations PULMONARY: Denies shortness of breath GASTROINTESTINAL: + constipation GENITOURINARY: denies dysuria MUSCULOSKELETAL: + generalized weakness NEUROLOGICAL: +peripheral polyneuropathy HEMATOLOGICAL: +anemia SKIN: bilat ankle wounds PSYCHIATRIC: Unremarkable All other review of systems found to be negative. PHYSICAL EXAMINATION: VITAL SIGNS: Please see below. GENERAL: Pleasant and cooperative. No acute distress. HEENT: PERRL. Extraocular movements intact. Clear conjunctiva CARDIOVASCULAR: Regular rate and rhythm. No murmurs, rubs, or gallops LUNGS: Clear to auscultation bilaterally. No wheezes. No rhonchi ABDOMEN: Soft, nontender, nondistended. Positive bowel sounds. Normal active bowel sounds NEUROLOGICAL: Alert and oriented times three. Cranial nerves II through XII grossly intact. Sensation decreased to light touch in stocking pattern right hand PIP and DIP 1+/4 tone EXTREMITIES: 4+ \5 strength left upper extremities. 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 4\5 strength left hip flexors, knee extensors, 4/5 ankle DF and 3/5 EHL SKIN:right medial malleoli with ulcer, base with granulation tissue some sanguinous drainage no exudate, luis wound slightly macerate, left medial malleoli with dried ulcer right ell at insertion of Achilles tendon with unstageable bilat feet purple, non painful to palpation back with thoracentesis incision (bandage in place with no drainage) LABORATORY DATA: Please see below. ASSESSMENT:86-year-old F with past medical history of CVA with residual right sided paresis, systolic CHF who presents status post acute respiratory failure in setting of CHF exacerbation and pleura effusions PLAN: 1. Rehab- PT/OT advance mobility and ADLs, strengthen/stretch/maintain ROM all 4limbs- energy conservation 2. 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 CArdiac- hx of systolic CHF with EF 35-40%, cont daily weights, fluid restrict, lasix -hypotension cont midodrine -Afib with recent RVR- cont Amiodarone and digoxin, on eliquis (holding due to drop in Hgb/GI bleed) -mod-Severe aortic stenosis f/u Dr. Monroe for possible TAVR -on ASa 81mg daily (on hold due to GI bleed) -medicine consulted to assist in overall management 4. Resp- recent bilat pleural effusions s/p thoracentesis cont lasix -cont supplemental 02, will attempt to wean if able to -monitor for infection -patient with Covid exposure, she is unvaccinated and declines monoclonal antibodies at this time, will order resp panel 5. Rheum- hx of RA with probable Raynaud's syndrome, cont folic acid, per hx patient on methotrexate, will f/u on this as she was not maintained on this in hospital 6. GI ppx- protonix BID 7. DVT ppx- on eliquis 8. Skin- patient with chronic ankle wounds, patient's wounds will be monitored closely on ARU and dressing change orders in place- f/u Dr. Rodrigez 9. Heme- patient with Hgb of 6 s/p 2 units prbcs ordered on 09/24, Hgb 6-->9 now will cont to monitor, ASA and Eliquis stopped, will consult GI/Surgery if anemia worsens considerably- +FOBT 9. Pain- tylenol prn 10. Dispo- TBD Min-assist for mobility and most ADLs,approaching contact guard for mobility and ADLs, however still MAx assist for toileting, will need continued PT and OT Max assist for goal of Mod-I prior to returning home alone for commode transfers, ambulation short distances, will likely need wheelchair as well. Patient had anemia with Hgb of 6 requiring blood transfusion and work-up, Hg better now since receiving 2 units prbcs, +FOBT will need close monitoring for GI bleed, she is of eliquis and ASA. Will need continued close medical management. Allergies Coded Allergies: TAPE (Verified Allergy, Unknown, 11/08/07) egg (Verified Allergy, Unknown, 03/25/21) shellfish derived (Verified Allergy, Unknown, 03/25/21) Vital Signs Vital Signs Date Time Temp Pulse Resp B/P (MAP) Pulse Ox O2 Delivery O2 Flow Rate FiO2 09/30/21 14:00 97.5 59 16 122/58 (79) 98 Room Air Laboratory Data CBC/BMP Laboratory Tests 09/30/21 06:05 Labs 24H Laboratory Tests 2 09/30/21 06:05: Neutrophils (%) (Auto) , Nucleated Red Blood Cells % (auto) 0.3H, Neutrophils 66, Band Neutrophils 3, Lymphocytes (Manual) 18, Monocytes (Manual) 8H, Basophils (Manual) 2H, Atypical Lymphocytes 3, Poikilocytosis 1+, Anisocytosis 1+, Platelet Estimate INCREASED, Anion Gap 6L, Glomerular Filtration Rate > 60.0, Calcium Level 8.6L Microbiology Microbiology 09/24/21 Respiratory Virus Panel (PCR) ([facility]) - Final, Complete 09/23/21 Stool Occult Blood ([facility]) - Final, Complete Current Medications Current Medications Current Medications Medications (Trade) Dose Ordered Sig/Giovany Route PRN Reason Start Time Stop Time Status Last Admin Dose Admin Acetaminophen (Tylenol Tab) 650 mg Q4HP PRN PO fever/MILD PAIN (PS 1-4) 09/19/21 09:30 09/29/21 22:35 Amiodarone HCl (Pacerone, Cordarone) 400 mg BID PO 09/19/21 21:00 09/30/21 08:52 Apixaban (Eliquis) 5 mg BID PO 09/19/21 21:00 09/23/21 11:09 DC 09/23/21 08:40 Artificial Tears (Akwa Tears) 2 drop TID OU 09/20/21 21:00 09/30/21 08:53 Aspirin (Ecotrin) 81 mg DAILY PO 09/20/21 09:00 09/23/21 14:31 DC 09/23/21 08:40 Digoxin (Lanoxin) 0.25 mg Q48H PO 09/20/21 09:00 09/30/21 08:52 Docusate Sodium (Colace) 100 mg BID PO 09/19/21 21:00 09/27/21 20:21 Folic Acid (Folic Acid) 1 mg DAILY PO 09/20/21 09:00 09/30/21 08:50 Furosemide (Lasix) 20 mg BID@ PO 09/19/21 17:00 09/30/21 08:51 Home Med (Home Med List Complete!) ASDIRECTED XX 09/19/21 14:30 09/19/21 14:56 DC Midodrine (Proamatine) 10 mg 08,,16 PO 09/19/21 16:00 09/30/21 12:27 Multivitamins (Theragram-M) 1 tab DAILY PO 09/19/21 09:00 09/30/21 08:50 Pantoprazole Sodium (Protonix) 40 mg BID PO 09/19/21 21:00 09/30/21 08:50 Polyethylene Glycol (Miralax) 1 pkt DAILYPRN PRN PO CONSTIPATION 09/20/21 18:35 09/22/21 08:45 Senna (Senokot) 1 tab QHS PO 09/19/21 21:00 09/27/21 20:22 Sucralfate (Carafate) 1 gm ACHS PO 09/23/21 12:00 09/30/21 12:27 Vitamin D (Vitamin D) 1,000 units DAILY PO 09/20/21 09:00 09/30/21 08:50 MEGHAN WILHELM MD Sep 30, 2021 16:20
[2021-09-30 20:00] VITALS: BP 146/62
[2021-09-30] MEDS: SENNA 8.6 MG TAB (SENOKOT) PO SCH (20:37)
[2021-09-30] MEDS: ACETAMINOPHEN TAB 650MG DOSE (2X325MG) PO PRN (23:59)
[2021-10-01 05:40] VITALS: BP 111/55
[2021-10-01 06:00] VITALS: BP 111/55
[2021-10-01] MEDS: DOCUSATE SODIUM 100MG CAPSULE PO SCH ×2 (09:00→20:27)
[2021-10-01] MEDS: PANTOPRAZOLE 40MG TAB (PROTONIX) PO SCH ×2 (09:48→20:26)
[2021-10-01] MEDS: MULTIVITAMINS/MINERALS THERAP 1 TAB PO SCH (09:48)
[2021-10-01] MEDS: MIDODRINE 5 MG TAB PO SCH ×3 (09:48→15:27)
[2021-10-01] MEDS: FOLIC ACID 1 MG TAB PO SCH (09:48)
[2021-10-01] MEDS: SUCRALFATE 1 GM TAB PO SCH ×4 (09:48→20:26)
[2021-10-01] MEDS: VITAMIN D 1,000 INTERNATIONAL UNITS TABLET PO SCH (09:48)
[2021-10-01] MEDS: AMIODARONE 200 MG TAB (PACERONE) PO SCH ×2 (09:48→20:26)
[2021-10-01] MEDS: FUROSEMIDE 20 MG TAB PO SCH ×2 (09:49→17:56)
[2021-10-01] MEDS: REMEDY PHYTOPLEX Z-GUARD PASTE 113GM TUBE (FROM STOREROOM PRODUCT) TOP SCH ×3 (09:50→20:27)
[2021-10-01] MEDS: POLYVINYL ALCOHOL OPHTH SOLN 15 ML(LIQUITEARS) OU SCH ×3 (09:50→20:27)
--- NOTE | 2021-10-01 11:32 | IPNPDOC ---
PM&R Progress Note DATE OF SERVICE: Oct 01, 2021 Metal Weigher Progress Note Subjective: Patient seen in her room stating she does not want to go to [facility] and instead would like to fund her own nursing care at home with the help of Laurel Salcedo. Case was discussed with Laurel over the phone with patient present and Laurel was able to guarantee 24-7 nursing care startin 10-07-20 and that they would be able to come in for training with therapy prior. Patient denies fevers, chills, cough, sore throat. REVIEW OF SYSTEMS: The following is a completed review of systems and has been reviewed. Review of systems otherwise unremarkable. PAIN: Patient self reports no pain EYES: No recent vision changes EARS, NOSE, & THROAT: No throat pain, or dysphagia, or rhinorrhea CARDIOVASCULAR: Denies chest pain or palpitations PULMONARY: Denies shortness of breath GASTROINTESTINAL: + constipation (resolved) GENITOURINARY: denies dysuria MUSCULOSKELETAL: + generalized weakness NEUROLOGICAL: +peripheral polyneuropathy HEMATOLOGICAL: +anemia SKIN: bilat ankle wounds PSYCHIATRIC: Unremarkable All other review of systems found to be negative. PHYSICAL EXAMINATION: VITAL SIGNS: Please see below. GENERAL: Pleasant and cooperative. No acute distress. HEENT: PERRL. Extraocular movements intact. Clear conjunctiva CARDIOVASCULAR: Regular rate and rhythm. No murmurs, rubs, or gallops LUNGS: Clear to auscultation bilaterally. No wheezes. No rhonchi ABDOMEN: Soft, nontender, nondistended. Positive bowel sounds. Normal active bowel sounds NEUROLOGICAL: Alert and oriented times three. Cranial nerves II through XII grossly intact. Sensation decreased to light touch in stocking pattern right hand PIP and DIP 1+/4 tone EXTREMITIES: 4+ \5 strength left upper extremities. 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 4\5 strength left hip flexors, knee extensors, 4/5 ankle DF and 3/5 EHL SKIN:right medial malleoli with ulcer, base with granulation tissue some sanguinous drainage no exudate, luis wound slightly macerate, left medial malleoli with dried ulcer right ell at insertion of Achilles tendon with unstageable bilat feet purple, non painful to palpation back with thoracentesis incision (bandage in place with no drainage) LABORATORY DATA: Please see below. ASSESSMENT:86-year-old F with past medical history of CVA with residual right sided paresis, systolic CHF who presents status post acute respiratory failure in setting of CHF exacerbation and pleura effusions PLAN: 1. Rehab- PT/OT advance mobility and ADLs, strengthen/stretch/maintain ROM all 4limbs- energy conservation 2. 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 CArdiac- hx of systolic CHF with EF 35-40%, cont daily weights, fluid restrict, lasix -hypotension cont midodrine -Afib with recent RVR- cont Amiodarone and digoxin, on eliquis (holding due to drop in Hgb/GI bleed) -mod-Severe aortic stenosis f/u Dr. Monroe for possible TAVR -on ASa 81mg daily (on hold due to GI bleed) -medicine consulted to assist in overall management 4. Resp- recent bilat pleural effusions s/p thoracentesis cont lasix -cont supplemental 02, will attempt to wean if able to -monitor for infection -patient with Covid exposure, she is unvaccinated and declines monoclonal antibodies at this time, resp panel negative 5. Rheum- hx of RA with probable Raynaud's syndrome, cont folic acid, per hx patient on methotrexate, will f/u on this as she was not maintained on this in hospital 6. GI ppx- protonix BID and sucralfate in setting of +FOBT 7. DVT ppx- on eliquis 8. Skin- patient with chronic ankle wounds, patient's wounds will be monitored closely on ARU and dressing change orders in place- f/u Dr. Rodrigez 9. Heme- patient with Hgb of 6 s/p 2 units prbcs ordered on 09/24, Hgb stable between 8-9, - +FOBT 9. Pain- tylenol prn 10. Dispo- TBD Min-assist for mobility and most ADLs,approaching contact guard for mobility and ADLs, however still Max assist for toileting, will need continued PT and OT Max assist for goal of Mod-I prior to returning home alone for commode transfers, ambulation short distances, will likely need wheelchair as well. Patient had anemia with Hgb of 6 requiring blood transfusion and work-up, Hg better now since receiving 2 units prbcs, +FOBT will need close monitoring for GI bleed, she is of eliquis and ASA. Will need continued close medical management. Patient's niece unable to get help in the home at this point, patient now setting up 24-7 home care on her own. Allergies Coded Allergies: TAPE (Verified Allergy, Unknown, 11/08/07) egg (Verified Allergy, Unknown, 03/25/21) shellfish derived (Verified Allergy, Unknown, 03/25/21) Vital Signs Vital Signs Date Time Temp Pulse Resp B/P (MAP) Pulse Ox O2 Delivery O2 Flow Rate FiO2 10/01/21 06:00 98.1 65 18 111/55 (73) 98 Room Air Microbiology Microbiology 09/24/21 Respiratory Virus Panel (PCR) ([facility]) - Final, Complete 09/23/21 Stool Occult Blood ([facility]) - Final, Complete Current Medications Current Medications Current Medications Medications (Trade) Dose Ordered Sig/Giovany Route PRN Reason Start Time Stop Time Status Last Admin Dose Admin Acetaminophen (Tylenol Tab) 650 mg Q4HP PRN PO fever/MILD PAIN (PS 1-4) 09/19/21 09:30 09/30/21 23:59 Amiodarone HCl (Pacerone, Cordarone) 400 mg BID PO 09/19/21 21:00 10/01/21 09:48 Apixaban (Eliquis) 5 mg BID PO 09/19/21 21:00 09/23/21 11:09 DC 09/23/21 08:40 Artificial Tears (Akwa Tears) 2 drop TID OU 09/20/21 21:00 10/01/21 09:50 Aspirin (Ecotrin) 81 mg DAILY PO 09/20/21 09:00 09/23/21 14:31 DC 09/23/21 08:40 Digoxin (Lanoxin) 0.25 mg Q48H PO 09/20/21 09:00 09/30/21 08:52 Docusate Sodium (Colace) 100 mg BID PO 09/19/21 21:00 09/27/21 20:21 Folic Acid (Folic Acid) 1 mg DAILY PO 09/20/21 09:00 10/01/21 09:48 Furosemide (Lasix) 20 mg BID@,17 PO 09/19/21 17:00 10/01/21 09:49 Home Med (Home Med List Complete!) ASDIRECTED XX 09/19/21 14:30 09/19/21 14:56 DC Midodrine (Proamatine) 10 mg 08,12,16 PO 09/19/21 16:00 10/01/21 09:48 Multivitamins (Theragram-M) 1 tab DAILY PO 09/19/21 09:00 10/01/21 09:48 Pantoprazole Sodium (Protonix) 40 mg BID PO 09/19/21 21:00 10/01/21 09:48 Polyethylene Glycol (Miralax) 1 pkt DAILYPRN PRN PO CONSTIPATION 09/20/21 18:35 09/22/21 08:45 Senna (Senokot) 1 tab QHS PO 09/19/21 21:00 09/27/21 20:22 Sucralfate (Carafate) 1 gm ACHS PO 09/23/21 12:00 10/01/21 09:48 Vitamin D (Vitamin D) 1,000 units DAILY PO 09/20/21 09:00 10/01/21 09:48 MEGHAN WILHELM MD Oct 01, 2021 11:32
[2021-10-01 14:00] VITALS: BP 131/62
[2021-10-01 20:00] VITALS: BP 122/58
[2021-10-01] MEDS: SENNA 8.6 MG TAB (SENOKOT) PO SCH (20:27)
[2021-10-01] MEDS: ACETAMINOPHEN TAB 650MG DOSE (2X325MG) PO PRN (20:27)
[2021-10-02 06:00] VITALS: BP 138/62
[2021-10-02 07:22] LABS: HEMATOCRIT 27.4 % (36.0-47.0); HEMOGLOBIN 7.9 g/dl (12.0-15.5); MEAN CORPUSCULAR HEMOGLOBIN 25.2 pg (27.0-33.0); MEAN CORPUSCULAR HGB CONC 28.8 g/dl (32.0-36.5); MEAN CORPUSCULAR VOLUME 87.5 fl (80.0-96.0); PLATELET COUNT, AUTOMATED 431 10^3/uL (150-450); RED BLOOD COUNT 3.13 10^6/uL (4.00-5.40); WHITE BLOOD COUNT 9.3 10^3/uL (4.0-10.0)
[2021-10-02] MEDS: SUCRALFATE 1 GM TAB PO SCH ×4 (07:45→22:36)
[2021-10-02] MEDS: MULTIVITAMINS/MINERALS THERAP 1 TAB PO SCH (07:45)
[2021-10-02] MEDS: MIDODRINE 5 MG TAB PO SCH ×3 (07:45→17:07)
[2021-10-02] MEDS: FUROSEMIDE 20 MG TAB PO SCH ×2 (07:46→17:07)
[2021-10-02] MEDS: PANTOPRAZOLE 40MG TAB (PROTONIX) PO SCH ×2 (07:46→22:36)
[2021-10-02] MEDS: DIGOXIN 0.25 MG TAB PO SCH (07:46)
[2021-10-02] MEDS: VITAMIN D 1,000 INTERNATIONAL UNITS TABLET PO SCH (07:46)
[2021-10-02] MEDS: FOLIC ACID 1 MG TAB PO SCH (07:46)
[2021-10-02] MEDS: AMIODARONE 200 MG TAB (PACERONE) PO SCH ×2 (07:46→22:36)
[2021-10-02] MEDS: REMEDY PHYTOPLEX Z-GUARD PASTE 113GM TUBE (FROM STOREROOM PRODUCT) TOP SCH ×3 (07:47→22:37)
[2021-10-02] MEDS: DOCUSATE SODIUM 100MG CAPSULE PO SCH ×2 (07:47→22:37)
[2021-10-02] MEDS: POLYVINYL ALCOHOL OPHTH SOLN 15 ML(LIQUITEARS) OU SCH ×3 (07:47→22:37)
[2021-10-02 07:52] LABS: BLOOD UREA NITROGEN 25 MG/DL (7-18); CALCIUM LEVEL 8.7 MG/DL (8.8-10.2); CARBON DIOXIDE LEVEL 30 MEQ/L (21-32); CHLORIDE LEVEL 102 MEQ/L (98-107); CREATININE FOR GFR 0.67 MG/DL (0.55-1.30); GLOMERULAR FILTRATION RATE > 60.0 (>32); GLUCOSE, FASTING 85 MG/DL (70-100); POTASSIUM SERUM 3.8 MEQ/L (3.5-5.1); SODIUM LEVEL 138 MEQ/L (136-145)
[2021-10-02 08:05] LABS: ANISOCYTOSIS 1+; ATYPICAL LYMPH 5 % (0-5); BASOPHILS 1 % (0-1); LYMPHOCYTES 35 % (16-44); MONOCYTES 6 % (0-5); NEUTROPHILS 49 % (28-66); PLATELET ESTIMATE NORMAL (NORMAL)
--- NOTE | 2021-10-02 11:02 | IPNPDOC ---
PM&R Progress Note DATE OF SERVICE: Oct 02, 2021 Personal Injury Attorney Progress Note Subjective: REVIEW OF SYSTEMS: The following is a completed review of systems and has been reviewed. Review of systems otherwise unremarkable. PAIN: Patient self reports no pain EYES: No recent vision changes EARS, NOSE, & THROAT: No throat pain, or dysphagia, or rhinorrhea CARDIOVASCULAR: Denies chest pain or palpitations PULMONARY: Denies shortness of breath GASTROINTESTINAL: + constipation (resolved) GENITOURINARY: denies dysuria MUSCULOSKELETAL: + generalized weakness NEUROLOGICAL: +peripheral polyneuropathy HEMATOLOGICAL: +anemia SKIN: bilat ankle wounds PSYCHIATRIC: Unremarkable All other review of systems found to be negative. PHYSICAL EXAMINATION: VITAL SIGNS: Please see below. GENERAL: Pleasant and cooperative. No acute distress. HEENT: PERRL. Extraocular movements intact. Clear conjunctiva CARDIOVASCULAR: Regular rate and rhythm. No murmurs, rubs, or gallops LUNGS: Clear to auscultation bilaterally. No wheezes. No rhonchi ABDOMEN: Soft, nontender, nondistended. Positive bowel sounds. Normal active bowel sounds NEUROLOGICAL: Alert and oriented times three. Cranial nerves II through XII grossly intact. Sensation decreased to light touch in stocking pattern right hand PIP and DIP 1+/4 tone EXTREMITIES: 4+ \5 strength left upper extremities. 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 4\5 strength left hip flexors, knee extensors, 4/5 ankle DF and 3/5 EHL SKIN:right medial malleoli with ulcer, base with granulation tissue some helm guinous drainage no exudate, luis wound slightly macerate, left medial malleoli with dried ulcer right ell at insertion of Achilles tendon with unstageable bilat feet purple, non painful to palpation back with thoracentesis incision (bandage in place with no drainage) LABORATORY DATA: Please see below. ASSESSMENT:86-year-old F with past medical history of CVA with residual right sided paresis, systolic CHF who presents status post acute respiratory failure in setting of CHF exacerbation and pleura effusions PLAN: 1. Rehab- PT/OT advance mobility and ADLs, strengthen/stretch/maintain ROM all 4limbs- energy conservation 2. 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 CArdiac- hx of systolic CHF with EF 35-40%, cont daily weights, fluid restrict, lasix -hypotension cont midodrine -Afib with recent RVR- cont Amiodarone and digoxin, on eliquis (holding due to drop in Hgb/GI bleed) -mod-Severe aortic stenosis f/u Dr. Monroe for possible TAVR -on ASa 81mg daily (on hold due to GI bleed) -medicine consulted to assist in overall management 4. Resp- recent bilat pleural effusions s/p thoracentesis cont lasix -cont supplemental 02, will attempt to wean if able to -monitor for infection -patient with Covid exposure, she is unvaccinated and declines monoclonal antibodies at this time, resp panel negative 5. Rheum- hx of RA with probable Raynaud's syndrome, cont folic acid, per hx patient on methotrexate, will f/u on this as she was not maintained on this in hospital 6. GI ppx- protonix BID and sucralfate in setting of +FOBT 7. DVT ppx- on eliquis 8. Skin- patient with chronic ankle wounds, patient's wounds will be monitored closely on ARU and dressing change orders in place- f/u Dr. Rodrigez 9. Heme- patient with Hgb of 6 s/p 2 units prbcs ordered on 09/24 in setting of +FOBT, Hgb tofay 7.9, will consult surgery to discuss possible endoscopy 9. Pain- tylenol prn 10. Dispo- TBD Min-assist for mobility and most ADLs,approaching contact guard for mobility and ADLs, however still Max assist for toileting, will need continued PT and OT Max assist for goal of Mod-I prior to returning home alone for commode transfers, ambulation short distances, will likely need wheelchair as well. Patient had anemia with Hgb of 6 requiring blood transfusion and work-up, Hg better now since receiving 2 units prbcs, +FOBT will need close monitoring for GI bleed, she is off eliquis and ASA, will obtain surgery consult to day for potential ens cosopic intervention given slow drop in Hg. Will need continued close medical management. Patient's niece unable to get help in the home at this point, patient now setting up 24-7 home care on her own. Allergies Coded Allergies: TAPE (Verified Allergy, Unknown, 11/08/07) egg (Verified Allergy, Unknown, 03/25/21) shellfish derived (Verified Allergy, Unknown, 03/25/21) Vital Signs Vital Signs Date Time Temp Pulse Resp B/P (MAP) Pulse Ox O2 Delivery O2 Flow Rate FiO2 10/02/21 07:46 66 10/02/21 06:00 97.3 16 138/62 (87) 99 Room Air Laboratory Data CBC/BMP Laboratory Tests 10/02/21 07:01 Labs 24H Laboratory Tests 2 10/02/21 07:01: Neutrophils (%) (Auto) , Nucleated Red Blood Cells % (auto) 0.2H, Neutrophils 49, Band Neutrophils 4, Lymphocytes (Manual) 35, Monocytes (Manual) 6H, Basophils (Manual) 1, Atypical Lymphocytes 5, Anisocytosis 1+, Macrocytosis 1+, Platelet Estimate NORMAL, Anion Gap 6L, Glomerular Filtration Rate > 60.0, Calcium Level 8.7L Microbiology Microbiology 09/24/21 Respiratory Virus Panel (PCR) ([facility]) - Final, Complete 09/23/21 Stool Occult Blood ([facility]) - Final, Complete Current Medications Current Medications Current Medications Medications (Trade) Dose Ordered Sig/Giovany Route PRN Reason Start Time Stop Time Status Last Admin Dose Admin Acetaminophen (Tylenol Tab) 650 mg Q4HP PRN PO fever/MILD PAIN (PS 1-4) 09/19/21 09:30 10/01/21 20:27 Amiodarone HCl (Pacerone, Cordarone) 400 mg BID PO 09/19/21 21:00 10/02/21 07:46 Apixaban (Eliquis) 5 mg BID PO 09/19/21 21:00 09/23/21 11:09 DC 09/23/21 08:40 Artificial Tears (Akwa Tears) 2 drop TID OU 09/20/21 21:00 10/02/21 07:47 Aspirin (Ecotrin) 81 mg DAILY PO 09/20/21 09:00 09/23/21 14:31 DC 09/23/21 08:40 Digoxin (Lanoxin) 0.25 mg Q48H PO 09/20/21 09:00 10/02/21 07:46 Docusate Sodium (Colace) 100 mg BID PO 09/19/21 21:00 09/27/21 20:21 Folic Acid (Folic Acid) 1 mg DAILY PO 09/20/21 09:00 10/02/21 07:46 Furosemide (Lasix) 20 mg BID@,17 PO 09/19/21 17:00 10/02/21 07:46 Home Med (Home Med List Complete!) ASDIRECTED XX 09/19/21 14:30 09/19/21 14:56 DC Midodrine (Proamatine) 10 mg 08,, PO 09/19/21 16:00 10/02/21 07:45 Multivitamins (Theragram-M) 1 tab DAILY PO 09/19/21 09:00 10/02/21 07:45 Pantoprazole Sodium (Protonix) 40 mg BID PO 09/19/21 21:00 10/02/21 07:46 Polyethylene Glycol (Miralax) 1 pkt DAILYPRN PRN PO CONSTIPATION 09/20/21 18:35 09/22/21 08:45 Senna (Senokot) 1 tab QHS PO 09/19/21 21:00 09/27/21 20:22 Sucralfate (Carafate) 1 gm ACHS PO 09/23/21 12:00 10/02/21 07:45 Vitamin D (Vitamin D) 1,000 units DAILY PO 09/20/21 09:00 10/02/21 07:46 MEGHAN WILHELM MD Oct 02, 2021 11:02
[2021-10-02 14:00] VITALS: BP 125/75
[2021-10-02] MEDS: ACETAMINOPHEN TAB 650MG DOSE (2X325MG) PO PRN (14:11)
[2021-10-02 20:00] VITALS: BP 124/58
[2021-10-02] MEDS: SENNA 8.6 MG TAB (SENOKOT) PO SCH (22:38)
[2021-10-03 06:00] VITALS: BP 118/57
[2021-10-03] MEDS: AMIODARONE 200 MG TAB (PACERONE) PO SCH ×2 (08:19→21:42)
[2021-10-03] MEDS: FOLIC ACID 1 MG TAB PO SCH (08:19)
[2021-10-03] MEDS: SUCRALFATE 1 GM TAB PO SCH ×4 (08:19→21:42)
[2021-10-03] MEDS: MULTIVITAMINS/MINERALS THERAP 1 TAB PO SCH (08:19)
[2021-10-03] MEDS: MIDODRINE 5 MG TAB PO SCH ×3 (08:19→16:11)
[2021-10-03] MEDS: DOCUSATE SODIUM 100MG CAPSULE PO SCH ×3 (08:19→21:00)
[2021-10-03] MEDS: FUROSEMIDE 20 MG TAB PO SCH ×2 (08:19→16:11)
[2021-10-03] MEDS: VITAMIN D 1,000 INTERNATIONAL UNITS TABLET PO SCH (08:19)
[2021-10-03] MEDS: PANTOPRAZOLE 40MG TAB (PROTONIX) PO SCH ×2 (08:19→21:42)
[2021-10-03] MEDS: REMEDY PHYTOPLEX Z-GUARD PASTE 113GM TUBE (FROM STOREROOM PRODUCT) TOP SCH ×3 (08:20→21:43)
[2021-10-03] MEDS: POLYVINYL ALCOHOL OPHTH SOLN 15 ML(LIQUITEARS) OU SCH ×3 (08:20→21:43)
[2021-10-03 12:22] LABS: HEMATOCRIT 30.3 % (36.0-47.0); HEMOGLOBIN 8.7 g/dl (12.0-15.5)
[2021-10-03 14:00] VITALS: BP 141/78
[2021-10-03 20:41] VITALS: BP 142/63
[2021-10-03] MEDS: SENNA 8.6 MG TAB (SENOKOT) PO SCH (21:00)
[2021-10-04 05:41] VITALS: BP_SYST 11; BP_SYST 111; BP_DIAS 61
[2021-10-04] MEDS: SUCRALFATE 1 GM TAB PO SCH ×4 (06:59→20:38)
[2021-10-04 07:03] LABS: HEMATOCRIT 26.6 % (36.0-47.0); HEMOGLOBIN 7.6 g/dl (12.0-15.5); MEAN CORPUSCULAR HEMOGLOBIN 25.6 pg (27.0-33.0); MEAN CORPUSCULAR HGB CONC 28.6 g/dl (32.0-36.5); MEAN CORPUSCULAR VOLUME 89.6 fl (80.0-96.0); PLATELET COUNT, AUTOMATED 391 10^3/uL (150-450); RED BLOOD COUNT 2.97 10^6/uL (4.00-5.40); WHITE BLOOD COUNT 9.7 10^3/uL (4.0-10.0)
[2021-10-04 07:48] LABS: ATYPICAL LYMPH 4 % (0-5); BASOPHILS 1 % (0-1); EOSINOPHILS 1 % (0-3); LYMPHOCYTES 28 % (16-44); MONOCYTES 9 % (0-5); NEUTROPHILS 57 % (28-66); PLATELET ESTIMATE NORMAL (NORMAL)
[2021-10-04 07:49] LABS: ANISOCYTOSIS 4+; OVALOCYTES 1+
[2021-10-04] MEDS: VITAMIN D 1,000 INTERNATIONAL UNITS TABLET PO SCH (09:36)
[2021-10-04] MEDS: DIGOXIN 0.25 MG TAB PO SCH (09:36)
[2021-10-04] MEDS: PANTOPRAZOLE 40MG TAB (PROTONIX) PO SCH ×2 (09:36→20:38)
[2021-10-04] MEDS: DOCUSATE SODIUM 100MG CAPSULE PO SCH ×2 (09:36→20:38)
[2021-10-04] MEDS: AMIODARONE 200 MG TAB (PACERONE) PO SCH ×2 (09:36→20:38)
[2021-10-04] MEDS: MULTIVITAMINS/MINERALS THERAP 1 TAB PO SCH (09:36)
[2021-10-04] MEDS: FOLIC ACID 1 MG TAB PO SCH (09:36)
[2021-10-04] MEDS: MIDODRINE 5 MG TAB PO SCH ×3 (09:37→16:37)
[2021-10-04] MEDS: REMEDY PHYTOPLEX Z-GUARD PASTE 113GM TUBE (FROM STOREROOM PRODUCT) TOP SCH ×3 (09:37→20:40)
[2021-10-04] MEDS: FUROSEMIDE 20 MG TAB PO SCH ×2 (09:37→16:37)
[2021-10-04] MEDS: POLYVINYL ALCOHOL OPHTH SOLN 15 ML(LIQUITEARS) OU SCH ×3 (09:38→20:40)
--- NOTE | 2021-10-04 10:11 | IPNPDOC ---
PM&R Progress Note DATE OF SERVICE: Oct 04, 2021 Meter Technician Progress Note Subjective: REVIEW OF SYSTEMS: The following is a completed review of systems and has been reviewed. Review of systems otherwise unremarkable. PAIN: Patient self reports no pain EYES: No recent vision changes EARS, NOSE, & THROAT: No throat pain, or dysphagia, or rhinorrhea CARDIOVASCULAR: Denies chest pain or palpitations PULMONARY: Denies shortness of breath GASTROINTESTINAL: + constipation (resolved) GENITOURINARY: denies dysuria MUSCULOSKELETAL: + generalized weakness NEUROLOGICAL: +peripheral polyneuropathy HEMATOLOGICAL: +anemia SKIN: bilat ankle wounds PSYCHIATRIC: Unremarkable All other review of systems found to be negative. PHYSICAL EXAMINATION: VITAL SIGNS: Please see below. GENERAL: Pleasant and cooperative. No acute distress. HEENT: PERRL. Extraocular movements intact. Clear conjunctiva CARDIOVASCULAR: Regular rate and rhythm. No murmurs, rubs, or gallops LUNGS: Clear to auscultation bilaterally. No wheezes. No rhonchi ABDOMEN: Soft, nontender, nondistended. Positive bowel sounds. Normal active bowel sounds NEUROLOGICAL: Alert and oriented times three. Cranial nerves II through XII grossly intact. Sensation decreased to light touch in stocking pattern right hand PIP and DIP 1+/4 tone EXTREMITIES: 4+ \5 strength left upper extremities. 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 4\5 strength left hip flexors, knee extensors, 4/5 ankle DF and 3/5 EHL SKIN:right medial malleoli with ulcer, base with granulation tissue some helm guinous drainage no exudate, luis wound slightly macerate, left medial malleoli with dried ulcer right ell at insertion of Achilles tendon with unstageable bilat feet purple, non painful to palpation back with thoracentesis incision (bandage in place with no drainage) LABORATORY DATA: Please see below. ASSESSMENT:86-year-old F with past medical history of CVA with residual right sided paresis, systolic CHF who presents status post acute respiratory failure in setting of CHF exacerbation and pleura effusions PLAN: 1. Rehab- PT/OT advance mobility and ADLs, strengthen/stretch/maintain ROM all 4limbs- energy conservation 2. 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 CArdiac- hx of systolic CHF with EF 35-40%, cont daily weights, fluid restrict, lasix -hypotension cont midodrine -Afib with recent RVR- cont Amiodarone and digoxin, on eliquis (holding due to drop in Hgb/GI bleed) -mod-Severe aortic stenosis f/u Dr. Monroe for possible TAVR -on ASa 81mg daily (on hold due to GI bleed) -medicine consulted to assist in overall management 4. Resp- recent bilat pleural effusions s/p thoracentesis cont lasix -cont supplemental 02, will attempt to wean if able to -monitor for infection -patient with Covid exposure, she is unvaccinated and declines monoclonal antibodies at this time, resp panel negative 5. Rheum- hx of RA with probable Raynaud's syndrome, cont folic acid, per hx patient on methotrexate, will f/u on this as she was not maintained on this in hospital 6. GI ppx- protonix BID and sucralfate in setting of +FOBT 7. DVT ppx- on eliquis 8. Skin- patient with chronic ankle wounds, patient's wounds will be monitored closely on ARU and dressing change orders in place- f/u Dr. Rodrigez 9. Heme- patient with Hgb of 6 s/p 2 units prbcs ordered on 09/24 in setting of +FOBT, Hgb tofay 7.9, will consult surgery to discuss possible endoscopy 9. Pain- tylenol prn 10. Dispo- TBD Min-assist for mobility and most ADLs,approaching contact guard for mobility and ADLs, however still Max assist for toileting, will need continued PT and OT Max assist for goal of Mod-I prior to returning home alone for commode transfers, ambulation short distances, will likely need wheelchair as well. Patient had anemia with Hgb of 6 requiring blood transfusion and work-up, Hg better now since receiving 2 units prbcs, +FOBT will need close monitoring for GI bleed, she is off eliquis and ASA, will obtain surgery consult to day for potential ens cosopic intervention given slow drop in Hg. Will need continued close medical management. Patient's niece unable to get help in the home at this point, patient now setting up 24-7 home care on her own. Allergies Coded Allergies: TAPE (Verified Allergy, Unknown, 11/08/07) egg (Verified Allergy, Unknown, 03/25/21) shellfish derived (Verified Allergy, Unknown, 03/25/21) Vital Signs Vital Signs Date Time Temp Pulse Resp B/P (MAP) Pulse Ox O2 Delivery O2 Flow Rate FiO2 10/04/21 09:36 63 10/04/21 05:41 98.0 20 111/61 (78) 100 Room Air Laboratory Data CBC/BMP Laboratory Tests 10/03/21 12:10 10/04/21 06:51 Labs 24H Laboratory Tests 2 10/04/21 01:32: Urine Color YELLOW, Urine Appearance HAZY, Urine pH 6.0, Urine Specific [place] 1.011, Urine Protein NEGATIVE, Urine Glucose (UA) NEGATIVE, Urine Ketones NEGATIVE, Urine Blood NEGATIVE, Urine Nitrite NEGATIVE, Urine Bilirubin NEGATIVE, Urine Urobilinogen 4.0H, Urine Leukocyte Esterase 3+H, Urine WBC (Auto) 31H, Urine RBC (Auto) 3, Urine Hyaline Casts (Auto) 0, Urine Bacteria (Auto) NEGATIVE, Urine Squamous Epithelial Cells 0, Urine Mucus (Auto) SMALL, Urine Sperm (Auto) 10/04/21 06:51: Neutrophils (%) (Auto) , Nucleated Red Blood Cells % (auto) 0.0, Neutrophils 57, Lymphocytes (Manual) 28, Monocytes (Manual) 9H, Eosinophils (Manual) 1, Basophils (Manual) 1, Atypical Lymphocytes 4, Anisocytosis 4+, Ovalocytes 1+, Platelet Estimate NORMAL Microbiology Microbiology 10/04/21 Urine Culture, Received Pending 09/24/21 Respiratory Virus Panel (PCR) ([facility]) - Final, Complete Current Medications Current Medications Current Medications Medications (Trade) Dose Ordered Sig/Giovany Route PRN Reason Start Time Stop Time Status Last Admin Dose Admin Acetaminophen (Tylenol Tab) 650 mg Q4HP PRN PO fever/MILD PAIN (PS 1-4) 09/19/21 09:30 10/02/21 14:11 Amiodarone HCl (Pacerone, Cordarone) 400 mg BID PO 09/19/21 21:00 10/04/21 09:36 Apixaban (Eliquis) 5 mg BID PO 09/19/21 21:00 09/23/21 11:09 DC 09/23/21 08:40 Artificial Tears (Akwa Tears) 2 drop TID OU 09/20/21 21:00 10/04/21 09:38 Aspirin (Ecotrin) 81 mg DAILY PO 09/20/21 09:00 09/23/21 14:31 DC 09/23/21 08:40 Digoxin (Lanoxin) 0.25 mg Q48H PO 09/20/21 09:00 10/04/21 09:36 Docusate Sodium (Colace) 100 mg BID PO 09/19/21 21:00 10/04/21 09:36 Folic Acid (Folic Acid) 1 mg DAILY PO 09/20/21 09:00 10/04/21 09:36 Furosemide (Lasix) 20 mg BID@ PO 09/19/21 17:00 10/04/21 09:37 Home Med (Home Med List Complete!) ASDIRECTED XX 09/19/21 14:30 09/19/21 14:56 DC Midodrine (Proamatine) 10 mg 08,12,16 PO 09/19/21 16:00 10/04/21 09:37 Multivitamins (Theragram-M) 1 tab DAILY PO 09/19/21 09:00 10/04/21 09:36 Pantoprazole Sodium (Protonix) 40 mg BID PO 09/19/21 21:00 10/04/21 09:36 Polyethylene Glycol (Miralax) 1 pkt DAILYPRN PRN PO CONSTIPATION 09/20/21 18:35 09/22/21 08:45 Senna (Senokot) 1 tab QHS PO 09/19/21 21:00 09/27/21 20:22 Sucralfate (Carafate) 1 gm ACHS PO 09/23/21 12:00 10/04/21 06:59 Vitamin D (Vitamin D) 1,000 units DAILY PO 09/20/21 09:00 10/04/21 09:36 MEGHAN WILHELM MD Oct 04, 2021 10:11
[2021-10-04 14:00] VITALS: BP 118/56
[2021-10-04 20:00] VITALS: BP 126/59
[2021-10-04] MEDS: SENNA 8.6 MG TAB (SENOKOT) PO SCH (20:38)
[2021-10-04] MEDS: ACETAMINOPHEN TAB 650MG DOSE (2X325MG) PO PRN (20:40)
[2021-10-05 06:00] VITALS: BP 102/52
[2021-10-05] MEDS: FUROSEMIDE 20 MG TAB PO SCH ×2 (09:00→17:30)
[2021-10-05 09:06] LABS: HEMATOCRIT 27.5 % (36.0-47.0); HEMOGLOBIN 7.9 g/dl (12.0-15.5)
[2021-10-05] MEDS: MIDODRINE 5 MG TAB PO SCH ×3 (09:45→17:31)
[2021-10-05] MEDS: MULTIVITAMINS/MINERALS THERAP 1 TAB PO SCH (09:45)
[2021-10-05] MEDS: FOLIC ACID 1 MG TAB PO SCH (09:45)
[2021-10-05] MEDS: PANTOPRAZOLE 40MG TAB (PROTONIX) PO SCH ×2 (09:45→20:23)
[2021-10-05] MEDS: VITAMIN D 1,000 INTERNATIONAL UNITS TABLET PO SCH (09:45)
[2021-10-05] MEDS: DOCUSATE SODIUM 100MG CAPSULE PO SCH ×2 (09:45→20:23)
[2021-10-05] MEDS: REMEDY PHYTOPLEX Z-GUARD PASTE 113GM TUBE (FROM STOREROOM PRODUCT) TOP SCH ×3 (09:46→20:24)
[2021-10-05] MEDS: AMIODARONE 200 MG TAB (PACERONE) PO SCH ×2 (09:46→20:23)
[2021-10-05] MEDS: POLYVINYL ALCOHOL OPHTH SOLN 15 ML(LIQUITEARS) OU SCH ×3 (09:46→20:24)
[2021-10-05] MEDS: SUCRALFATE 1 GM TAB PO SCH ×4 (10:02→20:23)
[2021-10-05 14:00] VITALS: BP 104/53
[2021-10-05 16:51] VITALS: BP 128/58
[2021-10-05 20:00] VITALS: BP 120/59
[2021-10-05] MEDS: SENNA 8.6 MG TAB (SENOKOT) PO SCH (20:23)
[2021-10-05] MEDS: ACETAMINOPHEN TAB 650MG DOSE (2X325MG) PO PRN (20:24)
[2021-10-06 06:00] VITALS: BP 111/55
[2021-10-06] MEDS: FUROSEMIDE 20 MG TAB PO SCH ×2 (09:00→17:36)
[2021-10-06 09:05] VITALS: BP 106/51
[2021-10-06] MEDS: PANTOPRAZOLE 40MG TAB (PROTONIX) PO SCH ×2 (09:07→20:06)
[2021-10-06] MEDS: SUCRALFATE 1 GM TAB PO SCH ×4 (09:07→20:05)
[2021-10-06] MEDS: VITAMIN D 1,000 INTERNATIONAL UNITS TABLET PO SCH (09:07)
[2021-10-06] MEDS: MULTIVITAMINS/MINERALS THERAP 1 TAB PO SCH (09:07)
[2021-10-06] MEDS: DOCUSATE SODIUM 100MG CAPSULE PO SCH ×2 (09:07→20:05)
[2021-10-06] MEDS: MIDODRINE 5 MG TAB PO SCH ×3 (09:07→17:36)
[2021-10-06] MEDS: DIGOXIN 0.25 MG TAB PO SCH (09:07)
[2021-10-06] MEDS: FOLIC ACID 1 MG TAB PO SCH (09:07)
[2021-10-06] MEDS: POLYVINYL ALCOHOL OPHTH SOLN 15 ML(LIQUITEARS) OU SCH ×3 (09:08→20:06)
[2021-10-06] MEDS: AMIODARONE 200 MG TAB (PACERONE) PO SCH ×2 (09:08→20:06)
[2021-10-06] MEDS: REMEDY PHYTOPLEX Z-GUARD PASTE 113GM TUBE (FROM STOREROOM PRODUCT) TOP SCH ×3 (09:08→20:06)
[2021-10-06] MEDS: ACETAMINOPHEN TAB 650MG DOSE (2X325MG) PO PRN ×2 (12:54→20:06)
[2021-10-06 14:00] VITALS: BP 139/58
[2021-10-06 17:00] VITALS: BP 128/59
[2021-10-06 20:00] VITALS: BP 147/65
[2021-10-06] MEDS: SENNA 8.6 MG TAB (SENOKOT) PO SCH (20:05)
[2021-10-07 06:00] VITALS: BP 104/53
[2021-10-07 07:03] LABS: HEMATOCRIT 26.9 % (36.0-47.0); HEMOGLOBIN 7.8 g/dl (12.0-15.5)
[2021-10-07] MEDS: SUCRALFATE 1 GM TAB PO SCH ×2 (08:18→11:39)
[2021-10-07] MEDS: DOCUSATE SODIUM 100MG CAPSULE PO SCH (08:18)
[2021-10-07] MEDS: MIDODRINE 5 MG TAB PO SCH ×2 (08:18→11:39)
[2021-10-07] MEDS: FOLIC ACID 1 MG TAB PO SCH (08:19)
[2021-10-07] MEDS: AMIODARONE 200 MG TAB (PACERONE) PO SCH (08:19)
[2021-10-07] MEDS: REMEDY PHYTOPLEX Z-GUARD PASTE 113GM TUBE (FROM STOREROOM PRODUCT) TOP SCH (08:19)
[2021-10-07] MEDS: POLYVINYL ALCOHOL OPHTH SOLN 15 ML(LIQUITEARS) OU SCH (08:19)
[2021-10-07] MEDS: VITAMIN D 1,000 INTERNATIONAL UNITS TABLET PO SCH (08:19)
[2021-10-07] MEDS: FUROSEMIDE 20 MG TAB PO SCH (08:19)
[2021-10-07] MEDS: MULTIVITAMINS/MINERALS THERAP 1 TAB PO SCH (08:19)
[2021-10-07] MEDS: PANTOPRAZOLE 40MG TAB (PROTONIX) PO SCH (08:19)
[2021-10-07] MEDS ORDERED: LevoFLOXacin 250 MG TABLET PO SCH (09:40)
[2021-10-07] MEDS ORDERED: LASI20TA3 PO (10:00)
[2021-10-07] MEDS ORDERED: MIDO5TA PO (10:00)
[2021-10-07] MEDS ORDERED: PANT40TA29 PO (10:00)
[2021-10-07] MEDS ORDERED: FOLI1TAB11 PO (10:00)
[2021-10-07] MEDS ORDERED: AMIO200T3 PO (10:00)
[2021-10-07] MEDS ORDERED: FERR324T2 PO (10:00)
[2021-10-07] MEDS ORDERED: SUCR1TA PO (10:00)
[2021-10-07] MEDS ORDERED: DIGO0.123 PO (10:00)
[2021-10-07] MEDS ORDERED: LEVO250T12 PO (10:00)
[2021-10-07 11:47] VITALS: BP 138/58
[2021-10-07 12:02] VITALS: BP 134/64
[2021-10-07 12:40] VITALS: BP 127/61
[2021-10-07 13:50] VITALS: BP 142/67
[2021-10-07 14:45] VITALS: BP 157/66
== END 2021-10-07 15:35 | disposition home health service (06) | DRG 74 ==
LOC: M PM&R 13:25
PROVIDERS: ADMIT Physical Medicine & Rehabilitation; ATTEND Physical Medicine & Rehabilitation
DX: G62.9 Polyneuropathy, unspecified (principal); I50.22 Chronic systolic (congestive) heart failure; I69.351 Hemiplegia and hemiparesis following cerebral infarction affecting right dominant side; I48.20 Chronic atrial fibrillation, unspecified; R53.1 Weakness; I35.0 Nonrheumatic aortic (valve) stenosis; I11.0 Hypertensive heart disease with heart failure; D50.9 Iron deficiency anemia, unspecified; M06.9 Rheumatoid arthritis, unspecified; Z85.3 Personal history of malignant neoplasm of breast; Z90.10 Acquired absence of unspecified breast and nipple; Z92.21 Personal history of antineoplastic chemotherapy; K59.00 Constipation, unspecified; D64.9 Anemia, unspecified; Z74.09 Other reduced mobility; Z74.1 Need for assistance with personal care; Z79.01 Long term (current) use of anticoagulants; Z79.82 Long term (current) use of aspirin; Z79.899 Other long term (current) drug therapy; Z91.012 Allergy to eggs; Z91.013 Allergy to seafood; Z66 Do not resuscitate; I27.20 Pulmonary hypertension, unspecified

== ENCOUNTER → 2021-10-22 | Outpatient (REF) | payer MEDICARE ==
[~2021-10-22] MED LIST changes: -AMIO200T3 PO; +AMIO200T49 PO; -D 202000 PO; +FERR324T2 PO; +LEVO250T3 PO; +PANT40TA29 PO; +SUCR1TA PO; +VITA200032 PO
[2021-10-22 15:30] LABS: HEMATOCRIT 34.6 % (36.0-47.0); HEMOGLOBIN 10.2 g/dl (12.0-15.5); MEAN CORPUSCULAR HEMOGLOBIN 25.4 pg (27.0-33.0); MEAN CORPUSCULAR HGB CONC 29.5 g/dl (32.0-36.5); MEAN CORPUSCULAR VOLUME 86.3 fl (80.0-96.0); PLATELET COUNT, AUTOMATED 461 10^3/uL (150-450); RED BLOOD COUNT 4.01 10^6/uL (4.00-5.40); WHITE BLOOD COUNT 9.7 10^3/uL (4.0-10.0)
[2021-10-22 16:18] LABS: ALBUMIN 2.8 GM/DL (3.2-5.2); ALT/SGPT 19 U/L (12-78); BILIRUBIN,TOTAL 0.6 MG/DL (0.2-1.0); BLOOD UREA NITROGEN 17 MG/DL (7-18); CALCIUM LEVEL 8.4 MG/DL (8.8-10.2); CARBON DIOXIDE LEVEL 32 MEQ/L (21-32); CHLORIDE LEVEL 102 MEQ/L (98-107); CREATININE FOR GFR 0.73 MG/DL (0.55-1.30); DIGOXIN LEVEL 0.7 NG/ML (0.5-2.0); GLOMERULAR FILTRATION RATE > 60.0 (>32); GLUCOSE, FASTING 122 MG/DL (70-100); POTASSIUM SERUM 3.7 MEQ/L (3.5-5.1); SODIUM LEVEL 141 MEQ/L (136-145); TOTAL PROTEIN 6.7 GM/DL (6.4-8.2)
== END ==
LOC: M SHH 15:11
PROVIDERS: ATTEND Family Medicine
DX: Z79.899 Other long term (current) drug therapy (principal); D64.9 Anemia, unspecified

== ENCOUNTER 2021-11-04 06:07 | Inpatient (IN) | payer MEDICARE ==
[~2021-11-04] VITALS: Ht 167.6 cm; Wt 60.4 kg
[2021-11-04 07:07] LABS: HEMATOCRIT 36.5 % (36.0-47.0); HEMOGLOBIN 11.4 g/dl (12.0-15.5); MEAN CORPUSCULAR HEMOGLOBIN 26.2 pg (27.0-33.0); MEAN CORPUSCULAR HGB CONC 31.2 g/dl (32.0-36.5); MEAN CORPUSCULAR VOLUME 83.9 fl (80.0-96.0); PLATELET COUNT, AUTOMATED 282 10^3/uL (150-450); RED BLOOD COUNT 4.35 10^6/uL (4.00-5.40)
[2021-11-04] MEDS ORDERED: cefTRIAXone SOD 1 GM in D5W MINI-BAG PLUS 50 ML IV ONE (07:10)
[2021-11-04 07:23] LABS: BLOOD UREA NITROGEN 28 MG/DL (7-18); CARBON DIOXIDE LEVEL 31 MEQ/L (21-32); CHLORIDE LEVEL 97 MEQ/L (98-107); CREATININE FOR GFR 0.71 MG/DL (0.55-1.30); GLOMERULAR FILTRATION RATE > 60.0 (>32); GLUCOSE, FASTING 81 MG/DL (70-100); POTASSIUM SERUM 2.7 MEQ/L (3.5-5.1); SODIUM LEVEL 137 MEQ/L (136-145)
[2021-11-04 07:24] LABS: CK-MB VALUE MASS 1.1 NG/ML (<3.6); MB/CK RELATIVE INDEX 2.97 (< OR =4)
[2021-11-04] MEDS ORDERED: POTASSIUM CHLORIDE 10MEQ SR TABLET PO ONE ×3 (07:25→22:20)
[2021-11-04 07:38] LABS: ATYPICAL LYMPH 2 % (0-5); LYMPHOCYTES 3 % (16-44); MONOCYTES 6 % (0-5); MYELOCYTES 2 % (0-0); NEUTROPHILS 84 % (28-66)
[2021-11-04 07:39] LABS: ANISOCYTOSIS 1+; PLATELET ESTIMATE NORMAL (NORMAL)
[2021-11-04 08:41] LABS: VENOUS BASE EXCESS 6.5 (-2.0-2.0); VENOUS O2 SATURATION 48.8 % (60.0-80.0); VENOUS PARTIAL PRESSURE CO2 49.4 mmHg (38.0-50.0); VENOUS PARTIAL PRESSURE O2 29.4 mmHg (30.0-50.0); VENOUS PH 7.429 UNITS (7.330-7.430); VENOUS STANDARD HCO3 29.1 MEQ/L; VENOUS TOTAL CO2 33.5 MEQ/L (24.0-28.0)
[2021-11-04] MEDS: DOCUSATE SODIUM 100MG CAPSULE PO SCH ×2 (09:00→20:42)
[2021-11-04] MEDS ORDERED: OSELTAMIVIR PHOSPHATE 75 MG CAP (TAMIFLU) PO ONE (09:00)
[2021-11-04 09:10] LABS: ALBUMIN 2.5 GM/DL (3.2-5.2); ALT/SGPT 31 U/L (12-78); BILIRUBIN,DIRECT 0.5 MG/DL (0.0-0.2); LIPASE 63 U/L (73-393); NT-PRO BNP 2760 PG/ML (<450); TOTAL PROTEIN 7.2 GM/DL (6.4-8.2)
[2021-11-04] MEDS ORDERED: FERR1TAB8 PO (10:13)
[2021-11-04] MEDS ORDERED: AMIO200T49 PO (10:13)
[2021-11-04] MEDS ORDERED: PANT40TA29 PO (10:13)
[2021-11-04] MEDS ORDERED: SUCR1TA PO (10:13)
[2021-11-04] MEDS ORDERED: FOLI1TAB11 PO (10:13)
[2021-11-04] MEDS ORDERED: FURO20TA2 PO (10:13)
[2021-11-04] MEDS ORDERED: MIDO5TA PO (10:13)
[2021-11-04] MEDS ORDERED: DIGO0.123 PO (10:13)
[2021-11-04] MEDS ORDERED: HOME MED LIST COMPLETE! XX SCH (10:15)
[2021-11-04] MEDS: MIDODRINE 5 MG TAB PO SCH ×2 (12:00→17:09)
[2021-11-04] MEDS ORDERED: MAALOX 30 ML SUSP *UDC PO PRN (12:15)
[2021-11-04] MEDS ORDERED: MOM 30ML SUSPENSION UDC PO PRN (12:15)
[2021-11-04] MEDS: MULTIVITAMINS/MINERALS THERAP 1 TAB PO SCH (13:52)
[2021-11-04] MEDS: SUCRALFATE 1 GM TAB PO SCH ×3 (13:52→20:42)
[2021-11-04] MEDS: FOLIC ACID 1 MG TAB PO SCH (13:52)
[2021-11-04] MEDS: PANTOPRAZOLE 40MG TAB (PROTONIX) PO SCH ×2 (13:52→20:42)
[2021-11-04] MEDS: FERROUS SULFATE 325MG TAB PO SCH ×2 (13:52→20:42)
[2021-11-04] MEDS: DIGOXIN 0.125 MG TAB PO SCH (13:53)
[2021-11-04] MEDS: ENOXAPARIN 40MG/0.4ML SYRINGE (J1650 PER 10MG) SC SCH (13:53)
[2021-11-04] MEDS: AMIODARONE 200 MG TAB (PACERONE) PO SCH ×2 (13:53→20:42)
[2021-11-04 14:40] LABS: BLOOD UREA NITROGEN 28 MG/DL (7-18); CALCIUM LEVEL 8.3 MG/DL (8.8-10.2); CARBON DIOXIDE LEVEL 32 MEQ/L (21-32); CHLORIDE LEVEL 99 MEQ/L (98-107); CREATININE FOR GFR 0.64 MG/DL (0.55-1.30); GLOMERULAR FILTRATION RATE > 60.0 (>32); GLUCOSE, FASTING 83 MG/DL (70-100); SODIUM LEVEL 136 MEQ/L (136-145)
[2021-11-04 14:41] LABS: POTASSIUM SERUM 5.1 MEQ/L (3.5-5.1)
[2021-11-04] MEDS ORDERED: DOXYCYCLINE HYCLATE 100 MG in D5W MINI-BAG PLUS 100 ML IV SCH (15:00)
[2021-11-04 16:09] VITALS: BP 125/68
[2021-11-04] MEDS ORDERED: FUROSEMIDE 20 MG TAB PO SCH (17:00)
[2021-11-04] MEDS: DOXYCYCLINE HYCLATE 100 MG in D5W MINI-BAG PLUS 100 ML IV SCH (17:09)
[2021-11-04 17:12] LABS: FREE T4 1.53 NG/DL (0.76-1.46); POTASSIUM SERUM 2.6 MEQ/L (3.5-5.1); THYROID STIMULATING HORMONE 0.614 uIU/ML (0.358-3.740)
[2021-11-04] MEDS: NS 1,000 ML IV SCH (19:35)
[2021-11-04 20:00] VITALS: BP_SYST 116; BP_SYST 117; BP_SYST 124; BP_DIAS 72
[2021-11-04 21:56] LABS: BLOOD UREA NITROGEN 25 MG/DL (7-18); CARBON DIOXIDE LEVEL 32 MEQ/L (21-32); CHLORIDE LEVEL 102 MEQ/L (98-107); CREATININE FOR GFR 0.57 MG/DL (0.55-1.30); GLOMERULAR FILTRATION RATE > 60.0 (>32); GLUCOSE, FASTING 88 MG/DL (70-100); POTASSIUM SERUM 3.3 MEQ/L (3.5-5.1); SODIUM LEVEL 139 MEQ/L (136-145)
[2021-11-04 22:00] VITALS: BP 118/59
[2021-11-04] MEDS: ACETAMINOPHEN TAB 650MG DOSE (2X325MG) PO PRN (23:01)
[2021-11-05] VITALS: BP_SYST 114; BP_SYST 119; BP_SYST 126; BP_DIAS 70; BP_DIAS 73; BP_DIAS 76
[2021-11-05 04:00] VITALS: BP_SYST 115; BP_SYST 116; BP_SYST 124; BP_DIAS 74; BP_DIAS 78
[2021-11-05] MEDS: DOXYCYCLINE HYCLATE 100 MG in D5W MINI-BAG PLUS 100 ML IV SCH ×2 (05:20→17:16)
[2021-11-05] MEDS: NS 1,000 ML IV SCH (05:20)
[2021-11-05 05:52] LABS: HEMATOCRIT 31.4 % (36.0-47.0); HEMOGLOBIN 9.7 g/dl (12.0-15.5); MEAN CORPUSCULAR HEMOGLOBIN 26.1 pg (27.0-33.0); MEAN CORPUSCULAR HGB CONC 30.9 g/dl (32.0-36.5); MEAN CORPUSCULAR VOLUME 84.4 fl (80.0-96.0); PLATELET COUNT, AUTOMATED 296 10^3/uL (150-450); RED BLOOD COUNT 3.72 10^6/uL (4.00-5.40); WHITE BLOOD COUNT 7.1 10^3/uL (4.0-10.0)
[2021-11-05 06:00] VITALS: BP 120/53
[2021-11-05 06:19] LABS: BLOOD UREA NITROGEN 21 MG/DL (7-18); CALCIUM LEVEL 7.6 MG/DL (8.8-10.2); CARBON DIOXIDE LEVEL 29 MEQ/L (21-32); CHLORIDE LEVEL 107 MEQ/L (98-107); CREATININE FOR GFR 0.45 MG/DL (0.55-1.30); GLOMERULAR FILTRATION RATE > 60.0 (>32); GLUCOSE, FASTING 91 MG/DL (70-100); POTASSIUM SERUM 3.4 MEQ/L (3.5-5.1); SODIUM LEVEL 140 MEQ/L (136-145)
[2021-11-05 06:23] LABS: ATYPICAL LYMPH 4 % (0-5); LYMPHOCYTES 10 % (16-44); MONOCYTES 5 % (0-5); NEUTROPHILS 78 % (28-66)
[2021-11-05 06:25] LABS: ANISOCYTOSIS 1+; MICROCYTOSIS 1+; PLATELET ESTIMATE NORMAL (NORMAL); POIKILOCYTOSIS 1+
[2021-11-05] MEDS ORDERED: PERCOCET 5MG/325MG TAB PO PRN (07:50)
[2021-11-05] MEDS ORDERED: POTASSIUM CHLORIDE 10MEQ SR TABLET PO ONE ×2 (08:00→18:20)
[2021-11-05] MEDS: cefTRIAXone SOD 1 GM in D5W MINI-BAG PLUS 50 ML IV SCH (08:23)
[2021-11-05] MEDS: SUCRALFATE 1 GM TAB PO SCH ×4 (08:24→20:27)
[2021-11-05] MEDS: FOLIC ACID 1 MG TAB PO SCH (08:24)
[2021-11-05] MEDS: PANTOPRAZOLE 40MG TAB (PROTONIX) PO SCH ×2 (08:24→20:27)
[2021-11-05] MEDS: ENOXAPARIN 40MG/0.4ML SYRINGE (J1650 PER 10MG) SC SCH (08:24)
[2021-11-05] MEDS: FERROUS SULFATE 325MG TAB PO SCH ×2 (08:24→20:27)
[2021-11-05] MEDS: AMIODARONE 200 MG TAB (PACERONE) PO SCH ×2 (08:25→20:27)
[2021-11-05] MEDS: MULTIVITAMINS/MINERALS THERAP 1 TAB PO SCH (08:25)
[2021-11-05] MEDS: DOCUSATE SODIUM 100MG CAPSULE PO SCH ×2 (08:25→20:27)
[2021-11-05] MEDS: MIDODRINE 5 MG TAB PO SCH ×3 (08:25→17:14)
[2021-11-05] MEDS ORDERED: cefTRIAXone SOD 1 GM in D5W MINI-BAG PLUS 50 ML IV SCH (09:00)
[2021-11-05] MEDS: guaiFENesin ER 600 MG TAB PO SCH ×2 (11:07→20:27)
[2021-11-05] MEDS: ACETAMINOPHEN TAB 650MG DOSE (2X325MG) PO PRN (11:07)
[2021-11-05 14:00] VITALS: BP 114/62
[2021-11-05 19:37] LABS: BLOOD UREA NITROGEN 18 MG/DL (7-18); CALCIUM LEVEL 7.8 MG/DL (8.8-10.2); CARBON DIOXIDE LEVEL 29 MEQ/L (21-32); CHLORIDE LEVEL 108 MEQ/L (98-107); CREATININE FOR GFR 0.45 MG/DL (0.55-1.30); GLOMERULAR FILTRATION RATE > 60.0 (>32); GLUCOSE, FASTING 84 MG/DL (70-100); POTASSIUM SERUM 3.9 MEQ/L (3.5-5.1); SODIUM LEVEL 140 MEQ/L (136-145)
[2021-11-05] MEDS: OSELTAMIVIR PHOSPHATE 75 MG CAP (TAMIFLU) PO SCH (20:29)
[2021-11-05 22:00] VITALS: BP 121/56
[2021-11-06] MEDS: DOXYCYCLINE HYCLATE 100 MG in D5W MINI-BAG PLUS 100 ML IV SCH ×2 (05:02→17:17)
[2021-11-06 06:00] VITALS: BP 122/60
[2021-11-06 06:16] LABS: HEMATOCRIT 32.4 % (36.0-47.0); MEAN CORPUSCULAR HEMOGLOBIN 26.3 pg (27.0-33.0); MEAN CORPUSCULAR HGB CONC 30.9 g/dl (32.0-36.5); MEAN CORPUSCULAR VOLUME 85.3 fl (80.0-96.0); PLATELET COUNT, AUTOMATED 331 10^3/uL (150-450); WHITE BLOOD COUNT 8.1 10^3/uL (4.0-10.0)
[2021-11-06 06:40] LABS: BLOOD UREA NITROGEN 16 MG/DL (7-18); CALCIUM LEVEL 7.7 MG/DL (8.8-10.2); CARBON DIOXIDE LEVEL 29 MEQ/L (21-32); CHLORIDE LEVEL 107 MEQ/L (98-107); CREATININE FOR GFR 0.42 MG/DL (0.55-1.30); GLOMERULAR FILTRATION RATE > 60.0 (>32); GLUCOSE, FASTING 85 MG/DL (70-100); POTASSIUM SERUM 3.7 MEQ/L (3.5-5.1); SODIUM LEVEL 139 MEQ/L (136-145)
[2021-11-06 07:11] LABS: ANISOCYTOSIS 4+; LYMPHOCYTES 10 % (16-44); MONOCYTES 4 % (0-5); NEUTROPHILS 86 % (28-66); PLATELET ESTIMATE NORMAL (NORMAL)
[2021-11-06 07:14] LABS: OVALOCYTES 1+
[2021-11-06] MEDS: MIDODRINE 5 MG TAB PO SCH ×3 (08:00→16:00)
[2021-11-06] MEDS: ENOXAPARIN 40MG/0.4ML SYRINGE (J1650 PER 10MG) SC SCH (08:20)
[2021-11-06] MEDS: ACETAMINOPHEN TAB 650MG DOSE (2X325MG) PO PRN (08:20)
[2021-11-06] MEDS: FERROUS SULFATE 325MG TAB PO SCH ×2 (08:21→20:26)
[2021-11-06] MEDS: OSELTAMIVIR PHOSPHATE 75 MG CAP (TAMIFLU) PO SCH ×2 (08:21→20:26)
[2021-11-06] MEDS: SUCRALFATE 1 GM TAB PO SCH ×4 (08:21→20:25)
[2021-11-06] MEDS: DOCUSATE SODIUM 100MG CAPSULE PO SCH ×2 (08:21→20:59)
[2021-11-06] MEDS: AMIODARONE 200 MG TAB (PACERONE) PO SCH ×2 (08:24→20:26)
[2021-11-06] MEDS: DIGOXIN 0.125 MG TAB PO SCH (08:25)
[2021-11-06] MEDS: guaiFENesin ER 600 MG TAB PO SCH ×2 (08:25→20:26)
[2021-11-06] MEDS: FOLIC ACID 1 MG TAB PO SCH (08:25)
[2021-11-06] MEDS: MULTIVITAMINS/MINERALS THERAP 1 TAB PO SCH (08:25)
[2021-11-06] MEDS: PANTOPRAZOLE 40MG TAB (PROTONIX) PO SCH ×2 (08:25→20:26)
[2021-11-06] MEDS: cefTRIAXone SOD 1 GM in D5W MINI-BAG PLUS 50 ML IV SCH (08:25)
[2021-11-06] MEDS: BENZONATATE 100MG CAPSULE PO SCH ×3 (09:00→20:26)
[2021-11-06] MEDS ORDERED: diphenhydrAMINE 25MG CAP PO PRN (09:20)
[2021-11-06] MEDS ORDERED: guaiFENesin ER 600 MG TAB PO ONE (09:35)
[2021-11-06 14:00] VITALS: BP 127/68
[2021-11-06] MEDS ORDERED: SCOPOLAMINE 1MG TRANSDERMAL PATCH TOP SCH (18:00)
[2021-11-06 21:00] VITALS: BP 129/68
[2021-11-07] MEDS: DOXYCYCLINE HYCLATE 100 MG in D5W MINI-BAG PLUS 100 ML IV SCH (05:07)
[2021-11-07 05:15] VITALS: BP 145/78
[2021-11-07 06:41] LABS: HEMATOCRIT 36.1 % (36.0-47.0); MEAN CORPUSCULAR HEMOGLOBIN 25.9 pg (27.0-33.0); MEAN CORPUSCULAR HGB CONC 30.5 g/dl (32.0-36.5); MEAN CORPUSCULAR VOLUME 84.9 fl (80.0-96.0); PLATELET COUNT, AUTOMATED 372 10^3/uL (150-450); RED BLOOD COUNT 4.25 10^6/uL (4.00-5.40)
[2021-11-07 06:58] LABS: BLOOD UREA NITROGEN 13 MG/DL (7-18); CARBON DIOXIDE LEVEL 28 MEQ/L (21-32); CHLORIDE LEVEL 106 MEQ/L (98-107); CREATININE FOR GFR 0.43 MG/DL (0.55-1.30); GLOMERULAR FILTRATION RATE > 60.0 (>32); GLUCOSE, FASTING 85 MG/DL (70-100); POTASSIUM SERUM 3.6 MEQ/L (3.5-5.1); SODIUM LEVEL 137 MEQ/L (136-145)
[2021-11-07] MEDS: MIDODRINE 5 MG TAB PO SCH ×3 (08:00→16:00)
[2021-11-07 08:29] LABS: ATYPICAL LYMPH 2 % (0-5); EOSINOPHILS 1 % (0-3); LYMPHOCYTES 8 % (16-44); MONOCYTES 9 % (0-5); NEUTROPHILS 79 % (28-66)
[2021-11-07 08:32] LABS: OVALOCYTES 3+
[2021-11-07] MEDS: FOLIC ACID 1 MG TAB PO SCH (08:32)
[2021-11-07] MEDS: PANTOPRAZOLE 40MG TAB (PROTONIX) PO SCH ×2 (08:32→19:55)
[2021-11-07] MEDS: BENZONATATE 100MG CAPSULE PO SCH ×3 (08:32→19:54)
[2021-11-07] MEDS: cefTRIAXone SOD 1 GM in D5W MINI-BAG PLUS 50 ML IV SCH (08:32)
[2021-11-07] MEDS: DOCUSATE SODIUM 100MG CAPSULE PO SCH ×2 (08:32→19:54)
[2021-11-07] MEDS: SUCRALFATE 1 GM TAB PO SCH ×4 (08:33→19:54)
[2021-11-07] MEDS: guaiFENesin ER 600 MG TAB PO SCH ×2 (08:33→19:54)
[2021-11-07] MEDS: MULTIVITAMINS/MINERALS THERAP 1 TAB PO SCH (08:33)
[2021-11-07] MEDS: ENOXAPARIN 40MG/0.4ML SYRINGE (J1650 PER 10MG) SC SCH (08:33)
[2021-11-07] MEDS: AMIODARONE 200 MG TAB (PACERONE) PO SCH ×2 (08:33→19:54)
[2021-11-07] MEDS: OSELTAMIVIR PHOSPHATE 75 MG CAP (TAMIFLU) PO SCH ×2 (08:33→19:55)
[2021-11-07] MEDS: FERROUS SULFATE 325MG TAB PO SCH ×2 (08:33→19:54)
[2021-11-07 08:36] LABS: MICROCYTOSIS 1+; PLATELET ESTIMATE NORMAL (NORMAL); TEAR DROP CELLS 1+
[2021-11-07 14:00] VITALS: BP 123/73
[2021-11-07] MEDS: DOXYCYCLINE HYCLATE 100MG TABLET PO SCH (16:48)
[2021-11-07 22:49] VITALS: BP 129/69
[2021-11-08] MEDS: DOXYCYCLINE HYCLATE 100MG TABLET PO SCH (05:22)
[2021-11-08 06:56] VITALS: BP 131/72
[2021-11-08 07:27] LABS: BASO % 0.1 % (0.0-1.0); EOS # 0.1 10^3/uL (0.0-0.5); EOS % 0.8 % (0.0-3.0); HEMATOCRIT 32.1 % (36.0-47.0); HEMOGLOBIN 9.9 g/dl (12.0-15.5); LYMPH # 1.1 10^3/uL (1.5-5.0); LYMPH % 12.2 % (24.0-44.0); MEAN CORPUSCULAR HEMOGLOBIN 25.8 pg (27.0-33.0); MEAN CORPUSCULAR HGB CONC 30.8 g/dl (32.0-36.5); MEAN CORPUSCULAR VOLUME 83.8 fl (80.0-96.0); MONO # 0.7 10^3/uL (0.0-0.8); MONO % 7.7 % (2.0-8.0); NEUTROPHILS % 78.5 % (36.0-66.0); PLATELET COUNT, AUTOMATED 333 10^3/uL (150-450); RED BLOOD COUNT 3.83 10^6/uL (4.00-5.40); WHITE BLOOD COUNT 8.9 10^3/uL (4.0-10.0)
[2021-11-08] MEDS: MIDODRINE 5 MG TAB PO SCH ×2 (08:00→12:00)
[2021-11-08] MEDS: FERROUS SULFATE 325MG TAB PO SCH (08:26)
[2021-11-08] MEDS: AMIODARONE 200 MG TAB (PACERONE) PO SCH (08:26)
[2021-11-08] MEDS: DOCUSATE SODIUM 100MG CAPSULE PO SCH (08:26)
[2021-11-08] MEDS: FOLIC ACID 1 MG TAB PO SCH (08:26)
[2021-11-08] MEDS: BENZONATATE 100MG CAPSULE PO SCH (08:26)
[2021-11-08] MEDS: SUCRALFATE 1 GM TAB PO SCH ×2 (08:26→12:47)
[2021-11-08] MEDS: MULTIVITAMINS/MINERALS THERAP 1 TAB PO SCH (08:26)
[2021-11-08] MEDS: PANTOPRAZOLE 40MG TAB (PROTONIX) PO SCH (08:27)
[2021-11-08] MEDS: OSELTAMIVIR PHOSPHATE 75 MG CAP (TAMIFLU) PO SCH (08:27)
[2021-11-08] MEDS: ENOXAPARIN 40MG/0.4ML SYRINGE (J1650 PER 10MG) SC SCH (08:27)
[2021-11-08] MEDS: guaiFENesin ER 600 MG TAB PO SCH (08:27)
[2021-11-08] MEDS: DIGOXIN 0.125 MG TAB PO SCH (08:27)
[2021-11-08] MEDS ORDERED: AUGMENTIN 875 MG TAB PO ONE (09:00)
[2021-11-08 10:22] LABS: BLOOD UREA NITROGEN 11 MG/DL (7-18); CALCIUM LEVEL 8.1 MG/DL (8.8-10.2); CARBON DIOXIDE LEVEL 29 MEQ/L (21-32); CHLORIDE LEVEL 106 MEQ/L (98-107); CREATININE FOR GFR 0.39 MG/DL (0.55-1.30); GLOMERULAR FILTRATION RATE > 60.0 (>32); GLUCOSE, FASTING 82 MG/DL (70-100); POTASSIUM SERUM 3.7 MEQ/L (3.5-5.1); SODIUM LEVEL 138 MEQ/L (136-145)
[2021-11-08] MEDS ORDERED: AMIO200T49 PO (12:06)
[2021-11-08] MEDS ORDERED: BENZ-18 PO (12:06)
[2021-11-08] MEDS ORDERED: MUCI600T31 PO (12:06)
[2021-11-08] MEDS ORDERED: DOXY100T PO (12:06)
[2021-11-08] MEDS ORDERED: ONDA4TAB6 PO (12:06)
== END 2021-11-08 12:59 | DRG 193 ==
LOC: M ED 06:07 → M ED INP 12:12 → ENRESERV 14:05 → M MSPAV 16:31
PROVIDERS: ADMIT Internal Medicine; ATTEND Internal Medicine
DX: J10.00 Influenza due to other identified influenza virus with unspecified type of pneumonia (principal); J96.01 Acute respiratory failure with hypoxia; I50.22 Chronic systolic (congestive) heart failure; I48.20 Chronic atrial fibrillation, unspecified; J18.9 Pneumonia, unspecified organism; E87.6 Hypokalemia; E86.0 Dehydration; I11.0 Hypertensive heart disease with heart failure; I95.9 Hypotension, unspecified; D50.9 Iron deficiency anemia, unspecified; K21.9 Gastro-esophageal reflux disease without esophagitis; Z66 Do not resuscitate; I87.2 Venous insufficiency (chronic) (peripheral); Z79.899 Other long term (current) drug therapy; Z91.012 Allergy to eggs; Z91.013 Allergy to seafood; Z91.040 Latex allergy status; Z72.3 Lack of physical exercise; E55.9 Vitamin D deficiency, unspecified; Z86.73 Personal history of transient ischemic attack (TIA), and cerebral infarction without residual deficits; M06.9 Rheumatoid arthritis, unspecified; I27.20 Pulmonary hypertension, unspecified; Z85.3 Personal history of malignant neoplasm of breast; Z82.3 Family history of stroke; Z92.21 Personal history of antineoplastic chemotherapy

== ENCOUNTER → 2021-11-10 | Outpatient (REF) | payer MEDICARE ==
[~2021-11-10] MED LIST changes: +AMOX500T2 PO; +AQUAOIN12 TP; +BENZ-18 PO; +DOXY100T PO; +FERR1TAB8 PO; +FERR325T3 PO; +FURO20TA2 PO; +FURO80TA2 PO; +IPRA0.00 NEB; +LISI5TAB11 PO; +MUCI600T31 PO; +NYST50SS SS; +ONDA4TAB6 PO; +PERI12LIQ MT; +PRED20TA PO; +TORS20TA2 PO
== END ==
LOC: M RAD 10:23
PROVIDERS: ATTEND Internal Medicine
DX: Z53.9 Procedure and treatment not carried out, unspecified reason (principal)

== ENCOUNTER → 2021-11-10 | Outpatient (REF) ==
[~2021-11-10] MED LIST changes: -AMOX500T2 PO; -AQUAOIN12 TP; -FERR325T3 PO; -FURO80TA2 PO; -IPRA0.00 NEB; -LISI5TAB11 PO; -NYST50SS SS; -PERI12LIQ MT; -PRED20TA PO; -TORS20TA2 PO
== END ==
LOC: SKLAB4 10:07
PROVIDERS: ATTEND Internal Medicine
DX: R09.02 Hypoxemia (principal); J98.4 Other disorders of lung

== ENCOUNTER → 2021-11-11 | Outpatient (REF) ==
[~2021-11-11] MED LIST changes: +AMOX500T2 PO; +AQUAOIN12 TP; +FURO80TA2 PO; +IPRA0.00 NEB; +NYST50SS SS; +PRED20TA PO
[2021-11-11 13:15] LABS: HEMATOCRIT 35.6 % (36.0-47.0); HEMOGLOBIN 11.1 g/dl (12.0-15.5); MEAN CORPUSCULAR HEMOGLOBIN 26.4 pg (27.0-33.0); MEAN CORPUSCULAR HGB CONC 31.2 g/dl (32.0-36.5); MEAN CORPUSCULAR VOLUME 84.6 fl (80.0-96.0); PLATELET COUNT, AUTOMATED 433 10^3/uL (150-450); RED BLOOD COUNT 4.21 10^6/uL (4.00-5.40); WHITE BLOOD COUNT 17.7 10^3/uL (4.0-10.0)
[2021-11-11 13:39] LABS: BLOOD UREA NITROGEN 18 MG/DL (7-18); CALCIUM LEVEL 8.6 MG/DL (8.8-10.2); CARBON DIOXIDE LEVEL 28 MEQ/L (21-32); CHLORIDE LEVEL 108 MEQ/L (98-107); CREATININE FOR GFR 0.51 MG/DL (0.55-1.30); GLOMERULAR FILTRATION RATE > 60.0 (>32); GLUCOSE, FASTING 111 MG/DL (70-100); IRON (FE) 19 UG/DL (50-170); NT-PRO BNP 8952 PG/ML (<450); POTASSIUM SERUM 3.7 MEQ/L (3.5-5.1); SODIUM LEVEL 143 MEQ/L (136-145)
== END ==
LOC: SKLAB4 12:17
PROVIDERS: ATTEND Internal Medicine
DX: I50.9 Heart failure, unspecified (principal)

== ENCOUNTER 2021-11-12 13:03 | Inpatient (IN) | payer MEDICARE ==
[~2021-11-12] VITALS: Ht 175.3 cm; Wt 54.4 kg
[~2021-11-12 13:03] MED LIST changes: -AMOX500T2 PO; -AQUAOIN12 TP; -FERR325T3 PO; -FURO80TA2 PO; -HYDR28OI7 TP; -IPRA0.00 NEB; -LISI2.5T8 PO; -LISI5TAB11 PO; -NYST50SS SS; -PERI12LIQ MT; -PRED20TA PO; -TORS20TA2 PO
[2021-11-12 14:50] LABS: HEMATOCRIT 33.7 % (36.0-47.0); HEMOGLOBIN 10.4 g/dl (12.0-15.5); MEAN CORPUSCULAR HEMOGLOBIN 25.9 pg (27.0-33.0); MEAN CORPUSCULAR HGB CONC 30.9 g/dl (32.0-36.5); PLATELET COUNT, AUTOMATED 350 10^3/uL (150-450); RED BLOOD COUNT 4.01 10^6/uL (4.00-5.40); WHITE BLOOD COUNT 19.6 10^3/uL (4.0-10.0)
[2021-11-12] MEDS ORDERED: PRED20TA PO (15:04)
[2021-11-12] MEDS ORDERED: NYST50SS SS (15:04)
[2021-11-12] MEDS ORDERED: FURO80TA2 PO (15:04)
[2021-11-12] MEDS ORDERED: IPRA0.00 NEB (15:04)
[2021-11-12] MEDS ORDERED: AQUAOIN12 TP (15:06)
[2021-11-12] MEDS ORDERED: AMOX500T2 PO (15:08)
[2021-11-12 15:10] LABS: ABG BASE EXCESS 6.2 (-2.0-2.0); ABG HCO3 29.4 MEQ/L (22.0-26.0); ABG O2 SATURATION 92.5 % (95.0-99.0); ABG PARTIAL PRESSURE CO2 37.4 mmHg (35.0-45.0); ABG PARTIAL PRESSURE O2 63.5 mmHg (75.0-100.0); ABG TOTAL CO2 30.6 MEQ/L (23.0-31.0); ABG pH (ARTERIAL) 7.514 UNITS (7.350-7.450)
[2021-11-12] MEDS ORDERED: HOME MED LIST COMPLETE! XX SCH (15:10)
[2021-11-12 15:24] LABS: BLOOD UREA NITROGEN 17 MG/DL (7-18); CALCIUM LEVEL 7.7 MG/DL (8.8-10.2); CARBON DIOXIDE LEVEL 29 MEQ/L (21-32); CHLORIDE LEVEL 104 MEQ/L (98-107); CREATININE FOR GFR 0.44 MG/DL (0.55-1.30); GLOMERULAR FILTRATION RATE > 60.0 (>32); GLUCOSE, FASTING 109 MG/DL (70-100); POTASSIUM SERUM 3.4 MEQ/L (3.5-5.1); SODIUM LEVEL 139 MEQ/L (136-145)
[2021-11-12] MEDS ORDERED: VANCOMYCIN HCL 0 MG in IV FLUID PLACE HOLDER 1 EA IV SCH (17:25)
[2021-11-12] MEDS ORDERED: IPRATROPIUM 0.5MG/ALBUTEROL 2.5MG INH SOL UD 3ML (DUONEB) NEB PRN (17:25)
[2021-11-12] MEDS ORDERED: ISOVUE-370 76% 100ML VIAL As Ordered ONE (17:27)
[2021-11-12] MEDS: MIDODRINE 5 MG TAB PO SCH (18:21)
[2021-11-12] MEDS: SUCRALFATE 1 GM TAB PO SCH ×2 (18:21→20:37)
[2021-11-12] MEDS ORDERED: POTASSIUM CHLORIDE 10MEQ SR TABLET PO ONE (19:25)
[2021-11-12] MEDS: PIPERACILLIN/TAZOBACTAM SOD 3.375 GM in D5W MINI-BAG PLUS 50 ML IV SCH (20:34)
[2021-11-12] MEDS: FERROUS SULFATE 325MG TAB PO SCH (20:37)
[2021-11-12] MEDS: guaiFENesin ER 600 MG TAB PO SCH (20:38)
[2021-11-12] MEDS: AMIODARONE 200 MG TAB (PACERONE) PO SCH (20:39)
[2021-11-12] MEDS: PANTOPRAZOLE 40MG TAB (PROTONIX) PO SCH (20:40)
[2021-11-12] MEDS: BENZONATATE 100MG CAPSULE PO SCH (20:41)
[2021-11-12] MEDS: FUROSEMIDE 100MG/10ML VIAL (J1940) IV SCH (22:15)
[2021-11-13] MEDS ORDERED: UNRESOLVED CLARIFICATION ENTRY XX SCH (00:01)
[2021-11-13] MEDS: PIPERACILLIN/TAZOBACTAM SOD 3.375 GM in D5W MINI-BAG PLUS 50 ML IV SCH ×4 (02:08→20:44)
[2021-11-13] MEDS ORDERED: VANCOMYCIN HCL 750 MG, VIAL MATE ADAPTER 1 EACH in NS 250 ML IV ONE ×2 (03:00→04:00)
[2021-11-13] MEDS: FUROSEMIDE 100MG/10ML VIAL (J1940) IV SCH ×3 (06:35→21:51)
[2021-11-13] MEDS: HEPARIN SOD (PORCINE) 5000UNITS/ML 1ML VIAL/SYRINGE SC SCH ×3 (06:35→21:47)
[2021-11-13] MEDS: MIDODRINE 5 MG TAB PO SCH ×3 (08:00→16:54)
[2021-11-13 08:21] LABS: BASO % 0.1 % (0.0-1.0); HEMATOCRIT 37.8 % (36.0-47.0); HEMOGLOBIN 11.6 g/dl (12.0-15.5); LYMPH % 5.4 % (24.0-44.0); MEAN CORPUSCULAR HGB CONC 30.7 g/dl (32.0-36.5); MEAN CORPUSCULAR VOLUME 84.6 fl (80.0-96.0); MONO # 0.4 10^3/uL (0.0-0.8); MONO % 2.2 % (2.0-8.0); NEUTROPHILS # 16.2 10^3/uL (1.5-8.5); NEUTROPHILS % 91.2 % (36.0-66.0); PLATELET COUNT, AUTOMATED 401 10^3/uL (150-450); RED BLOOD COUNT 4.47 10^6/uL (4.00-5.40); WHITE BLOOD COUNT 17.7 10^3/uL (4.0-10.0)
[2021-11-13] MEDS: BENZONATATE 100MG CAPSULE PO SCH ×3 (08:46→20:43)
[2021-11-13] MEDS: FERROUS SULFATE 325MG TAB PO SCH ×2 (08:46→20:43)
[2021-11-13] MEDS: PANTOPRAZOLE 40MG TAB (PROTONIX) PO SCH ×2 (08:46→20:43)
[2021-11-13] MEDS: FOLIC ACID 1 MG TAB PO SCH (08:46)
[2021-11-13] MEDS: SUCRALFATE 1 GM TAB PO SCH ×4 (08:46→20:45)
[2021-11-13] MEDS: guaiFENesin ER 600 MG TAB PO SCH ×2 (08:46→20:43)
[2021-11-13] MEDS: AMIODARONE 200 MG TAB (PACERONE) PO SCH (08:46)
[2021-11-13 08:52] LABS: ALBUMIN 1.8 GM/DL (3.2-5.2); ALT/SGPT 24 U/L (12-78); BILIRUBIN,TOTAL 0.6 MG/DL (0.2-1.0); BLOOD UREA NITROGEN 14 MG/DL (7-18); CALCIUM LEVEL 7.6 MG/DL (8.8-10.2); CARBON DIOXIDE LEVEL 33 MEQ/L (21-32); CHLORIDE LEVEL 103 MEQ/L (98-107); CREATININE FOR GFR 0.42 MG/DL (0.55-1.30); GLOMERULAR FILTRATION RATE > 60.0 (>32); GLUCOSE, FASTING 81 MG/DL (70-100); NT-PRO BNP 7986 PG/ML (<450); PHOSPHORUS LEVEL 2.1 MG/DL (2.5-4.9); SODIUM LEVEL 144 MEQ/L (136-145); TOTAL PROTEIN 6.5 GM/DL (6.4-8.2)
[2021-11-13] MEDS ORDERED: PILL CUTTER 1 EACH XX ONE (08:55)
[2021-11-13] MEDS: ACETAMINOPHEN 650MG ER TAB (TYLENOL ARTHRITIS) PO SCH (09:00)
[2021-11-13] MEDS: CHLORHEXIDINE GLUCONATE 0.12 % 15ML UDC (PERIDEX ORAL RINSE) MT SCH ×2 (09:00→20:43)
[2021-11-13 10:21] LABS: POTASSIUM SERUM 2.9 MEQ/L (3.5-5.1)
[2021-11-13] MEDS ORDERED: POTASSIUM CHLORIDE 10MEQ SR TABLET PO ONE ×2 (10:30→11:30)
[2021-11-13] MEDS ORDERED: K-PHOS ORIGINAL (POT.ACID PHOSPHATE) 500MG TAB PO ONE (12:00)
[2021-11-13 15:13] LABS: MAGNESIUM LEVEL 1.5 MG/DL (1.7-2.2)
[2021-11-13] MEDS ORDERED: MAG SULF 1GM/100ML (MAG RUN) 1 GM in IV 1 EA IV SCH (20:00)
[2021-11-13] MEDS ORDERED: VANCOMYCIN HCL 750 MG, VIAL MATE ADAPTER 1 EACH in NS 250 ML IV SCH (20:00)
[2021-11-13 22:00] VITALS: BP 120/65
[2021-11-13] MEDS: MAG SULF 1GM/100ML (MAG RUN) 1 GM in IV 1 EA IV SCH ×2 (22:35→23:48)
[2021-11-14] VITALS (11 sets, daily range): BP systolic 109–123; BP diastolic 55–69; O2SAT 89–96
[2021-11-14] MEDS: PIPERACILLIN/TAZOBACTAM SOD 3.375 GM in D5W MINI-BAG PLUS 50 ML IV SCH ×4 (03:38→22:54)
[2021-11-14] MEDS: HEPARIN SOD (PORCINE) 5000UNITS/ML 1ML VIAL/SYRINGE SC SCH ×3 (06:10→22:54)
[2021-11-14] MEDS: FUROSEMIDE 100MG/10ML VIAL (J1940) IV SCH ×2 (06:11→14:27)
[2021-11-14 07:20] LABS: BASO % 0.1 % (0.0-1.0); HEMATOCRIT 35.2 % (36.0-47.0); LYMPH # 0.9 10^3/uL (1.5-5.0); LYMPH % 5.6 % (24.0-44.0); MEAN CORPUSCULAR HEMOGLOBIN 26.6 pg (27.0-33.0); MEAN CORPUSCULAR HGB CONC 31.3 g/dl (32.0-36.5); MONO # 0.5 10^3/uL (0.0-0.8); MONO % 3.2 % (2.0-8.0); NEUTROPHILS # 13.8 10^3/uL (1.5-8.5); NEUTROPHILS % 90.2 % (36.0-66.0); PLATELET COUNT, AUTOMATED 355 10^3/uL (150-450); RED BLOOD COUNT 4.14 10^6/uL (4.00-5.40); WHITE BLOOD COUNT 15.3 10^3/uL (4.0-10.0)
[2021-11-14] MEDS: MIDODRINE 5 MG TAB PO SCH ×3 (08:00→15:58)
[2021-11-14 08:16] LABS: BLOOD UREA NITROGEN 14 MG/DL (7-18); CALCIUM LEVEL 7.9 MG/DL (8.8-10.2); CARBON DIOXIDE LEVEL 35 MEQ/L (21-32); CHLORIDE LEVEL 101 MEQ/L (98-107); CREATININE FOR GFR 0.42 MG/DL (0.55-1.30); GLOMERULAR FILTRATION RATE > 60.0 (>32); GLUCOSE, FASTING 89 MG/DL (70-100); PHOSPHORUS LEVEL 1.9 MG/DL (2.5-4.9); POTASSIUM SERUM 2.8 MEQ/L (3.5-5.1); SODIUM LEVEL 140 MEQ/L (136-145)
[2021-11-14] MEDS ORDERED: POTASSIUM CHLORIDE 10MEQ SR TABLET PO ONE (08:30)
[2021-11-14] MEDS ORDERED: AMIODARONE 200 MG TAB (PACERONE) PO SCH (09:00)
[2021-11-14] MEDS: DIGOXIN 0.125 MG TAB PO SCH (09:14)
[2021-11-14] MEDS: SUCRALFATE 1 GM TAB PO SCH ×4 (09:14→22:53)
[2021-11-14] MEDS: guaiFENesin ER 600 MG TAB PO SCH ×2 (09:14→22:53)
[2021-11-14] MEDS: PANTOPRAZOLE 40MG TAB (PROTONIX) PO SCH ×2 (09:14→22:53)
[2021-11-14] MEDS: ACETAMINOPHEN 650MG ER TAB (TYLENOL ARTHRITIS) PO SCH (09:16)
[2021-11-14] MEDS: BENZONATATE 100MG CAPSULE PO SCH ×3 (09:16→22:53)
[2021-11-14] MEDS: FERROUS SULFATE 325MG TAB PO SCH ×2 (09:16→22:53)
[2021-11-14] MEDS: FOLIC ACID 1 MG TAB PO SCH (09:16)
[2021-11-14] MEDS: CHLORHEXIDINE GLUCONATE 0.12 % 15ML UDC (PERIDEX ORAL RINSE) MT SCH ×2 (09:18→22:53)
[2021-11-14] MEDS: KCL 10MEQ/100ML SWI (KRUN) 10 MEQ in IV 1 EA IV SCH ×4 (10:18→14:23)
[2021-11-14 16:42] LABS: BLOOD UREA NITROGEN 15 MG/DL (7-18); CALCIUM LEVEL 7.8 MG/DL (8.8-10.2); CARBON DIOXIDE LEVEL 30 MEQ/L (21-32); CHLORIDE LEVEL 103 MEQ/L (98-107); CREATININE FOR GFR 0.49 MG/DL (0.55-1.30); GLOMERULAR FILTRATION RATE > 60.0 (>32); GLUCOSE, FASTING 87 MG/DL (70-100); POTASSIUM SERUM 4.4 MEQ/L (3.5-5.1); SODIUM LEVEL 139 MEQ/L (136-145)
[2021-11-14] MEDS: TORSEMIDE 20 MG TAB PO SCH (17:00)
[2021-11-14] MEDS: K-PHOS ORIGINAL (POT.ACID PHOSPHATE) 500MG TAB PO SCH ×2 (17:15→22:53)
[2021-11-14 17:42] LABS: MAGNESIUM LEVEL 1.9 MG/DL (1.7-2.2)
[2021-11-15] VITALS (9 sets, daily range): BP systolic 101–135; BP diastolic 50–65; O2SAT 89–94
[2021-11-15] MEDS: PIPERACILLIN/TAZOBACTAM SOD 3.375 GM in D5W MINI-BAG PLUS 50 ML IV SCH ×4 (04:07→20:48)
[2021-11-15] MEDS: HEPARIN SOD (PORCINE) 5000UNITS/ML 1ML VIAL/SYRINGE SC SCH ×3 (05:20→20:48)
[2021-11-15 07:08] LABS: EOS % 0.1 % (0.0-3.0); HEMATOCRIT 31.9 % (36.0-47.0); HEMOGLOBIN 9.9 g/dl (12.0-15.5); LYMPH # 0.9 10^3/uL (1.5-5.0); MEAN CORPUSCULAR HEMOGLOBIN 26.3 pg (27.0-33.0); MEAN CORPUSCULAR VOLUME 84.8 fl (80.0-96.0); MONO # 0.5 10^3/uL (0.0-0.8); MONO % 3.7 % (2.0-8.0); NEUTROPHILS # 11.3 10^3/uL (1.5-8.5); NEUTROPHILS % 88.7 % (36.0-66.0); PLATELET COUNT, AUTOMATED 355 10^3/uL (150-450); RED BLOOD COUNT 3.76 10^6/uL (4.00-5.40); WHITE BLOOD COUNT 12.8 10^3/uL (4.0-10.0)
[2021-11-15] MEDS: TORSEMIDE 20 MG TAB PO SCH ×2 (08:19→16:56)
[2021-11-15 08:22] LABS: BLOOD UREA NITROGEN 14 MG/DL (7-18); CALCIUM LEVEL 7.6 MG/DL (8.8-10.2); CARBON DIOXIDE LEVEL 36 MEQ/L (21-32); CHLORIDE LEVEL 102 MEQ/L (98-107); CREATININE FOR GFR 0.47 MG/DL (0.55-1.30); GLOMERULAR FILTRATION RATE > 60.0 (>32); GLUCOSE, FASTING 72 MG/DL (70-100); PHOSPHORUS LEVEL 1.9 MG/DL (2.5-4.9); POTASSIUM SERUM 3.3 MEQ/L (3.5-5.1); SODIUM LEVEL 142 MEQ/L (136-145)
[2021-11-15] MEDS: PANTOPRAZOLE 40MG TAB (PROTONIX) PO SCH ×2 (08:34→20:48)
[2021-11-15] MEDS: FOLIC ACID 1 MG TAB PO SCH (08:34)
[2021-11-15] MEDS: ACETAMINOPHEN 650MG ER TAB (TYLENOL ARTHRITIS) PO SCH (08:34)
[2021-11-15] MEDS: K-PHOS ORIGINAL (POT.ACID PHOSPHATE) 500MG TAB PO SCH ×2 (08:34→20:47)
[2021-11-15] MEDS: SUCRALFATE 1 GM TAB PO SCH ×4 (08:34→20:47)
[2021-11-15] MEDS: CHLORHEXIDINE GLUCONATE 0.12 % 15ML UDC (PERIDEX ORAL RINSE) MT SCH ×2 (08:34→20:49)
[2021-11-15] MEDS: FERROUS SULFATE 325MG TAB PO SCH ×2 (08:34→20:48)
[2021-11-15] MEDS: guaiFENesin ER 600 MG TAB PO SCH ×2 (08:34→20:48)
[2021-11-15] MEDS: MIDODRINE 5 MG TAB PO SCH ×3 (08:34→16:56)
[2021-11-15] MEDS: BENZONATATE 100MG CAPSULE PO SCH ×3 (08:34→20:47)
[2021-11-15 11:40] LABS: MAGNESIUM LEVEL 1.9 MG/DL (1.8-2.4)
[2021-11-15] MEDS ORDERED: POTASSIUM CHLORIDE 10MEQ SR TABLET PO ONE (12:25)
[2021-11-15] MEDS ORDERED: K-PHOS ORIGINAL (POT.ACID PHOSPHATE) 500MG TAB PO ONE (12:25)
[2021-11-16] MEDS: PIPERACILLIN/TAZOBACTAM SOD 3.375 GM in D5W MINI-BAG PLUS 50 ML IV SCH ×4 (02:48→20:08)
[2021-11-16 05:21] VITALS: BP 119/55
[2021-11-16] MEDS: HEPARIN SOD (PORCINE) 5000UNITS/ML 1ML VIAL/SYRINGE SC SCH ×2 (05:40→15:19)
[2021-11-16] MEDS: ACETAMINOPHEN 650MG ER TAB (TYLENOL ARTHRITIS) PO SCH (08:54)
[2021-11-16] MEDS: MIDODRINE 5 MG TAB PO SCH ×3 (08:54→15:21)
[2021-11-16] MEDS: TORSEMIDE 20 MG TAB PO SCH ×2 (08:56→17:45)
[2021-11-16] MEDS: BENZONATATE 100MG CAPSULE PO SCH ×3 (08:56→20:06)
[2021-11-16] MEDS: FERROUS SULFATE 325MG TAB PO SCH ×2 (08:57→20:05)
[2021-11-16] MEDS: DIGOXIN 0.125 MG TAB PO SCH (08:57)
[2021-11-16] MEDS: PANTOPRAZOLE 40MG TAB (PROTONIX) PO SCH ×2 (08:57→20:05)
[2021-11-16] MEDS: guaiFENesin ER 600 MG TAB PO SCH ×2 (08:57→20:05)
[2021-11-16] MEDS: FOLIC ACID 1 MG TAB PO SCH (08:57)
[2021-11-16] MEDS: SUCRALFATE 1 GM TAB PO SCH ×4 (08:57→20:06)
[2021-11-16] MEDS: CHLORHEXIDINE GLUCONATE 0.12 % 15ML UDC (PERIDEX ORAL RINSE) MT SCH ×2 (08:59→20:05)
[2021-11-16] MEDS: K-PHOS ORIGINAL (POT.ACID PHOSPHATE) 500MG TAB PO SCH ×2 (08:59→20:06)
[2021-11-16 12:46] LABS: BLOOD UREA NITROGEN 16 MG/DL (7-18); CARBON DIOXIDE LEVEL 30 MEQ/L (21-32); CHLORIDE LEVEL 102 MEQ/L (98-107); CREATININE FOR GFR 0.58 MG/DL (0.55-1.30); GLOMERULAR FILTRATION RATE > 60.0 (>32); GLUCOSE, FASTING 85 MG/DL (70-100); MAGNESIUM LEVEL 1.7 MG/DL (1.8-2.4); PHOSPHORUS LEVEL 3.1 MG/DL (2.5-4.9); POTASSIUM SERUM 3.2 MEQ/L (3.5-5.1); SODIUM LEVEL 140 MEQ/L (136-145)
[2021-11-16 14:00] VITALS: BP 134/61
[2021-11-16 22:00] VITALS: BP 125/60
[2021-11-17] MEDS: HEPARIN SOD (PORCINE) 5000UNITS/ML 1ML VIAL/SYRINGE SC SCH ×4 (00:04→21:27)
[2021-11-17 06:00] VITALS: BP 120/60
[2021-11-17] MEDS: LevoFLOXacin 750 MG TABLET PO SCH (06:17)
[2021-11-17 06:52] LABS: BASO % 0.3 % (0.0-1.0); EOS # 0.1 10^3/uL (0.0-0.5); EOS % 0.6 % (0.0-3.0); HEMATOCRIT 37.2 % (36.0-47.0); HEMOGLOBIN 11.6 g/dl (12.0-15.5); LYMPH # 1.4 10^3/uL (1.5-5.0); LYMPH % 11.8 % (24.0-44.0); MEAN CORPUSCULAR HEMOGLOBIN 26.4 pg (27.0-33.0); MEAN CORPUSCULAR HGB CONC 31.2 g/dl (32.0-36.5); MEAN CORPUSCULAR VOLUME 84.7 fl (80.0-96.0); MONO # 0.6 10^3/uL (0.0-0.8); MONO % 5.2 % (2.0-8.0); NEUTROPHILS # 9.4 10^3/uL (1.5-8.5); NEUTROPHILS % 81.2 % (36.0-66.0); PLATELET COUNT, AUTOMATED 415 10^3/uL (150-450); RED BLOOD COUNT 4.39 10^6/uL (4.00-5.40); WHITE BLOOD COUNT 11.6 10^3/uL (4.0-10.0)
[2021-11-17 07:16] LABS: BLOOD UREA NITROGEN 16 MG/DL (7-18); CALCIUM LEVEL 8.2 MG/DL (8.8-10.2); CARBON DIOXIDE LEVEL 34 MEQ/L (21-32); CHLORIDE LEVEL 98 MEQ/L (98-107); CREATININE FOR GFR 0.56 MG/DL (0.55-1.30); GLOMERULAR FILTRATION RATE > 60.0 (>32); GLUCOSE, FASTING 73 MG/DL (70-100); MAGNESIUM LEVEL 1.6 MG/DL (1.8-2.4); PHOSPHORUS LEVEL 3.7 MG/DL (2.5-4.9); POTASSIUM SERUM 3.1 MEQ/L (3.5-5.1); SODIUM LEVEL 139 MEQ/L (136-145)
[2021-11-17] MEDS: CHLORHEXIDINE GLUCONATE 0.12 % 15ML UDC (PERIDEX ORAL RINSE) MT SCH ×2 (09:00→20:31)
[2021-11-17] MEDS: FOLIC ACID 1 MG TAB PO SCH (09:01)
[2021-11-17] MEDS: K-PHOS ORIGINAL (POT.ACID PHOSPHATE) 500MG TAB PO SCH ×2 (09:01→20:31)
[2021-11-17] MEDS: guaiFENesin ER 600 MG TAB PO SCH ×2 (09:01→20:31)
[2021-11-17] MEDS: SUCRALFATE 1 GM TAB PO SCH ×4 (09:02→20:31)
[2021-11-17] MEDS: TORSEMIDE 20 MG TAB PO SCH ×2 (09:02→16:07)
[2021-11-17] MEDS: ACETAMINOPHEN 650MG ER TAB (TYLENOL ARTHRITIS) PO SCH (09:02)
[2021-11-17] MEDS: MIDODRINE 5 MG TAB PO SCH ×3 (09:02→16:08)
[2021-11-17] MEDS: FERROUS SULFATE 325MG TAB PO SCH ×2 (09:02→20:31)
[2021-11-17 09:03] VITALS: BP 125/64
[2021-11-17] MEDS: PANTOPRAZOLE 40MG TAB (PROTONIX) PO SCH ×2 (09:03→20:31)
[2021-11-17] MEDS: BENZONATATE 100MG CAPSULE PO SCH ×3 (09:03→20:31)
[2021-11-17] MEDS ORDERED: POTASSIUM CHLORIDE 10MEQ SR TABLET PO ONE ×2 (11:45→13:45)
[2021-11-17] MEDS: MAG SULF 1GM/100ML (MAG RUN) 1 GM in IV 1 EA IV SCH ×2 (11:49→13:11)
[2021-11-17 14:00] VITALS: BP_SYST 116; BP_SYST 65; BP_DIAS 65
[2021-11-17 21:00] VITALS: BP 124/65
[2021-11-18] MEDS: HEPARIN SOD (PORCINE) 5000UNITS/ML 1ML VIAL/SYRINGE SC SCH ×3 (05:17→20:32)
[2021-11-18] MEDS: LevoFLOXacin 750 MG TABLET PO SCH (05:17)
[2021-11-18 06:00] VITALS: BP 135/74
[2021-11-18 06:14] LABS: BASO % 0.3 % (0.0-1.0); EOS % 0.3 % (0.0-3.0); HEMOGLOBIN 11.2 g/dl (12.0-15.5); LYMPH # 1.4 10^3/uL (1.5-5.0); LYMPH % 12.3 % (24.0-44.0); MEAN CORPUSCULAR HEMOGLOBIN 26.4 pg (27.0-33.0); MEAN CORPUSCULAR HGB CONC 31.1 g/dl (32.0-36.5); MEAN CORPUSCULAR VOLUME 84.9 fl (80.0-96.0); MONO # 0.8 10^3/uL (0.0-0.8); MONO % 6.7 % (2.0-8.0); NEUTROPHILS # 9.3 10^3/uL (1.5-8.5); NEUTROPHILS % 79.8 % (36.0-66.0); PLATELET COUNT, AUTOMATED 448 10^3/uL (150-450); RED BLOOD COUNT 4.24 10^6/uL (4.00-5.40); WHITE BLOOD COUNT 11.7 10^3/uL (4.0-10.0)
[2021-11-18 06:22] LABS: BLOOD UREA NITROGEN 17 MG/DL (7-18); CARBON DIOXIDE LEVEL 29 MEQ/L (21-32); CHLORIDE LEVEL 102 MEQ/L (98-107); GLOMERULAR FILTRATION RATE > 60.0 (>32); GLUCOSE, FASTING 80 MG/DL (70-100); PHOSPHORUS LEVEL 3.2 MG/DL (2.5-4.9); POTASSIUM SERUM 3.7 MEQ/L (3.5-5.1); SODIUM LEVEL 139 MEQ/L (136-145)
[2021-11-18 08:15] VITALS: BP 125/75
[2021-11-18] MEDS: DIGOXIN 0.125 MG TAB PO SCH (09:34)
[2021-11-18] MEDS: MIDODRINE 5 MG TAB PO SCH ×3 (09:34→16:35)
[2021-11-18] MEDS: FERROUS SULFATE 325MG TAB PO SCH ×2 (09:35→20:32)
[2021-11-18] MEDS: ACETAMINOPHEN 650MG ER TAB (TYLENOL ARTHRITIS) PO SCH (09:35)
[2021-11-18] MEDS: K-PHOS ORIGINAL (POT.ACID PHOSPHATE) 500MG TAB PO SCH ×2 (09:35→20:32)
[2021-11-18] MEDS: SUCRALFATE 1 GM TAB PO SCH ×4 (09:35→20:32)
[2021-11-18] MEDS: BENZONATATE 100MG CAPSULE PO SCH ×3 (09:35→20:32)
[2021-11-18] MEDS: FOLIC ACID 1 MG TAB PO SCH (09:35)
[2021-11-18] MEDS: TORSEMIDE 20 MG TAB PO SCH ×2 (09:35→16:35)
[2021-11-18] MEDS: PANTOPRAZOLE 40MG TAB (PROTONIX) PO SCH ×2 (09:35→20:32)
[2021-11-18] MEDS: guaiFENesin ER 600 MG TAB PO SCH ×2 (09:35→20:32)
[2021-11-18] MEDS: CHLORHEXIDINE GLUCONATE 0.12 % 15ML UDC (PERIDEX ORAL RINSE) MT SCH ×2 (09:36→20:33)
[2021-11-18 11:46] VITALS: BP 129/74
[2021-11-18 14:10] VITALS: BP 128/73
[2021-11-18] MEDS ORDERED: IBUPROFEN 400MG TAB PO PRN (21:50)
[2021-11-18 22:00] VITALS: BP 127/76
[2021-11-19] MEDS: HEPARIN SOD (PORCINE) 5000UNITS/ML 1ML VIAL/SYRINGE SC SCH (05:45)
[2021-11-19 06:00] VITALS: BP 113/76
[2021-11-19] MEDS: SUCRALFATE 1 GM TAB PO SCH ×2 (07:43→11:55)
[2021-11-19] MEDS: MIDODRINE 5 MG TAB PO SCH ×2 (07:43→11:55)
[2021-11-19] MEDS: K-PHOS ORIGINAL (POT.ACID PHOSPHATE) 500MG TAB PO SCH (08:07)
[2021-11-19] MEDS: FERROUS SULFATE 325MG TAB PO SCH (08:07)
[2021-11-19] MEDS: ACETAMINOPHEN 650MG ER TAB (TYLENOL ARTHRITIS) PO SCH (08:07)
[2021-11-19] MEDS: BENZONATATE 100MG CAPSULE PO SCH (08:08)
[2021-11-19] MEDS: TORSEMIDE 20 MG TAB PO SCH (08:08)
[2021-11-19] MEDS: CHLORHEXIDINE GLUCONATE 0.12 % 15ML UDC (PERIDEX ORAL RINSE) MT SCH (08:08)
[2021-11-19] MEDS: FOLIC ACID 1 MG TAB PO SCH (08:08)
[2021-11-19] MEDS: guaiFENesin ER 600 MG TAB PO SCH (08:08)
[2021-11-19] MEDS: PANTOPRAZOLE 40MG TAB (PROTONIX) PO SCH (08:09)
[2021-11-19] MEDS ORDERED: PERI12LIQ MT (09:56)
[2021-11-19] MEDS ORDERED: BENZ-18 PO (09:56)
[2021-11-19] MEDS ORDERED: TORS20TA2 PO (09:56)
[2021-11-19 11:45] VITALS: BP 108/60
[2021-11-19] MEDS ORDERED: LISI5TAB11 PO (14:07)
[2021-11-19] MEDS ORDERED: FERR325T3 PO (14:12)
== END 2021-11-19 12:07 | DRG 291 ==
LOC: EDBD 13:03 → M ED 13:03 → M ED INP 16:49 → ENRESERV 11-13 16:24 → M MSPAV 11-13 17:17
PROVIDERS: ADMIT Internal Medicine; ATTEND Internal Medicine
DX: I11.0 Hypertensive heart disease with heart failure (principal); J18.9 Pneumonia, unspecified organism; I50.23 Acute on chronic systolic (congestive) heart failure; I48.91 Unspecified atrial fibrillation; I27.20 Pulmonary hypertension, unspecified; I35.0 Nonrheumatic aortic (valve) stenosis; M06.9 Rheumatoid arthritis, unspecified; Z85.3 Personal history of malignant neoplasm of breast; Z90.13 Acquired absence of bilateral breasts and nipples; Z92.21 Personal history of antineoplastic chemotherapy; E55.9 Vitamin D deficiency, unspecified; Z90.79 Acquired absence of other genital organ(s); K21.9 Gastro-esophageal reflux disease without esophagitis; Z79.2 Long term (current) use of antibiotics; Z79.899 Other long term (current) drug therapy; Z79.52 Long term (current) use of systemic steroids; Z91.040 Latex allergy status; Z91.012 Allergy to eggs; Z91.013 Allergy to seafood; Z20.822 Contact with and (suspected) exposure to COVID-19; Z66 Do not resuscitate; R94.31 Abnormal electrocardiogram [ECG] [EKG]; R09.02 Hypoxemia; L97.529 Non-pressure chronic ulcer of other part of left foot with unspecified severity; L97.519 Non-pressure chronic ulcer of other part of right foot with unspecified severity; G93.3 Postviral and related fatigue syndromes; L89.150 Pressure ulcer of sacral region, unstageable

== ENCOUNTER → 2021-11-12 | Outpatient (REF) ==
[~2021-11-12] MED LIST changes: +FERR325T3 PO; +HYDR28OI7 TP; +LISI2.5T8 PO; +LISI5TAB11 PO; +PERI12LIQ MT; +TORS20TA2 PO
[2021-11-12 12:13] LABS: HEMATOCRIT 34.2 % (36.0-47.0); HEMOGLOBIN 10.3 g/dl (12.0-15.5); MEAN CORPUSCULAR HEMOGLOBIN 25.8 pg (27.0-33.0); MEAN CORPUSCULAR HGB CONC 30.1 g/dl (32.0-36.5); MEAN CORPUSCULAR VOLUME 85.7 fl (80.0-96.0); PLATELET COUNT, AUTOMATED 388 10^3/uL (150-450); RED BLOOD COUNT 3.99 10^6/uL (4.00-5.40); WHITE BLOOD COUNT 19.3 10^3/uL (4.0-10.0)
== END ==
LOC: SKLAB4 12:19
PROVIDERS: ATTEND Internal Medicine
DX: J18.9 Pneumonia, unspecified organism (principal)

== ENCOUNTER → 2021-11-21 | Outpatient (REF) | payer MEDICARE ==
[~2021-11-21] MED LIST changes: +AMOX500T2 PO; +AQUAOIN12 TP; +FERR325T3 PO; +FURO80TA2 PO; +HYDR28OI7 TP; +IPRA0.00 NEB; +LISI2.5T8 PO; +LISI5TAB11 PO; +NYST50SS SS; +PERI12LIQ MT; +PRED20TA PO; +TORS20TA2 PO
[2021-11-21 11:12] LABS: HEMATOCRIT 37.2 % (36.0-47.0); HEMOGLOBIN 11.5 g/dl (12.0-15.5); MEAN CORPUSCULAR HEMOGLOBIN 26.7 pg (27.0-33.0); MEAN CORPUSCULAR HGB CONC 30.9 g/dl (32.0-36.5); MEAN CORPUSCULAR VOLUME 86.3 fl (80.0-96.0); PLATELET COUNT, AUTOMATED 488 10^3/uL (150-450); RED BLOOD COUNT 4.31 10^6/uL (4.00-5.40); WHITE BLOOD COUNT 11.6 10^3/uL (4.0-10.0)
[2021-11-21 11:37] LABS: CALCIUM LEVEL 8.5 MG/DL (8.8-10.2); CREATININE FOR GFR 0.96 MG/DL (0.55-1.30); GLOMERULAR FILTRATION RATE 58.9 (>32); POTASSIUM SERUM 3.3 MEQ/L (3.5-5.1)
== END ==
LOC: SKLAB4 07:00
PROVIDERS: ATTEND Internal Medicine
DX: D72.829 Elevated white blood cell count, unspecified (principal); I50.9 Heart failure, unspecified

== ENCOUNTER 2021-11-22 06:30 | Emergency (ER) | payer MEDICARE ==
[~2021-11-22] VITALS: Ht 167.6 cm; Wt 50.0 kg
[~2021-11-22 06:30] MED LIST changes: -HYDR28OI7 TP; -LISI2.5T8 PO
[2021-11-22] MEDS ORDERED: MORPHINE 2 MG/ML 1ML VIAL (J2270) IV ONE (07:00)
[2021-11-22] MEDS ORDERED: NS 1,000 ML IV SCH (07:00)
[2021-11-22 07:14] LABS: BASO # 0.1 10^3/uL (0.0-0.2); BASO % 0.5 % (0.0-1.0); EOS # 0.1 10^3/uL (0.0-0.5); EOS % 0.6 % (0.0-3.0); HEMATOCRIT 35.6 % (36.0-47.0); HEMOGLOBIN 11.3 g/dl (12.0-15.5); LYMPH # 1.5 10^3/uL (1.5-5.0); LYMPH % 13.8 % (24.0-44.0); MEAN CORPUSCULAR HEMOGLOBIN 26.7 pg (27.0-33.0); MEAN CORPUSCULAR HGB CONC 31.7 g/dl (32.0-36.5); MEAN CORPUSCULAR VOLUME 84.2 fl (80.0-96.0); MONO # 0.9 10^3/uL (0.0-0.8); MONO % 7.9 % (2.0-8.0); NEUTROPHILS # 8.6 10^3/uL (1.5-8.5); NEUTROPHILS % 76.6 % (36.0-66.0); PLATELET COUNT, AUTOMATED 487 10^3/uL (150-450); RED BLOOD COUNT 4.23 10^6/uL (4.00-5.40); WHITE BLOOD COUNT 11.2 10^3/uL (4.0-10.0)
[2021-11-22 07:24] LABS: INR 1.05; PROTHROMBIN TIME 14.1 SECONDS (12.7-14.5)
[2021-11-22 07:42] LABS: CK-MB VALUE MASS 7.1 NG/ML (<3.6); MB/CK RELATIVE INDEX 33.81 (< OR =4)
[2021-11-22] MEDS ORDERED: ASPIRIN 81 MG CHEW TABLET PO ONE (07:50)
[2021-11-22 07:51] LABS: BLOOD UREA NITROGEN 42 MG/DL (7-18); CALCIUM LEVEL 8.2 MG/DL (8.8-10.2); CARBON DIOXIDE LEVEL 31 MEQ/L (21-32); CHLORIDE LEVEL 97 MEQ/L (98-107); CREATININE FOR GFR 0.81 MG/DL (0.55-1.30); DIGOXIN LEVEL 1.3 NG/ML (0.5-2.0); GLOMERULAR FILTRATION RATE > 60.0 (>32); GLUCOSE, FASTING 95 MG/DL (70-100); NT-PRO BNP 2382 PG/ML (<450); POTASSIUM SERUM 3.3 MEQ/L (3.5-5.1); SODIUM LEVEL 136 MEQ/L (136-145)
[2021-11-22 10:44] LABS: CK-MB VALUE MASS 7.7 NG/ML (<3.6); MB/CK RELATIVE INDEX 24.84 (< OR =4)
[2021-11-22] MEDS ORDERED: HYDR28OI7 TP (11:46)
[2021-11-22] MEDS ORDERED: LISI5TAB11 PO (12:14)
[2021-11-22] MEDS ORDERED: LISI2.5T8 PO (12:14)
[2021-11-22] MEDS ORDERED: HOME MED LIST COMPLETE! XX SCH (12:25)
[2021-11-22 12:30] VITALS: BP 127/60
== END 2021-11-22 13:02 | disposition home or self-care (01) ==
LOC: M ED 06:30
DX: M94.0 Chondrocostal junction syndrome [Tietze] (principal); M62.838 Other muscle spasm; I11.0 Hypertensive heart disease with heart failure; I50.9 Heart failure, unspecified; I48.91 Unspecified atrial fibrillation; M06.9 Rheumatoid arthritis, unspecified; K21.9 Gastro-esophageal reflux disease without esophagitis; E55.9 Vitamin D deficiency, unspecified; Z92.21 Personal history of antineoplastic chemotherapy; Z85.3 Personal history of malignant neoplasm of breast; Z95.0 Presence of cardiac pacemaker; Z91.012 Allergy to eggs; Z91.018 Allergy to other foods; Z91.048 Other nonmedicinal substance allergy status; Z79.899 Other long term (current) drug therapy; Z87.891 Personal history of nicotine dependence
CPT/HCPCS: 71045; 80048; 80162; 82550; 82553; 83880; 84484; 85025; 85610; 93005; 93041; 94760; 96361; 96374; 99285; J2270

== ENCOUNTER 2021-11-25 16:58 | Emergency (ER) | payer MEDICARE ==
[~2021-11-25] VITALS: Ht 167.6 cm; Wt 54.0 kg
[2021-11-25] MEDS ORDERED: KCL 10MEQ/100ML SWI (KRUN) 10 MEQ in IV 1 EA IV ONE (17:40)
[2021-11-25] MEDS ORDERED: POTASSIUM CHLORIDE 10% LIQ 20 MEQ/15 ML UDC PO ONE (17:40)
[2021-11-25 18:32] LABS: BASO # 0.1 10^3/uL (0.0-0.2); BASO % 0.5 % (0.0-1.0); EOS # 0.1 10^3/uL (0.0-0.5); EOS % 0.9 % (0.0-3.0); HEMATOCRIT 39.1 % (36.0-47.0); HEMOGLOBIN 12.2 g/dl (12.0-15.5); LYMPH # 1.4 10^3/uL (1.5-5.0); LYMPH % 9.2 % (24.0-44.0); MEAN CORPUSCULAR HEMOGLOBIN 26.7 pg (27.0-33.0); MEAN CORPUSCULAR HGB CONC 31.2 g/dl (32.0-36.5); MEAN CORPUSCULAR VOLUME 85.6 fl (80.0-96.0); MONO # 0.9 10^3/uL (0.0-0.8); NEUTROPHILS # 12.4 10^3/uL (1.5-8.5); NEUTROPHILS % 82.9 % (36.0-66.0); PLATELET COUNT, AUTOMATED 451 10^3/uL (150-450); RED BLOOD COUNT 4.57 10^6/uL (4.00-5.40); WHITE BLOOD COUNT 14.9 10^3/uL (4.0-10.0)
[2021-11-25 20:10] LABS: ALBUMIN 2.1 GM/DL (3.2-5.2); ALT/SGPT 27 U/L (12-78); BILIRUBIN,DIRECT 0.2 MG/DL (0.0-0.2); BILIRUBIN,TOTAL 0.4 MG/DL (0.2-1.0); BLOOD UREA NITROGEN 49 MG/DL (7-18); CALCIUM LEVEL 7.9 MG/DL (8.8-10.2); CARBON DIOXIDE LEVEL 31 MEQ/L (21-32); CHLORIDE LEVEL 98 MEQ/L (98-107); DIGOXIN LEVEL 1.1 NG/ML (0.5-2.0); GLOMERULAR FILTRATION RATE > 60.0 (>32); GLUCOSE, FASTING 88 MG/DL (70-100); LIPASE 147 U/L (73-393); MAGNESIUM LEVEL 1.9 MG/DL (1.8-2.4); NT-PRO BNP 1899 PG/ML (<450); POTASSIUM SERUM 3.5 MEQ/L (3.5-5.1); SODIUM LEVEL 135 MEQ/L (136-145); TOTAL PROTEIN 5.8 GM/DL (6.4-8.2)
[2021-11-25 21:30] VITALS: BP 100/51
== END 2021-11-25 22:10 | disposition home or self-care (01) ==
LOC: M ED 16:58
DX: E87.6 Hypokalemia (principal); I48.91 Unspecified atrial fibrillation; R94.31 Abnormal electrocardiogram [ECG] [EKG]; M19.019 Primary osteoarthritis, unspecified shoulder; Z79.899 Other long term (current) drug therapy; Z91.89 Other specified personal risk factors, not elsewhere classified; Z91.013 Allergy to seafood; Z91.012 Allergy to eggs
CPT/HCPCS: 71045; 80048; 80076; 80162; 83690; 83735; 83880; 84443; 85025; 93005; 93041; 94760; 96365; 99285; J3480

== ENCOUNTER → 2021-11-25 | Outpatient (REF) ==
[~2021-11-25] MED LIST changes: +HYDR28OI7 TP; +LISI2.5T8 PO
[2021-11-25 14:33] LABS: HEMATOCRIT 35.4 % (36.0-47.0); HEMOGLOBIN 10.9 g/dl (12.0-15.5); MEAN CORPUSCULAR HEMOGLOBIN 26.7 pg (27.0-33.0); MEAN CORPUSCULAR HGB CONC 30.8 g/dl (32.0-36.5); MEAN CORPUSCULAR VOLUME 86.8 fl (80.0-96.0); PLATELET COUNT, AUTOMATED 456 10^3/uL (150-450); RED BLOOD COUNT 4.08 10^6/uL (4.00-5.40); WHITE BLOOD COUNT 16.7 10^3/uL (4.0-10.0)
[2021-11-25 15:05] LABS: BLOOD UREA NITROGEN 54 MG/DL (7-18); CALCIUM LEVEL 8.5 MG/DL (8.8-10.2); CARBON DIOXIDE LEVEL 31 MEQ/L (21-32); CHLORIDE LEVEL 96 MEQ/L (98-107); CREATININE FOR GFR 0.86 MG/DL (0.55-1.30); GLOMERULAR FILTRATION RATE > 60.0 (>32); GLUCOSE, FASTING 112 MG/DL (70-100); POTASSIUM SERUM 2.7 MEQ/L (3.5-5.1); SODIUM LEVEL 134 MEQ/L (136-145)
== END ==
LOC: SKLAB4 13:20
PROVIDERS: ATTEND Internal Medicine
DX: I95.9 Hypotension, unspecified (principal)

== ENCOUNTER → 2021-11-27 | Outpatient (REF) ==
[2021-11-27 11:14] LABS: BLOOD UREA NITROGEN 44 MG/DL (7-18); CALCIUM LEVEL 8.9 MG/DL (8.8-10.2); CARBON DIOXIDE LEVEL 28 MEQ/L (21-32); CHLORIDE LEVEL 99 MEQ/L (98-107); CREATININE FOR GFR 0.83 MG/DL (0.55-1.30); GLOMERULAR FILTRATION RATE > 60.0 (>32); GLUCOSE, FASTING 91 MG/DL (70-100); POTASSIUM SERUM 3.1 MEQ/L (3.5-5.1); SODIUM LEVEL 135 MEQ/L (136-145)
== END ==
LOC: SKLAB4 07:00
PROVIDERS: ATTEND Internal Medicine
DX: E87.6 Hypokalemia (principal)

== ENCOUNTER → 2021-11-29 | Outpatient (REF) | LOC: SKLAB4 07:00 | PROVIDERS: ATTEND Nurse Practitioner Family | DX: E87.6 Hypokalemia (principal); Z53.9 Procedure and treatment not carried out, unspecified reason ==